=== PATIENT | female | born 1995 | race Caucasian/White ===

== ENCOUNTER 2017-01-13 20:34 | Emergency (ER) | payer MEDICAID ==
[~2017-01-13] VITALS: Ht 160 cm; Wt 70.8 kg
[~2017-01-13 20:34] MED LIST: AMOXICOT500 M1 PO; BACTRIM DS 8001 TA1 PO; BACTRIM DS 8001 TAB PO; CIPRO 500MG TA500 MG PO; EX-LAX25 MG PO; FLAGYL 500MG.500 MG PO; HYDROCODONE-APA1 TA1 PO; KEFLEX 500MG.500 MG PO; KEPPRA 500 MG500 MG PO; KEPPRA500 MG PO; MACROBID100 M3 PO; MOTRIN600 MG PO; NAPROSYN500 M1 PO; NOMEDS XX; NORCO 325 MG-51 TAB PO; ONDANSETRON4 M1 PO; PHENERGAN 25MG.25 M1 PO; PREDNISONE 20MG20 MG PO; PREDNISONE20 MG PO; PRENATAL PLUS1 TA1 PO; PYRIDIUM100 M2 PO; REGLAN10 M1 PO; SEPTRA DS 800 M1 TAB PO; TESSALON PERLE100 MG PO; TYLENOL W/CODEI1 TA2 PO; VIBRAMYCIN HYC100 MG PO; ZOFRAN ODT4 MG PO
[2017-01-13] MEDS ORDERED: KEPPRA1000 MG PO (20:48)
--- NOTE | 2017-01-13 20:59 | Urgent Treatment Center Report ---
History of Present Issue Date/Time Seen by Provider 01/13/172058 Visit Reason Pt arrived:Walked Presenting Problem:PT STATES RASH TO ARMS, LEGS AND NECK THAT BEGAN TWO HOURS AGO Location if Accident: Onset of symptoms date/time:01/13/17/ or onset unknown for:MEDICAL HX UNKNOWN Have you (or family members/close friends) recently traveled outside the [place]? N If Yes, where/when: Have you had exposure to infectious disease within the past month? TB? Other? Specify: Patient states that she noticed a rash on her upper arms about 2 hours ago state that she noticed the one on her right elbow was the most swollen, states that she also noticed that she had a couple of spots on her back too States that areas itch and looks like something may have bitten her ALLERGIES Coded Allergies: ORANGE (FOOD) (ORANGES) (THROAT SWELLING 07/11/16) Penicillins (01/13/17) Home Medications Reported Medications Levetiracetam (Keppra) 1,000 MG PO DAILY History Medical History General CAD? No Angina: No CT: No Hypertension? No Hyperlipidemia? No CHF? No DVT? No PE? No COPD? No Asthma? No Anemia? No GERD? No Gastric ulcers? No GI Bleed? No Hernia? No Thyroid Problems? No Hypothyroidism? No CVA? No Seizures? Yes Diabetes? No Renal Insuffiency? No UTI? No Stones? No BPH? No GB Disease: No Nephritic Syndrome? No Asplenia? No Hepatitis? No Sickle Cell Disease? No Arthritis? No Migraines? No Cataracts? No Glaucoma? No MRSA? No HIV? No TB? No Anxiety? No Depression? No Cancer? No More? 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 No: respiratory distress. 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 No Results/Orders Current Medication Orders Sig/Spenser Start time Last Medication Dose Route Stop Time Status Admin Diphenhydramine HCl 50 MG ONCE ONE 01/13 2115 DC 01/13 IM 01/13 Famotidine 20 MG ONCE ONE 01/13 2115 DC 01/13 PO 01/13 Loratadine 10 MG ONCE ONE 01/13 2115 DC 01/13 PO 01/13 Methylprednisolone 125 MG ONCE ONE 01/13 2115 DC 01/13 Sodium Succinate IM 01/13 Methylprednisolone 0 .STK-MED ONE 01/14 2108 DC Sodium Succinate .ROUTE Diphenhydramine HCl 0 .STK-MED ONE 01/13 2107 DC .ROUTE Famotidine 0 .STK-MED ONE 01/13 2107 DC .ROUTE Loratadine 0 .STK-MED ONE 01/13 2107 DC PO Progress [facility] Progress Notes Date 01/13/17 Time 2142 Comment After medication patient rash much improved no longer red, and continuing to improve. Some areas rash now gone Departure Departure Time of Disposition 2143 Disposition DC Home or Self Care(routine) Clinical Impression Primary Impression: Allergic reaction, urticaria Condition STABLE Referrals NO REFERRAL (Family) Patient Instructions DI for General Allergic Reactions, DI for Hives, Urticaria (Alternative Therapy) Additional Instructions Over the counter Benadryl to help with itching Follow up with family doctor Return if needed Take medication as prescribed Watch for rash to improve or worsen and if you began to have any trouble breathing or worsening of rash go straight to the ER Discharge Counseling Counseled pt/family regarding diagnosis, medications/RX, home care, follow up needs Prescriptions Current Visit Scripts Methylprednisolone (Medrol Dose Merritt) 4 MG PO UD #1 MERRITT TAKE DIRECTED ON PACKAGING at 2148
--- NOTE | 2017-01-13 20:59 | Urgent Treatment Center Report ---
History of Present Issue Date/Time Seen by Provider 01/13/172058 Visit Reason Pt arrived:Walked Presenting Problem:PT STATES RASH TO ARMS, LEGS AND NECK THAT BEGAN TWO HOURS AGO Location if Accident: Onset of symptoms date/time:01/13/17/ or onset unknown for:MEDICAL HX UNKNOWN Have you (or family members/close friends) recently traveled outside the [place]? N If Yes, where/when: Have you had exposure to infectious disease within the past month? TB? Other? Specify: Patient states that she noticed a rash on her upper arms about 2 hours ago state that she noticed the one on her right elbow was the most swollen, states that she also noticed that she had a couple of spots on her back too States that areas itch and looks like something may have bitten her ALLERGIES Coded Allergies: ORANGE (FOOD) (ORANGES) (THROAT SWELLING 07/11/16) Penicillins (01/13/17) Home Medications Reported Medications Levetiracetam (Keppra) 1,000 MG PO DAILY History Medical History General CAD? No Angina: No GA: No Hypertension? No Hyperlipidemia? No CHF? No DVT? No PE? No COPD? No Asthma? No Anemia? No GERD? No Gastric ulcers? No GI Bleed? No Hernia? No Thyroid Problems? No Hypothyroidism? No CVA? No Seizures? Yes Diabetes? No Renal Insuffiency? No UTI? No Stones? No BPH? No GB Disease: No Nephritic Syndrome? No Asplenia? No Hepatitis? No Sickle Cell Disease? No Arthritis? No Migraines? No Cataracts? No Glaucoma? No MRSA? No HIV? No TB? No Anxiety? No Depression? No Cancer? No More? 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 No: respiratory distress. 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 No Results/Orders Current Medication Orders Sig/Spenser Start time Last Medication Dose Route Stop Time Status Admin Diphenhydramine HCl 50 MG ONCE ONE 01/13 2115 DC 01/13 IM 01/13 Famotidine 20 MG ONCE ONE 01/13 2115 DC 01/13 PO 01/13 Loratadine 10 MG ONCE ONE 01/13 2115 DC 01/13 PO 01/13 Methylprednisolone 125 MG ONCE ONE 01/13 2115 DC 01/13 Sodium Succinate IM 01/13 Methylprednisolone 0 .STK-MED ONE 01/14 2108 DC Sodium Succinate .ROUTE Diphenhydramine HCl 0 .STK-MED ONE 01/13 2107 DC .ROUTE Famotidine 0 .STK-MED ONE 01/13 2107 DC .ROUTE Loratadine 0 .STK-MED ONE 01/13 2107 DC PO Progress [facility] Progress Notes Date 01/13/17 Time 2142 Comment After medication patient rash much improved no longer red, and continuing to improve. Some areas rash now gone Departure Departure Time of Disposition 2143 Disposition DC Home or Self Care(routine) Clinical Impression Primary Impression: Allergic reaction, urticaria Condition STABLE Referrals NO REFERRAL (Family) Patient Instructions DI for General Allergic Reactions, DI for Hives, Urticaria (Alternative Therapy) Additional Instructions Over the counter Benadryl to help with itching Follow up with family doctor Return if needed Take medication as prescribed Watch for rash to improve or worsen and if you began to have any trouble breathing or worsening of rash go straight to the ER Discharge Counseling Counseled pt/family regarding diagnosis, medications/RX, home care, follow up needs Prescriptions Current Visit Scripts Methylprednisolone (Medrol Dose Merritt) 4 MG PO UD #1 MERRITT TAKE DIRECTED ON PACKAGING at 2148
--- OUTSIDE RECORDS SUMMARY | 2017-01-13 21:45 | External Medical Summary Rpt ---
Author Author , MARLON Castellanos MARLON Address Unknown Phone [email or web address] Care Team Providers Care Oncology Technician Name Role Phone PETE LIMON Unavailable Unavailable [facility] Unavailable Unavailable [facility]ATOR[facility], [facility] Unavailable Unavailable [facility]ATORIES, [facility] MCKINNEY, MCKINNEY Unavailable Unavailable [facility] Unavailable Unavailable SERVICE, [facility] Unavailable Unavailable SERVICE, [facility] ASTORGA CAR, ASTORGA Unavailable Unavailable CAR [facility], Unavailable Unavailable [facility] CHIPPS SONJA & Unavailable Unavailable DUBILIER, CHIPPS SONJA & DUBILIER HERNANDEZ OLIVIA, HERNANDEZ Unavailable Unavailable OLIVIA [facility], Unavailable Unavailable [facility] Unavailable [facility]available [facility] RA AMANDA, Unavailable Unavailable RA AMANDA RA, SUSHANT, Unavailable Unavailable RA, SUSHANT TOSHA II THO, TOSHA II Unavailable Unavailable THO MARISA PARESH, MARISA Unavailable Unavailable PARESH [facility] Unavailable [facility] ROXANNA KIRKPATRICK, Unavailable Unavailable ROXANNA KIRKPATRICK [facility], Unavailable Unavailable [facility] Unavailable Unavailable [facility], [facility], JOSE LUIS Unavailable Unavailable MAICOL ZE PENA Unavailable Unavailable DONALDO [facility] Unavailable Unavailable HOSPITA, [facility] NATASHA LARSEN MD, Unavailable Unavailable CHAVA VACA MD Unavailable Unavailable MARQUIS [facility] Unavailable Unavailable INC, [facility] Unavailable Unavailable HOSPITAL P, [facility], Unavailable Unavailable [facility] ARNOLD AMANDA, ARNOLD AMANDA Unavailable Unavailable AMOL III TARIQ, Unavailable Unavailable AMOL III TARIQ [facility] Un[facility], [facility] Unavailable Unavailable [facility], [facility] JR DWI, DANISH Unavailable Unavailable JR DWI [facility] Unavailable Unavailable COGOVT, LIGIA FAYETTE [facility] COGOVT LONG, LONG Unavailable Unavailable NIRMALA LEONARD, Unavailable Unavailable NIRMALA LEONARD, Unavailable Unavailable KIERRA LOZADA GRE, Unavailable Unavailable KIERRA GRE [facility] Unavailable Unavailable AMBULANCE, [facility] Unavailable Unavailable ASS[facility]AT, [facility] Unavailable Unavailable MEDICAL, [facility] MERHAR, MERHAR Unavailable Unavailable MUHA, MUHA Unavailable Unavailable MUHA, MUHA Unavailable Unavailable [facility] Unavailable Unavailable [facility], [facility] O[facility]RI DI, O'ADRI Unavailable Unavailable DI [facility], OVERALL Unavailable Unavailable PH[facility], Unavailable [facility]available [facility], [facility] PORNOY JORGE, PORNOY Unavailable Unavailable JORGE RENUSCH GOLDIE, RENUSCH Unavailable Unavailable GOLDIE ASHLI GRICEL, Unavailable Unavailable ASHLI GARZA JOSE, KAYLA JOSE Unavailable Unavailable SCALF CHUY, SCALF CHUY Unavailable Unavailable SCIFRES, KEARA M, Unavailable Unavailable SCIFRES, KEARA M MATTHEWS NICOLE, MATTHEWS Unavailable Unavailable [facility] LYNN SHE, Unavailable Unavailable LYNN SHE [facility] Unavailable Unavailable MEDIC, [facility] Unavailable Unavailable EMERGENCY, [facility] Unavailable Unavailable HOSPITALS, [facility], Unavailable Unavailable [facility], [place] Unavailable Unavailable [place] [facility], [place] [facility] Unavailable Unavailable Purpose Continuity of Care Document - 05-05-2008 through 2016 Problems Code Diagnosis DOS Provider Status G441 VASCULAR 11-25-2016 MUHA HEADACHE NOT ELSEWHERE CLASSIFIED 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 PERIPHERAL N EMERGENCY VERTIGO PHYS UNSPECIFIED EAR J322 CHRONIC 07-21-2016 [facility] ETHMOIDAL N EMERGENCY SINUSITIS PHYS R0789 OTHER CHEST 07-21-2016 [facility] PHYS R42 DIZZINESS 07-21-2016 [place] [facility] G[facility]AT Q69678 ALLERGY TO 07-21-2016 [facility] OTHER FOODS [facility] Z9851 TUBAL 07-21-2016 [facility] C86426 UNSPECIFIED 07-11-2016 [facility] CYST LEFT INC SIDE R1031 RIGHT LOWER 07-11-2016 [facility] [facility] R1032 LEFT LOWER 07-11-2016 [facility] PAIN INC R110 NAUSEA 07-11-2016 [facility] INC R1110 VOMITING 07-11-2016 [facility] R0602 SHORTNESS 12-29-2015 [facility] [place] [facility] R0781 PLEURODYNIA 12-29-2015 [facility] N [facility]ERGENCY PHYS R091 PLEURISY 12-29-2015 [facility] N EMERGENCY PHYS A15156 PERSONAL 12-01-2015 [facility] HISTORY OF [facility] NICOTINE INC DEPENDENCE N3091 CYSTITIS 11-10-2015 [facility] UNSPECIFIED N EMERGENCY WITH PHYS HEMATURIA N3289 OTHER 11-10-2015 [facility] [place] SPECIFIED RADIOLOGY DISORDERS OF BLADDER R1084 GENERALIZED 11-10-2015 [facility] ABDOMINAL N EMERGENCY PAIN PHYS N390 URINARY 11-06-2015 [facility] TRACT [facility], INFECTION [facility] SITE NOT SPECIFIED E860 DEHYDRATION 10-10-2015 [facility] R55 SYNCOPE AND 10-10-2015 [facility] Z392 ENCOUNTER 07-02-2015 [facility] FOR ROUTINE REFERNCE LABORATORIE FOLLOW-UP S Z9889 OTHER 07-02-2015 [facility] SPECIFIED REFERNCE POSTPROCEDU LABORATORIE [facility] STATES S O80 ENCOUNTER 05-10-2015 [facility] FOR ANESTH OF FULL-TERM MERNA HERNANDEZ UNCOMPLICAT ED DELIVERY Z0189 ENCOUNTER 05-10-2015 [facility] OTHER SONJA & SPECIFIED DUBILIER SPECIAL EXAMINATION S Z302 ENCOUNTER 05-10-2015 [facility] FOR ANESTH OF STERILIZATI THE BLUE ON Z370 SINGLE LIVE 05-10-2015 COMMUNITY ANESTH OF MERNA BLUE Z3A37 37 WEEKS 05-10-2015 COMMUNITY GESTATION ANESTH OF OF THE DAVID B373 CANDIDIASIS 05-07-2015 NATASHA Alexandra OF VULVA CHAVA RESENDEZ AND VAGINA Z3483 ENC 05-07-2015 NATASHA Alexandra SUPERVISION CHAVA RESENDEZ OT NORMAL 3 TRIMESTER O471 FALSE LABOR 05-01-2015 NATASHA Alexandra AT/AFTER CHAVA RESENDEZ 37 COMPLETED WEEKS GEST O6003 05-01-2015 [facility]OR [facility] WITHOUT INC DELIVERY THIRD TRIMESTER Z3A36 36 WEEKS 05-01-2015 [facility] GESTATION [facility] OF INC U49321 OTHER SPEC 04-29-2015 [facility] COND 2ND TRIMESTER U01099 OTHER SPEC 04-28-2015 [facility] RELATED INC COND 3RD TRIMESTER Z331 04-28-2015 [facility] INCIDENTAL SERVICE O4703 FALSE LABOR 04-26-2015 [facility] BEFORE 37 MEM HOS[facility] CMPLETE INC WEEKS GEST 3RD TRI Z3A35 35 WEEKS 04-26-2015 [facility] GESTATION [facility] OF INC Z36 ENCOUNTER 04-24-2015 [facility] FOR [facility] INC SCREENING OF MOTHER Z3A34 34 WEEKS 04-17-2015 [facility] GESTATION [facility] OF INC [id number] DECREASED 04-14-2015 [facility] THIRD TRIMESTER NA/UNS O0973 SUP HIGH 04-12-2015 NATASHA Alexandra RISK PREG CHAVA RESENDEZ D/T SOCIAL PROBLEMS THIRD TRI G40A09 ABSENCE 04-11-2015 [facility] NOT INTRACTABLE W/O SE O2693 04-11-2015 [facility] [place] [facility] PSC UNS 3RD TRIMESTER Z3493 ENC 04-09-2015 NATASHA Alexandra SUPERVISION CHAVA RESENDEZ NORMAL UNS 3 TRIMESTER O79780 OTH GEN 04-03-2015 [facility] EPILEPSY [facility] NOT INC INTRACTABLE W/O STATUS EPI O6002 04-03-2015 NATASHA Alexandra LABOR CAHVA RESENDEZ WITHOUT DELIVERY SECOND TRIMESTER Z3A32 32 WEEKS 04-03-2015 [facility] GESTATION [facility] OF INC Z3A31 31 WEEKS 03-29-2015 [facility] OF INC Z3A29 29 WEEKS 03-13-2015 [facility]ATION [facility] OF INC B379 CANDIDIASIS 03-12-2015 [facility] O2393 UNS 03-12-2015 [place] [facility] GENIT[facility] SERV RY TRACT [facility]ATION INF PREG THIRD TRIMESTER O9989 OTH DZ & 03-12-2015 [place] [facility] COND COMP SERV PREG [facility] PUERPERI[facility] R109 UNSPECIFIED 03-12-2015 [place] [facility] ABDOMINAL SERV PAIN [facility] B3749 OTHER 03-11-2015 [facility] CANDIDIASIS K5900 CONSTIPATIO 03-11-2015 [facility] UNSPECIFIED M549 DORSALGIA 03-11-2015 [facility] UNSPECIFIED AMBULANCE SERVICE N1330 UNSPECIFIED 03-11-2015 [facility] HYDRONEPHRO [facility] SIS T95696 03-11-2015 [facility] RENAL [facility] DISEASE UNS TRIMESTER O2690 03-11-2015 [facility] CONDITIONS SERVICE UNS UNS TRIMESTER [id number] MATERNAL 03-11-2015 [facility] [place] [facility] PRESENTATIO N NA/UNS [id number] L & D COMP 03-11-2015 [place] [facility] CORD AROUND SERV NECK W/O FOUNDATION COMPRS NA/UNS Z02521 OTH 03-11-2015 [facility] INF & PARASIT DZ COMP PREG 3RD TRI O623 PRECIPITATE 03-08-2015 NATASHA Alexandra LABOR CHAVA RESENDEZ Z3492 ENC 03-08-2015 [place] [facility] NORMAL [facility] UNS 2 TRIMESTER O331 MAT CARE 03-03-2015 [facility] FAYETTBrenda DISPROPORTI URBAN ON D/T GEN COGOVT CONTRACTED PELV Z3A28 28 WEEKS 03-03-2015 [facility] V221 SUPERVISION 02-27-2015 NATASHA Alexandra OF OTHER CHAVA RESENDEZ NORMAL 39130 THREATENED 02-19-2015 [facility] GROUP ANTEPARTUM 69693 OT CURRENT 02-18-2015 [facility]ICK CONDS [facility] CLASSIFIABL INC E ELSW ANTPRTM V771 SCREENING 02-16-2015 [facility] FOR [facility] DIABETES INC MELLITUS 88402 ASTHMA, 02-03-2015 [facility] UNSPECIFIED [facility] , INC UNSPECIFIED STATUS V222 02-03-2015 [facility] STATE, [facility] INCIDENTAL INC 16540 UNSPECIFIED 01-30-2015 NATASHA Alexandra VAGINITIS CHAVA RESENDEZ AND VULVOVAGINI TIS 62523 HEMORRHAGE 01-30-2015 NATASHA Alexandra FROM CHAVA RESENDEZ PLACENTA PREVIA ANTEPARTUM 47815 OTHER 01-23-2015 [facility] THREATENED [facility] LABOR, INC ANTEPARTUM 83315 ERLY ONSET 01-23-2015 JUAN DIEGO DELIV DELIV AMBULANCE W/WO SERVICE MENTION ANTPRTM COND 00391 ABDOMINAL 01-23-2015 [facility] OTHER AMBULANCE SPECIFIED SERVICE SITE 26343 OTHER 01-15-2015 [facility] SPECIFED [facility] COMPLICATIO INC N ANTEPARTUM V2889 OTHER 12-19-2014 [facility] SPECIFIED [facility] INC SCREENING 3670 HYPERMETROP 12-18-2014 [place] [address] UNSPEC COMP 12-04-2014 [facility] UNSPEC SERVICE EPISODE CARE 37512 ABDOMINAL 12-04-2014 [facility] PAIN, [facility] UNSPECIFIED INC SITE 7840 HEADACHE 11-15-2014 [facility] 53015 CHEST PAIN 11-15-2014 [facility] UNSPECIFIED PHYSICIANS, [facility] 92651 PAP SMER 10-24-2014 NATASHA Alexandra CERV CHAVA RESENDEZ W/ATYPICAL SQUAMOUS CELLS UNDET 6259 UNSPEC 10-07-2014 [facility] SYMPTOM [facility]Y ASSOC PHYS W/FEMALE GENITAL ORGANS 6268 OTH D/O 09-28-2014 NATASHA Alexandra MENSTRUATIO CHAVA RESENDEZ N&OTH ABN BLEED FE GNT TRACT 74599 THREATENED 09-28-2014 NATASHA Alexandra CHAVA MD ANTEPARTUM V7231 ROUTINE 09-28-2014 NATASHA Alexandra GYNECOLOGIC CHAVA RESENDEZ AL EXAMINATION 5990 URINARY 09-17-2014 [facility] TRACT [facility] INFECTION INC SITE NOT SPECIFIED 4619 ACUTE 08-24-2014 [facility] SINUSITIS, [facility] UNSPECIFIED INC 5589 OTH&UNSPEC 08-18-2014 RYAN NONINFECTIO [facility] ITIS&COLITI S 7873 FLATULENCE 08-18-2014 [place] [facility] PAIN 55266 ABDOMINAL 08-18-2014 [place] PA[facility], LEFT MEDICAL UPPER IMAGING ASS QU[facility]ANT V692 PROBLEMS 08-02-2014 [facility] RELATED TO [facility] HIGH-RISK INC SEXUAL BEHAVIOR 9165 HIP THIGH 06-26-2014 [facility] LEG&ANK [facility] INSECT BITE [facility] P NONVENOMOUS INF V1582 PERS HX 06-26-2014 [facility] TOBACCO USE [facility] 82326 ABDOMINAL 03-09-2014 [facility] PAIN RIGHT REGIONAL UPPER MEDIC QUADRANT 85766 UNSPECIFIED 12-13-2013 [facility] VIRAL REGIONAL INFECTION EMERGENCY IN CCE & UNS SITE 81865 FEVER 12-13-2013 [facility] UNSPECIFIED REGIONAL EMERGENCY 7862 COUGH 08-07-2013 [facility] 4660 ACUTE 09-25-2008 [facility] BRONCHITIS [facility] INC 490 BRONCHITIS 09-25-2008 [facility] EMERGENCY SPECIFIED SERVICES ACUTE OR ASSOCIATES CHRONIC 90143 SHORTNESS 09-25-2008 [facility] 02789 UNSPECIFIED 09-05-2008 [facility] CONSTIPATIO SERVICES N ASSOCIATES 3671 MYOPIA 05-05-2008 [facility] M25.531 PAIN IN RIGHT WRIST Medications Na ND Rx Da Fi Fi Am Da Di Ph RX Ph St me C No te ll ll ou ys ag ar # ys at rm s nt no ma ic us Or Da si cy ia de te s n re d LE 16 07 08 60 30 00 TO Ac VE 71 -1 -0 .0 00 TA ti TI 40 2- 4- 00 07 L ve RA 35 20 20 61 CA CE 70 17 17 94 RE TA 1 56 M PH 1, AR 00 MA 0 CY MG #2 TA BL ET LE 16 05 06 60 30 00 TO Ac VE 71 -2 -1 .0 00 TA ti TI 40 4- 6- 00 07 L ve RA 35 20 20 61 CA CE 70 17 17 94 RE TA 1 56 M PH 1, AR 00 MA 0 CY MG #2 TA BL ET LE 16 03 03 60 30 00 TO Ac VE 71 -0 -3 .0 00 TA ti TI 40 9- 1- 00 07 L ve RA 35 20 20 61 CA CE 70 17 17 94 RE TA 1 56 M PH 1, AR 00 MA 0 CY MG #2 TA BL ET FO 00 03 03 60 30 00 TO Ac LI 60 -0 -3 .0 00 TA ti C 33 9- 1- 00 07 L ve AC 16 20 20 61 CA ID 23 17 17 94 RE 1 2 55 PH MG AR MA TA CY BL ET #2 LE 16 02 03 60 30 00 TO Ac VE 71 -2 -1 .0 00 TA ti TI 40 0- 7- 00 07 L ve RA 35 20 20 61 CA CE 50 17 17 51 RE TA 1 52 M PH 50 AR 0 MA MG CY TA #2 BL ET ME 65 02 03 21 7 00 TO Ac CL 16 -2 -1 .0 00 TA ti IZ 20 1- 7- 00 07 L ve IN 44 20 20 61 CA E 21 17 17 51 RE 25 1 97 PH MG AR MA TA CY BL ET #2 ON 57 02 03 10 4 00 WA Ac DA 23 -1 -1 .0 00 L- ti NS 70 0- 0- 00 07 MA ve ET 07 20 20 47 RT RO 71 17 17 00 N 0 96 PH OD AR T MA 4 CY MG #5 TA 91 BL ET NA 65 02 03 14 7 00 WA Ac MD 16 -1 -1 .0 00 L- ti OX 20 0- 0- 00 07 MA ve EN 19 20 20 47 RT 01 17 17 00 50 1 97 PH 0 AR MG MA CY TA BL #5 ET 91 DO 53 04 05 00 14 7 EA 12 MA Ac XY 48 -2 -[address] 50 RT ti CY 90 7- 7- 00 SI 74 IN ve CL 11 20 20 DE J IN 90 09 09 E 5 PH MA HY AR NG CL MA AN AT CY E MD 10 OF 0 CY PS MG NT C HI CA AN P A Results Labs Lab Lab Date Result Refere Interp Status Commen Order Detail nces retati t Range on CBC WITH AUTO DIFF REFLEX (03-09-2014 03:55) Neutrop 60.0 % 43.1-74 complet hils 014 .8 ed (%) 03:55 (Auto) Lymphoc 32.0 % 17.6-40 complet ytes 014 .8 ed (%) 03:55 (Auto) Monocyt 3.1 % 4.4-11. complet es (%) 014 0 ed (Auto) 03:55 Eosinop 2.9 % 0.0-5.8 complet hils 014 ed (%) 03:55 (Auto) Basophi 03-09- 0.4 % 0-1.6 complet ls (%) 014 ed (Auto) 03:55 Neutrop 03-09- 4.3 X 1.8-7.0 complet hils # 014 10 3 ed (Auto) 03:55 Lymphoc 03-09-2 2.3 X 1.0-3.3 complet ytes # 014 10 3 ed (Auto) 03:55 Monocyt 03-09-2 0.2 X 0.3-0.9 complet es # 014 10 3 ed (Auto) 03:55 Eosinop 03-09-2 0.2 X 0.0-0.5 complet hils # 014 10 3 ed (Auto) 03:55 Basophi 03-09-2 0.0 X 0.0-0.2 complet ls # 014 10 3 ed (Auto) 03:55 Comment: If a manual differential is indicated, submit order within Comment: 48 hours" Hematoc 38.4 % 37.0-47 complet rit 014 .0 ed 03:55 Mean 6.9 fL 6.0-10. complet Platele 014 0 ed t 03:55 Volume White 7.1 X 4.8-10. complet Blood 014 10 3 8 ed Count 03:55 Red 4.47 X 4.20-5. complet Blood 014 10 6 40 ed Count 03:55 Hemoglo 12.7 12.0-16 complet bin 014 g/dL .0 ed 03:55 Mean 85.9 fL 81-99 complet Corpusc 014 ed ular 03:55 Volume Mean 28.3 pg 27-31 complet Corpusc 014 ed ular 03:55 Hemoglo bin Mean 32.9 32-36 complet Corpusc 014 g/dL ed ular 03:55 Hemoglo bin Concent Red 13.7 % 11.5-14 complet Cell 014 .5 ed Distrib 03:55 ution Width Platele 292 x10 130-400 complet t Count 014 3 ed 03:55 UPT (03-09-2014 03:50) UPT NEGATIV NEGATIV complet 014 E E ed 03:50 URINE MICROSCOPIC (03-09-2014 03:50) Urine CLOUDY complet Appeara 014 ed nce 03:50 BLOOD, NEGATIV NEGATIV complet URINE 014 E E ed 03:50 Urine 5.5 4.5-8.0 complet pH 014 ed 03:50 Urine 1.022 1.003-1 complet Specifi 014 .035 ed c 03:50 [place] Urine NEGATIV NEGATIV complet Protein 014 E mg/dL E ed 03:50 Urine NEGATIV NEGATIV complet Glucose 014 E mg/dL E ed (UA) 03:50 Urine NEGATIV NEGATIV complet Ketones 014 E mg/dL E ed 03:50 NITRATE POSITIV NEGATIV complet ,URINE 014 E E ed 03:50 Urine NEGATIV NEGATIV complet Bilirub 014 E E ed in 03:50 Comment: THE COLOR OF THE URINE CAN CAUSE A POSITIVE BILIRUBIN. UROBILI 0.2 0.0-1.0 complet NOGEN,U 014 E.H./dL ed RINE 03:50 LEUKOCY TRACE NEGATIV complet TE 014 E ed ESTERAS 03:50 E ,URINE URINE MICROSCOPIC (03-09-2014 03:50) SOURCE, CLEAN complet URINE 014 CATCH ed 03:50 Urine YELLOW complet Color 014 ed 03:50 BLOOD CULTURE (12-13-2013 08:10) Comment: Source Name: BLOOD\\E\\.br\\E\\ BLOOD NO complet CULTURE 014 GROWTH ed 08:10 AFTER 5 DAYS BLOOD CULTURE (12-13-2013 08:05) Comment: Source Name: BLOOD\\E\\.br\\E\\ BLOOD NO complet CULTURE 014 GROWTH ed 08:05 AFTER 5 DAYS CBC WITH AUTO DIFF REFLEX (12-13-2013 07:30) Eosinop -15-2 0.6 % 0.0-5.8 Normal complet hils 014 ed (%) 07:30 (Auto) Basophi 07-15-2 0.2 % 0-1.6 Normal complet ls (%) 014 ed (Auto) 07:30 Neutrop -15-2 4.5 X 1.8-7.0 Normal complet hils # 014 10 3 ed (Auto) 07:30 Lymphoc -15-2 0.5 X 1.0-3.3 Below complet ytes # 014 10 3 low ed (Auto) 07:30 normal Monocyt 07-15-2 0.3 X 0.3-0.9 Normal complet es # 014 10 3 ed (Auto) 07:30 Eosinop 07-15-2 0.0 X 0.0-0.5 Normal complet hils # 014 10 3 ed (Auto) 07:30 Basophi 07-15-2 0.0 X 0.0-0.2 Normal complet ls # 014 10 3 ed (Auto) 07:30 Comment: If a manual differential is indicated, submit order within Comment: 48 hours" White 07-15-2 5.4 X 4.8-10. Normal complet Blood 014 10 3 8 ed Count 07:30 Red 07-15-2 4.47 X 4.20-5. Normal complet Blood 014 10 6 40 ed Count 07:30 Hemoglo 15-2 13.0 12.0-16 Normal complet bin 014 g/dL .0 ed 07:30 Hematoc 15-2 37.6 % 37.0-47 Normal complet rit 014 .0 ed 07:30 Mean 15-2 84.2 fL 81-99 Normal complet Corpusc 014 ed ular 07:30 Volume Mean 12-13-2 29.0 pg 27-31 Normal complet Corpusc 014 ed ular 07:30 Hemoglo bin Mean 15-2 34.5 32-36 Normal complet Corpusc 014 g/dL ed ular 07:30 Hemoglo bin Concent Red 15-2 13.1 % 11.5-14 Normal complet Cell 014 .5 ed Distrib 07:30 ution Width Platele 12-13-2 195 x10 130-400 Normal complet t Count 014 3 ed 07:30 Mean 12-13-2 7.1 fL 6.0-10. Normal complet Platele 014 0 ed t 07:30 Volume Neutrop 12-13-2 82.0 % 43.1-74 Above complet hils 014 .8 high ed (%) 07:30 normal (Auto) Lymphoc 15-2 9.9 % 17.6-40 Below complet ytes 014 .8 low ed (%) 07:30 normal (Auto) Monocyt -15-2 5.9 % 4.4-11. Normal complet es (%) 014 0 ed (Auto) 07:30 Procedures Procedure DOS Code Location Performer Comment [facility] [address] [facility] 7 XM&EVAL COMPRE NEW PT 1/> VST COLLECTIO 38711 [facility] N VENOUS 7 [facility] BLOOD E E VENIPUNCT [facility] URE BLOOD 00090 [facility] COUNT 7 [facility]ALTH[facility] COMPLETE E E AUTOMATED HOSPITALS [facility] COMPREHEN 20030 [facility] SIVE 7 [facility]ALTHCAR [facility]ALTH[facility] METABOLIC E E PANEL [facility]OS[facility] COMPREHEN 00982 [facility] SIVE [address] [place] [address] PANEL THER [address]8839 [facility] PROPH/DX [address] [place] [address] NJX IV HOSPITAL HOSPITAL PUSH SINGLE/1S T SBST/DRUG URNLS DIP [address] STICK/TAB HOSPITAL HOSPITAL LET REAGENT AUTO MICROSCOP Y THERAPEUT 30266 [facility] IC [address] [place] [address] INJECTION [facility] IV PUSH EACH NEW DRUG GONADOTRO 13947 [facility] PIN [address] [place] [address] CHORIONIC [facility] QUALITATI VE INJECTION J2405 [address] ONDANSETR [facility] ON HCL PER 1 MG ECG 53808 [facility] ROUTINE [address] [place] [address] ECG [facility] W/LEAST 12 LDS TRCG ONLY W/O I&[place] [address] [facility] HEAD/BRAI [address] [place] [address] N W/O [facility] CONTRAST MATERIAL INJECTION J[address] KETOROLAC [facility] TROMETHAM INE PER 15 MG BLOOD 72946 [facility] COUNT [address] [place] [address] AUTO&AUTO DIFRNTL WBC RADIOLOGI 87386 [place] [facility] C 7 MEDICAL EXAMINATI SERV ON CHEST FOUNDATIO SINGLE N VIEW FRONTAL GROUND A0425 [facility] MILEAGE 7 AMBULANCE AMBULANCE PER SERVICE SERVICE STATUTE MILE AMB A0427 [facility] SERVICE 7 AMBULANCE AMBULANCE ALS SERVICE SERVICE EMERGENCY TRANSPORT LEVEL 1 COL-CHR/M 15680 ROBBINPATY MEAWVIE S NONDRUG 7 W W [facility] [place] MEDICAL MEDICAL QUAL/JAYRO EA SPEC CREATINE 37780 ROBBINPATY MEADOWVIE KINASE 7 W W TOTAL [facility]ICAL MEDICAL COMPREHEN 56555 ROBBINWVIE MEADOWVIE SIVE 7 W W [facility] PANEL MEDICAL MEDICAL BLOOD 93021 [place] MEADOWVIE COUNT 7 W W [facility] AUTO&AUTO MEDICAL MEDICAL DIFRNTL WBC BLOOD 14143 [facility] COUNT 7 [facility] COMPLETE INC INC AUTO&[place] [address] [place] [facility] & 7 MEDICAL PELVIS IMAGING W/[place] [address] [facility] ABDOMEN & 7 [facility] PELVIS INC INC W/CONTRAS T MATERIAL COMPREHEN 81106 [facility] SIVE 7 [facility] METABOLIC INC INC PANEL URINE 38035 [facility] [place] 7 [facility] TEST INC [place] [address] [facility] LIPASE 7 [facility] INC INC URNLS DIP 61567 [facility] 7 [facility] STICK/TAB INC INC LET REAGENT AUTO MICROSCOP Y RADIOLOGI 40807 [facility] [place] ASTORGA C EXAM 6 RADIOLOGY CAR CHEST 2 VIEWS FRONTAL&[place] [address] [facility] [place] SCALF CHUY HEAD/BRAI 6 RADIOLOGY N W/O CONTRAST MATERIAL BLOOD 27086 [facility] COUNT 6 [facility] COMPLETE INC INC AUTO&AUTO DIFRNTL WBC INJECTION J2405 [facility] 6 [facility] ONDANSETR INC INC ON HCL PER [address] [place] [address] [facility] [place] HEAD/BRAI 6 [facility] N W/O INC INC CONTRAST MATERIAL THERAPEUT 01141 [facility] IC 6 [facility] INJECTION INC [place] [address] [facility] INFUSION 6 [facility] THERAPY/P INC INC ROPHYLAXI S /DX 1ST TO 1 HR GONADOTRO 98990 [facility] PIN 6 [facility] CHORIONIC INC INC QUALITATI VE COMPREHEN 78049 [facility] SIVE 6 [facility] [place] [address] [facility] [place] AMOL ABDOMEN & 6 RADIOLOGY III TARIQ PELVIS W/CONTRAS T MATERIAL SUSCEPTIB 18994 [facility] LTY STDY 6 [facility] ANTIMICRB INC INC IAL MICRO/AGA R DILUTJ CULTURE 91376 [facility] [place] BACTERIAL 6 [facility] INC INC QUANTTATI VE COLONY COUNT URINE CULTURE 78881 [facility] BCT 6 [facility]PR[facility] INC INC PTV ID ISOLATE EA URINE URINE 55713 [facility] TEST INC INC VISUAL COLOR CMPRSN METHS URNLS DIP 40429 [facility] STICK/TAB INC INC LET REAGENT AUTO MICROSCOP Y URNLS DIP 12431 [facility] 6 N N STICK/TAB COMMUNTIY COMMUNTIY LET HOSPITA [place] [address] [facility] INFUSION 6 N N HYDRATION COMMUNTIY COMMUNTIY INITIAL HOSPITA HOSPITA 31 MIN-1 HOUR URINE 32967 [facility] 6 N N TEST COMMUNTIY COMMUNTIY VISUAL HOSPITA HOSPITA COLOR CMPRSN METHS COMPREHEN 12947 [facility] SIVE 6 N N METABOLIC COMMUNTIY COMMUNTIY PANEL HOSPITA HOSPITA BLOOD 27649 [facility] COUNT 6 N N COMPLETE COMMUNTIY COMMUNTIY AUTO&AUTO HOSPITA HOSPITA DIFRNTL WBC COLLECTIO 12808 [facility] N VENOUS 6 N N BLOOD COMMUNTIY COMMUNTIY VENIPUNCT HOSPITA HOSPITA URE ECG 40512 [facility] ROUTINE 6 N N ECG COMMUNTIY COMMUNTIY W/LEAST HOSPITA HOSPITA 12 LDS TRCG ONLY W/O I&R CYTP C/V 08931 BIO BIO AUTO THIN 6 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 URNLS DIP 12985 [facility] STICK/TAB INC INC LET REAGENT AUTO MICROSCOP Y GLUC BLD 73071 [facility] GLUC MNTR 5 [facility] DEV INC [place] [address] [facility] D[facility] INFUSION 5 [facility] THERAPY/P INC INC ROPHYLAXI S /DX 1ST TO 1 HR BASIC 43308 [facility] METABOLIC 5 [facility] PANEL INC INC CALCIUM TOTAL 55625 [facility] NONSTRESS 5 [facility] TEST INC INC BLOOD 18779 [facility] COUNT 5 [facility] COMPLETE INC INC AUTO&AUTO DIFRNTL WBC THERAPEUT 04054 [facility] IC 5 [facility] PROPHYLAC INC INC TIC/DX INJECTION SUBQ/IM 57725 [facility] NONSTRESS 5 [facility] TEST INC INC EVAL C/V 07405 [facility] AMNIOTIC 5 [facility] FLUID INC INC PROTEIN QUAL EA SPECIMEN PARTICLE 58593 [facility] AGGLUTINA 5 [facility] TION INC INC SCREEN EACH ANTIBODY CUL 32724 NATASHA LARSEN PRSMPTV 5 [facility]AVA CHO PTHGNC ORGANISM SCRN W/COLONY ESTIMJ 61875 [facility] NONSTRESS 5 [facility] TEST INC INC EVAL C/V 90954 [facility] AMNIOTIC 5 [facility] FLUID INC INC PROTEIN QUAL EA SPECIMEN URNLS DIP 48707 [facility] 5 [facility] STICK/TAB INC INC LET REAGENT AUTO MICROSCOP Y FTL 26235 [facility] D[facility] FIBRONECT 5 [facility] IN INC INC CERVICOVA G SECRETION S SEMI-JAYRO 40660 [facility] BIOPHYSIC 5 [facility] AL INC INC PROFILE [place] [address] [facility] UTERUS INC INC LIMITED 1/> FETUSES 07168 [facility] D[facility] NONSTRESS 5 [facility] TEST INC INC DOPPLER 49921 [facility] VELOCIMET 5 [facility] RY INC INC [facility] 49999 NATASHA LARSEN DISCHARGE 5 [facility] RESENDEZ [facility] DAY MANAGEMEN T 30 MIN/< OBSERVATI 45158 NATASHA LARSEN ON CARE 5 [facility] RESENDEZ [facility] DISCHARGE MANAGEMEN T SBSQ 15886 NATASHA LARSEN OBSERVATI 5 [facility] RESENDEZ [place] ON CARE/DAY 15 MINUTES SBSQ 17540 [facility] RESENDEZ [place] CARE/DAY 15 MINUTES INITIAL 06495 [facility] RESENDEZ [place] CARE/DAY 50 MINUTES INITIAL 09278 NATASHA LARSEN OBSERVATI 5 [facility] RESENDEZ [place] ON CARE/DAY 30 MINUTES FTL 55367 [facility] FIBRONECT 5 [facility] IN INC INC CERVICOVA G SECRETION S SEMI-JAYRO URNLS DIP 90387 [facility] 5 [facility] STICK/TAB INC INC LET REAGENT AUTO MICROSCOP Y 03946 [facility] D[facility] NONSTRESS 5 [facility] TEST INC INC 33876 [facility] D[facility] NONSTRESS 5 [facility] TEST INC INC INITIAL 97663 [facility] 5 MEDICAL DI CARE/DAY SERV 30 FOUNDATIO MINUTES N HOSPITAL 47148 NATASHA LARSEN DISCHARGE 5 [facility]AVA RESENDEZ [place] DAY MANAGEMEN T 30 MIN/< SBSQ 33269 [facility] RESENDEZ [place] CARE/DAY 15 MINUTES ECG 29524 [facility] JR ROUTINE 5 [facility] W/LEAST P 12 LDS I&R ONLY INITIAL 50311 [facility] 5 [facility] RESENDEZ [place] CARE/DAY 50 MINUTES URNLS DIP 46207 [facility] 5 [facility] STICK/TAB HOSP HOSP LET RGNT AUTO W/O MICROSCOP Y 96359 [facility] D[facility] NONSTRESS 5 [facility] TEST INC INC FTL 43807 [facility] FIBRONECT 5 [facility] IN INC INC CERVICOVA G SECRETION S SEMI-JAYRO URNLS DIP 88264 [facility] 5 [facility] STICK/TAB INC INC LET REAGENT AUTO MICROSCOP Y EVAL C/V 47256 [facility] AMNIOTIC 5 [facility] FLUID INC INC PROTEIN QUAL EA SPECIMEN BLOOD 64369 [facility] COUNT 5 [facility] COMPLETE INC INC AUTO&AUTO DIFRNTL WBC GLUCOSE 09521 [facility] POST 5 [facility] GLUCOSE INC INC DOSE COLLECTIO 44433 [facility] D[facility] N VENOUS 5 [facility] BLOOD INC INC VENIPUNCT URE EVAL C/V 78906 [facility] AMNIOTIC 5 [facility] FLUID INC INC PROTEIN QUAL EA SPECIMEN 20669 [facility] NONSTRESS 5 [facility] TEST INC INC URNLS DIP 27926 [facility] 5 [facility] STICK/TAB INC INC LET REAGENT AUTO MICROSCOP Y FTL 38397 [facility] FIBRONECT 5 [facility] IN INC INC CERVICOVA G SECRETION S SEMI-JAYRO PRESSURIZ 72499 [facility] ED/NONPRE 5 [facility] SSURIZED INC INC INHALATIO N TREATMENT US PREG 54756 NATASHA LARSEN UTERUS 5 [facility] CHO AFTER 1ST TRIMEST GESTATION SMR PRIM 92970 NATASHA LARSEN SRC WET 5 [facility] CHO MOUNT NFCT AGT EVAL C/V 40746 [facility] AMNIOTIC 5 [facility] FLUID INC INC PROTEIN QUAL EA SPECIMEN URNLS DIP 72974 [facility] 5 [facility] STICK/TAB INC INC LET REAGENT AUTO MICROSCOP Y FTL 23400 [facility] FIBRONECT 5 [facility] IN INC INC CERVICOVA G SECRETION S SEMI-JAYRO 11354 [facility] D[facility] NONSTRESS 5 [facility] TEST INC INC THERAPEUT 82247 [facility] IC 5 [facility] PROPHYLAC INC INC TIC/DX INJECTION SUBQ/IM AMB A0427 [facility] SERVICE 5 AMBULANCE AMBULANCE ALS SERVICE SERVICE EMERGENCY TRANSPORT LEVEL 1 GROUND A0425 [facility] MILEAGE 5 AMBULANCE AMBULANCE PER SERVICE SERVICE STATUTE MILE 82224 [facility] NONSTRESS 5 [facility] TEST INC INC URNLS DIP 02171 [facility] 5 [facility] STICK/TAB INC INC LET REAGENT AUTO MICROSCOP Y 18229 NATASHA LARSEN NONSTRESS 5 [facility]AVA RESENDEZ [facility] TEST 87693 [facility] DAVID NONSTRESS 5 PHYSICIAN OLIVIA TEST S GROUP ALPHA-FET 48784 [facility] OPROTEIN 5 [facility] [place] [address] [facility] D[facility] ESTRIOL 5 [facility] INC INC GONADOTRO 55523 [facility] D[facility] PIN 5 [facility] CHORIONIC INC INC QUANTITAT KARIS COLLECTIO 97880 [facility] D[facility] N VENOUS 5 [facility] BLOOD INC INC VENIPUNCT URE OPHTH 06239 [facility] 5 GRE GRE XM&EVAL COMPRE NEW PT 1/> VST DETERMINA 48918 [facility] TION 5 GRE GRE REFRACTIV E STATE GONADOTRO 29887 [facility] PIN 5 [facility] CHORIONIC INC INC QUANTITAT KARIS BLOOD 70536 [facility] COUNT 5 [facility] COMPLETE INC INC AUTO&AUTO DIFRNTL WBC URNLS DIP 55450 [facility] 5 [facility] STICK/TAB INC [place] [address] [facility] INFUSION 5 [facility] THERAPY/P INC INC ROPHYLAXI S /DX 1ST TO 1 HR [facility]OUND [facility]0425 [facility] [place] [address] [facility] AMYLASE 5 [facility] INC INC COMPREHEN 89216 [facility] SIVE 5 [facility] [place] [address] [facility] INFUSION 5 [facility] THERAPY INC INC PROPHYLAX IS/DX EA HOUR AMB A0427 [facility] SERVICE 5 AMBULANCE AMBULANCE ALS SERVICE SERVICE EMERGENCY TRANSPORT LEVEL 1 [place] [address] [facility] LIPASE 5 [facility] INC INC CULTURE 28790 [facility] BACTERIAL 5 [facility] INC INC QUANTTATI VE COLONY COUNT URINE US PREG 26257 NATASHA Alexandra HARPEL UTERUS 5 [facility]AVA CHO AFTER 1[place] [address] NATASHA MCCORMACKL 5 CHAVA CHO UTERUS 14 WK TRANSABDL GESTAT COLPOSCOP 91562 NATASHA MCCORMACKL Y CERVIX 5 [facility] CHO BX CERVIX & [place] PREG 23984 NATASHA Alexandra HARPEL UTERUS 5 [facility] CHO REAL TIME W/IMAGE DCMTN TRANSVAG GROUND A0425 [facility] MILEAGE 5 [facility] PER STATUTE AMBULANCE AMBULANCE MILE AMB A0427 [facility] SERVICE 5 [facility] ALS EMERGENCY AMBULANCE AMBULANCE TRANSPORT LEVEL 1 US PREG 79148 NATASHA DAYPEL UTERUS 5 [facility] REAL TIME W/IMAGE DCMTN TRANSVAG IAADIADOO 50361 NATASHA DAYPEL 5 [facility] CHO TRICHOMON VAGINALIS IADNA 06051 NATASHA LARSEN HERPES 5 [facility] CHO SIMPLX VIRUS DIRECT PROBE TQ CULTURE 03999 NATASHA LARSEN CHLAMYDIA 5 [facility] CHO ANY SOURCE HANDLG&/O 99987 NATASHA MCCORMAKCL R CONVEY 5 [facility] CHO OF SPEC FOR TR OFFICE TO LAB URINLS 12020 NATASHA LARSEN DIP 5 [facility] CHO STICK/TAB LET REAGNT NON-AUTO MICRSCPY URINE 70052 NATASHA LARSEN 5 [facility]AVA RESENDEZ [place] TEST VISUAL COLOR CMPRSN METHS IADNA 42584 NATASHA ALRSEN NEISSERIA 5 [facility]AVA CHO GONORRHOE AE DIRECT PROBE TQ BLOOD 29382 [facility] COUNT 5 [facility] COMPLETE INC INC AUTO&AUTO DIFRNTL WBC URINE 91574 [facility] 5 [facility] TEST INC INC VISUAL COLOR CMPRSN METHS BLOOD 97140 [facility] TYPING 5 [facility] SEROLOGIC INC INC RH (D) CULTURE 95612 [facility] BACTERIAL 5 [facility] INC INC QUANTTATI VE COLONY COUNT URINE URNLS DIP 11770 [facility] 5 [facility] STICK/TAB INC INC LET REAGENT AUTO MICROSCOP Y GONADOTRO 34107 [facility] PIN 5 [facility] CHORIONIC INC INC QUANTITAT KARIS US PREG 12239 [facility] UTERUS 5 MEDICAL AMANDA REAL TIME IMAGING W/IMAGE ASS DCMTN TRANSVAG COLLECTIO 86388 [facility] N VENOUS 5 [facility] BLOOD INC INC VENIPUNCT URE GONADOTRO 00151 [facility] D[facility] PIN 5 [facility] CHORIONIC INC INC QUANTITAT KARIS CULTURE 27975 [facility] BACTERIAL 5 [facility] INC INC QUANTTATI VE COLONY COUNT URINE URINE 14310 [facility] 5 [facility] TEST INC INC VISUAL COLOR CMPRSN METHS OBSTETRIC 16627 [facility] PANEL 5 [facility] INC INC URNLS DIP 29218 [facility] 5 [facility] STICK/TAB INC INC LET REAGENT AUTO MICROSCOP Y IAADI 90378 [facility] INFLUENZA 5 [facility] B VIRUS INC INC IAADI 18497 [facility] D[facility] INFFLUENZ 5 [facility] A A VIRUS INC INC THERAPEUT 00065 [facility] D[facility] IC 5 [facility] INJECTION [place] [address] [facility] INFUSION 5 [facility] THERAPY/P INC INC ROPHYLAXI S /DX 1ST TO 1 HR URNLS DIP 90503 [facility] 5 [facility] STICK/TAB INC INC LET REAGENT AUTO MICROSCOP Y INJECTION J2405 [facility] 5 [facility] ONDANSETR INC INC ON HCL PER 1 [place] [address] [facility] D[facility] AMYLASE 5 [facility] INC INC COMPREHEN 54231 [facility] SIVE 5 [facility] METABOLIC INC INC PANEL URINE 35351 [facility] 5 [facility] TEST INC INC [place] [address] [facility] LIPASE 5 [facility] INC INC BLOOD 25181 [facility] COUNT 5 [facility] COMPLETE INC INC AUTO&AUTO DIFRNTL WBC LOCM Q9967 [facility] [phone] 5 [facility] MG/ML INC [place] [address] [facility] ABDOMEN & 5 [facility] PELVIS INC INC W/CONTRAS T MATERIAL IADNA 10485 [facility] CHLAMYDIA 5 [facility] INC INC TRACHOMAT IS AMPLIFIED PROBE TQ IADNA 14166 [facility] NEISSERIA 5 [facility] INC INC GONORRHOE AE AMPLIFIED PROBE TQ URINE 68460 [facility] OLIVIA TEST S GROUP VISUAL COLOR CMPRSN METHS URINE 28518 [facility] 5 [facility] TEST INC INC VISUAL COLOR CMPRSN METHS URINE [address] J[facility] 4 [facility] TEST MEDIC MEDIC VISUAL COLOR CMPRSN METHS COMPREHEN [address] [facility] SIVE 4 [facility] [place] [address] [facility] LIPASE 4 [facility] MEDIC URNLS DIP [address] JIM 4 [facility] STICK/TAB MEDIC MEDIC LET REAGENT AUTO MICROSCOP Y THERAPEUT [address] JIM IC 4 [facility] PROPHYLAC MEDIC MEDIC TIC/DX INJECTION SUBQ/IM BLOOD [address] [facility] COUNT 4 [facility] COMPLETE MEDIC MEDIC AUTO&AUTO DIFRNTL WBC COLLECTIO [address] JIM N VENOUS 4 [facility] BLOOD MEDIC MEDIC VENIPUNCT URE RADEX [address] [facility] ABDOMEN 1 4 [facility] MEDIC MEDIC ANTEROPOS TERIOR VIEW INJECTION J0500 [facility] JIM 4 [facility] DICYCLOMI MEDIC MEDIC NE HCL UP TO [address] JIM MARISA ROUTINE 4 [facility] W/LEAST 12 LDS I&R ONLY COLLECTIO [address] JIM N VENOUS 4 [facility] BLOOD MEDIC MEDIC VENIPUNCT URE CULTURE [address] JIM BACTERIAL 4 [facility] BLOOD MEDIC MEDIC AEROBIC W/ID ISOLATES PROTHROMB [address] [facility]IM IN TIME 4 [facility] MEDIC MEDIC ECG [address] JIM ROUTINE 4 [facility] ECG MEDIC MEDIC W/LEAST 12 LDS TRCG ONLY W/O I&R RADIOLOGI [address] JIM C EXAM 4 [facility] CHEST 2 MEDIC MEDIC VIEWS FRONTAL&L ATERAL INJECTION J2405 [facility] JIM 4 [facility] ONDANSETR MEDIC MEDIC ON HCL PER [address] B[address] JIM COUNT 4 [facility] COMPLETE MEDIC MEDIC AUTO&[place] [address] JIM INFUSION 4 [facility] HYDRATION MEDIC MEDIC EACH ADDITIONA L HOUR URNLS DIP [address] JIM 4 [facility] STICK/TAB MEDIC MEDIC LET REAGENT AUTO MICROSCOP Y THER [address] JIM PROPH/DX 4 [facility]AL [facility]AL NJX IV MEDIC MEDIC PUSH SINGLE/1S T SBST/DRUG COMPREHEN [address] JIM SIVE 4 [facility] METABOLIC MEDIC MEDIC PANEL URINE [address] JIM 4 [facility] TEST MEDIC MEDIC VISUAL COLOR CMPRSN METHS COMPREHEN 52138 JOSE GARCIA SIVE 4 [facility] PANEL CREATINE 85517 JOSE GARCIA KINASE MB 4 CO [place] [facility] [place] [address] JOSE GARCIA MAGNESIUM 4 CO [facility] CREATINE 64254 JOSE GARCIA KINASE 4 CO [facility] BLOOD 10805 JOSE GARCIA COUNT 4 CO [facility] AUTO&AUTO DIFRNTL WBC GONADOTRO 03316 JOSE GARCIA PIN 4 CO [facility] [place] [place] [address] JOSE GARCIA TROPONIN 4 CO [facility] KARIS RADIOLOGI 14479 JOSE GARCIA C EXAM [address] VIEWS FRONTAL&L ATERAL ECG 55606 JOSE GARCIA ROUTINE 4 [facility] W/LEAST 12 LDS TRCG ONLY W/O I&R RADIOLOGI 59704 [facility] C EXAM 9 [facility] CHEST 2 INC INC VIEWS FRONTAL&L ATERAL ECG 19855 [facility] ROUTINE 9 [facility] ECG INC INC W/LEAST 12 LDS TRCG ONLY W/O I&[place] [address] [facility] TROPONIN 9 [facility] QUANTITAT INC INC KARIS BLOOD 61825 [facility] COUNT 9 [facility] COMPLETE INC INC AUTO&AUTO DIFRNTL WBC CREATINE 03556 [facility] KINASE 9 [facility] TOTAL INC INC URNLS DIP 36690 [facility] 9 [facility] STICK/TAB INC INC LET REAGENT AUTO MICROSCOP Y CREATINE 48325 [facility] KINASE MB 9 [facility] FRACTION INC INC ONLY COMPREHEN 21539 [facility] D[facility] SIVE 9 [facility] METABOLIC INC INC PANEL URINE 84762 [facility] 9 [facility] TEST INC INC VISUAL COLOR CMPRSN METHS URINE 02533 [facility] 9 [facility] TEST INC INC VISUAL COLOR CMPRSN METHS COMPREHEN 54884 [facility] SIVE 9 [facility] METABOLIC INC INC PANEL URNLS DIP 82097 [facility] 9 [facility] STICK/TAB INC INC LET REAGENT AUTO MICROSCOP Y BLOOD 89165 [facility] COUNT 9 [facility] COMPLETE INC INC AUTO&[place] [address] [facility] ABDOMEN 9 [facility] W/[place] [address] [facility] INFUSION 9 [facility] THERAPY/P INC INC ROPHYLAXI S /DX 1ST TO [address] PELVIS 49773 [facility] W/O 9 [facility] CONTRAST INC INC MATERIAL 3D 63926 ELZA KNAPP, RENDERING 9 MEDICAL SUSHANT IMAGING W/INTERP& ASSOCIATE POSTPROC S DIFF WORK STATION FITTING 62074 HERIBERTO LIANA, SPECTACLE 8 VISION KEARA M S XCPT APHAKIA MONOFOCAL OPHTH 62620 HERIBERTO GAINES, MEDICAL 8 VISION KEARA M XM&EVAL COMPRE NEW PT 1/> VST FRAMES V2020 HERIBERTO GAINES, PURCHASES 8 VISION KEARA M 1 VISN V2103 HERIBERTO LIANA, PLANO 8 VISION KEARA M TO+/-4.00 D SPHER 0.12-2.00 D CYL EA Encounters Encounter Start End Date Code Location Performer Type Date OFFICE 30927 [facility] LONG OUTPATIEN 7 7 NURSE T VISIT PRACTITIO 15 NER GR MINUTES OFFICE 98820 OUTPATIEN 7 7 [facility] T VISIT 5 E MINUTES [facility] - 7 7 [facility] OUTPATIEN E T HOSPITALS OFFICE 66608 [facility] 7 7 NURSE ION PRACTITIO NEW/ESTAB NER GR PATIENT 60 MIN [facility] - 7 7 [facility] OUTPATIEN E T HOSPITALS OFFICE 09714 [facility] 7 7 [facility] T VISIT 5 E MINUTES HOSPITALS EMERGENCY 18412 [facility] 7 7 [facility] T VISIT HIGH/URGE NT SEVERITY EMERGENCY 01730 [facility] DEPT 7 7 [place] VISIT EMERGENCY HIGH PHYS SEVERITY& THREAT [facility] JOSE - 7 7 [facility] T [facility]ERGENCY 49719 [facility] T VISIT MEDICAL HIGH/URGE NT SEVERITY [facility] - 7 7 [facility] - 7 7 [facility] OUTPATIEN INC T EMERGENCY 66588 [facility]IS[facility] LOW/MODER SEVERITY EMERGENCY 51064 [facility] 6 [facility] THO VISIT EMERGENCY HIGH PHYS SEVERITY& THREAT FUNJ EMERGENCY 52361 [facility] DEPT 6 6 [place] NICOLE VISIT EMERGENCY HIGH PHYS SEVERITY& THREAT FUNJ EMERGENCY 64775 [facility] AMAYA 6 6 [facility]IC[facility] T VIS[facility] HIGH/URGE NT SEVERITY EMERGENCY 90656 [facility] DEPT 6 6 [facility] VISIT INC HIGH SEVERITY& THREAT FUN [facility] - 6 6 [facility] OUTPATIEN INC T EMERGENCY 38412 [facility] JOSE DEPT 6 6 [place] VISIT EMERGENCY HIGH PHYS SEVERITY& THREAT FUNJ EMERGENCY 34310 [facility] 6 6 [facility] DEPARTMEN INC T VISIT LOW/MODER SEVERITY EMERGENCY 77955 CHEIKH FRAGOSO 6 6 PHYSICIAN GOLDIE [facility] T VISIT HIGH/URGE NT SEVERITY HOSPITAL [facility] - 6 6 [facility] OUTPATIEN INC T EMERGENCY 80241 [facility] 6 6 N DEPARTMEN COMMUNTIY T VISIT [facility] HIGH/URGE NT [facility] - 6 6 N OUTPATIEN COMMUNTIY T [facility] - 5 5 [facility] OUTPATIEN [facility] - 5 5 [facility] 5 5 [facility] - 5 5 [facility] OUTPATIEN [facility] T OFFICE 52179 NATASHA LARSEN OUTPATIEN 5 5 [facility] T VISIT 15 MINUTES [facility] - 5 5 [facility]PATIEN [facility] - 5 5 [facility] OUTPATIEN [facility] T OFFICE 46608 [place] [facility] 5 5 [facility]IN[facility] MINUTES [facility] OFFICE 39189 NATASHA LARSEN OUTPATIEN 5 5 [facility] T VISIT 15 MINUTES HOSPITAL [facility] - 5 5 [facility] INPATIENT INC OFFICE 21106 NATASHA LARSEN OUTPATIEN 5 5 [facility] T VISIT 15 MINUTES [facility]OSPITAL [facility] - 5 5 [facility] OUTPATIEN [facility] T OFFICE 35008 NATASHA LARSEN OUTPATIEN 5 5 [facility] T VISIT 15 MINUTES [facility] RAFAT [facility] 5 5 [facility] - 5 5 [facility] RAFAT - 5 5 [facility]IENT [facility] H[facility] CENTRAL - 5 5 [facility] T OFFICE 82621 NATASHA [facility]ARS[facility] OUTPATIEN 5 5 [place] [facility] T VISIT 15 MINUTES [facility]OSP[facility] - 5 5 [facility]EN [facility] T [facility] RAFAT [facility] 5 5 [facility]EN [facility] T [facility] RAFAT [facility] 5 5 [facility]EN [facility] RAFAT - 5 5 [facility]PATIEN [facility] T OFFICE 94351 NATASHA [facility]ARSEN OUTPATIEN 5 5 [place] [facility] T VISIT 15 MINUTES HOSP[facility] RAFAT [facility] 5 5 [facility] - 5 5 [facility] RAFAT [facility] 5 5 [facility] T OFFICE 22032 [facility] OUTPATIEN 5 5 PHYSICIAN OLIVIA T VISIT S GROUP 15 MINUTES OFFICE 20844 ANTASHA LARSEN OUTPATIEN 5 5 [place] [facility] T VISIT 15 MINUTES HOSP[facility] RAFAT - 5 5 [facility]EN [facility] RAF[facility] 5 5 [facility]PATIEN [facility] T EMERGENCY 73548 [facility] 5 5 [facility] T VISIT HIGH/URGE NT SEVERITY OFFICE 76315 NATASHA LARSEN OUTPATIEN 5 5 [facility] T VISIT 15 MINUTES OFFICE 41391 NATASHA LARSEN OUTPATIEN 5 5 [facility] T VISIT 15 MINUTES EMERGENCY 25124 [facility] Gaytan DEPT 5 5 PHYSICIAN VISIT S, PLL[facility] HIGH SEVERITY& THREAT FUNCJ OFFICE 72664 NATASHA LARSEN OUTPATIEN 5 5 [place] T VISIT 15 MINUTES OFFICE 50066 NATASHA LARSEN OUTPATIEN 5 5 [place] [facility] T VISIT 15 MINUTES EMERGENCY 98991 [facility] 5 5 [facility] EMERGENCY T VISIT PHYS HIGH/URGE NT SEVERITY OFFICE 88831 NATASHA LARSEN OUTPATIEN 5 5 [place] [facility] T VISIT 15 MINUTES INITIAL 43547 NATASHA LARSEN PREVENTIV 5 5 [place] [facility] E MEDICINE NEW PT AGE [id number] EMERGENCY 69364 [facility] AMAYA 5 5 [facility] T VISIT P MODERATE SEVERITY HOSPITAL RAFAT - 5 5 [facility]IEN INC T EMERGENCY 54410 [facility] MODER[facility] SEVERITY [facility] RAFAT - 5 5 [facility] OUTPATIEN INC T HOSPITAL RAFAT [facility] 5 5 [facility] OUTPATIEN INC T EMERGENCY 82011 [facility] 5 5 [facility]IS[facility] LOW/MODER SEVERITY EMERGENCY 91433 [facility] 5 5 [facility] T VISIT P MODERATE SEVERITY HOSPITAL RAFAT - 5 5 [facility] OUTPATIEN INC T EMERGENCY 97640 [facility] 5 [facility] HIGH/URGE NT SEVERITY [facility] RAFAT [facility] 5 5 [facility] OUTPATIEN INC T OFFICE 95767 [facility] OUTPATIEN 5 5 PHYSICIAN OLIVIA T NEW 43 S GROUP MINUTES EMERGENCY 22151 [facility] AMAYA 5 5 [facility] T VISIT P LIMITED/M INOR PROB EMERGENCY 77301 [facility] 5 [facility] VISIT [facility]OW[facility]MODER SEVERITY [facility] RAFAT - 5 5 [facility]PATIEN [facility] T [facility] MEDIC T EMERGENCY [id number] JIM OVERALL 4 4 [facility] [place], [facility] T VISIT EMERGENCY HIGH/URGE NT SEVERITY EMERGENCY [address] ST JIM 4 4 [facility] MEDIC T VISIT MODERATE SEVERITY [facility] ST JIM - 4 4 [facility] [address] JIM 4 4 [facility] MEDIC T VISIT HIGH/URGE NT SEVERITY EMERGENCY 98826 [facility] DEPT 4 4 REGIONAL VISIT HIGH EMERGENCY SEVERITY& [facility] ALVA - 4 4 [facility] T EMERGENCY [address] [facility] T VISIT HIGH/URGE NT SEVERITY EMERGENCY 41495 [facility]URGE NT SEVERITY [facility]OSP[facility] RAFAT - 9 9 [facility] T EMERGENCY 33050 KIERRA LEONARD DEPT 9 9 EMERGENCY NIRMALA Capone VISIT SERVICES HIGH SEVERITY& ASSOCIATE THREAT S [facility] RAFAT [facility] 9 9 [facility] OUTPATIEN INC T EMERGENCY 45240 RAFAT 9 9 [facility] DEPARTMEN INC T VISIT HIGH/URGE NT SEVERITY EMERGENCY 45069 KIERRA KIRKPATRICK DEPT 9 9 EMERGENCY ROXANNA Blanchard VISIT SERVICES HIGH SEVERITY& ASSOCIATE THREAT S [facility]
--- OUTSIDE RECORDS SUMMARY | 2017-01-13 21:45 | External Medical Summary Rpt ---
Author Author , MARLON Castellanos MARLON Address Unknown Phone [email or web address] Providers Care National Sales Name Role Phone PETE LIMON Unavailable Unavailable [facility] Unavailable Unavailable [facility]ORATOR[facility], [facility] Unavailable Unavailable LAB[facility]ATORIES, [facility] MCKINNEY, MCKINNEY Unavailable Unavailable [facility] Unavailable Unavailable SERVICE, [facility] Unavailable Unavailable SERVICE, [facility] ASTORGA CAR, ASTORGA Unavailable Unavailable CAR [facility], Unavailable Unavailable [facility] CHIPPS SONJA & Unavailable Unavailable DUBILIER, [facility] SONJA [facility] DUBILIER HERNANDEZ OLIVIA, HERNANDEZ Unavailable Unavailable OLIVIA [facility], Unavailable Unavailable [facility] Unavailable Unavailable THE [facility], [facility] RA AMANDA, Unavailable Unavailable RA AMANAD RA, SUSHANT, Unavailable Unavailable RA, SUSHANT TOSHA II THO, TOSHA II Unavailable Unavailable THO MARISA PARESH, MARISA Unavailable Unavailable PARESH [facility] Un[facility] ROXANNA KIRKPATRICK, Unavailable Unavailable ROXANNA KIRKPATRICK [facility], Unavailable Unavailable [facility] Unavailable Unavailable [facility], [facility], JOSE LUIS Unavailable Unavailable MAICOL ZE PENA Unavailable Unavailable [facility] Unavailable Unavailable HOSPITA, [facility] NATASHA LARSEN MD, Unavailable Unavailable CHAVA VACA MD Unavailable Unavailable [facility] Unavailable Unavailable INC, [facility] Unavailable Unavailable HOSPITAL P, [facility] P [facility], Unavailable Unavailable [facility] ARNOLD AMANDA, ARNOLD AMANDA Unavailable Unavailable AMOL III TARIQ, Unavailable Unavailable [facility] III TARIQ [facility] Unavailable Unavailable [facility], [facility] Un[facility] Un[facility], [facility] Unavailable Unavailable [facility], [facility] JR DWI, DANISH Unavailable Unavailable JR DWI [facility] Unavailable Unavailable COGOVT, LIGIA FAYETTE [facility] COG[facility]T LONG, LONG Unavailable Unavailable NIRMALA LEONARD, Unavailable Unavailable NIRMALA LEONARD, Unavailable Unavailable KIERRA LOZADA GRE, Unavailable Unavailable KIERRA GRE [facility] Unavailable Unavailable AMBULANCE, [facility] Unavailable Unavailable ASSOCIAT, [facility] Unavailable Unavailable MEDICAL, [facility]ICAL MERHAR, MERHAR Unavailable Unavailable MUHA, MUHA Unavailable Unavailable MUHA, MUHA Unavailable Unavailable [facility] Unavailable Unavailable [facility], [facility] O'ADRI DI, O'ADRI Unavailable [...] Unavailable Unavailable EMERGENCY, [facility] Unavailable Unavailable HOSPITALS, [facility], Unavailable Unavailable [facility], LEGGETT Unavailable Unavailable LEGGETT SHA, LEGGETT SHA Unavailable Unavailable Purpose Continuity of Care Document - 05-05-2008 through 2016 Problems Code Diagnosis DOS Provider Status G441 VASCULAR 11-25-2016 MUHA HEADACHE NOT ELSEWHERE CLASSIFIED 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 [facility] SYNDROME OF BILATERAL LACRIMAL GLANDS H1045 OTHER 11-25-2016 MUHA CHRONIC ALLERGIC CONJUNCTIVI TIS H5213 MYOPIA 11-25-2016 MUHA BILATERAL R51 HEADACHE 10-23-2016 [facility] R569 UNSPECIFIED 10-23-2016 [facility]IONS HOSPITALS H88840 EPILEPSY 07-21-2016 [facility] W/O HOSPITAL STATUS EPILEPTICUS N55331 OTHER 07-21-2016 [facility] PERIPHERAL N EMERGENCY VERTIGO PHYS UNSPECIFIED EAR J322 CHRONIC 07-21-2016 [facility] ETHMOIDAL N EMERGENCY SINUSITIS PHYS R0789 OTHER CHEST 07-21-2016 [facility] PHYS R42 DIZZINESS 07-21-2016 [place] [facility] GIDDINESS ASSOCIAT O32557 ALLERGY TO 07-21-2016 [place] OTHER FOODS [facility] Z9851 TUBAL 07-21-2016 [facility] K32900 UNSPECIFIED 07-11-2016 [facility] CYST LEFT INC SIDE R1031 RIGHT LOWER 07-11-2016 [place] [facility] R1032 LEFT LOWER 07-11-2016 [facility] PAIN INC R110 NAUSEA 07-11-2016 [facility] INC R1110 VOMITING 07-11-2016 [facility] UNSPECIFIED MEDICAL IMAGING ASS R0602 SHORTNESS 12-29-2015 [facility] [place] [facility] R0781 PLEURODYNIA 12-29-2015 [facility] N EMERGENCY PHYS R091 PLEURISY 12-29-2015 [facility] N EMERGENCY PHYS I54439 PERSONAL 12-01-2015 [facility] HISTORY OF MEM HOS[facility] NICOTINE INC DEPENDENCE N3091 CYSTITIS 11-10-2015 [facility] UNSPECIFIED N EMERGENCY WITH PHYS HEMATURIA N3289 OTHER 11-10-2015 [facility] [place] SPECIFIED RADIOLOGY DISORDERS OF BLADDER R1084 GENERALIZED 11-10-2015 [facility] ABDOMINAL N EMERGENCY PAIN PHYS N390 URINARY 11-06-2015 [facility] TRACT [facility]YSIC[facility], INFECTION [facility] SITE NOT SPECIFIED E860 DEHYDRATION 10-10-2015 [facility] R55 SYNCOPE AND 10-10-2015 [facility] Z392 ENCOUNTER 07-02-2015 [facility] FOR ROUTINE REFERNCE LABORATORIE FOLLOW-UP S Z9889 OTHER 07-02-2015 [facility] SPECIFIED REFERNCE POSTPROCEDU LABORATORIE [facility] STATES S O80 ENCOUNTER 05-10-2015 [facility] FOR [...] 05-01-2015 [facility] OF INC T95896 OTHER SPEC 04-29-2015 [facility] COND 2ND TRIMESTER M24886 OTHER SPEC 04-28-2015 [facility] RELATED INC COND 3RD TRIMESTER Z331 04-28-2015 [facility] AMBULANCE INCIDENTAL SERVICE O4703 FALSE LABOR 04-26-2015 [facility] BEFORE 37 MEM HOSP CMPLETE INC WEEKS GEST 3RD TRI Z3A35 35 WEEKS 04-26-2015 [facility] OF INC Z36 ENCOUNTER 04-24-2015 [facility] FOR [facility] INC SCREENING OF MOTHER Z3A34 34 WEEKS 04-17-2015 [facility] OF INC Q456104 DECREASED 04-14-2015 [facility] THIRD TRIMESTER NA/UNS O0973 SUP HIGH 04-12-2015 NATASHA Alexandra RISK PREG [facility] RESENDEZ D/T SOCIAL PROBLEMS THIRD TRI G40A09 ABSENCE 04-11-2015 [facility] NOT INTRACTABLE W/O SE O2693 04-11-2015 [facility]ATED [facility] PSC UNS 3RD TRIMESTER Z3493 ENC 04-09-2015 NATASHA Alexandra SUPERVISION [facility] RESENDEZ NORMAL UNS 3 TRIMESTER O17650 OTH GEN 04-03-2015 [facility] EPILEPSY [facility] NOT INC INTRACTABLE W/O STATUS EPI O6002 04-03-2015 NATASHA Alexandra LABOR CHAVA RESENDEZ WITHOUT DELIVERY SECOND TRIMESTER Z3A32 32 [...] ABDOMINAL SERV PAIN FOUNDATION B3749 OTHER 03-11-2015 [facility] K5900 CONSTIPATIO 03-11-2015 [facility] UNSPECIFIED M549 DORSALGIA 03-11-2015 JU[facility]IE[facility] UNSPECIFIED AMBULANCE SERVICE N1330 UNSPECIFIED 03-11-2015 [facility] HYDRONEPHRO [facility] SIS Z98287 03-11-2015 [place] [facility] RENAL [facility]OUND[facility] DISEASE UNS TRIMESTER O2690 03-11-2015 [facility] CONDITIONS SERVICE UNS UNS TRIMESTER [id number] MATERNAL 03-11-2015 [facility] [place] [facility] PRESENTATIO N NA/UNS [id number] L & D COMP 03-11-2015 [place] [facility] AROUND SERV NECK W/O FOUNDATION COMPRS NA/UNS W70470 OTH 03-11-2015 [facility] INF & PARASIT DZ COMP PREG 3RD TRI O623 PRECIPITATE 03-08-2015 NATASHA Alexandra LABOR CHAVA RESENDEZ Z3492 ENC 03-08-2015 [place] [facility]ICAL NORMAL IMAGING ASS UNS 2 TRIMESTER O331 MAT CARE 03-03-2015 LIGIA FAYETTBrenda DISPROPORTI URBAN ON D/T GEN COGOVT CONTRACTED PELV Z3A28 28 WEEKS 03-03-2015 [facility] V221 SUPERVISION 02-27-2015 NATASHA Alexandra OF OTHER CHAVA RESENDEZ NORMAL 06790 THREATENED 02-19-2015 [facility] ANTEPARTUM 07544 OT CURRENT 02-18-2015 [facility]RICK CONDS [facility] CLASSIFIABL INC E ELSW ANTPRTM V771 SCREENING 02-16-2015 [facility] FOR [facility] DIABETES INC MELLITUS 93282 ASTHMA, 02-03-2015 [facility] UNSPECIFIED [facility] , INC UNSPECIFIED STATUS V222 02-03-2015 [facility] STATE, [facility] INCIDENTAL INC 25724 UNSPECIFIED 01-30-2015 NATASHA Alexandra VAGINITIS CHAVA RESENDEZ AND VULVOVAGINI TIS 59789 HEMORRHAGE 01-30-2015 NATASHA Alexandra FROM CHAVA RESENDEZ PLACENTA PREVIA ANTEPARTUM 29856 OTHER 01-23-2015 [facility] THREATENED [facility] LABOR, INC ANTEPARTUM 05217 ERLY ONSET 01-23-2015 [facility]IE[facility] DELIV DELIV AMBULANCE W/WO SERVICE MENTION ANTPRTM COND 45306 ABDOMINAL 01-23-2015 [facility] OTHER AMBULANCE SPECIFIED SERVICE SITE 43753 OTHER 01-15-2015 [facility] SPECIFED [facility] COMPLICATIO INC N ANTEPARTUM V2889 OTHER 12-19-2014 [facility] SPECIFIED [facility] INC SCREENING 3670 HYPERMETROP 12-18-2014 [place] [address] UNSPEC COMP 12-04-2014 [facility] UNSPEC SERVICE EPISODE CARE 40750 ABDOMINAL 12-04-2014 [facility] PAIN, [facility] UNSPECIFIED INC SITE 7840 HEADACHE 11-15-2014 [facility] 80658 CHEST PAIN 11-15-2014 [facility] UNSPECIFIED PHYSICIANS, [facility] 20615 PAP SMER 10-24-2014 NATASHA Alexandra CERV CHAVA RESENDEZ W/ATYPICAL SQUAMOUS CELLS UNDET 6259 UNSPEC 10-07-2014 [facility] SYMPTOM N EMERGENCY ASSOC PHYS W/FEMALE GENITAL ORGANS 6268 OTH D/O 09-28-2014 NATASHA Alexandra MENSTRUATIO CHAVA RESENDEZ N&OTH ABN BLEED FE GNT TRACT 91777 THREATENED 09-28-2014 NATASHA Alexandra CHAVA MD ANTEPARTUM V7231 ROUTINE 09-28-2014 NATASHA Alexandra GYNECOLOGIC [facility] RESENDEZ AL EXAMINATION 5990 URINARY 09-17-2014 [facility] TRACT [facility] INFECTION INC SITE NOT SPECIFIED 4619 ACUTE 08-24-2014 [facility] SINUSITIS, MEM HOS[facility] UNSPECIFIED INC 5589 OTH&UNSPEC 08-18-2014 [place] NONINFECTIO [facility] P GASTROENTER ITIS&COLITI S 7873 FLATULENCE 08-18-2014 [place] ERUCTATION MEDICAL AND GAS IMAGING ASS PAIN 54410 ABDOMINAL 08-18-2014 [place] PAIN, LEFT MEDICAL UPPER IMAGING ASS QUADRANT V692 PROBLEMS 08-02-2014 [facility] RELATED TO MEM HOSP HIGH-RISK INC SEXUAL BEHAVIOR 9165 HIP THIGH 06-26-2014 [facility] LEG&ANK [facility] INSECT BITE [facility] P NONVENOMOUS INF V1582 PERS HX 06-26-2014 [facility] TOBACCO USE [facility] P [facility] 40746 ABDOMINAL 03-09-2014 [facility] PA[facility] RIGHT REGIONAL UPPER MEDIC QUADRANT 89876 UNSPECIFIED 12-13-2013 [facility] VIRAL REGIONAL INFECTION EMERGENCY IN CCE & UNS SITE 87480 FEVER 12-13-2013 [facility] UNSPECIFIED REGIONAL EMERGENCY 7862 COUGH 08-07-2013 [facility] 4660 ACUTE 09-25-2008 [facility] BRONCHITIS [facility] INC 490 BRONCHITIS 09-25-2008 [facility] SPECIFIED SERVICES ACUTE OR ASSOCIATES CHRONIC 46807 SHORTNESS 09-25-2008 [place] OF BREATH EMERGENCY SERVICES ASSOCIATES 92015 UNSPECIFIED 09-05-2008 [place] CONSTIPATIO SERVICES N ASSOCIATES 3671 MYOPIA [...] 02 03 14 7 00 [place] Ac IN 16 -1 -1 .0 00 L- ti [...] complet Specifi 014 .035 ed c 03:50 [place] Urine NEGATIV NEGATIV complet Protein 014 E [...] Procedures Procedure DOS Code Location Performer Comment [facility] 65290 [facility] 7 XM&EVAL COMPRE NEW PT 1/> VST COLLECTIO 34268 [facility] N VENOUS 7 [facility]ALTH[facility] BLOOD E E VENIPUNCT [facility] URE BLOOD 34809 [facility] COUNT 7 [facility]ALTHCAR HEALTHCAR COMPLETE E E AUTOMATED HOSPITALS [facility] COMPREHEN 49255 [facility] SIVE 7 [facility]ALTHCAR HEALTHCAR METABOLIC E E PANEL HOSPITALS [facility] COMPREHEN 62442 [facility] SIVE [address] [place] [address] PANEL THER 16855 [facility] PROPH/DX [address] [place] [address] NJX IV HOSPITAL HOSPITAL PUSH SINGLE/1S T SBST/DRUG URNLS DIP [address] STICK/TAB HOSPITAL HOSPITAL LET REAGENT AUTO MICROSCOP Y THERAPEUT 28314 [facility] IC [address] [place] [address] INJECTION [facility] IV PUSH EACH NEW DRUG GONADOTRO 87884 [facility] PIN [address] [place] [address] CHORIONIC [facility] QUALITATI VE INJECTION J2405 [address] ONDANSETR [facility] ON HCL PER 1 MG ECG 85897 [facility] ROUTINE [address] [place] [address] ECG [facility] W/LEAST 12 LDS TRCG ONLY W/O I&[place] [address] [facility] HEAD/BRAI [address] [place] [address] N W/O [facility] HOSPITAL CONTRAST MATERIAL INJECTION J18[address] KETOROLAC [facility] TROMETHAM INE PER 15 MG BLOOD 89060 [facility] COUNT [address] [place] [address] AUTO&AUTO DIFRNTL [facility] RADIOLOGI 73004 [place] MERHAR C 7 MEDICAL EXAMINATI SERV ON CHEST FOUNDATIO SINGLE N VIEW FRONTAL GROUND A0425 [facility] MILEAGE 7 AMBULANCE AMBULANCE PER SERVICE SERVICE STATUTE MILE AMB A0427 [facility] SERVICE 7 AMBULANCE AMBULANCE ALS SERVICE SERVICE EMERGENCY TRANSPORT LEVEL 1 COL-CHR/M 27961 ROBBINPAT[facility] MEAWVIE S NONDRUG 7 W W [facility] MEDICAL MEDICAL QUAL/JAYRO EA SPEC CREATINE 30723 ROBBINPATY MEADOWVIE KINASE 7 W W [facility] MEDICAL MEDICAL COMPREHEN 93635 ROBBINWVIE MEADOWVIE SIVE 7 W W METABOLIC [facility] PANEL MEDICAL MEDICAL BLOOD 79363 [place] MEADOWVIE COUNT 7 W W [facility] AUTO&AUTO MEDICAL MEDICAL DIFRNTL WBC BLOOD 52504 [facility] COUNT 7 MEM HOSP MEM HOSP COMPLETE INC INC AUTO&[place] [address] [place] [facility]EN & 7 MEDICAL PELVIS IMAGING W/[place] [address] [facility] ABDOMEN & 7 MEM HOSP MEM HOSP PELVIS INC INC W/CONTRAS T MATERIAL COMPREHEN 66815 [facility] SIVE 7 [facility]OS[facility] METABOLIC INC INC PANEL URINE 60133 [facility] 7 [facility] TEST INC INC [place] [address] [facility] LIPASE 7 [facility] INC INC URNLS DIP 46339 [facility] 7 [facility] STICK/TAB INC INC LET REAGENT AUTO MICROSCOP Y RADIOLOGI 48495 [facility] [place] ASTORGA C EXAM 6 RADIOLOGY CAR CHEST 2 VIEWS FRONTAL&[place] [address] [facility] [place] SCALF CHUY HEAD/BRAI 6 RADIOLOGY N W/O CONTRAST MATERIAL BLOOD 54264 [facility] COUNT 6 [facility] COMPLETE INC INC AUTO&AUTO DIFRNTL WBC INJECTION J2405 [facility] 6 [facility] HOSP ONDANSETR INC INC ON HCL [address] [place] [address] [facility] HEAD/BRAI 6 [facility] N W/O INC INC CONTRAST MATERIAL THERAPEUT 22557 [facility] IC 6 [facility] INJECTION [place] [address] [facility] INFUSION 6 [facility] HOSP THERAPY/P INC INC ROPHYLAXI S /DX 1ST TO 1 HR GONADOTRO 76494 [facility] PIN 6 [facility] HOSP CHORIONIC INC INC QUALITATI VE COMPREHEN 77160 [facility] D[facility] SIVE 6 [facility] [address] [facility] [place] AMOL ABDOMEN & 6 RADIOLOGY III TARIQ PELVIS W/CONTRAS T MATERIAL SUSCEPTIB 57072 [facility] LTY STDY 6 [facility] ANTIMICRB INC INC IAL MICRO/AGA R DILUTJ CULTURE 46628 [facility] BACTERIAL 6 [facility] INC INC QUANTTATI VE COLONY COUNT URINE CULTURE 99270 [facility] BCT 6 [facility] HOS[facility] ISOL&PRSM INC INC PTV ID ISOLATE EA URINE URINE 15199 [facility] 6 [facility]OS[facility] TEST INC INC VISUAL COLOR CMPRSN METHS URNLS DIP 25340 [facility] 6 [facility] MEM HOSP STICK/TAB INC INC LET REAGENT AUTO MICROSCOP Y URNLS DIP 90032 [facility] 6 N N STICK/TAB COMMUNTIY COMMUNTIY LET HOSPITA [place] [address] [facility] INFUSION 6 N N HYDRATION COMMUNTIY COMMUNTIY INITIAL HOSPITA HOSPITA 31 MIN-1 HOUR URINE 05737 [facility] 6 N N TEST COMMUNTIY COMMUNTIY VISUAL HOSPITA HOSPITA COLOR CMPRSN METHS COMPREHEN 97872 [facility] SIVE 6 N N METABOLIC COMMUNTIY COMMUNTIY PANEL HOSPITA HOSPITA BLOOD 55108 [facility] COUNT 6 N N COMPLETE COMMUNTIY COMMUNTIY AUTO&AUTO HOSPITA HOSPITA DIFRNTL WBC COLLECTIO 88188 [facility] N VENOUS 6 N N BLOOD COMMUNTIY COMMUNTIY VENIPUNCT HOSPITA HOSPITA URE ECG 47011 [facility] ROUTINE 6 N N ECG COMMUNTIY COMMUNTIY W/LEAST HOSPITA HOSPITA 12 LDS TRCG ONLY W/O I&R CYTP C/V 58907 BIO BIO AUTO THIN 6 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 IES IES MNL RESCR PHYS ANES IPER 80806 [facility] LWR ABD 5 ANESTH SHE W/LAPS OF THE TUBAL BLUE LIGATION/ TRANSECT SMR PRIM 13794 NATASHA LARSEN SRC WET 5 CHAVA RESENDEZ [facility] AGT SMR PRIM 35156 NATASHA LARSEN SRC WET 5 CHAVA RESENDEZ [facility] AGT 88555 [facility] NONSTRESS 5 MEM HOS[facility] MEM HOS[facility] TEST INC INC 16051 [facility] C[facility]UENT[facility] GANSTER NONSTRESS 5 [facility] CTR URNLS DIP 52570 [facility] 5 [facility] MEM HOSP STICK/TAB INC INC LET REAGENT AUTO MICROSCOP Y GLUC BLD 75631 [facility] GLUC MNTR 5 MEM HOS[facility] MEM HOS[facility] DEV [place] [address] [facility] D[facility] INFUSION 5 MEM H[facility] MEM [facility]OS[facility] THERAPY/P INC INC ROPHYLAXI S /DX 1ST TO 1 HR BASIC 34287 [facility] METABOLIC 5 MEM H[facility] MEM HOSP PANEL INC INC CALCIUM TOTAL 91745 [facility] NONSTRESS 5 MEM HOS[facility] MEM HOS[facility] TEST INC INC BLOOD 45681 [facility] COUNT 5 MEM HOS[facility] MEM HOSP COMPLETE INC INC AUTO&AUTO DIFRNTL WBC THERAPEUT 06809 [facility] IC 5 [facility] H[facility] MEM HOSP PROPHYLAC INC INC TIC/DX INJECTION SUBQ/IM 12809 [facility] NONSTRESS 5 MEM HOS[facility] MEM [facility]OS[facility] TEST INC INC EVAL C/V 71902 [facility] AMNIOTIC 5 MEM HOS[facility] MEM HOS[facility] FLUID INC INC PROTEIN QUAL EA SPECIMEN PARTICLE 66645 [facility] AGGLUTINA 5 MEM H[facility] MEM [facility]OS[facility] TION INC INC SCREEN EACH ANTIBODY CUL 61029 NATASHA LARSEN PRSMPTV 5 CHAVA CHO PTHGNC ORGANISM SCRN W/COLONY ESTIMJ 80037 [facility] NONSTRESS 5 MEM HOSP MEM HOS[facility] TEST INC INC EVAL C/V 98816 [facility] AMNIOTIC 5 MEM HOS[facility] MEM HOSP FLUID INC INC PROTEIN QUAL EA SPECIMEN URNLS DIP 97594 [facility] 5 [facility] MEM HOSP STICK/TAB INC INC LET REAGENT AUTO MICROSCOP Y FTL 21130 [facility] D[facility] FIBRONECT 5 MEM HOS[facility]OS[facility] IN INC INC CERVICOVA G SECRETION S SEMI-JAYRO 12404 [facility] BIOPHYSIC 5 [facility]OS[facility] AL INC INC PROFILE [place] [address] [facility] 5 [facility]OS[facility] UTERUS INC INC LIMITED 1/> FETUSES 41422 [facility] D[facility] NONSTRESS 5 MEM H[facility]OS[facility] TEST INC INC DOPPLER 60357 [facility] VELOCIMET 5 MEM HOS[facility] RY INC INC [facility] 57365 NATASHA LARSEN DISCHARGE 5 [facility] RESENDEZ [place] DAY MANAGEMEN T 30 MIN/< OBSERVATI 64257 NATASHA LARSEN ON CARE 5 [facility] RESENDE[facility] [place] DISCHARGE MANAGEMEN T SBSQ 32747 NATASHA LARSEN OBSERVATI 5 [facility] RESENDE[facility] [place] ON CARE/DAY 15 MINUTES SBSQ 96370 [facility] 5 CHAVA RESENDEZ [place] CARE/DAY 15 MINUTES INITIAL 46581 [facility] 5 CHAVA RESENDEZ [place] CARE/DAY 50 MINUTES INITIAL 64862 NATASHA LARSEN OBSERVATI 5 [facility]AVA RESENDEZ [place] ON CARE/DAY 30 MINUTES FTL 46839 [facility] FIBRONECT 5 MEM H[facility]OS[facility] IN INC INC CERVICOVA G SECRETION S SEMI-JAYRO URNLS DIP 64198 [facility] 5 [facility] MEM HOSP STICK/TAB INC INC LET REAGENT AUTO MICROSCOP Y 47035 [facility] NONSTRESS 5 [facility] H[facility] MEM [facility]OS[facility] TEST INC INC 35346 [facility] D[facility] NONSTRESS 5 [facility] H[facility]OS[facility] TEST INC INC INITIAL 01200 [facility] 5 MEDICAL DI CARE/DAY SERV 30 FOUNDATIO MINUTES N HOSPITAL 48831 NATASHA LARSEN DISCHARGE 5 [facility]AVA RESENDEZ [place] DAY MANAGEMEN T 30 MIN/< SBSQ 65244 [facility] 5 CHAVA RESENDEZ [place] CARE/DAY 15 MINUTES ECG 33736 [facility] PENG JR ROUTINE 5 [facility] W/LEAST P 12 LDS I&R ONLY INITIAL 61269 [facility] 5 [place] RESENDEZ [place] CARE/DAY 50 MINUTES URNLS DIP 09504 [facility] 5 ANGLICAN ANGLICAN STICK/TAB HOSP HOSP LET RGNT AUTO W/O MICROSCOP Y 89471 [facility] NONSTRESS 5 [facility] TEST INC INC FTL 92569 [facility] FIBRONECT 5 [facility] IN INC INC CERVICOVA G SECRETION S SEMI-JAYRO URNLS DIP 56992 [facility] 5 [facility] STICK/TAB INC INC LET REAGENT AUTO MICROSCOP Y EVAL C/V 50038 [facility] AMNIOTIC 5 [facility] FLUID INC INC PROTEIN QUAL EA SPECIMEN BLOOD 18567 [facility] COUNT 5 [facility] COMPLETE INC INC AUTO&AUTO DIFRNTL WBC GLUCOSE 51647 [facility] POST 5 [facility] GLUCOSE INC INC DOSE COLLECTIO 59159 [facility] N VENOUS 5 [facility] BLOOD INC INC VENIPUNCT URE EVAL C/V 29991 [facility] AMNIOTIC 5 [facility] FLUID INC INC PROTEIN QUAL EA SPECIMEN 42244 [facility] NONSTRESS 5 [facility] TEST INC INC URNLS DIP 25645 [facility] 5 [facility] STICK/TAB INC INC LET REAGENT AUTO MICROSCOP Y FTL 05419 [facility] FIBRONECT 5 [facility] IN INC INC CERVICOVA G SECRETION S SEMI-JAYRO PRESSURIZ 23619 [facility] ED/NONPRE 5 [facility] SSURIZED INC INC INHALATIO N TREATMENT US PREG 27135 NATASHA LARSEN UTERUS 5 [facility] CHO AFTER 1ST TRIMEST GESTATION SMR PRIM 17148 NATASHA LARSEN SRC WET 5 [facility] CHO MOUNT NFCT AGT EVAL C/V 71476 [facility] AMNIOTIC 5 [facility] FLUID INC INC PROTEIN QUAL EA SPECIMEN URNLS DIP 04043 [facility] 5 [facility] STICK/TAB INC INC LET REAGENT AUTO MICROSCOP Y FTL 80067 [facility] FIBRONECT 5 [facility] IN INC INC CERVICOVA G SECRETION S SEMI-JAYRO 94594 [facility] D[facility] NONSTRESS 5 [facility] TEST INC INC THERAPEUT 58113 [facility] IC 5 [facility] PROPHYLAC INC INC TIC/DX INJECTION SUBQ/IM AMB A0427 [facility] SERVICE 5 AMBULANCE AMBULANCE ALS SERVICE SERVICE EMERGENCY TRANSPORT LEVEL [address] [facility] MILEAGE 5 AMBULANCE AMBULANCE PER SERVICE SERVICE STATUTE MILE 92266 [facility] NONSTRESS 5 [facility] TEST INC INC URNLS DIP 76232 [facility] 5 [facility] STICK/TAB INC INC LET REAGENT AUTO MICROSCOP Y 02793 NATASHA LARSEN NONSTRESS 5 [place] RESENDEZ [facility] TEST 60813 [facility] DAVID NONSTRESS 5 PHYSICIAN OLIVIA TEST S GROUP ALPHA-FET 86702 [facility] OPROTEIN 5 [facility] [place] [address] [facility] ESTRIOL 5 [facility] INC INC GONADOTRO 86642 [facility] PIN 5 [facility] CHORIONIC INC INC QUANTITAT KARIS COLLECTIO 10798 [facility] N VENOUS 5 [facility] BLOOD INC INC VENIPUNCT URE OPHTH 26323 [facility] 5 GRE GRE XM&EVAL COMPRE NEW PT 1/> VST DETERMINA 396[address] [facility] 5 GRE GRE REFRACTIV E STATE GONADOTRO 93659 [facility] PIN 5 [facility] CHORIONIC INC INC QUANTITAT KARIS BLOOD 80863 [facility] COUNT 5 [facility] COMPLETE INC INC AUTO&AUTO DIFRNTL WBC URNLS DIP 43794 [facility] 5 [facility] STICK/TAB INC [place] [address] [facility] INFUSION 5 [facility] THERAPY/P INC INC ROPHYLAXI S /DX 1ST TO 1 HR [facility]0425 [facility] [place] [address] [facility] AMYLASE 5 [facility] INC INC COMPREHEN 25686 [facility] D[facility] SIVE 5 [facility] [place] [address] [facility] INFUSION 5 [facility] THERAPY INC INC PROPHYLAX IS/DX EA HOUR AMB A0427 [facility] SERVICE 5 AMBULANCE AMBULANCE ALS SERVICE SERVICE EMERGENCY TRANSPORT LEVEL 1 [place] [address] [facility] LIPASE 5 [facility] INC INC CULTURE 13837 [facility] BACTERIAL 5 [facility] INC INC QUANTTATI VE COLONY COUNT URINE US PREG 39039 NATASHA Alexandra HARPEL UTERUS 5 [facility] AFTER 1[place] [address] NATASHA MCCORMACKL 5 [facility] CHO UTERUS 14 WK TRANSABDL GESTAT COLPOSCOP 95288 NATASHA MCCORMACKL Y CERVIX 5 [facility] CHO BX CERVIX & ENDOCRV [place]RETAGE [place] PREG 64513 NATASHA Alexandra HARPEL UTERUS 5 [facility] REAL TIME W/IMAGE DCMTN TRANSVAG GROUND A0425 [facility] 5 [facility] PER STATUTE AMBULANCE AMBULANCE MILE AMB A0427 [facility] SERVICE 5 [facility] ALS EMERGENCY AMBULANCE AMBULANCE TRANSPORT LEVEL 1 US PREG 14645 NATASHA DAYPEL UTERUS 5 [facility] REAL TIME W/IMAGE DCMTN TRANSVAG IAADIADOO 21261 NATASHA DAYPEL 5 [facility] TRICHOMON VAGINALIS IADNA 87972 NATASHA LARSEN HERPES 5 [facility] SIMPLX VIRUS DIRECT PROBE TQ CULTURE 04936 NATASHA LARSEN CHLAMYDIA 5 [facility] ANY SOURCE HANDLG&/O 31019 NATASHA MCCORMACKL R CONVEY 5 [facility] OF SPEC FOR TR OFFICE TO LAB URINLS 86696 NATASHA LARSEN DIP 5 [facility] STICK/TAB LET REAGNT NON-AUTO MICRSCPY URINE 44646 NATASHA LARSEN 5 [facility]AVA RESENDEZ MARQUIS TEST VISUAL COLOR CMPRSN METHS IADNA 64001 NATASHA LARSEN NEISSERIA 5 [facility] CHO GONORRHOE AE DIRECT PROBE TQ BLOOD 37329 [facility] COUNT 5 [facility] COMPLETE INC INC AUTO&AUTO DIFRNTL WBC URINE 92043 [facility] 5 [facility] TEST INC INC VISUAL COLOR CMPRSN METHS BLOOD 81102 [facility] TYPING 5 [facility] SEROLOGIC INC INC RH (D) CULTURE 86582 [facility] BACTERIAL 5 [facility] INC INC QUANTTATI VE COLONY COUNT URINE URNLS DIP 19475 [facility] 5 [facility] STICK/TAB INC INC LET REAGENT AUTO MICROSCOP Y GONADOTRO 23507 [facility] D[facility] PIN 5 [facility] CHORIONIC INC [place] PREG 51481 [facility] UTERUS 5 MEDICAL AMANDA REAL TIME IMAGING W/IMAGE ASS DCMTN TRANSVAG COLLECTIO 99919 [facility] N VENOUS 5 [facility] BLOOD INC INC VENIPUNCT URE GONADOTRO 83019 [facility] D[facility] PIN 5 [facility] CHORIONIC INC INC QUANTITAT KARIS CULTURE 31781 [facility] D[facility] BACTERIAL 5 [facility] INC INC QUANTTATI VE COLONY COUNT URINE URINE 47641 [facility] 5 [facility] TEST INC INC VISUAL COLOR CMPRSN METHS OBSTETRIC 81490 [facility] PANEL 5 [facility] INC INC URNLS DIP 65165 [facility] 5 [facility] STICK/TAB INC INC LET REAGENT AUTO MICROSCOP Y IAADI 77638 [facility] D[facility] INFLUENZA 5 [facility] B VIRUS INC INC IAADI 36253 [facility] D[facility] INFFLUENZ 5 [facility] A A VIRUS INC INC THERAPEUT 46146 [facility] D[facility] IC 5 [facility] INJECTION [place] [address] [facility] INFUSION 5 [facility] THERAPY/P INC INC ROPHYLAXI S /DX 1ST TO 1 HR URNLS DIP 07594 [facility] 5 [facility] STICK/TAB INC INC LET REAGENT AUTO MICROSCOP Y INJECTION J2405 [facility] D[facility] 5 [facility] ONDANSETR INC INC ON HCL PER 1 [place] [address] [facility] D[facility] AMYLASE 5 [facility] INC INC COMPREHEN 74424 [facility] D[facility] SIVE 5 [facility] METABOLIC INC INC PANEL URINE 31916 [facility] 5 [facility] TEST INC [place] [address] [facility] LIPASE 5 [facility] INC INC BLOOD 93257 [facility] COUNT 5 [facility] COMPLETE INC INC AUTO&AUTO DIFRNTL WBC LOCM Q9967 [facility] [phone] 5 [facility] MG/ML INC [place] [address] [facility] ABDOMEN & 5 [facility] PELVIS INC INC W/CONTRAS T MATERIAL IADNA 09113 [facility] CHLAMYDIA 5 [facility] INC INC TRACHOMAT IS AMPLIFIED PROBE TQ IADNA 59797 [facility] NEISSERIA 5 [facility] INC INC GONORRHOE AE AMPLIFIED PROBE TQ URINE 93372 [facility] 5 PHYSICIAN OLIVIA TEST S GROUP VISUAL COLOR CMPRSN METHS URINE 58228 [facility] 5 [facility] TEST INC INC VISUAL COLOR CMPRSN METHS URINE [address] [facility] 4 [facility]IONAL REGIONAL TEST MEDIC MEDIC VISUAL COLOR CMPRSN METHS COMPREHEN [address] [facility] SIVE 4 [facility] [place] [address] [facility] LIPASE 4 [facility] MEDIC MEDIC URNLS DIP [address] JIM 4 [facility]AL [facility]AL STICK/TAB MEDIC MEDIC LET REAGENT AUTO MICROSCOP Y THERAPEUT [address] JIM IC 4 REGIONAL REGIONAL PROPHYLAC MEDIC MEDIC TIC/DX INJECTION SUBQ/IM BLOOD [address] [facility] COUNT 4 [facility]AL [facility] COMPLETE MEDIC MEDIC AUTO&AUTO DIFRNTL WBC COLLECTIO [address] JIM N VENOUS 4 REG[facility]AL [facility]AL BLOOD MEDIC MEDIC VENIPUNCT URE RADEX [address] [facility] ABDOMEN 1 4 [facility] MEDIC MEDIC ANTEROPOS TERIOR VIEW INJECTION J0500 [facility] JIM 4 REGIONAL REGIONAL DICYCLOMI MEDIC MEDIC NE HCL UP TO [address] JIM MARISA ROUTINE 4 MEDICAL [facility] W/LEAST 12 LDS I&R ONLY COLLECTIO [address] JIM N VENOUS 4 REG[facility]AL REGIONAL BLOOD MEDIC MEDIC VENIPUNCT URE CULTURE [address] [facility] BACTERIAL 4 REGIONAL REGIONAL BLOOD MEDIC MEDIC AEROBIC W/ID ISOLATES PROTHROMB [address] JIM IN TIME 4 [facility] MEDIC MEDIC ECG [address] JIM ROUTINE 4 REGIONAL REGIONAL ECG MEDIC MEDIC W/LEAST 12 LDS TRCG ONLY W/O I&R RADIOLOGI [address] JIM C EXAM 4 REGIONAL REGIONAL CHEST 2 MEDIC MEDIC VIEWS FRONTAL&L ATERAL INJECTION J2405 [facility] JIM 4 REGIONAL REGIONAL ONDANSETR MEDIC MEDIC ON HCL PER [address] B[address] JIM COUNT 4 [facility]AL REG[facility]AL COMPLETE MEDIC MEDIC AUTO&[place] [address] [facility] INFUSION 4 REGIONAL REGIONAL HYDRATION MEDIC MEDIC EACH ADDITIONA L HOUR URNLS DIP [address] JIM 4 REGIONAL REGIONAL STICK/TAB MEDIC MEDIC LET REAGENT AUTO MICROSCOP Y THER [address] JIM PROPH/DX 4 REGIONAL REGIONAL NJX IV MEDIC MEDIC PUSH SINGLE/1S T SBST/DRUG COMPREHEN [address] JIM SIVE 4 REGIONAL REGIONAL METABOLIC MEDIC MEDIC PANEL URINE [address] JIM 4 REGIONAL REGIONAL TEST MEDIC MEDIC VISUAL COLOR CMPRSN METHS COMPREHEN 96898 JOSE GARCIA SIVE 4 CO [facility] PANEL CREATINE 25461 JOSE GARCIA KINASE MB 4 CO [facility] [place] [address] JOSE GARCIA MAGNESIUM 4 CO [facility] CREATINE 68818 JOSE GARCIA KINASE 4 CO [facility] BLOOD 35260 JOSE GARCIA COUNT 4 CO [facility] AUTO&AUTO DIFRNTL WBC GONADOTRO 10920 JOSE GARCIA PIN 4 CO [facility] [place] [place] [address] JOSE GARCIA TROPONIN 4 CO [facility] KARIS RADIOLOGI 96533 JOSE GARCIA C EXAM [address] VIEWS FRONTAL&L ATERAL ECG 19893 JOSE GARCIA ROUTINE 4 CO [facility] W/LEAST 12 LDS TRCG ONLY W/O I&R RADIOLOGI 37415 [facility] C EXAM 9 [facility] CHEST 2 INC INC VIEWS FRONTAL&L ATERAL ECG 26589 [facility] ROUTINE 9 [facility] ECG INC INC W/LEAST 12 LDS TRCG ONLY W/O I&[place] [address] [facility] TROPONIN 9 [facility] QUANTITAT INC INC KARIS BLOOD 23767 [facility] COUNT 9 [facility] COMPLETE INC INC AUTO&AUTO DIFRNTL WBC CREATINE 06459 [facility] KINASE 9 [facility] TOTAL INC INC URNLS DIP 65697 [facility] 9 [facility] STICK/TAB INC INC LET REAGENT AUTO MICROSCOP Y CREATINE 02450 [facility] D[facility] KINASE MB 9 [facility] FRACTION INC INC ONLY COMPREHEN 61024 [facility] D[facility] SIVE 9 [facility] METABOLIC INC INC PANEL URINE 76245 [facility] D[facility] 9 [facility] TEST INC INC VISUAL COLOR CMPRSN METHS URINE 32061 [facility] 9 [facility] TEST INC INC VISUAL COLOR CMPRSN METHS COMPREHEN 79620 [facility] SIVE 9 [facility] METABOLIC INC INC PANEL URNLS DIP 61275 [facility] 9 [facility] STICK/TAB INC INC LET REAGENT AUTO MICROSCOP Y BLOOD 22288 [facility] COUNT 9 [facility] COMPLETE INC INC AUTO&[place] [address] [facility] D[facility] ABDOMEN 9 [facility] W/[place] [address] [facility] INFUSION 9 [facility] THERAPY/P INC INC ROPHYLAXI S /DX 1ST TO [address] PELVIS 74431 [facility] D[facility] W/O 9 [facility] CONTRAST INC INC MATERIAL 3D 92314 ELZA KNAPP, RENDERING 9 MEDICAL [facility] IMAGING W/INTERP& ASSOCIATE POSTPROC S DIFF WORK STATION FITTING 86217 HERIBERTO LIANA, SPECTACLE 8 VISION KEARA M S XCPT APHAKIA MONOFOCAL OPHTH 88310 HERIBERTO GAINES, MEDICAL 8 VISION KEARA M XM&EVAL COMPRE NEW PT 1/> VST FRAMES V2020 HERIBERTO GAINES, PURCHASES 8 VISION KEARA M 1 VISN V2103 HERIBERTO LIANA, PLANO 8 VISION KEARA M TO+/-4.00 D SPHER 0.12-2.00 D CYL EA Encounters Encounter Start End Date Code Location Performer Type Date OFFICE 12071 [facility] 7 7 NURSE T VISIT PRACTITIO 15 NER GR MINUTES OFFICE 08642 OUTPATIEN 7 7 [facility] T VISIT 5 E MINUTES [facility] - 7 7 [facility] OUTPATIEN E T HOSPITALS OFFICE 52070 [facility] 7 7 NURSE ION PRACTITIO NEW/ESTAB NER GR PATIENT 60 MIN [facility] - 7 7 [facility] OUTPATI[facility] E T HOSPITALS OFFICE 84396 [facility] 7 7 [facility] T VISIT 5 E MINUTES HOSPITALS EMERGENCY 31011 [place] 7 7 [facility] T VISIT HIGH/URGE NT SEVERITY EMERGENCY 74793 [facility] DEPT 7 7 [facility]DR[facility] VISIT EMERGENCY HIGH PHYS SEVERITY& THREAT [facility] JOSE - 7 7 [facility] T EMERGENCY 92631 [facility] T VISIT MEDICAL HIGH/URGE NT [facility]VERITY [facility] - 7 7 [facility] - 7 7 [facility] INC T EMERGENCY 73992 [facility] 7 [facility] LOW/MODER SEVERITY EMERGENCY 08221 [facility] DE[facility] 6 6 [facility]DR[facility] THO VISIT EMERGENCY HIGH PHYS SEVERITY& THREAT FUNJ EMERGENCY 96747 [facility] DEPT 6 6 SANDRA NICOLE VISIT EMERGENCY HIGH PHYS SEVERITY& THREAT FUNJ EMERGENCY 09253 [facility] AMAYA 6 6 [facility] T VISIT HIGH/URGE NT SEVERITY EMERGENCY 00307 [facility] DEPT 6 6 MEM HOS[facility] VISIT INC HIGH SEVERITY& THREAT [facility] - 6 6 [facility] OUTPATIEN INC T EMERGENCY 75529 [facility] JOSE DEPT 6 6 [place]DR[facility] VISIT EMERGENCY HIGH PHYS SEVERITY& THREAT FUNJ EMERGENCY 84866 [facility] 6 6 [facility] DEPARTMEN INC T VISIT LOW/MODER SEVERITY EMERGENCY 59831 CHEIKH FRAGOSO [address] [facility] S, [facility] T VISIT HIGH/URGE NT SEVERITY HOSPITAL [facility] - 6 6 [facility] OUTPATIEN INC T EMERGENCY 32509 [facility] 6 6 N DEPARTMEN COMMUNTIY T VISIT [facility] HIGH/URGE NT [facility] - 6 6 N OUTPATIEN COMMUNTIY T [facility] - 5 5 [facility] OUTPATIEN [facility] - 5 5 [facility] - 5 5 [facility]PATIEN [facility] RAFAT - 5 5 [facility] OUTPATIEN [facility] T OFFICE 45990 NATASHA [facility]ARSEN OUTPATIEN 5 5 [facility] T VISIT 15 MINUTES [facility] RAFAT - 5 5 [facility] OUTPATIEN [facility] RAFAT [facility] 5 5 [facility] OUTPATIEN [facility] T OFFICE 12124 [place] OUTPATIEN 5 5 [facility] 30 CLINIC MINUTES [facility] OFFICE 93095 NATASHA LARSEN OUTPATIEN 5 5 [facility] T VISIT 15 MINUTES HOSPITAL [facility] - 5 5 [facility] INPATIENT INC OFFICE 25217 NATASHA LARSEN OUTPATIEN 5 5 [facility] T VISIT 15 MINUTES HOSPITAL [facility] - 5 5 [facility] OUTPATIEN [facility] T OFFICE 26368 NATASHA LARSEN OUTPATIEN 5 5 [facility] T VISIT 15 MINUTES HOSPITAL [facility] - 5 5 [facility] OUTPATIEN [facility] UNIVERSIT - 5 5 [facility] RAFAT [facility] 5 5 [facility] INPATIENT [facility] HOSPITAL CENTRAL - 5 5 [place] T OFFICE 08589 NATASHA LARSEN OUTPATIEN 5 5 [facility] T VISIT 15 MINUTES HOSPITAL [facility] - 5 5 [facility] OUTPATIEN [facility] T [facility] - 5 5 [facility] T [facility] - 5 5 [facility] RAFAT - 5 5 [facility] OUTPATIEN [facility] T OFFICE 94205 NATASHA LARSEN OUTPATIEN 5 5 [facility] T VISIT 15 MINUTES HOSPITAL [facility] - 5 5 [facility] OUTPATIEN [facility] - 5 5 [facility] - 5 5 [facility] OUTPATIEN [facility] T OFFICE 24730 [facility] OUTPATIEN 5 5 PHYSICIAN OLIVIA T VISIT S GROUP 15 MINUTES OFFICE 63596 NATASHA LARSEN OUTPATIEN 5 5 [facility] T VISIT 15 MINUTES HOSPITAL [facility] - 5 5 [facility] OUTPATIEN [facility] - 5 5 [facility]PATI[facility] T EMERGENCY 38535 [facility] 5 5 [facility] T VISIT HIGH/URGE NT SEVERITY OFFICE 23872 NATASHA LARSEN OUTPATIEN 5 5 [facility] T VISIT 15 MINUTES OFFICE 10165 NATASHA LARSEN OUTPATIEN 5 5 [facility] T VISIT 15 MINUTES EMERGENCY 56276 CHEIKH Gaytan DEPT 5 5 PHYSICIAN VISIT S, PLLC HIGH SEVERITY& THREAT FUNCJ OFFICE 35642 NATASHA LARSEN OUTPATIEN 5 5 [facility] T VISIT 15 MINUTES OFFICE 21521 NATASHA LARSEN OUTPATIEN 5 5 [facility] T VISIT 15 MINUTES EMERGENCY 67106 [facility] 5 5 [facility] EMERGENCY T VISIT PHYS HIGH/URGE NT SEVERITY OFFICE 53900 NATASHA LARSEN OUTPATIEN 5 5 [facility] T VISIT 15 MINUTES INITIAL 81835 NATASHA LARSEN PREVENTIV 5 5 [facility] E MEDICINE NEW PT AGE 18-39YRS EMERGENCY 95004 [facility] AMAYA 5 5 [facility] T VISIT P MODERATE SEVERITY HOSPITAL [facility] - 5 5 [facility] OUTPATIEN INC T EMERGENCY 16814 [facility] 5 [facility] MODERATE SEVERITY [facility]OSP[facility] - 5 5 [facility] OUTPATIEN INC T HOSPITAL [facility] - 5 5 [facility] OUTPATIEN INC T EMERGENCY 65722 [facility] 5 [facility] T VISIT LOW/MODER SEVERITY EMERGENCY 68471 [facility] PATEL 5 5 [facility] T VISIT P MODERATE SEVERITY HOSPITAL [facility] - 5 5 [facility] OUTPATIEN INC T EMERGENCY 67319 [facility] 5 [facility]IS[facility] HIGH/URGE NT SEVERITY [facility]OSPITAL [facility] - 5 5 [facility] OUTPATIEN INC T OFFICE 32798 [facility] OUTPATIEN 5 5 PHYSICIAN OLIVIA T NEW 43 S GROUP MINUTES EMERGENCY 27314 [facility] AMAYA 5 5 [facility] T VISIT P LIMITED/M INOR PROB EMERGENCY 90735 [facility] 5 [facility] T VISIT LOW/MODER SEVERITY [facility]OSPITAL [facility] - 5 5 [facility] OUTPATIEN [facility] T [facility] 4 4 [facility] T EMERG[facility] [address] [facility] 4 4 [facility] T VISIT EMERGENCY HIGH/URGE NT SEVERITY EMERGENCY 37959 [facility] 4 4 [facility] MEDIC T VISIT MODERATE SEVERITY [facility] - 4 4 [facility] T EMERGENCY [address] [facility] 4 4 [facility] MEDIC T VISIT HIGH/URGE NT SEVERITY EMERGENCY 95887 [facility] DEPT 4 4 REGIONAL VISIT HIGH EMERGENCY SEVERITY& THREAT [facility] [place] - 4 4 [facility] T EMERGENCY 54934 [place] 4 4 [facility] T VISIT HIGH/URGE NT SEVERITY EMERGENCY 07405 [facility] 9 9 [facility] HIGH/URGE NT SEVERITY [facility]OSPITAL [facility] - 9 9 [facility] OUTPATIEN [facility] T EMERGENCY 70184 KIERRA LEONARD DEPT 9 9 EMERGENCY NIRMALA Capone VISIT SERVICES HIGH SEVERITY& ASSOCIATE THREAT S [facility] RAFAT - 9 9 [facility] OUTPATIEN INC T EMERGENCY 01016 [facility] 9 9 [facility] DEPARTMEN INC T VISIT HIGH/URGE NT SEVERITY EMERGENCY 97377 KIERRA KIRKPATRICK DEPT 9 9 EMERGENCY ROXANNA Blanchard VISIT SERVICES HIGH SEVERITY& ASSOCIATE THREAT S [facility]
[2017-01-13] MEDS ORDERED: MEDROL 4MG. DOSE4 MG PO (21:46)
[2017-01-13 21:47] VITALS: BP 114/66
--- OUTSIDE RECORDS SUMMARY | 2017-01-13 21:50 | External Medical Summary Rpt ---
Author Author , MARLON Organization MARLON Address Unknown Phone [email or web address] Care Team Providers Care Lead Etl Developer Name Role Phone PETE LIMON Unavailable Unavailable [facility] Unavailable Unavailable [facility], [facility] Unavailable Unavailable [facility]IES, [facility] MCKINNEY, MCKINNEY Unavailable Unavailable MCKINNEY ALL, MCKINNEY ALL Unavailable Unavailable [facility] Unavailable Unavailable SERVICE, [facility] Unavailable Unavailable [facility]ICE, [facility] ASTORGA CAR, ASTORGA Unavailable Unavailable CAR [facility], Unavailable Unavailable [facility] CHIPPS SONJA & Unavailable Unavailable DUBILIER, CHIPPS SONJA & DUBILIER HERNANDEZ OLIVIA, HERNANDEZ Unavailable Unavailable OLIVIA [facility], Unavailable Unavailable [facility] Unavailable Unavailable [facility], [facility] SUSHANT KNAPP, Unavailable Unavailable SUSHANT KNAPP TOSHA II THO, TOSHA II Unavailable Unavailable THO MARISA PARESH, MARISA Unavailable Unavailable PARESH [facility] Un[facility] ROXANNA KIRKPATRICK, Unavailable Unavailable ROXANNA KIRKPATRICK [facility], Unavailable Unavailable [facility] Unavailable Unavailable [facility], [facility], [facility] Unavailable Unavailable MAICOL ZE PENA Unavailable Unavailable DONALDO [facility] Unavailable Unavailable HOSPITA, [facility] NATASHA LARSEN MD, Unavailable Unavailable CHAVA VACA MD Unavailable Unavailable [facility] Un[facility], [facility] Unavailable Unavailable HOSPITAL P, [facility], [facility]available Unavailable [facility] CLAYTON AMANDA, CLAYTON AMANDA Unavailable Unavailable AMOL III TARIQ, Unavailable Unavailable AMOL III TARIQ [facility], [facility] DANISH MARILY, DANISH MARILY Unavailable Unavailable [facility] DANISH JR DWI, DANISH Unavailable Unavailable JR DWI LIGIA FAYETTE URBAN Unavailable Unavailable COGOVT, LIGIA FAYETTE [facility] LONG, LONG Unavailable Unavailable NIRMALA LEONARD, Unavailable Unavailable NIRMALA LEONARD GRE, Unavailable Unavailable KIERRA LOZADA GRE, Unavailable Unavailable KIERRA [facility] Unavailable Unavailable [facility], [facility] Unavailable Unavailable [facility]AT, [facility] Unavailable Unavailable MEDICAL, [facility] MEDICAL MERHAR, MERHAR Unavailable Unavailable [facility] DEUTSCH, Unavailable Unavailable [facility] P MUHA, MUHA Unavailable Unavailable MUHA, MUHA Unavailable Unavailable [facility] Unavailable Unavailable [facility], [facility] O'ADRI DI, O'ADRI Unavailable Unavailable DI [facility], OVERALL Unavailable Unavailable [facility], Un[facility]available [facility], [facility] PORNOY JORGE, PORNOY Unavailable Unavailable JORGE RENUSCH GOLDIE, RENUSCH Unavailable Unavailable GOLDIEJasmyn CORNELIUS GRICEL, Unavailable Unavailable ASHLI GARZA JOSE, KAYLA [...] Unavailable Unavailable EMERGENCY, [facility] GALVAN, GALVAN Unavailable Unavailable [facility] Unavailable Unavailable HOSPITALS, [facility], Unavailable Unavailable [facility] ARELI, ARELI Unavailable Unavailable ARELI SHA, ARELI SHA Unavailable Unavailable Purpose Continuity of Care Document - 05-05-2008 through 2016 Problems Code Diagnosis DOS Provider Status G441 VASCULAR 11-25-2016 MUHA HEADACHE NOT ELSEWHERE CLASSIFIED 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 H1045 OTHER 11-25-2016 MUHA CHRONIC ALLERGIC CONJUNCTIVI TIS H5213 MYOPIA 11-25-2016 MUHA BILATERAL R51 HEADACHE 10-23-2016 [facility]OSPITALS R569 UNSPECIFIED 10-23-2016 [facility] CONVULSIONS [facility] N46133 EPILEPSY 07-21-2016 [facility] STATUS EPILEPTICUS O44771 OTHER 07-21-2016 [facility] PERIPHERAL N EMERGENCY VERTIGO PHYS UNSPECIFIED EAR J322 CHRONIC 07-21-2016 [facility] ETHMOIDAL N EMERGENCY SINUSITIS PHYS R0789 OTHER CHEST 07-21-2016 [facility] PAIN N EMERGENCY PHYS R42 DIZZINESS 07-21-2016 [place] [facility] GIDDINESS ASSOCIAT D87177 ALLERGY TO 07-21-2016 [place] OTHER FOODS [facility] Z9851 TUBAL 07-21-2016 [facility] G42317 UNSPECIFIED 07-11-2016 [facility] CYST LEFT INC SIDE R1031 RIGHT LOWER 07-11-2016 [facility] [facility] R1032 LEFT LOWER 07-11-2016 [facility] PAIN INC R110 NAUSEA 07-11-2016 [facility] R1110 VOMITING 07-11-2016 [facility] R0602 SHORTNESS 12-29-2015 [facility] [place] [facility] R0781 PLEURODYNIA 12-29-2015 [facility] N EMERGENCY PHYS R091 PLEURISY 12-29-2015 [facility] N EMERGENCY PHYS Z59665 PERSONAL 12-01-2015 [facility] HISTORY OF [facility] NICOTINE INC DEPENDENCE N3091 CYSTITIS 11-10-2015 [facility] UNSPECIFIED N EMERGENCY WITH PHYS HEMATURIA N3289 OTHER 11-10-2015 [facility] [place] SPECIFIED [facility]Y DISORDERS OF BLADDER R1084 GENERALIZED 11-10-2015 [facility] ABDOMINAL N EMERGENCY PAIN PHYS N390 URINARY 11-06-2015 [facility], INFECTION [facility] SITE NOT SPECIFIED E860 DEHYDRATION 10-10-2015 [place] [facility] R55 SYNCOPE AND 10-10-2015 [place] [facility] Z392 ENCOUNTER 07-02-2015 [facility] FOR ROUTINE REFERNCE LABORATORIE FOLLOW-UP S Z9889 OTHER 07-02-2015 BIO SPECIFIED REFERNCE POSTPROCEDU LABORATORIE [facility] STATES S O80 ENCOUNTER 05-10-2015 [facility] FOR ANESTH OF FULL-TERM MERNA BLUE UNCOMPLICAT ED DELIVERY Z0189 ENCOUNTER 05-10-2015 [facility] OTHER SONJA & SPECIFIED DUBILIER SPECIAL EXAMINATION S Z302 ENCOUNTER 05-10-2015 [facility] FOR ANESTH OF STERILIZATI MERNA BLUE ON Z370 SINGLE LIVE 05-10-2015 [facility] ANESTH OF THE BLUE Z3A37 37 WEEKS 05-10-2015 [facility] GESTATION ANESTH OF OF THE BLUE B373 CANDIDIASIS 05-07-2015 NATASHA Alexandra OF VULVA CHAVA RESENDEZ AND VAGINA Z3483 ENC 05-07-2015 NATASHA Alexandra SUPERVISION CHAVA RESENDEZ OTH NORMAL 3 TRIMESTER O471 FALSE LABOR 05-01-2015 NATASHA Alexandra AT/AFTER CHAVA RESENDEZ 37 COMPLETED WEEKS GEST O6003 05-01-2015 [facility] WITHOUT INC DELIVERY THIRD TRIMESTER Z3A36 36 WEEKS 05-01-2015 [facility] GESTATION [facility] OF INC A58914 OTHER SPEC 04-29-2015 [facility] COND 2ND TRIMESTER S95946 OTHER SPEC 04-28-2015 [facility] RELATED INC COND 3RD TRIMESTER Z331 04-28-2015 [facility] AMBULANCE INCIDENTAL SERVICE O4703 FALSE LABOR 04-26-2015 [facility] BEFORE 37 MEM HOSP CMPLETE INC WEEKS GEST 3RD TRI Z3A35 35 WEEKS 04-26-2015 [facility] GESTATION [facility] OF INC Z36 ENCOUNTER 04-24-2015 [facility] FOR [facility] INC SCREENING OF MOTHER Z3A34 34 WEEKS 04-17-2015 [facility] GESTATION [facility] OF INC L430297 DECREASED 04-14-2015 [facility] THIRD TRIMESTER NA/UNS O0973 SUP HIGH 04-12-2015 NATASHA Alexandra RISK PREG CHAVA RESENDEZ D/T SOCIAL PROBLEMS THIRD TRI G40A09 ABSENCE 04-11-2015 [facility] NOT INTRACTABLE W/O SE O2693 04-11-2015 [facility] [place] [facility] PSC UNS 3RD TRIMESTER Z3493 ENC 04-09-2015 NATASHA Alexandra SUPERVISION CHAVA RESENDEZ NORMAL UNS 3 TRIMESTER P49963 OTH GEN 04-03-2015 [facility] EPILEPSY [facility] NOT INC INTRACTABLE W/O STATUS EPI O6002 04-03-2015 NATASHA LARSEN MD WITHOUT DELIVERY SECOND TRIMESTER Z3A32 32 WEEKS [...] ABDOMINAL SERV PAIN FOUNDATION B3749 OTHER 03-11-2015 [facility] CANDIDIASIS K5900 CONSTIPATIO 03-11-2015 [facility] UNSPECIFIED M549 DORSALGIA 03-11-2015 [facility] UNSPECIFIED AMBULANCE SERVICE N1330 UNSPECIFIED 03-11-2015 [facility] HYDRONEPHRO [facility] SIS E86442 03-11-2015 [place] [facility] RENAL [facility]OUND[facility] DISEASE UNS TRIMESTER O2690 03-11-2015 [facility] CONDITIONS SERVICE UNS UNS TRIMESTER V938LV8 MATERNAL 03-11-2015 [facility] [place] FOUNDATION PRESENTATIO N NA/UNS Z9384X8 L & D COMP 03-11-2015 [place] [facility] AROUND SERV NECK W/O FOUNDATION COMPRS NA/UNS H92626 OTH 03-11-2015 [facility] INF & PARASIT DZ COMP PREG 3RD TRI O623 PRECIPITATE 03-08-2015 NATASHA Alexandra LABOR CHAVA RESENDEZ Z3492 ENC 03-08-2015 [facility] NORMAL IMAG[facility] ASS UNS 2 TRIMESTER O331 MAT CARE 03-03-2015 LIGIA FAYETTE DISPROPORTI URBAN ON D/T GEN COGOVT CONTRACTED PELV Z3A28 28 WEEKS 03-03-2015 [facility] V221 SUPERVISION 02-27-2015 NATASHA Alexandra OF VICTOR HUGO LARSEN MD NORMAL 59940 THREATENED 02-19-2015 [facility] ANTEPARTUM 09258 OT CURRENT 02-18-2015 [facility] MAT CONDS [facility] CLASSIFIABL INC E ELSW ANTPRTM V771 SCREENING 02-16-2015 [facility] FOR [facility] DIABETES INC MELLITUS 67058 ASTHMA, 02-03-2015 [facility] UNSPECIFIED [facility] , INC UNSPECIFIED STATUS V222 02-03-2015 [facility] INCIDENTAL INC 60620 UNSPECIFIED 01-30-2015 NATASHA Alexandra VAGINITIS CHAVA RESENDEZ AND VULVOVAGINI TIS 02924 HEMORRHAGE 01-30-2015 NATASHA LARSEN MD PLACENTA PREVIA ANTEPARTUM 88240 OTHER 01-23-2015 [facility] THREATENED [facility] LABOR, INC ANTEPARTUM 63487 ERLY ONSET 01-23-2015 [facility] DELIV DELIV AMBULANCE W/WO SERVICE MENTION ANTPRTM COND 42141 ABDOMINAL 01-23-2015 [facility] PA[facility] OTHER AMBULANCE SPECIFIED SERVICE SITE 52723 OTHER 01-15-2015 [facility] SPECIFED [facility] COMPLICATIO INC N ANTEPARTUM V2889 OTHER 12-19-2014 [facility] SPECIFIED [facility] INC SCREENING 3670 HYPERMETROP 12-18-2014 [place] [address] UNSPEC COMP 12-04-2014 [facility] UNSPEC SERVICE EPISODE CARE 00208 ABDOMINAL 12-04-2014 [facility] PAIN, MEM HOS[facility] UNSPECIFIED INC SITE 7840 HEADACHE 11-15-2014 [facility], [facility] 17730 CHEST PAIN 11-15-2014 [facility] UNSPECIFIED PHYSICIANS, [facility] 86905 PAP SMER 10-24-2014 NATASHA Alexandra CERV CHAVA RESENDEZ W/ATYPICAL SQUAMOUS CELLS UNDET 6259 UNSPEC 10-07-2014 [facility] SYMPTOM N EMERGENCY ASSOC PHYS W/FEMALE GENITAL ORGANS 6268 OTH D/O 09-28-2014 NATASHA Alexandra MENSTRUATIO CHAVA RESENDEZ N&OTH ABN BLEED FE GNT TRACT 92244 THREATENED 09-28-2014 NATASHA Alexandra CHAVA MD ANTEPARTUM V7231 ROUTINE 09-28-2014 NATASHA Alexandra GYNECOLOGIC CHAVA RESENDEZ AL EXAMINATION 5990 URINARY 09-17-2014 [facility] TRACT [facility] INFECTION INC SITE NOT SPECIFIED 4619 ACUTE 08-24-2014 [facility] SINUSITIS, MEM HOSP UNSPECIFIED INC 5589 OTH&UNSPEC 08-18-2014 [place] NONINFECTIO [facility] P GASTROENTER ITIS&COLITI S 7873 FLATULENCE 08-18-2014 [facility] [facility] PAIN 90404 ABDOMINAL 08-18-2014 [place] PAIN, LEFT MEDICAL UPPER IMAGING ASS QUADRANT V692 PROBLEMS 08-02-2014 [facility] RELATED TO MEM HOSP HIGH-RISK INC SEXUAL BEHAVIOR 9165 HIP THIGH 06-26-2014 [place] LEG&ANK [facility] INSECT BITE [facility] P NONVENOMOUS INF V1582 PERS HX 06-26-2014 [place] TOBACCO USE [facility] P [facility] 93994 ABDOMINAL 03-09-2014 [facility] PAIN RIGHT REGIONAL UPPER MEDIC QUADRANT 75527 UNSPECIFIED 12-13-2013 [facility] VIRAL REGIONAL INFECTION EMERGENCY IN CCE & UNS SITE 44407 FEVER 12-13-2013 [facility] UNSPECIFIED REGIONAL EMERGENCY 7862 COUGH 08-07-2013 [facility] 4660 ACUTE 09-25-2008 [facility] BRONCHITIS [facility]OSP INC 490 BRONCHITIS 09-25-2008 [facility] DOUGLAS EMERGENCY SPECIFIED SERVICES ACUTE OR ASSOCIATES CHRONIC 67311 SHORTNESS 09-25-2008 [facility] EMERGENCY SERVICES ASSOCIATES 88037 UNSPECIFIED 09-05-2008 [facility] CONSTIP[facility]IO SERVICES N ASSOCIATES 3671 MYOPIA 05-05-2008 [facility] VISION Medications Na ND Rx Da Fi Fi [...] TA CY BL ET #2 LE 16 03 03 60 30 00 TO Ac VE 71 -0 -3 .0 00 TA ti TI 40 9- 1- 00 07 L ve RA 35 20 20 61 CA CE 70 17 17 94 RE TA 1 56 M PH 1, AR 00 MA 0 CY MG #2 TA BL ET LE 16 02 03 60 30 00 [...] 02 03 14 7 00 WA Ac MI 16 -1 -1 .0 00 L- ti [...] NT C HI CA AN P A Procedures Procedure DOS Code Location Performer Comment OPHTH 29946 MUHA MUHA MEDICAL 7 XM&EVAL COMPRE NEW PT 1/> VST BLOOD 40687 [facility] COUNT 7 [facility] COMPLETE E E [facility] COMPREHEN 98447 [facility] SIVE 7 [facility]ALTHCAR HEALTH[facility] METABOLIC E E PANEL [facility] COLLECTIO 55655 [facility] N VENOUS 7 HEALTHCAR HEALTHCAR BLOOD E E VENIPUNCT [facility] URE URNLS DIP [address] STICK/TAB HOSPITAL [facility] [place] [address] [facility] HEAD/BRAI 7 N W/O RADIOLOGY RADIOLOGY CONTRAST ASSOCIAT ASSOCIAT MATERIAL INJECTION J18[address] KETOROLAC [facility] TROMETHAM INE PER 15 MG THER 85044 [facility] PROPH/DX [address] [place] [address] NJX [facility] HOSPITAL PUSH SINGLE/1S T SBST/DRUG THERAPEUT 66605 [facility] IC [address] [place] [address] IV PUSH EACH NEW DRUG COMPREHEN 86303 [facility] SIVE [address] [place] [address] PANEL ECG 93038 [facility] ROUTINE [address] [place] [address] ECG [facility] W/LEAST 12 LDS TRCG ONLY W/O I&R BLOOD 06835 [facility] COUNT [address] [place] [address] AUTO&AUTO DIFRNTL WBC INJECTION J[address] [facility] PER 1 MG GONADOTRO 95446 [facility] PIN 7 [facility] QUALITATI VE AMB A0427 [facility] SERVICE 7 AMBULANCE AMBULANCE ALS SERVICE SERVICE EMERGENCY TRANSPORT LEVEL 1 RADIOLOGI 72956 [place] CINTH[facility] C 7 MEDICAL EXAMINATI SERV ON CHEST FOUNDATIO SINGLE N VIEW FRONTAL GROUND A0425 [facility] MILEAGE 7 AMBULANCE AMBULANCE PER SERVICE SERVICE STATUTE MILE COMPREHEN 74460 [facility] SIVE 7 W W METABOLIC [facility]AL [facility] PANEL MEDICAL MEDICAL BLOOD 60529 [facility] COUNT 7 W W COMPLETE [facility] AUTO&AUTO MEDICAL MEDICAL DIFRNTL WBC COL-CHR/M 31065 [facility] NONDRUG 7 W W [facility] MEDICAL MEDICAL QUAL/JAYRO EA SPEC CREATINE 04276 [facility] KINASE 7 W W [facility] [place] [address] [facility] LIPASE 7 MEM HOSP MEM HOSP INC INC BLOOD 38994 [facility] COUNT 7 MEM HOSP MEM HOSP COMPLETE INC INC AUTO&AUTO DIFRNTL WBC COMPREHEN 22631 [facility] SIVE 7 MEM HOSP MEM HOSP METABOLIC INC INC PANEL URINE 08512 [facility] 7 MEM HOSP MEM HOSP TEST INC [place] [address] [facility] ABDOMEN & 7 MEM HOSP MEM HOSP PELVIS INC INC W/CONTRAS T MATERIAL URNLS DIP 85938 [facility] 7 MEM HOSP [facility] STICK/TAB INC [place] [address] [place] [facility] ABDOMEN & 7 MEDICAL PELVIS IMAGING W/O ASS CONTRAST MATERIAL RADIOLOGI 88532 [facility] [place] ASTORGA C EXAM 6 RADIOLOGY CAR CHEST 2 VIEWS FRONTAL&[place] [address] [facility] [place] SCALF CHUY HEAD/BRAI 6 RADIOLOGY N W/[place] [address] [place] M[facility] ALL HEAD/BRAI 6 MEDICAL [place] [address] [facility] INFUSION 6 MEM HOSP MEM HOS[facility] THERAPY/P INC INC ROPHYLAXI S /DX 1ST TO 1 HR THERAPEUT 86901 [facility] IC 6 MEM HOSP MEM HOSP INJECTION INC INC IV PUSH EACH NEW DRUG COMPREHEN 73437 [facility] SIVE 6 MEM HOSP MEM HOSP METABOLIC INC INC PANEL INJECTION J2405 [facility] 6 MEM HOSP [facility] ONDANSETR INC INC ON HCL PER 1 MG GONADOTRO 84994 [facility] PIN 6 MEM HOSP MEM HOSP CHORIONIC INC INC QUALITATI VE BLOOD 75961 [facility] COUNT 6 MEM HOSP MEM HOSP COMPLETE INC INC AUTO&[place] [address] [facility] [place] AMOL ABDOMEN & 6 RADIOLOGY III TARIQ PELVIS W/CONTRAS T MATERIAL URINE 09414 [facility] FERRERAON 6 MEM HOSP [facility] TEST INC INC VISUAL COLOR CMPRSN METHS URNLS DIP 83961 [facility] 6 MEM HOSP [facility] STICK/TAB INC INC LET REAGENT AUTO MICROSCOP Y CULTURE 67973 [facility] BACTERIAL 6 MEM HOSP MEM HOSP INC INC QUANTTATI VE COLONY COUNT URINE CULTURE 96480 [facility] BCT 6 [facility] HOSP [facility] ISOL&PRSM INC INC PTV ID ISOLATE EA URINE SUSCEPTIB 07975 [facility] LTY STDY 6 [facility] ANTIMICRB INC INC IAL MICRO/AGA R DILUTJ BLOOD 81103 [facility] COUNT 6 N N COMPLETE COMMUNTIY COMMUNTIY AUTO&AUTO HOSPITA HOSPITA DIFRNTL WBC ECG 51445 [facility] ROUTINE 6 N N ECG COMMUNTIY COMMUNTIY W/LEAST HOSPITA HOSPITA 12 LDS TRCG ONLY W/O I&R URNLS DIP 56988 [facility] 6 N N STICK/TAB COMMUNTIY COMMUNTIY LET HOSPITA HOSPITA REAGENT AUTO MICROSCOP Y COLLECTIO 07016 [facility] N VENOUS 6 N N BLOOD COMMUNTIY COMMUNTIY VENIPUNCT HOSPITA HOSPITA URE URINE 54380 [facility] 6 N N TEST COMMUNTIY COMMUNTIY VISUAL HOSPITA HOSPITA COLOR CMPRSN METHS COMPREHEN 40762 [facility] SIVE 6 N N METABOLIC COMMUNTIY [place] [address] [facility] INFUSION 6 N N HYDRATION COMMUNTIY COMMUNTIY INITIAL HOSPITA HOSPITA 31 MIN-1 HOUR CYTP C/V 43739 BIO BIO AUTO THIN 6 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 IES IES MNL RESCR PHYS ANES IPER 38983 [facility] LWR ABD 5 ANESTH SHE W/LAPS OF THE TUBAL BLUE LIGATION/ TRANSECT SMR PRIM 31051 NATASHA LARSEN SRC WET 5 CHAVA RESENDEZ CHRISTIANACARECT AGT SMR PRIM 10469 NATASHA LARSEN SRC WET 5 [facility]AVA RESENDEZ [facility] AGT 08597 [facility] NONSTRESS 5 MEM HOSP MEM HOSP TEST INC INC 79150 [facility] NONSTRESS 5 [facility] 85551 [facility] NONSTRESS 5 MEM HOSP MEM HOSP TEST INC INC BLOOD 58072 [facility] COUNT 5 MEM HOSP MEM HOSP COMPLETE INC INC AUTO&AUTO DIFRNTL WBC GLUC BLD 87830 [facility] GLUC MNTR 5 MEM HOS[facility] MEM [facility]OS[facility] DEV INC INC CLEARED FDA SPEC HOME USE URNLS DIP 78203 [facility] 5 [facility] H[facility] MEM [facility]OS[facility] STICK/TAB INC [place] [address] [facility] INFUSION 5 MEM HOSP [facility]OS[facility] THERAPY/P INC INC ROPHYLAXI S /DX 1ST TO 1 HR BASIC 82372 [facility] METABOLIC 5 [facility]OS[facility] PANEL INC INC CALCIUM TOTAL THERAPEUT 57920 [facility] IC 5 [facility] PROPHYLAC INC INC TIC/DX INJECTION SUBQ/IM 58632 [facility] NONSTRESS 5 [facility] H[facility] TEST INC INC EVAL C/V 38265 [facility] AMNIOTIC 5 [facility] FLUID INC INC PROTEIN QUAL EA SPECIMEN PARTICLE 77485 [facility] AGGLUTINA 5 [facility] H[facility] TION INC INC SCREEN EACH ANTIBODY CUL 37845 NATASHA LARSEN PRSMPTV 5 CHAVA CHO PTHGNC ORGANISM SCRN W/COLONY ESTIMJ FTL 93456 [facility] FIBRONECT 5 MEM [facility]OS[facility] IN INC INC CERVICOVA G SECRETION S SEMI-JAYRO URNLS DIP 08304 [facility] 5 MEM HOS[facility] MEM HOSP STICK/TAB INC INC LET REAGENT AUTO MICROSCOP Y EVAL C/V 82795 [facility] AMNIOTIC 5 [facility] H[facility]OS[facility] FLUID INC INC PROTEIN QUAL EA SPECIMEN 51496 [facility] NONSTRESS 5 [facility] HOS[facility] TEST INC INC 73735 [facility] D[facility] NONSTRESS 5 [facility] H[facility] TEST INC INC DOPPLER 24715 [facility] VELOCIMET 5 [facility] [place] [address] [facility] 5 [facility] UTERUS INC INC LIMITED 1/> FETUSES 70779 [facility] BIOPHYSIC 5 [facility] AL INC INC PROFILE W/O NON-STRES S TESTING OBSERVATI 92737 NATASHA LARSEN ON CARE 5 [facility] RES[facility]Z [facility] 58874 NATASHA LARSEN DISCHARGE 5 [facility] RESENDE[facility] [place] DAY MANAGEMEN T 30 MIN/< SBSQ 88003 [facility] 5 [facility] RESENDEZ [place] CARE/DAY 15 MINUTES SBSQ 14283 NATASHA LARSEN OBSERVATI 5 [facility] RESENDE[facility] [place] ON CARE/DAY 15 MINUTES INITIAL 42206 [facility] 5 [facility] RESENDEZ [place] CARE/DAY 50 MINUTES INITIAL 58229 NATASHA LARSEN OBSERVATI 5 [facility] RESENDEZ [place] ON CARE/DAY 30 MINUTES FTL 12833 [facility] FIBRONECT 5 [facility] IN INC INC CERVICOVA G SECRETION S SEMI-JAYRO URNLS DIP 29532 [facility] 5 [facility] H[facility]OS[facility] STICK/TAB INC INC LET REAGENT AUTO MICROSCOP Y 13210 [facility] NONSTRESS 5 [facility] TEST INC INC 15991 [facility] NONSTRESS 5 [facility] TEST INC INC INITIAL 72528 [facility] 5 MEDICAL DI CARE/DAY SERV 30 FOUNDATIO MINUTES [facility] 95785 [facility] DISCHARGE 5 [place] RESENDEZ [place] DAY MANAGEMEN T 30 MIN/< ECG 04479 [facility] PENG JR ROUTINE 5 [facility] W/LEAST P 12 LDS I&R ONLY SBSQ 91891 [facility] [place] RESENDEZ [place] CARE/DAY 15 MINUTES INITIAL 31221 [facility] [place] RESENDEZ [place] CARE/DAY 50 MINUTES URNLS DIP 76077 [facility] 5 [facility] ST[facility] HOSP HOSP LET RGNT AUTO W/O MICROSCOP Y FTL 72903 [facility] FIBRONECT 5 [facility] IN INC INC CERVICOVA G SECRETION S SEMI-JAYRO URNLS DIP 55233 [facility] 5 [facility] STICK/TAB INC INC LET REAGENT AUTO MICROSCOP Y EVAL C/V 30608 [facility] AMNIOTIC 5 [facility] FLUID INC INC PROTEIN QUAL EA SPECIMEN 94850 [facility] NONSTRESS 5 [facility] TEST INC INC BLOOD 39911 [facility] COUNT 5 [facility] COMPLETE INC INC AUTO&AUTO DIFRNTL WBC COLLECTIO 71694 [facility] D[facility] N VENOUS 5 [facility] BLOOD INC INC VENIPUNCT URE GLUCOSE 85011 [facility] POST 5 [facility] GLUCOSE INC INC DOSE URNLS DIP 68543 [facility] 5 [facility] STICK/TAB INC INC LET REAGENT AUTO MICROSCOP Y FTL 75448 [facility] FIBRONECT 5 [facility] IN INC INC CERVICOVA G SECRETION S SEMI-JAYRO EVAL C/V 69567 [facility] AMNIOTIC 5 [facility] FLUID INC INC PROTEIN QUAL EA SPECIMEN 92555 [facility] NONSTRESS 5 [facility] TEST INC INC PRESSURIZ 44911 [facility] ED/NONPRE 5 [facility] SSURIZED INC INC INHALATIO N TREATMENT US PREG 46662 NATASHA LARSEN UTERUS 5 [facility] CHO AFTER 1ST TRIMEST GESTATION SMR PRIM 10912 NATASHA LARSEN SRC WET 5 [facility] CHO MOUNT NFCT AGT URNLS DIP 14492 [facility] 5 [facility] STICK/TAB INC INC LET REAGENT AUTO MICROSCOP Y FTL 18711 [facility] FIBRONECT 5 [facility] IN INC INC CERVICOVA G SECRETION S SEMI-JAYRO EVAL C/V 21706 [facility] AMNIOTIC 5 [facility] FLUID INC INC PROTEIN QUAL EA SPECIMEN 10674 [facility] NONSTRESS 5 [facility] TEST INC INC 50657 [facility] D[place] NONSTRESS 5 [facility] TEST INC INC THERAPEUT 30509 [facility] IC 5 [facility] PROPHYLAC INC INC TIC/DX INJECTION SUBQ/IM GROUND A0425 [facility] PER SERVICE SERVICE STATUTE MILE AMB [id number] [facility] SERVICE 5 [facility]ANCE AMBULANCE ALS SERVICE SERVICE EMERGENCY TRANSPORT LEVEL 1 URNLS DIP 95461 [facility] FERR[facility]AON 5 [facility] STICK/TAB INC INC LET REAGENT AUTO MICROSCOP Y 81281 NATASHA LARSEN NONSTRESS 5 [facility] RESENDEZ MARQUIS TEST 87311 MILA HERNANDEZ NONSTRESS 5 PHYSICIAN OLIVIA TEST S GROUP GONADOTRO 03517 [facility] PIN 5 [facility] CHORION[place] [address] [facility] D[facility] ESTRIOL 5 [facility] INC INC COLLECTIO 32518 [facility] N VENOUS 5 [facility] BLOOD INC INC VENIPUNCT URE ALPHA-FET 51225 [facility] OPROTEIN 5 [facility] SERUM INC INC OPHTH 03561 KIERRA LOZADA [facility] 5 GRE GRE XM&EVAL COMPRE NEW PT 1/> VST DETERMINA 39110 KIERRA LOZADA TION 5 GRE GRE REFRACTIV E STATE BLOOD 41869 [facility] COUNT 5 [facility] COMPLETE INC INC AUTO&[place] [address] [facility] LIPASE 5 [facility] INC INC GONADOTRO 05192 [facility] D[facility] PIN 5 [facility] CHORIONIC [place] [address] [facility] D[facility] AMYLASE 5 [facility] INC INC AMB A0427 [facility] SERVICE 5 AMBULANCE AMBULANCE ALS SERVICE SERVICE EMERGENCY TRANSPORT LEVEL 1 COMPREHEN 90029 [facility] SIVE 5 [facility] [place] [address] [facility] D[facility] INFUSION 5 [facility] THERAPY/P INC INC ROPHYLAXI S /DX 1ST TO 1 [place] [address] [facility] INFUSION 5 [facility] THERAPY INC INC PROPHYLAX IS/DX EA HOUR GROUND A0425 [facility] MILEAGE 5 AMBULANCE AMBULANCE PER SERVICE SERVICE STATUTE MILE URNLS DIP 55626 [facility] 5 [facility] STICK/TAB INC INC LET REAGENT AUTO MICROSCOP Y CULTURE 37612 [facility] BACTERIAL 5 [facility] INC INC QUANTTATI VE COLONY [place] URINE US PREG 23872 NATASHA LARSEN UTERUS 5 CHAVA RESENDEZ MARQUIS AFTER 1[place] [address] NATASHA LARSEN 5 [facility] CHO UTERUS 14 WK TRANSABDL GESTAT COLPOSCOP 61175 NATASHA LARSEN Y CERVIX 5 [facility]AVA RESENDEZ MARQUIS BX CERVIX & [place]OCRV [place] PREG 57421 NATASHA DAYPEL UTERUS 5 CHAVA HCO REAL TIME W/IMAGE DCMTN TRANSVAG GROUND A0425 [facility] MILEAGE 5 SUKHWINDER CO SUKHWINDER CO PER STATUTE AMBULANCE AMBULANCE MILE AMB A0427 [facility] SERVICE 5 SUKHWINDER CO SUKHWINDER CO ALS EMERGENCY AMBULANCE AMBULANCE TRANSPORT LEVEL 1 US PREG 02981 NATASHA R HARPEL UTERUS 5 [facility]AVA CHO REAL TIME W/IMAGE DCMTN TRANSVAG HANDLG&/O 97695 NATASHA DAYPEL R CONVEY 5 [facility]AVA CHO OF SPEC FOR TR OFFICE TO LAB URINLS 59439 NATASHA DAYPEL DIP 5 [facility] CHO STICK/TAB LET REAGNT NON-AUTO MICRSCPY URINE 22786 NATASHA LARSEN 5 [facility] CHO TEST VISUAL COLOR CMPRSN METHS IADNA 15662 NATASHA LARSEN NEISSERIA 5 [facility]AVA CHO GONORRHOE AE DIRECT PROBE TQ IADNA 17276 NATASHA LARSEN HERPES 5 [facility] CHO SIMPLX VIRUS DIRECT PROBE TQ CULTURE 28548 NATASHA LARSEN CHLAMYDIA 5 [facility] CHO ANY SOURCE IAADIADOO 98615 NATASHA LARSEN 5 [facility]AVA CHO TRICHOMON VAGINALIS GONADOTRO 24247 [facility] PIN 5 [facility] CHORIONIC INC INC QUANTITAT KARIS BLOOD 42450 [facility] FERRERAON COUNT 5 [facility] COMPLETE INC INC AUTO&AUTO DIFRNTL WBC URINE 06138 [facility] 5 [facility] TEST INC INC VISUAL COLOR CMPRSN METHS US PREG 62720 [facility] UTERUS 5 [facility] REAL TIME INC INC W/IMAGE DCMTN TRANSVAG CULTURE 61462 [facility] BACTERIAL 5 [facility] INC INC QUANTTATI VE COLONY COUNT URINE BLOOD 04832 [facility] TYPING 5 [facility] SEROLOGIC INC INC RH (D) URNLS DIP 91884 [facility] 5 [facility] STICK/TAB INC INC LET REAGENT AUTO MICROSCOP Y URNLS DIP 84857 [facility] 5 [facility] STICK/TAB INC INC LET REAGENT AUTO MICROSCOP Y COLLECTIO 23974 [facility] N VENOUS 5 [facility] BLOOD INC INC VENIPUNCT URE CULTURE 96282 [facility] D[facility] BACTERIAL 5 [facility] INC INC QUANTTATI VE COLONY COUNT URINE OBSTETRIC 25366 [facility] D[facility] PANEL 5 [facility] INC INC URINE 30244 [facility] D[facility] 5 [facility] TEST INC INC VISUAL COLOR CMPRSN METHS GONADOTRO 64603 [facility] D[facility] PIN 5 [facility] CHORIONIC INC INC QUANTITAT KARIS IAADI 09503 [facility] D[facility] INFLUENZA 5 [facility] B VIRUS INC INC IAADI 20667 [facility] D[facility] INFFLUENZ 5 [facility] [place] [address] [facility] D[facility] INFUSION 5 [facility] THERAPY/P INC INC ROPHYLAXI S /DX 1ST TO 1 HR THERAPEUT 74001 [facility] D[facility] IC 5 [facility] INJECTION [place] [address] [facility] ABDOMEN & 5 [facility] PELVIS INC INC W/CONTRAS T MATERIAL URINE 69193 [facility] 5 [facility] TEST INC INC VISUAL COLOR CMPRSN METHS COMPREHEN 33174 [facility] SIVE 5 [facility] [address] [facility] D[facility] AMYLASE 5 [facility] INC INC LOCM Q9967 [facility] 300-399 5 [facility] MG/ML INC INC IODINE CONCENTRA TION PER ML URNLS DIP 96891 [facility] 5 [facility] STICK/TAB INC INC [place] [address] [facility] LIPASE 5 [facility] INC INC INJECTION J2405 [facility] D[facility] 5 [facility] ONDANSETR INC INC ON HCL PER 1 MG BLOOD 57814 [facility] COUNT 5 [facility] COMPLETE INC INC AUTO&AUTO DIFRNTL WBC IADNA 41234 [facility] D[facility] NEISSERIA 5 [facility] INC INC GONORRHOE AE AMPLIFIED PROBE TQ IADNA 96316 [facility] CHLAMYDIA 5 [facility] INC INC TRACHOMAT IS AMPLIFIED PROBE TQ URINE 08704 [facility] HERNANDEZ 5 PHYSICIAN OLIVIA TEST S GROUP VISUAL COLOR CMPRSN METHS URINE 12786 [facility] 5 [facility] TEST INC INC VISUAL COLOR CMPRSN METHS URINE [address] JIM 4 REGIONAL REGIONAL TEST MEDIC MEDIC VISUAL COLOR CMPRSN METHS COMPREHEN [address] [facility] SIVE 4 REGIONAL REGIONAL METABOLIC MEDIC MEDIC PANEL URNLS DIP [address] JIM 4 REGIONAL REGIONAL STICK/TAB MEDIC MEDIC LET REAGENT AUTO MICROSCOP Y COLLECTIO [address] JIM N VENOUS 4 REGIONAL REGIONAL BLOOD MEDIC MEDIC VENIPUNCT URE RADEX [address] JIM DANISH MARILY ABDOMEN 1 4 REGIONAL RADIOLOG ANTEROPOS TERIOR VIEW THERAPEUT [address] [facility]IM IC 4 REGIONAL REGIONAL PROPHYLAC MEDIC MEDIC TIC/DX INJECTION SUBQ/[place] [address] [facility] LIPASE 4 REGIONAL REGIONAL MEDIC MEDIC INJECTION J[address] [facility]IM 4 REGIONAL REGIONAL DICYCLOMI MEDIC MEDIC NE HCL UP TO [address] JIM COUNT 4 REGIONAL REGIONAL COMPLETE MEDIC MEDIC AUTO&AUTO DIFRNTL WBC BLOOD [address] [facility]IM COUNT 4 REGIONAL REGIONAL COMPLETE MEDIC MEDIC AUTO&AUTO DIFRNTL WBC ECG [address]4732 [facility] MARISA ROUTINE 4 MEDICAL [facility] ECG CENTER W/LEAST 12 LDS I&R ONLY RADIOLOGI 90658 [facility] JIM DANISH MARILY C EXAM 4 REGIONAL CHEST 2 RADIOLOG VIEWS FRONTAL&L ATERAL ECG [address] JIM ROUTINE 4 REGIONAL REGIONAL ECG MEDIC MEDIC W/LEAST 12 LDS TRCG ONLY W/O I&R PROTHROMB [address] [facility] [address] JIM IN TIME 4 REGIONAL REGIONAL MEDIC MEDIC CULTURE [address] [facility] BACTERIAL 4 REGIONAL REGIONAL BLOOD MEDIC MEDIC AEROBIC W/ID ISOLATES THER [address] [facility]IM PROPH/DX 4 REGIONAL REGIONAL NJX IV MEDIC MEDIC PUSH SINGLE/1S T SBST/DRUG INJECTION J2405 [facility] JIM 4 REGIONAL REGIONAL ONDANSETR MEDIC MEDIC ON HCL PER [address] D[address] JIM 4 REGIONAL REGIONAL STICK/TAB MEDIC MEDIC [place] [address] [facility] [address] [facility] INFUSION 4 REGIONAL REGIONAL HYDRATION MEDIC MEDIC EACH ADDITIONA L HOUR COMPREHEN [address] [facility]IM SIVE 4 REGIONAL REGIONAL METABOLIC MEDIC MEDIC PANEL URINE [address] JIM 4 REGIONAL REGIONAL TEST MEDIC MEDIC VISUAL COLOR CMPRSN METHS COLLECTIO [address] JIM N VENOUS 4 REGIONAL REGIONAL BLOOD MEDIC MEDIC VENIPUNCT URE CREATINE 01692 [facility] KINASE MB 4 CO CO FRACTION [facility] ONLY COMPREHEN 74083 [place] SIVE 4 CO CO [facility] 13987 [facility] ROUTINE 4 CO CO ECG [facility] W/LEAST 12 LDS TRCG ONLY W/O I&[place] [address] [facility] MAGNESIUM 4 CO CO [facility] CREATINE 69547 [place] KINASE 4 [facility] RADIOLOGI 57900 [facility] EX[facility] CO CHEST 2 [facility] VIEWS FRONTAL&[place] [address] [facility] TROPONIN 4 CO CO [facility] GONADOTRO 07512 [facility] PIN 4 CO CO [facility]OSP[facility] QUALITATI VE BLOOD 39948 [facility] GARCIA COUNT 4 CO [facility] AUTO&AUTO DIFRNTL WBC BLOOD 83855 [facility] COUNT 9 [facility] COMPLETE INC INC AUTO&[place] [address] [facility] D[facility] TROPONIN 9 [facility] QUANTITAT INC INC KARIS CREATINE 44387 [facility] D[facility] KINASE 9 [facility] TOTAL INC INC ECG 36986 [facility] ROUTINE 9 [facility] ECG INC INC W/LEAST 12 LDS TRCG ONLY W/O I&R COMPREHEN 42828 [facility] SIVE 9 [facility] METABOLIC INC INC PANEL CREATINE 63698 [facility] D[facility] KINASE MB 9 [facility] FRACTION INC INC ONLY URINE 14038 [facility] 9 [facility] TEST INC INC VISUAL COLOR CMPRSN METHS URNLS DIP 51672 [facility] 9 [facility] STICK/TAB INC INC LET REAGENT AUTO MICROSCOP Y RADIOLOGI 03821 [place] NE[place], C EXAM 9 MEDICAL [place] P CHEST 2 IMAGING VIEWS ASSOCIATE FRONTAL&L S ATERAL URNLS DIP 03713 [facility] 9 [facility] STICK/TAB INC INC LET REAGENT AUTO MICROSCOP Y CT PELVIS 76616 [place] RA, W/O 9 MEDICAL SUSHANT CONTRAST IMAGING MATERIAL ASSOCIATE S URINE 08151 [facility] 9 [facility] TEST INC INC VISUAL COLOR CMPRSN METHS COMPREHEN 54654 [facility] SIVE 9 [facility] [place] [address] [place] RA, ABDOMEN 9 MEDICAL SUSHANT W/[place] [address] [facility] INFUSION 9 [facility] THERAPY/P INC INC ROPHYLAXI S /DX 1ST TO 1 HR 3D 48385 [facility] RENDERING 9 [facility] INC INC W/INTERP& POSTPROC DIFF WORK STATION BLOOD 13919 [facility] COUNT 9 [facility] COMPLETE INC INC AUTO&AUTO DIFRNTL WBC OPHTH 32271 HERIBERTO GAINES, MEDICAL 8 VISION KEARA Ackerman XM&EVAL COMPRE NEW PT 1/> VST FRAMES V2020 HERIBERTO GAINES, PURCHASES 8 VISION KEARA Ackerman 1 VISN V2103 HERIBERTO GAINES, PLANO 8 VISION KEARA Ackerman TO+/-4.00 D SPHER 0.12-2.00 D CYL EA FITTING 87919 HERIBERTO GAINES, SPECTACLE 8 VISION KEARA Ackerman S XCPT APHAKIA MONOFOCAL Encounters Encounter Start End Date Code Location Performer Type Date OFFICE 34701 [facility] 7 7 [facility] T VISIT [facility] E [facility] 850[address] [facility] 7 7 NURSE T VISIT PRACTITIO 15 NER GR MINUTES [facility] - 7 7 [facility] OUTPATI E T [facility] 7 7 [facility] OUTPATI E [facility]PITALS OFFICE 36201 [facility] 7 7 NURSE ION PRACTITIO NEW/ESTAB NER GR PATIENT 60 MIN OFFICE 92629 [facility] 7 7 [facility] T VISIT 5 E MINUTES [facility]OSPITALS EMERGENCY 22264 [facility] 7 7 SANDRA VISIT EMERGENCY HIGH PHYS SEVERITY& THREAT [facility] GARCIA - 7 7 [facility] T EMERGENCY 92725 [place] 7 7 [facility] T VISIT HIGH/URGE NT SEVERITY [facility] - 7 7 [facility] T MEDICAL EMERGENCY 91464 [facility] [address] [facility] EMERGENCY T VISIT PHYS HIGH/URGE NT SEVERITY EMERGENCY 17756 [facility] 7 7 [facility] T VISIT LOW/MODER SEVERITY HOSPITAL [facility] - 7 7 [facility] 33763 [facility] TOSHA II DEPT 6 6 SANDRA THO VISIT EMERGENCY HIGH PHYS SEVERITY& THREAT [facility] 19910 [facility] DEPT 6 6 SANDRA NICOLE VISIT EMERGENCY HIGH PHYS SEVERITY& THREAT FUN EMERGENCY 83372 CHEIKH AMAYA 6 6 PHYSICIAN MAICOL [facility] T VISIT HIGH/URGE NT SEVERITY HOSPITAL [facility] - 6 6 MEM [facility] OUTPATIEN [facility] EMERGENCY 42695 [facility] DEPT 6 6 MEM H[facility]P VISIT INC HIGH SEVERITY& THREAT [facility] 20996 [facility] 6 6 SANDRA VISIT EMERGENCY HIGH PHYS SEVERITY& THREAT [facility] EMERGENC[facility] 70441 [facility] 6 6 [facility] VISIT LOW/MODER SEVERITY EMERGENCY 72842 CHEIKH FRAGOSO 6 6 [facility]YSIC[facility] T VISIT HIGH/URGE NT SEVERITY HOSPITAL [facility] - 6 6 MEM [facility] OUTPATIEN [facility] EMERGENCY 01458 [facility] 6 6 N [facility] HIGH/URGE NT SEVERITY [facility] RUBIW - 6 6 N [facility] RAF[facility] - 5 5 MEM [facility] OUTPATIEN [facility] RAFAT [facility] 5 5 MEM [facility] OUTPATIEN [facility] RAFAT - 5 5 MEM [facility] OUTPATIEN [facility] OFFICE 00252 NATASHA LARSEN [facility] 5 5 CHAVA CHO VISIT 15 MINUTES HOSPITAL [facility] - 5 5 MEM [facility] OUTPATIEN [facility] RAFAT - 5 5 MEM [facility] OUTPATIEN [facility] RAFAT - 5 5 MEM [facility] OUTPATIEN INC T OFFICE 28284 [facility] OUTPATI[facility] 5 5 TARI [facility] 30 CLINIC MINUTES [facility] OFFICE 00114 NATASHA LARSEN OUTPATIEN 5 5 CHAVA CHO T VISIT 15 MINUTES HOSPITAL RAF[facility] - 5 5 MEM [facility] INPATIENT [facility] OFFICE 90324 NATASHA LARSEN OUTPATIEN 5 5 [facility]AVA CHO T VISIT 15 MINUTES HOSPITAL [facility] - 5 5 MEM [facility] OUTPATIEN INC T OFFICE 50925 NATASHA LARSEN OUTPATIEN 5 5 CHAVA COH T VISIT 15 MINUTES HOSPITAL [facility] - 5 5 [facility] OUTPATIEN INC [facility] UNIV[facility] - 5 5 Y [facility] RAFAT [facility] 5 5 MEM [facility] INPATIENT [facility] H[facility] - 5 5 [facility]P T OFFICE 45886 NATASHA LARSEN OUTPATIEN 5 5 CHAVA CHO T VISIT 15 MINUTES HOSPITAL [facility] - 5 5 MEM [facility] OUTPATIEN INC [facility] RAF[facility] - 5 5 [facility] OUTPATIEN INC [facility]OSPITAL [facility] - 5 5 [facility] OUTPATIEN INC [facility] RAF[facility] - 5 5 MEM [facility] OUTPATIEN INC T OFFICE 66840 NATASHA LARSEN OUTPATIEN 5 5 [facility]AVA CHO T VISIT 15 MINUTES HOSPITAL [facility] - 5 5 [facility]PAT[facility]EN INC [facility] RAF[facility] - 5 5 [facility] OUTPATIEN INC [facility]OSPITAL [facility] - 5 5 [facility] OUTPATIEN INC T OFFICE 09801 [facility] HERNANDEZ OUTPATIEN 5 5 PHYSICIAN OLIVIA T VISIT S GROUP 15 MINUTES OFFICE 84333 NATASHA MCCORMACKL OUTPATIEN 5 5 [facility] CHO T VISIT 15 MINUTES HOSPITAL [facility] - 5 5 MEM [facility] OUTPATIEN INC T EMERGENCY 04184 [facility] 5 5 [facility] DEPARTMEN INC T VISIT HIGH/URGE NT SEVERITY HOSPITAL RAF[facility] - 5 5 [facility] OUTPATIEN INC T OFFICE 02976 NATASHA LARSEN OUTPATIEN 5 5 [facility] CHO T VISIT 15 MINUTES OFFICE 78750 NATASHA LARSEN OUTPATIEN 5 5 [facility] CHO T VISIT 15 MINUTES EMERGENCY 42751 CHEIKH Gaytan DEPT 5 5 PHYSICIAN VISIT S, PLLC HIGH SEVERITY& THREAT FUNCJ OFFICE 31255 NATASHA MCCORMACKL OUTPATIEN 5 5 CHAVA CHO T VISIT 15 MINUTES OFFICE 82322 NATASHA LARSEN OUTPATIEN 5 5 CHAVA CHO T VISIT 15 MINUTES EMERGENCY 58020 [facility] 5 5 [facility] DEPARTMEN EMERGENCY T VISIT PHYS HIGH/URGE NT SEVERITY OFFICE 39227 NATASHA LARSEN OUTPATIEN 5 5 [place]AVA CHO T VISIT 15 MINUTES INITIAL 24764 NATASHA LARSEN PREVENTIV 5 5 [place]AVA CHO E MEDICINE NEW PT AGE 18-39YRS EMERGENCY 91711 [facility] 5 5 [facility] DEPARTMEN INC T VISIT MODERATE SEVERITY HOSPITAL RAF[facility] - 5 5 MEM HOS[facility] OUTPATIEN INC T EMERGENCY 74806 [facility] 5 5 [facility] DEPARTMEN INC T VISIT MODERATE SEVERITY HOSPITAL RAF[facility] - 5 5 [facility] OUTPATIEN [facility] T EMERGENCY 59547 [facility] 5 5 [facility] T VISIT LOW/MODER SEVERITY HOSPITAL [facility] - 5 5 [facility] OUTPATIEN [facility] T EMERGENCY 63504 [facility] 5 5 [facility] T VISIT HIGH/URGE NT SEVERITY EMERGENCY 80890 [facility] ARNOLD DOU 5 5 [facility] ER T VISIT P MODERATE [facility]VERITY HOSPITAL [facility] - 5 5 [facility] OUTPATIEN [facility] T HOSPITAL RAFAT [facility] 5 5 [facility] OFF[facility] 80466 [facility] 5 5 PHYSICIAN OLIVIA T NEW 43 S GROUP MINUTES EMERGENCY 38278 [facility] 5 5 [facility] T VISIT LOW/MODER SEVERITY EMERGENCY 86130 [facility] CANADAEY 5 5 [facility] T VISIT P LIMITED/M [facility] HOSPITAL RAF[facility] - 5 5 [facility] T EMERGENCY [address] [facility] JIM 4 4 [facility] [place] T VISIT MODERATE SEVERITY HOSPITAL [facility] JIM - 4 4 [facility] T EMERGENCY [address] [facility] J[facility] OVERALL 4 4 REGIONAL [facility] T VISIT EMERGENCY HIGH/URGE NT SEVERITY HOSPITAL ST JIM - 4 4 REGIONAL OUTPATI MEDIC T EMERGENCY 39[address] [facility] 4 4 REGIONAL VISIT HIGH EMERGENCY SEVERITY& THREAT FUNCJ EMERGENCY 11229 ST JIM 4 4 [facility] [place] T VISIT HIGH/URGE NT SEVERITY HOSPITAL GARCIA - 4 4 [facility] T EMERGENCY 38858 JOSE 4 4 [facility] T VISIT HIGH/URGE NT SEVERITY EMERGENCY 90081 KIERRA LEONARD, DEPT 9 9 EMERGENCY NIRMALA Capone VISIT SERVICES HIGH SEVERITY& ASSOCIATE THREAT S [facility] EMERGENCY 32552 [facility] 9 9 [facility] T VISIT HIGH/URGE NT SEVERITY HOSPITAL RAF[facility] - 9 9 [facility] OUTPATIEN [facility] T EMERGENCY 24759 KIERRA KIRKPATRICK, DEPT 9 9 EMERGENCY ROXANNA Blanchard VISIT SERVICES HIGH SEVERITY& ASSOCIATE THREAT S [facility] RAFAT - 9 9 [facility] OUTPATIEN [facility] T EMERGENCY 72189 [facility] 9 9 [facility] T VISIT HIGH/URGE NT SEVERITY
--- OUTSIDE RECORDS SUMMARY | 2017-01-13 21:50 | External Medical Summary Rpt ---
Author Author , MARLON Organization MARLON Address Unknown Phone [email or web address] Team Providers Care Note Specialist Name Role Phone PETE LIMON Unavailable Unavailable [facility] Unavailable Unavailable [facility]ATOR[facility], [facility] Unavailable Unavailable [facility]ATORIES, [facility] MCKINNEY, MCKINNEY Unavailable Unavailable MCKINNEY ALL, MCKINNEY ALL Unavailable Unavailable [facility] Unavailable Unavailable SERVICE, [facility] Unavailable Unavailable SERVICE, [facility] ASTORGA CAR, ASTORGA Unavailable Unavailable CAR [facility], Unavailable Unavailable [facility] CHIPPS SONJA & Unavailable Unavailable DUBILIER, CHIPPS SONJA & DUBILIER HERNANDEZ OLIVIA, HERNANDEZ Unavailable Unavailable OLIVIA [facility], Unavailable Unavailable [facility] [place] [facility] Unavailable Unavailable [facility], [facility] SUSHANT KNAPP, Unavailable Unavailable SUSHANT KNAPP TOSHA II THO, TOSHA II Unavailable Unavailable THO MARISA PARESH, MARISA Unavailable Unavailable PARESH [facility] Un[facility] ROXANNA KIRKPATRICK, Unavailable Unavailable ROXANNA KIRKPATRICK [facility], Unavailable Unavailable [facility] Unavailable Unavailable [facility], [facility] Unavailable Unavailable MAICOL ZE PENA Unavailable Unavailable DONALDO [facility] Unavailable Unavailable HOSPITA, [facility] NATASHA LARSEN MD, Unavailable Unavailable CHAVA VACA MD Unavailable Unavailable [facility] Un[facility] Un[facility] INC, [facility] Unavailable Unavailable HOSPITAL P, [facility], Unavailable Unavailable [facility] CLAYTON AMANDA, CLAYTON AMANDA Unavailable Unavailable AMOL III TARIQ, Unavailable Unavailable AMOL III TARIQ [facility], [facility], [facility] DANISH MARILY, DANISH MARILY Unavailable Unavailable [facility], [facility] DANISH JR DWI, DANISH Unavailable Unavailable JR DWI LIGIA FAYETTE URBAN Unavailable Unavailable COGOVT, LIGIA FAYETTE [facility] LONG, LONG Unavailable Unavailable NIRMALA LEONARD, Unavailable Unavailable NIRMALA LEONARD GRE, Unavailable Unavailable KIERRA LOZADA GRE, Unavailable Unavailable KIERRA [facility] Unavailable Unavailable AMB[facility], [facility] Unavailable Unavailable ASSOCIAT, [facility] Unavailable Unavailable MEDICAL, [facility] MEDICAL MERHAR, MERHAR Unavailable Unavailable AUSTIN DEUTSCH, Unavailable Unavailable [facility] DEUTSCH P MUHA, MUHA Unavailable Unavailable MUHA, MUHA Unavailable Unavailable [facility] Unavailable Unavailable [facility], [facility] O'ADRI DI, O'ADRI Unavailable Unavailable [...] [facility] GALVAN, GALVAN Unavailable Unavailable [facility] Unavailable Unavailable HOSPITALS, [facility], Unavailable Unavailable [facility], ARELI Unavailable Unavailable ARE[facility] SHA, ARELI SHA Unavailable Unavailable Purpose Continuity of Care Document - 05-05-2008 through 2016 Problems Code Diagnosis DOS Provider Status G441 VASCULAR 11-25-2016 MUHA HEADACHE NOT ELSEWHERE CLASSIFIED 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 [place]CR[place] GLANDS H1045 OTHER 11-25-2016 MUHA CHRONIC ALLERGIC CONJUNCTIVI TIS H5213 MYOPIA 11-25-2016 MUHA BILATERAL R51 HEADACHE 10-23-2016 HOSPITALS R569 UNSPECIFIED 10-23-2016 [facility] R22721 EPILEPSY 07-21-2016 [facility] STAT[facility] EPILEPTICUS A31671 OTHER 07-21-2016 [facility] PERIPHERAL N EMERGENCY VERTIGO PHYS UNSPECIFIED EAR J322 CHRONIC 07-21-2016 [facility] ETHMOIDAL N EMERGENCY SINUSITIS PHYS R0789 OTHER CHEST 07-21-2016 [facility] PAIN N EMERGENCY PHYS R42 DIZZINESS 07-21-2016 [place] [facility] GIDDINESS ASSOC[facility]AT W28569 ALLERGY TO 07-21-2016 [facility] OTHER FOODS [facility] Z9851 TUBAL 07-21-2016 [facility] K19071 UNSPECIFIED 07-11-2016 [facility] CYST LEFT INC SIDE R1031 RIGHT LOWER 07-11-2016 [facility] R1032 LEFT LOWER 07-11-2016 [facility] PAIN INC R110 NAUSEA 07-11-2016 [facility] INC R1110 VOMITING 07-11-2016 [facility] UNSPECIF[facility] MEDICAL IMAGING ASS R0602 SHORTNESS 12-29-2015 [facility] [place] [facility] R0781 PLEURODYNIA 12-29-2015 [facility] N EMERGENCY PHYS R091 PLEURISY 12-29-2015 [facility] N EMERGENCY PHYS X69543 PERSONAL 12-01-2015 [facility] HISTORY OF [facility] NICOTINE INC DEPENDENCE N3091 CYSTITIS 11-10-2015 [facility] UNSPECIFIED N EMERGENCY WITH PHYS HEMATURIA N3289 OTHER 11-10-2015 [facility] [place] SPECIFIED [facility] DISORDERS OF BLADDER R1084 GENERALIZED 11-10-2015 [facility] ABDOMINAL N EMERGENCY PAIN PHYS N390 URINARY 11-06-2015 [facility]CT [facility], INFECTION [facility] SITE NOT SPECIFIED E860 DEHYDRATION 10-10-2015 [facility] R55 SYNCOPE AND 10-10-2015 [facility] Z392 ENCOUNTER 07-02-2015 [facility] FOR ROUTINE REFERNCE LABORATORIE FOLLOW-UP S Z9889 OTHER 07-02-2015 BIO SPECIFIED REFERNCE POSTPROCEDU LABORATORIE [facility] STATES S O80 ENCOUNTER 05-10-2015 COMMUNITY [...] 05-01-2015 [facility] OF INC I96439 OTHER SPEC 04-29-2015 [facility] COND 2ND TRIMESTER G73005 OTHER SPEC 04-28-2015 [facility] RELATED INC COND 3RD TRIMESTER Z331 04-28-2015 [facility] AMBULANCE INCIDENTAL SERVICE O4703 FALSE LABOR 04-26-2015 [facility] BEFORE 37 MEM HOSP CMPLETE INC WEEKS GEST 3RD TRI Z3A35 35 WEEKS 04-26-2015 [facility] OF INC Z36 ENCOUNTER 04-24-2015 [facility] FOR [facility] INC SCREENING OF MOTHER Z3A34 34 WEEKS 04-17-2015 [facility] OF INC [id number] DECREASED 04-14-2015 [facility] THIRD TRIMESTER NA/UNS O0973 SUP HIGH 04-12-2015 NATASHA Alexandra RISK PREG CHAVA RESENDEZ D/T SOCIAL PROBLEMS THIRD TRI G40A09 ABSENCE 04-11-2015 [facility] NOT INTRACTABLE W/O SE O2693 04-11-2015 [facility] [place] [facility]IN[facility] PSC UNS 3RD TRIMESTER Z3493 ENC 04-09-2015 NATASHA Alexandra SUPERVISION CHAVA RESENDEZ NORMAL UNS 3 TRIMESTER L33781 OTH GEN 04-03-2015 [facility] EPILEPSY [facility] [...] ABDOMINAL SERV PAIN FOUNDATION B3749 OTHER 03-11-2015 [facility] CANDIDIASIS K5900 CONSTIPATIO 03-11-2015 [facility] UNSPECIFIED M549 DORSALGIA 03-11-2015 [facility] UNSPECIFIED AMBULANCE SERVICE N1330 UNSPECIFIED 03-11-2015 [facility] HYDRONEPHRO [facility] SIS E80223 03-11-2015 [place] [facility] RENAL [facility] DISEASE UNS TRIMESTER O2690 03-11-2015 [facility] CONDITIONS SERVICE UNS UNS TRIMESTER [id number] MATERNAL 03-11-2015 [facility] [facility] PRESENTATIO N NA/UNS Q1251E2 L & D COMP 03-11-2015 [place] [facility] AROUND SERV NECK W/O FOUNDATION COMPRS NA/UNS O58144 OTH 03-11-2015 [facility] INF & PARASIT DZ COMP PREG 3RD TRI O623 PRECIPITATE 03-08-2015 NATASHA Alexandra LABOR CHAVA RESENDEZ Z3492 ENC 03-08-2015 [facility] NORMAL [facility] UNS 2 TRIMESTER O331 MAT CARE 03-03-2015 LIGIA FAYETTE DISPROPORTI URBAN ON D/T GEN COGOVT CONTRACTED PELV Z3A28 28 WEEKS 03-03-2015 [facility] V221 SUPERVISION 02-27-2015 NATASHA Alexandra OF VICTOR HUGO LARSEN MD NORMAL 27296 THREATENED 02-19-2015 [facility] ANTEPARTUM 87878 OT CURRENT 02-18-2015 [facility] MAT CONDS [facility] CLASSIFIABL INC E ELSW ANTPRTM V771 SCREENING 02-16-2015 [facility] FOR [facility] DIABETES INC MELLITUS 42811 ASTHMA, 02-03-2015 [facility] UNSPECIFIED [facility] , INC UNSPECIFIED STATUS V222 02-03-2015 [facility] INCIDENTAL INC 26670 UNSPECIFIED 01-30-2015 NATASHA Alexandra VAGINITIS CHAVA RESENDEZ AND VULVOVAGINI TIS 13335 HEMORRHAGE 01-30-2015 NATASHA LARSEN MD PLACENTA PREVIA ANTEPARTUM 50825 OTHER 01-23-2015 [facility] THREATENED [facility] LABOR, INC ANTEPARTUM 12196 ERLY ONSET 01-23-2015 [facility] DEL[facility] DELIV AMBULANCE W/WO SERVICE MENTION ANTPRTM COND 05502 ABDOMINAL 01-23-2015 [facility] PAIN OTHER AMBULANCE SPECIFIED SERVICE SITE 56094 OTHER 01-15-2015 [facility] SPECIFED [facility] COMPLICATIO INC N ANTEPARTUM V2889 OTHER 12-19-2014 [facility] SPECIFIED [facility] INC SCREENING 3670 HYPERMETROP 12-18-2014 [place] [address] UNSPEC COMP 12-04-2014 [facility] UNSPEC SERVICE EPISODE CARE 08604 ABDOMINAL 12-04-2014 [facility] PAIN, MEM HOSP UNSPECIFIED INC SITE 7840 HEADACHE 11-15-2014 [facility], [facility] 73935 CHEST PAIN 11-15-2014 [facility] UNSPECIFIED PHYSICIANS, [facility] 61975 PAP SMER 10-24-2014 NATASHA Alexandra CERV CHAVA RESENDEZ W/ATYPICAL SQUAMOUS CELLS UNDET 6259 UNSPEC 10-07-2014 [facility] SYMPTOM N EMERGENCY ASSOC PHYS W/FEMALE GENITAL ORGANS 6268 OTH D/O 09-28-2014 NATASHA Alexandra MENSTRUATIO CHAVA RESENDEZ N&OTH ABN BLEED FE GNT TRACT 78268 THREATENED 09-28-2014 NATASHA Alexandra CHAVA MD ANTEPARTUM V7231 ROUTINE 09-28-2014 NATASHA Alexandra GYNECOLOGIC CHAVA RESENDEZ AL EXAMINATION 5990 URINARY 09-17-2014 [facility] TRACT [facility] INFECTION INC SITE NOT SPECIFIED 4619 ACUTE 08-24-2014 [facility] SINUSITIS, MEM HOS[facility] UNSPECIFIED INC 5589 OTH&UNSPEC 08-18-2014 [facility] P GASTROENTER ITIS&COLITI S 7873 FLATULENCE 08-18-2014 [facility] PAIN 31073 ABDOMINAL 08-18-2014 [place] PAIN, LEFT MEDICAL UPPER IMAGING ASS QUADRANT V692 PROBLEMS 08-02-2014 [facility] RELATED TO MEM [facility]OS[facility] HIGH-RISK INC SEXUAL BEHAVIOR 9165 HIP THIGH 06-26-2014 [facility] INSECT B[facility] [place] [facility] P NONVENOMOUS INF V1582 PERS HX 06-26-2014 [facility] TOBACCO USE [facility] 41125 ABDOMINAL 03-09-2014 [facility] PAIN RIGHT REGIONAL UPPER MEDIC QUADRANT 47736 UNSPECIFIED 12-13-2013 [facility] VIRAL REGIONAL INFECTION EMERGENCY IN CCE & UNS SITE 55243 FEVER 12-13-2013 [facility] UNSPECIFIED REGIONAL EMERGENCY 7862 COUGH 08-07-2013 [facility] 4660 ACUTE 09-25-2008 [facility] BRONCHITIS [facility] INC 490 BRONCHITIS 09-25-2008 K[facility] DOUGLAS EMERGENCY SPECIFIED SERVICES ACUTE OR ASSOCIATES CHRONIC 41741 SHORTNESS 09-25-2008 [facility] 33737 UNSPECIFIED 09-05-2008 [facility] N ASSOCIATES 3671 MYOPIA [...] 02 03 14 7 00 WA Ac MA 16 -1 -1 .0 00 L- ti [...] Procedure DOS Code Location Performer Comment OPHTH 49793 MUHA MUHA MEDICAL 7 XM&EVAL COMPRE NEW PT 1/> VST BLOOD 76069 [facility] COUNT 7 [facility]ALTH[facility] COMPLETE E E AUTOMATED HOSPITALS HOSPITALS COMPREHEN 40642 [facility] SIVE 7 [facility]ALTH[facility] METABOLIC E E PANEL [facility] COLLECTIO 33618 [facility] N VENOUS 7 [facility]ALTHCAR HEALTHCAR BLOOD E E VENIPUNCT [facility] URE URNLS DIP [address] STICK/TAB HOSPITAL [facility] [place] [address] [facility] HEAD/BRAI 7 N W/O RADIOLOGY RADIOLOGY CONTRAST ASSOCIAT ASSOCIAT MATERIAL INJECTION J1885 [address] KETOROLAC [facility] TROMETHAM INE PER 15 MG THER 67097 [facility] PROPH/DX [address] [place] [address] [facility] PUSH SINGLE/1S T SBST/DRUG THERAPEUT 58914 [facility] IC [address] [place] [address] IV PUSH EACH NEW DRUG COMPREHEN 42815 [facility] SIVE [address] [place] [address] PANEL ECG 69602 [facility] ROUTINE [address] [place] [address] ECG [facility] W/LEAST 12 LDS TRCG ONLY W/O I&R BLOOD 67116 [facility] COUNT [address] [place] [address] AUTO&AUTO DIFRNTL WBC INJECTION J2405 [address] [facility] PER 1 MG GONADOTRO 21666 [facility] PIN 7 [facility] QUALITATI VE AMB A0427 [facility] SERVICE 7 AMBULANCE AMBULANCE ALS SERVICE SERVICE EMERGENCY TRANSPORT LEVEL 1 RADIOLOGI 23565 [place] [facility] 7 MEDICAL EXAMINATI SERV ON CHEST FOUNDATIO SINGLE N VIEW FRONTAL GROUND A0425 [facility] MILEAGE 7 AMBULANCE AMBULANCE PER SERVICE SERVICE STATUTE MILE COMPREHEN 64842 [facility] SIVE 7 W W [facility] PANEL MEDICAL MEDICAL BLOOD 99251 [facility] ME[facility] COUNT 7 W W COMPLETE [facility] AUTO&AUTO MEDICAL MEDICAL DIFRNTL WBC COL-CHR/M 55247 [facility] NONDRUG 7 W W [facility] MEDICAL MEDICAL QUAL/JAYRO EA SPEC CREATINE 90971 [facility] KINASE 7 W W [facility] [place] [address] [facility] LIPASE 7 MEM HOSP MEM HOSP INC INC BLOOD 43382 [facility] COUNT 7 MEM HOS[facility] MEM HOSP COMPLETE INC INC AUTO&AUTO DIFRNTL WBC COMPREHEN 06491 [facility] D[facility] SIVE 7 MEM HOSP MEM HOSP METABOLIC INC INC PANEL URINE 78591 [facility] 7 MEM HOS[facility] MEM HOSP TEST INC [place] [address] [facility] ABDOMEN & 7 MEM HOSP MEM HOSP PELVIS INC INC W/CONTRAS T MATERIAL URNLS DIP 65483 [facility] 7 MEM [facility]P [facility] STICK/TAB INC [place] [address] [place] [facility] ABDOMEN & 7 MEDICAL PELVIS IMAGING W/O ASS CONTRAST MATERIAL RADIOLOGI 68969 [facility] [place] ASTORGA C EXAM 6 RADIOLOGY CAR CHEST 2 VIEWS FRONTAL&[place] [address] [facility] [place] SCALF CHU[facility] HEAD/BRAI 6 RADIOLOGY N W/[place] [address] [place] [facility] ALL HEAD/BRAI 6 MEDICAL N W/[place] [address] [facility] INFUSION 6 MEM HOSP MEM HOS[facility] THERAPY/P INC INC ROPHYLAXI S /DX 1ST TO 1 HR THERAPEUT 55921 [facility] IC 6 MEM HOSP MEM HOSP INJECTION INC INC IV PUSH EACH NEW DRUG COMPREHEN 96385 [facility] SIVE 6 MEM HOSP MEM HOSP METABOLIC INC INC PANEL INJECTION J2405 [facility] 6 [facility] ONDANSETR INC INC ON HCL PER 1 MG GONADOTRO 26955 [facility] PIN 6 MEM HOSP MEM HOSP CHORIONIC INC INC QUALITATI VE BLOOD 00036 [facility] COUNT 6 MEM HOS[facility] MEM HOSP COMPLETE INC INC AUTO&[place] [address] [facility] [place] AMOL ABDOMEN & 6 RADIOLOGY III [facility] PELVIS W/CONTRAS T MATERIAL URINE 44045 [facility] FERRERAON 6 MEM [facility]OSP [facility] TEST INC INC VISUAL COLOR CMPRSN METHS URNLS DIP 82050 [facility] 6 [facility] STICK/TAB INC INC LET REAGENT AUTO MICROSCOP Y CULTURE 97095 [facility] BACTERIAL 6 MEM HOSP [facility] HOS[facility] INC INC QUANTTATI VE COLONY COUNT URINE CULTURE 27969 [facility] BCT 6 [facility] ISOL&PRSM INC INC PTV ID ISOLATE EA URINE SUSCEPTIB 23120 [facility] LTY STDY 6 [facility] ANTIMICRB INC INC IAL MICRO/AGA R DILUTJ BLOOD 77897 [facility] COUNT 6 N N COMPLETE COMMUNTIY COMMUNTIY AUTO&AUTO HOSPITA HOSPITA DIFRNTL WBC ECG 87310 [facility] ROUTINE 6 N N ECG COMMUNTIY COMMUNTIY W/LEAST HOSPITA HOSPITA 12 LDS TRCG ONLY W/O I&R URNLS DIP 43348 [facility] 6 N N STICK/TAB COMMUNTIY COMMUNTIY LET HOSPITA HOSPITA REAGENT AUTO MICROSCOP Y COLLECTIO 84854 [facility] N VENOUS 6 N N BLOOD COMMUNTIY COMMUNTIY VENIPUNCT HOSPITA HOSPITA URE URINE 10392 [facility] 6 N N TEST COMMUNTIY COMMUNTIY VISUAL HOSPITA HOSPITA COLOR CMPRSN METHS COMPREHEN 99846 [facility] SIVE 6 N N METABOLIC COMMUNTIY [place] [address] [facility] INFUSION 6 N N HYDRATION COMMUNTIY COMMUNTIY INITIAL HOSPITA HOSPITA 31 MIN-1 HOUR CYTP C/V 86476 BIO BIO AUTO THIN 6 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 IES IES MNL RESCR PHYS ANES IPER 84555 [facility] LWR ABD 5 ANESTH SHE W/LAPS OF THE TUBAL BLUE LIGATION/ TRANSECT SMR PRIM 62282 NATASHA LARSEN SRC WET 5 [facility] AGT SMR PRIM 34512 NATASHA LARSEN SRC WET 5 CHAVA RESENDEZ [facility] AGT 00447 [facility] NONSTRESS 5 MEM H[facility] MEM [facility]OS[facility] TEST INC INC 87166 [facility] CIFUENT[facility] GANSTER NONSTRESS 5 [facility] 01674 [facility] NONSTRESS 5 [facility] MEM [facility] TEST INC INC BLOOD 29441 [facility] COUNT 5 [facility]OS[facility] COMPLETE INC INC AUTO&AUTO DIFRNTL WBC GLUC BLD 16893 [facility] GLUC MNTR 5 [facility] DEV INC INC CLEARED FDA SPEC HOME USE URNLS DIP 72231 [facility] 5 [facility] STICK/TAB INC [place] [address] [facility] D[facility] INFUSION 5 [facility] THERAPY/P INC INC ROPHYLAXI S /DX 1ST TO 1 HR BASIC 56505 [facility] METABOLIC 5 [facility] PANEL INC INC CALCIUM TOTAL THERAPEUT 02595 [facility] IC 5 [facility] PROPHYLAC INC INC TIC/DX INJECTION SUBQ/IM 66239 [facility] NONSTRESS 5 [facility] TEST INC INC EVAL C/V 44265 [facility] AMNIOTIC 5 [facility] FLUID INC INC PROTEIN QUAL EA SPECIMEN PARTICLE 75595 [facility] AGGLUTINA 5 [facility] TION INC INC SCREEN EACH ANTIBODY CUL 29252 NATASHA LARSEN PRSMPTV 5 CHAVA CHO PTHGNC ORGANISM SCRN W/COLONY ESTIMJ FTL 76474 [facility] FIBRONECT 5 [facility]OS[facility] IN INC INC CERVICOVA G SECRETION S SEMI-JAYRO URNLS DIP 18427 [facility] 5 [facility]OS[facility] STICK/TAB INC INC LET REAGENT AUTO MICROSCOP Y EVAL C/V 80676 [facility] AMNIOTIC 5 [facility] FLUID INC INC PROTEIN QUAL EA SPECIMEN 91815 [facility] NONSTRESS 5 [facility] TEST INC INC 85808 [facility] NONSTRESS 5 [facility] TEST INC INC DOPPLER 19755 [facility] D[facility] VELOCIMET 5 [facility] [place] [address] [facility] D[facility] 5 [facility] UTERUS INC INC LIMITED 1/> FETUSES 25490 [facility] BIOPHYSIC 5 [facility] AL INC INC PROFILE W/O NON-STRES S TESTING OBSERVATI 48535 NATASHA LASREN ON CARE 5 [facility] RESENDEZ [facility] 61321 NATASHA LARSEN DISCHARGE 5 [facility] RESENDEZ [facility] DAY MANAGEMEN T 30 MIN/< SBSQ 79667 [facility] 5 [facility] RESENDEZ [place] CARE/DAY 15 MINUTES SBSQ 70260 NATASHA LARSEN OBSERVATI 5 CAHVA RESENDEZ [place] ON CARE/DAY 15 MINUTES INITIAL 47949 [facility] 5 [facility] RESENDEZ [place] CARE/DAY 50 MINUTES INITIAL 07354 NATASHA LARSEN OBSERVATI 5 [facility] RESENDEZ [place] [facility] CARE/DAY 30 MINUTES FTL 35492 [facility] FIBRONECT 5 [facility] IN INC INC CERVICOVA G SECRETION S SEMI-JAYRO URNLS DIP 77007 [facility] 5 [facility] STICK/TAB INC INC LET [place]AGENT [place] Y 38574 [facility] D[facility] NONSTRESS 5 [facility] TEST INC INC 31575 [facility] NONSTRESS 5 [facility] TEST INC INC INITIAL 94524 [facility] 5 MEDICAL DI CARE/DAY SERV 30 FOUNDATIO MINUTES [facility] 49470 [facility] DISCHARGE 5 CHAVA RESENDEZ [place] DAY MANAGEMEN T 30 MIN/< ECG 23832 [facility] PENG JR ROUTINE 5 [facility] W/LEAST P 12 LDS I&R ONLY SBSQ 94850 [facility] 5 [facility] RESENDEZ [facility] CARE/DAY 15 MINUTES INITIAL 01258 [facility] 5 [facility] RESENDEZ [facility] CARE/DAY 50 MINUTES URNLS DIP 52381 [facility] SCIENTOLOGY SCIENTOLOGY STICK/TAB HOSP HOSP LET RGNT AUTO W/O MICROSCOP Y FTL 08603 [facility] FIBRONECT 5 [facility] IN INC INC CERVICOVA G SECRETION S SEMI-JAYRO URNLS DIP 71359 [facility] 5 [facility] STICK/TAB INC INC LET REAGENT AUTO MICROSCOP Y EVAL C/V 66250 [facility] AMNIOTIC 5 [facility] FLUID INC INC PROTEIN QUAL EA SPECIMEN 29658 [facility] D[facility] NONSTRESS 5 [facility]OS[facility] TEST INC INC BLOOD 24978 [facility] COUNT 5 [facility] COMPLETE INC INC AUTO&AUTO DIFRNTL WBC COLLECTIO 18350 [facility] N VENOUS 5 [facility] BLOOD INC INC VENIPUNCT URE GLUCOSE 92509 [facility] POST 5 [facility] GLUCOSE INC INC DOSE URNLS DIP 55306 [facility] STICK/TAB INC INC LET REAGENT AUTO MICROSCOP Y FTL 80834 [facility] FIBRONECT 5 [facility] IN INC INC CERVICOVA G SECRETION S SEMI-JAYRO EVAL C/V 16498 [facility] AMNIOTIC 5 [facility] FLUID INC INC PROTEIN QUAL EA SPECIMEN 31187 [facility] NONSTRESS 5 [facility] TEST INC INC PRESSURIZ 42166 [facility] ED/NONPRE 5 [facility] SSURIZED INC INC INHALATIO N TREATMENT US PREG 26206 NATAS[facility] LARSEN UTERUS 5 [facility] CHO AFTER 1ST TRIMEST GESTATION SMR PRIM 21513 NATASHA LARSEN SRC WET 5 [facility] CHO MOUNT NFCT AGT URNLS DIP 76822 [facility] STICK/TAB INC INC LET REAGENT AUTO MICROSCOP Y FTL 21909 [facility] FIBRONECT 5 [facility] IN INC INC CERVICOVA G SECRETION S SEMI-JAYRO EVAL C/V 18187 [facility] AMNIOTIC 5 [facility] FLUID INC INC PROTEIN QUAL EA SPECIMEN 74007 [facility] NONSTRESS 5 [facility] TEST INC INC 20641 [facility] D[facility] NONSTRESS 5 [facility] TEST INC INC THERAPEUT 28919 [facility] IC 5 [facility] PROPHYLAC INC INC TIC/DX INJECTION SUBQ/IM GROUND A0425 [facility] PER SERVICE SERVICE STATUTE MILE AMB [id number] [facility] SERVICE 5 AMBULANCE AMBULANCE ALS SERVICE SERVICE EMERGENCY TRANSPORT LEVEL 1 URNLS DIP 97183 [facility] 5 [facility] STICK/TAB INC INC LET REAGENT AUTO MICROSCOP Y 72275 NATASHA LARSEN NONSTRESS 5 [facility] RESENDEZ MARQUIS TEST 62004 MILA HERNANDEZ NONSTRESS 5 PHYSICIAN OLIVIA TEST S GROUP GONADOTRO 97489 [facility] PIN 5 [facility] CHORIONIC [place] [address] [facility] ESTRIOL 5 [facility] INC INC COLLECTIO 69218 [facility] N VENOUS 5 [facility] BLOOD INC INC VENIPUNCT URE ALPHA-FET 43942 [facility] OPROTEIN 5 [facility] SERUM INC INC OPHTH 87858 KIERRA LOZADA [facility] 5 GRE GRE XM&EVAL COMPRE NEW PT 1/> VST DETERMINA 01570 KIERRA LOZADA TION 5 GRE GRE REFRACTIV E STATE BLOOD 89924 [facility] COUNT 5 [facility] COMPLETE INC INC AUTO&[place] [address] [facility] LIPASE 5 [facility] INC INC GONADOTRO 90214 [facility] D[facility] PIN 5 [facility]ION[facility] [place] [address] [facility] D[facility] AMYLASE 5 [facility] INC INC AMB A0427 [facility] SERVICE 5 AMBULANCE AMBULANCE ALS SERVICE SERVICE EMERGENCY TRANSPORT LEVEL 1 COMPREHEN 50473 [facility] SIVE 5 [facility] MEM [place] [address] [facility] INFUSION 5 [facility] THERAPY/P INC INC ROPHYLAXI S /DX 1ST TO 1 [place] [address] [facility] INFUSION 5 [facility] THERAPY INC INC PROPHYLAX IS/DX EA HOUR GROUND A0425 [facility] MILEAGE 5 AMBULANCE AMBULANCE PER SERVICE SERVICE STATUTE MILE URNLS DIP 27903 [facility] 5 [facility] STICK/TAB INC INC LET REAGENT AUTO MICROSCOP Y CULTURE 23529 [facility] BACTERIAL 5 [facility] INC INC QUANTTATI VE COLONY COUNT URINE US PREG 55673 NATASHA LARSEN UTERUS 5 CHAVA RESENDEZ MARQUIS AFTER 1[place] [address] NATASHA LARSEN 5 [facility] CHO UTERUS 14 WK TRANSABDL GESTAT COLPOSCOP 32921 NATASHA LARSEN Y CERVIX 5 CHAVA RESENDEZ MARQUIS BX CERVIX & [place]CRV [place] PREG 88489 NATASHA DAYPEL UTERUS 5 [facility]AVA CHO REAL TIME W/IMAGE DCMTN TRANSVAG GROUND A0425 [facility] MILEAGE 5 SUKHWINDER CO SUKHWINDER CO PER STATUTE AMBULANCE AMBULANCE MILE AMB A0427 [facility] SERVICE 5 SUKHWINDER CO SUKHWINDER CO ALS EMERGENCY AMBULANCE AMBULANCE TRANSPORT LEVEL 1 US PREG 57409 NATASHA R HARPEL UTERUS 5 [facility] CHO REAL TIME W/IMAGE DCMTN TRANSVAG HANDLG&/O 45245 NATASHA DAYPEL R CONVEY 5 CHAVA CHO OF SPEC FOR TR OFFICE TO LAB URINLS 24797 NATASHA DAYPEL DIP 5 [facility] CHO STICK/TAB LET REAGNT NON-AUTO MICRSCPY URINE 36832 NATASHA LARSEN 5 [facility]AVA CHO TEST VISUAL COLOR CMPRSN METHS IADNA 40874 NATASHA LARSEN NEISSERIA 5 [facility]AVA CHO GONORRHOE AE DIRECT PROBE TQ IADNA 66064 NATASHA LARSEN HERPES 5 [facility] CHO SIMPLX VIRUS DIRECT PROBE TQ CULTURE 17809 NATASHA LARSEN CHLAMYDIA 5 [facility] CHO ANY SOURCE IAADIADOO 38008 NATASHA LARSEN 5 [facility] CHO TRICHOMON VAGINALIS GONADOTRO 61178 [facility] PIN 5 [facility] CHORIONIC INC INC QUANTITAT KARIS BLOOD 91793 [facility] COUNT 5 [facility] COMPLETE INC INC AUTO&AUTO DIFRNTL WBC URINE 43036 [facility] 5 [facility] TEST INC INC VISUAL COLOR CMPRSN METHS US PREG 74569 [facility] UTERUS 5 [facility] REAL TIME INC INC W/IMAGE DCMTN TRANSVAG CULTURE 49851 [facility] BACTERIAL 5 [facility] INC INC QUANTTATI VE COLONY COUNT URINE BLOOD 04934 [facility] TYPING 5 [facility] SEROLOGIC INC INC RH (D) URNLS DIP 47386 [facility] 5 [facility] STICK/TAB INC INC LET REAGENT AUTO MICROSCOP Y URNLS DIP 63310 [facility] 5 [facility] STICK/TAB INC INC LET REAGENT AUTO MICROSCOP Y COLLECTIO 76472 [facility] N VENOUS 5 [facility] BLOOD INC INC VENIPUNCT URE CULTURE 15927 [facility] BACTERIAL 5 [facility] INC INC QUANTTATI VE COLONY COUNT URINE OBSTETRIC 20510 [facility] PANEL 5 [facility] INC INC URINE 76890 [facility] D[facility] 5 [facility] TEST INC INC VISUAL COLOR CMPRSN METHS GONADOTRO 88631 [facility] PIN 5 [facility] CHORIONIC INC INC QUANTITAT KARIS IAADI 62077 [facility] D[facility] INFLUENZA 5 [facility] B VIRUS INC INC IAADI 85768 [facility] D[facility] INFFLUENZ 5 [facility] [place] [address] [facility] INFUSION 5 [facility] THERAPY/P INC INC ROPHYLAXI S /DX 1ST TO 1 HR THERAPEUT 62291 [facility] D[facility] IC 5 [facility] INJECTION [place] [address] [facility] ABDOMEN & 5 [facility] PELVIS INC INC W/CONTRAS T MATERIAL URINE 50662 [facility] TEST INC INC VISUAL COLOR CMPRSN METHS COMPREHEN 42249 [facility] SIVE 5 [facility] [address] [facility] AMYLASE 5 [facility] INC INC LOCM Q9967 [facility] 300-399 5 [facility] MG/ML INC INC IODINE CONCENTRA TION PER ML URNLS DIP 80744 [facility] 5 [facility] STICK/TAB INC INC [place] [address] [facility] LIPASE 5 [facility] INC INC INJECTION J2405 [facility] 5 [facility] ONDANSETR INC INC ON HCL PER 1 MG BLOOD 15340 [facility] COUNT 5 [facility] COMPLETE INC INC AUTO&AUTO DIFRNTL WBC IADNA 71245 [facility] NEISSERIA 5 [facility] INC INC GONORRHOE AE AMPLIFIED PROBE TQ IADNA 01477 [facility] CHLAMYDIA 5 [facility] INC INC TRACHOMAT IS AMPLIFIED PROBE TQ URINE 75422 [facility] HERNANDEZ 5 PHYSICIAN OLIVIA TEST S GROUP VISUAL COLOR CMPRSN METHS URINE 61356 [facility] 5 [facility] TEST INC INC VISUAL COLOR CMPRSN METHS URINE [address] JIM 4 REGIONAL REGIONAL TEST MEDIC MEDIC VISUAL COLOR CMPRSN METHS COMPREHEN [address] JIM SIVE 4 REGIONAL REGIONAL METABOLIC MEDIC MEDIC PANEL URNLS DIP [address] JIM 4 REGIONAL REGIONAL STICK/TAB MEDIC MEDIC LET REAGENT AUTO MICROSCOP Y COLLECTIO [address] JIM N VENOUS 4 REGIONAL REGIONAL BLOOD MEDIC MEDIC VENIPUNCT URE RADEX [address] [facility]IM DANISH MARILY ABDOMEN 1 4 REGIONAL RADIOLOG ANTEROPOS TERIOR VIEW THERAPEUT [address] [facility]IM IC 4 REGIONAL REGIONAL PROPHYLAC MEDIC MEDIC TIC/DX INJECTION SUBQ/[place] [address] [facility] LIPASE 4 REGIONAL REGIONAL MEDIC MEDIC INJECTION J05[address] [facility] JIM 4 REGIONAL REGIONAL DICYCLOMI MEDIC MEDIC NE HCL UP TO [address] JIM COUNT 4 REGIONAL REGIONAL COMPLETE MEDIC MEDIC AUTO&AUTO DIFRNTL WBC BLOOD [address] JIM COUNT 4 REGIONAL REGIONAL COMPLETE MEDIC MEDIC AUTO&AUTO DIFRNTL WBC ECG [address]6464 [facility] J[facility] MARISA ROUTINE 4 [facility]ICAL [facility] W/LEAST 12 LDS I&R ONLY RADIOLOGI 51850 [facility] J[facility] DANISH MARILY C EXAM 4 REGIONAL CHEST 2 RADIOLOG VIEWS FRONTAL&L ATERAL ECG [address] JIM ROUTINE 4 REGIONAL REGIONAL ECG MEDIC MEDIC W/LEAST 12 LDS TRCG ONLY W/O I&R PROTHROMB 09732 [facility] IN TIME 4 REGIONAL REGIONAL MEDIC MEDIC CULTURE [address] JIM BACTERIAL 4 REGIONAL REGIONAL BLOOD MEDIC MEDIC AEROBIC W/ID ISOLATES THER [address] JIM PROPH/DX 4 REGIONAL REGIONAL NJX IV MEDIC MEDIC PUSH SINGLE/1S T SBST/DRUG INJECTION J2405 [facility] JIM 4 REGIONAL REGIONAL ONDANSETR MEDIC MEDIC ON HCL PER [address] D[address] JIM 4 REGIONAL REGIONAL STICK/TAB MEDIC MED[place] [address] [facility] INFUSION 4 REGIONAL REGIONAL HYDRATION MEDIC MEDIC EACH ADDITIONA L HOUR COMPREHEN [address] JIM SIVE 4 REGIONAL REGIONAL METABOLIC MEDIC MEDIC PANEL URINE [address] JIM 4 REGIONAL REGIONAL TEST MEDIC MEDIC VISUAL COLOR CMPRSN METHS COLLECTIO [address] JIM N VENOUS 4 REGIONAL REGIONAL BLOOD MEDIC MEDIC VENIPUNCT URE CREATINE 32906 [facility] KINASE MB 4 CO CO FRACTION [facility] ONLY COMPREHEN 50667 PON[facility] GARCIA SIVE 4 CO CO [facility] PANEL ECG 95582 [facility] ROUTINE 4 CO CO ECG [facility] W/LEAST 12 LDS TRCG ONLY W/O I&[place] [address] [facility] MAGNESIUM 4 CO CO [facility] CREATINE 92343 PONEM[facility] GARCIA KINASE 4 CO [facility] RADIOLOGI 38731 [facility] C EXAM 4 CO CO CHEST 2 [facility] VIEWS FRONTAL&[place] [address] [facility] TROPONIN 4 CO CO [facility] KARIS GONADOTRO 55701 [facility] PIN 4 CO CO [facility] QUALITATI VE BLOOD 15478 GARCIA GARCIA COUNT 4 CO [facility] AUTO&AUTO DIFRNTL WBC BLOOD 43672 [facility] COUNT 9 [facility] COMPLETE INC INC AUTO&[place] [address] [facility] D[facility] TROPONIN 9 [facility] QUANTITAT INC INC KARIS CREATINE 84772 [facility] D[facility] KINASE 9 [facility] TOTAL INC INC ECG 58828 [facility] ROUTINE 9 [facility] ECG INC INC W/LEAST 12 LDS TRCG ONLY W/O I&R COMPREHEN 14764 [facility] SIVE 9 [facility] METABOLIC INC INC PANEL CREATINE 85986 [facility] D[facility] KINASE MB 9 [facility] FRACTION INC INC ONLY URINE 12099 [facility] 9 [facility] TEST INC INC VISUAL COLOR CMPRSN METHS URNLS DIP 43820 [facility] 9 [facility] STICK/TAB INC INC LET REAGENT AUTO MICROSCOP Y RADIOLOGI 89048 [place] NE[place], C EXAM 9 MEDICAL [place] P CHEST 2 IMAGING VIEWS ASSOCIATE FRONTAL&L S ATERAL URNLS DIP 21088 [facility] 9 [facility] STICK/TAB INC INC LET REAGENT AUTO MICROSCOP Y CT PELVIS 47157 [place] RA, W/O 9 MEDICAL SUSHANT CONTRAST IMAGING MATERIAL ASSOCIATE S URINE 44094 [facility] 9 [facility] TEST INC INC VISUAL COLOR CMPRSN METHS COMPREHEN 81814 [facility] SIVE 9 [facility] [place] [address] [place] RA, ABDOMEN 9 MEDICAL SUSHANT W/[place] [address] [facility] INFUSION 9 [facility] THERAPY/P INC INC ROPHYLAXI S /DX 1ST TO 1 HR 3D 38139 [facility] RENDERING 9 [facility] INC INC W/INTERP& POSTPROC DIFF WORK STATION BLOOD 26145 [facility] COUNT 9 [facility] COMPLETE INC INC AUTO&AUTO DIFRNTL WBC OPHTH 49462 HERIBERTO GAINES, MEDICAL 8 VISION KEARA Ackerman XM&EVAL COMPRE NEW PT 1/> VST FRAMES V2020 HERIBERTO GAINES, PURCHASES 8 VISION KEARA Ackerman 1 VISN V2103 HERIBERTO GAINES, PLANO 8 VISION KEARA Ackerman TO+/-4.00 D SPHER 0.12-2.00 D CYL EA FITTING 59664 HERIBERTO GAINES, SPECTACLE 8 VISION KEARA Ackerman S XCPT APHAKIA MONOFOCAL Encounters Encounter Start End Date Code Location Performer Type Date OFFICE 84903 [facility] 7 7 [facility] T VISIT 5 E MINUTES HOSPITALS OFFICE 56787 [facility] 7 7 NURSE T VISIT PRACTITIO 15 NER GR MINUTES HOSPITAL - 7 7 [facility] OUTPATI E T [facility] 7 7 [facility] OUTPATI E HOSPITALS OFFICE 34660 [facility] 7 7 NURSE ION PRACTITIO NEW/ESTAB NER GR PATIENT 60 MIN OFFICE 52221 [facility] 7 7 HEALTHCAR T VISIT 5 E MINUTES HOSPITALS EMERGENCY 64974 [facility] 7 7 SANDRA VISIT EMERGENCY HIGH PHYS SEVERITY& THREAT [facility] GARCIA - 7 7 [facility] T EMERGENCY 87670 [place] 7 7 [facility] T VISIT HIGH/URGE NT SEVERITY [facility] - 7 7 [facility] T MEDICAL EMERGENCY 72628 [facility] 7 7 [facility] EMERGENCY T VISIT PHYS HIGH/URGE NT SEVERITY EMERGENCY 17515 [facility] 7 7 [facility] T VISIT LOW/MODER SEVERITY [facility]OSPITAL [facility] - 7 7 [facility] 75456 [facility] TOSHA II DEPT 6 6 SANDR[facility] THO VISIT EMERGENCY HIGH PHYS SEVERITY& THREAT [facility] 46270 [facility] DE[facility] 6 6 SANDRA NICOLE VISIT EMERGENCY HIGH PHYS SEVERITY& THREAT FUN EMERGENCY 38062 CHEIKH AMAYA 6 6 PHYSICIAN MAICOL [facility] T VISIT HIGH/URGE NT SEVERITY HOSPITAL [facility] - 6 6 [facility] EMERGENCY 76166 [facility] DEPT 6 6 [facility] VISIT INC HIGH SEVERITY& THREAT [facility] 26574 [facility] DEPT 6 6 [facility] VISIT EMERGENCY HIGH PHYS SEVERITY& THREAT [facility] EMERG[facility] 60130 [facility] 6 6 MEM [facility] VISIT LOW/MODER SEVERITY EMERGENCY 44000 CHEIKH FRAGOSO 6 6 [facility]YSICIAN [facility] T VISIT HIGH/URGE NT SEVERITY HOSPITAL [facility] - 6 6 [facility] EMERGENCY 61835 [facility] 6 6 N [facility] VISIT [facility] HIGH/URGE NT [facility]VERITY [facility] - 6 6 N [facility] 5 5 [facility] - 5 5 [facility] 5 5 [facility]EN [facility] OFFICE 02736 NATASHA LARSEN [facility] 5 5 CHAVA CHO VISIT 15 MINUTES HOSPITAL [facility] - 5 5 [facility] - 5 5 [facility] - 5 5 [facility] OUTPATIEN INC T OFFICE 29979 [facility] OUTPATIEN 5 5 [facility] 30 CLINIC MINUTES [facility] OFFICE 46727 NATASHA LARSEN OUTPATIEN 5 5 CHAVA CHO T VISIT 15 MINUTES HOSPITAL [facility] - 5 5 [facility] INPATIENT [facility] OFFICE 27364 NATASHA LARSEN OUTPATIEN 5 5 [facility]AVA CHO T VISIT 15 MINUTES HOSPITAL [facility] - 5 5 [facility] OUTPATIEN INC T OFFICE 26951 NATASHA LARSEN OUTPATIEN 5 5 [facility] CHO T VISIT 15 MINUTES HOSPITAL [facility] - 5 5 [facility] OUTPATIEN INC [facility] UNIVERSIT - 5 5 Y [facility] RAFAT - 5 5 MEM [facility] INPATIENT [facility] HOSPITAL CENTRAL - 5 5 [facility] OUTPATIEN HOSP T OFFICE 40817 NATSAHA LARSEN OUTPATIEN 5 5 [facility]AVA CHO T VISIT 15 MINUTES HOSPITAL [facility] - 5 5 [facility] OUTPATIEN INC [facility] RAFAT - 5 5 [facility] OUTPATIEN INC HOSPITAL [facility] - 5 5 [facility] OUTPATIEN INC [facility] RAFAT - 5 5 [facility] OUTPATIEN INC T OFFICE 53043 NATASHA LARSEN OUTPATIEN 5 5 [facility] CHO T VISIT 15 MINUTES HOSPITAL [facility] - 5 5 [facility] OUTPATIEN INC [facility] RAFAT - 5 5 [facility] OUTPATIEN INC HOSPITAL [facility] - 5 5 [facility] OUTPATIEN INC T OFFICE 28372 [facility] HERNANDEZ OUTPATIEN 5 5 PHYSICIAN OLIVIA T VISIT S GROUP 15 MINUTES OFFICE 56040 NATASHA MCCORMACKL OUTPATIEN 5 5 [facility] CHO T VISIT 15 MINUTES HOSPITAL [facility] - 5 5 [facility] OUTPATIEN INC T EMERGENCY 01780 [facility] 5 5 [facility] DEPARTMEN INC T VISIT HIGH/URGE NT SEVERITY HOSPITAL [facility] - 5 5 [facility] OUTPATIEN INC T OFFICE 65445 NATASHA LARSEN OUTPATIEN 5 5 [facility] CHO T VISIT 15 MINUTES OFFICE 80365 NATASHA LARSNE OUTPATIEN 5 5 [facility] CHO T VISIT 15 MINUTES EMERGENCY 59857 CHEIKH Gaytan DEPT 5 5 PHYSICIAN VISIT S, PLLC HIGH SEVERITY& THREAT FUNCJ OFFICE 15492 NATASHA MCCORMACKL OUTPATIEN 5 5 [facility] CHO T VISIT 15 MINUTES OFFICE 51597 NATASHA LARSEN OUTPATIEN 5 5 [facility] CHO T VISIT 15 MINUTES EMERGENCY 60103 [facility] 5 5 [facility] DEPARTMEN EMERGENCY T VISIT PHYS HIGH/URGE NT SEVERITY OFFICE 94290 NATASHA LARSEN OUTPATIEN 5 5 [facility] CHO T VISIT 15 MINUTES INITIAL 08890 NATASHA LARSEN PREVENTIV 5 5 [place] CHO E MEDICINE NEW PT AGE 18-39YRS EMERGENCY 03056 [facility] 5 5 [facility] DEPARTMEN INC T VISIT MODERATE SEVERITY HOSPITAL [facility] - 5 5 [facility] OUTPATIEN INC T EMERGENCY 36873 [facility] 5 5 [facility] DEPARTMEN INC T VISIT MODERATE SEVERITY HOSPITAL [facility] - 5 5 [facility] OUTPATIEN [facility] T EMERGENCY 56580 [facility] 5 5 [facility] T VISIT LOW/MODER SEVERITY HOSPITAL [facility] - 5 5 [facility] OUTPATIEN [facility] T EMERGENCY 78374 [facility] 5 5 [facility] T VISIT HIGH/URGE NT SEVERITY EMERGENCY 14477 [facility] DOU 5 5 [facility] T VISIT P MODERATE SEVERITY HOSPITAL [facility] - 5 5 [facility] OUTPATIEN [facility] T HOSPITAL [facility] - 5 5 [facility] T OFF[facility] 31842 [facility] 5 5 PHYSICIAN OLIVIA T NEW 43 S GROUP MINUTES EMERGENCY 47704 [facility] 5 5 [facility] T VISIT LOW/MODER SEVERITY EMERGENCY 90398 [facility] CANADAEY 5 5 [facility] T VISIT P LIMITED/M [facility] 5 5 [facility] T EMERGENCY [address] JIM 4 4 [facility] MEDIC T VISIT MODERATE SEVERITY HOSPITAL ST [facility] - 4 4 [facility] T EMERGENC[facility] [address] [facility] 4 4 [facility] T VISIT EMERGENCY HIGH/URGE NT SEVERITY HOSPITAL ST JIM - 4 4 REGIONAL OUTPATI MEDIC T EMERGENCY 75313 [facility] DEPT 4 4 REGIONAL VISIT HIGH EMERGENCY SEVERITY& THREAT FUNCJ EMERGENCY 15935 ST JIM 4 4 [facility] MEDIC T VISIT HIGH/URGE NT SEVERITY HOSPITAL GARCIA - 4 4 [facility] T EMERGENCY 74044 JOSE 4 4 [facility] T VISIT HIGH/URGE NT SEVERITY EMERGENCY 31008 KIERRA LEONARD, DEPT 9 9 EMERGENCY NIRMALA Capone VISIT SERVICES HIGH SEVERITY& ASSOCIATE THREAT S [facility] EM[facility] 22506 [facility] 9 9 [facility] T VISIT HIGH/URGE NT SEVERITY HOSPITAL RAF[facility] - 9 9 [facility] OUTPATIEN [facility] T EMERGENCY 32649 KIERRA KIRKPATRICK, DEPT 9 9 EMERGENCY ROXANNA Blanchard VISIT SERVICES HIGH SEVERITY& ASSOCIATE THREAT S [facility] RAFAT - 9 9 [facility] OUTPATIEN [facility] T EMERGENCY 35232 [facility] 9 9 [facility] T VISIT HIGH/URGE NT SEVERITY
--- OUTSIDE RECORDS SUMMARY | 2017-01-13 21:51 | External Medical Summary Rpt ---
Author Author , MARLON MASON Address Unknown Phone [email or web address] Immunization Name Date Rout CVX Reac Dose Comm Prov Is Faci e tion ent ider Refu lity Give sed n Tdap 10-1 115 0.5 Hist [facility] , 2-20 mL oric 1 1 Adso 15 al rbed Info rmat ion - Sour ce Unsp ecif ied Infl 10-1 150 0.5 Hist [facility] No [facility] uenz 2-20 mL oric 1 1 a 15 al Quad Info Inj rmat ion - Sour ce Unsp ecif ied MMR 01-1 3 999 Hist H149 No H149 0-19 oric 96 al Info rmat ion - Sour ce Unsp ecif ied DTP- 01-1 22 999 Hist H149 No H149 Hib 0-19 oric 96 al Info rmat ion - Sour ce Unsp ecif ied
--- OUTSIDE RECORDS SUMMARY | 2017-01-13 21:51 | External Medical Summary Rpt ---
Author Author , MARLON MASON Address Unknown Phone [email or web address] Immunization Name Date Rout CVX Reac Dose [...]
== END 2017-01-13 21:50 | disposition home or self-care (01) ==
LOC: UTC 20:34
DX: L50.0 Allergic urticaria (principal); Z79.899 Other long term (current) drug therapy; R56.9 Unspecified convulsions

== ENCOUNTER 2017-03-18 11:18 | Emergency (ER) | payer MEDICAID ==
[~2017-03-18] VITALS: Ht 160 cm; Wt 72.6 kg
[~2017-03-18 11:18] MED LIST changes: +KEPPRA1000 MG PO; +MEDROL 4MG. DOSE4 MG PO
--- OUTSIDE RECORDS SUMMARY | 2017-03-18 11:40 | External Medical Summary Rpt | CCD ---
Author Author , MARLON Organization MARLON Address Unknown Phone Care Team Providers Care Practicing Urologist Name Role Phone PETE LIMON Unavailable Unavailable [facility] Unavailable [facility]available [facility], [facility] Unavailable Unavailable [facility], [facility] MCKINNEY, MCKINNEY Unavailable Unavailable MCKINNEY ALL, MCKINNEY ALL Unavailable Unavailable [facility] Unavailable Unavailable [facility], [facility] Unavailable Unavailable [facility], [facility] ASTORGA CAR, ASTORGA Unavailable Unavailable CAR [facility], Unavailable Unavailable [facility] CHIPPS SONJA & Unavailable Unavailable DUBILIER, CHIPPS SONJA & DUBILIER HERNANDEZ OLIVIA, HERNANDEZ Unavailable Unavailable OLIVIA [facility], Unavailable [facility]available [facility] Un[facility] RA AMANDA, Unavailable Unavailable RA AMANDA RA, SUSHANT, Unavailable Unavailable RA, SUSHANT TOSHA II THO, TOSHA II Unavailable Unavailable THO MARISA PARESH, MARISA Unavailable Unavailable [facility] Un[facility] [place] [place] [place] ROXANNA KRIKPATRICK, Unavailable Unavailable ROXANNA KIRKPATRICK [facility], Unavailable Unavailable [facility] Unavailable Unavailable HOSPITAL, [facility], JOSE LUIS Unavailable Unavailable MAICOL ZE PENA Unavailable Unavailable DONALDO [facility] Unavailable Unavailable HOSPITA, [facility] NATASHA LARSEN MD, Unavailable Unavailable NELLY ANDINO MD Unavailable Unavailable HARPEL [facility]QU[facility]BAR[facility] Unavailable Unavailable MARQUIS [facility] Unavailable Unavailable INC, [facility] Unavailable Unavailable HOSPITAL P, [facility] P [facility], Unavailable Unavailable [facility] ARNOLD AMANDA, CLAYTON AMANDA Unavailable Unavailable AMOL III TARIQ, Unavailable Unavailable AMOL III TARIQ [facility], [facility] Un[facility], [facility] DANISH MARILY, DANISH MARILY Unavailable Unavailable [facility] JR DWI, DANISH Unavailable Unavailable JR DWI [facility] Unavailable Unavailable COGOVT, LIGIA FAYETTE [facility] COG[facility]T LONG, LONG Unavailable Unavailable NIRMALA LEONARD, Unavailable Unavailable NIRMALA LEONARD GRE, Unavailable Unavailable KIERRA GRE KIERRA GRE, Unavailable Unavailable KIERRA GRE [facility] Unavailable Unavailable [facility], [facility] Unavailable Unavailable AMBULANCE, [facility] Unavailable Unavailable [facility]AT, [facility] Unavailable Unavailable MEDICAL, [facility] MEDICAL MERHAR, MERHAR Unavailable Unavailable MUHA, MUHA Unavailable Unavailable MUHA, MUHA Unavailable Unavailable [facility] Unavailable Unavailable [facility], [facility] O'ADRI DI, O'ADRI Unavailable Unavailable DI OVERALL PHI, OVERALL Unavailable Unavailable PHI [facility], Unavailable [facility]available [facility], [facility] PORNOY JORGE, PORNOY Unavailable Unavailable JORGE RENUSCH GOLDIE, RENUSCH Unavailable Unavailable GOLDIE CORNELIUS GRICEL, Unavailable Unavailable CORNELIUS GRICEL KAYLA JOSE, KAYLA JOSE Unavailable Unavailable SCALF CHUY, SCALF CHUY Unavailable Unavailable SCIES KEARA M, Unavailable Unavailable SCIFRES, KEARA M MATTHEWS NICOLE, MATTHEWS Unavailable Unavailable [facility], [facility] LYNN SHE, Unavailable Unavailable LYNN SHE [facility] Unavailable Unavailable [facility], [facility] Unavailable Unavailable EMERGENCY, [facility] GALVAN, GALVAN Unavailable Unavailable [facility] Unavailable Unavailable [facility], [facility], Unavailable Unavailable [facility], [facility] Unavailable Unavailable [facility], [facility] Unavailable Unavailable Purpose Continuity of Care Document - 05-05-2008 through 2016 Problems Code Diagnosis DOS Provider Status L500 ALLERGIC 01-13-2017 [facility] R569 UNSPECIFIED 01-13-2017 [facility] CONVULSIONS INC R22020 OTHER LONG 01-13-2017 [facility] TERM [facility] CURRENT INC DRUG THERAPY G441 VASCULAR 11-25-2016 MUHA HEADACHE NOT ELSEWHERE CLASSIFIED 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 H1045 OTHER 11-25-2016 [facility] CHRONIC ALLERGIC CONJUNCTIVI TIS H5213 MYOPIA 11-25-2016 [facility] BILATERAL M5031 OTH CERV 11-12-2016 [place] [facility] HIGH [facility]IR[facility] CERVICAL REGION K07625 OTHER 11-12-2016 [place] CERVICAL [facility] DISC CHIROPRACTI DEGENERATIO N AT C6-C7 LEVEL M5134 OTH 11-12-2016 [place] INTERVERTE[facility] FAMILY RAL DISC CHIROPRACTI DEGEN THORACIC REGION M5136 OTH 11-12-2016 [place] [facility]ILY RAL DISC CHIROPRACTI DEGEN LUMBAR REGION M9901 SEGMENTAL & 11-12-2016 [place] SOMATIC [facility]ILY DYSFUNCTION CHIROPRACTI CERVICAL REGION M9902 SEGMENTAL & 11-12-2016 [place] S[facility]AT[facility] FAM[facility] DYSFUNCTION CHIROPRACTI THORACIC REGION M9903 SEGMENTAL & 11-12-2016 [place] S[facility]ILY DYSFUNCTION CHIROPRACTI OF LUMBAR REGION M9905 SEGMENTAL & 11-12-2016 [place] [facility] DYSFUNCTION CHIROPRACTI OF PELVIC REGION R51 HEADACHE 10-23-2016 [facility] W05628 EPILEPSY 07-21-2016 [facility] STATUS EPILEPTICUS B23079 OTHER 07-21-2016 [facility] PERIPHERAL N EMERGENCY VERTIGO PHYS UNSPECIFIED EAR J322 CHRONIC 07-21-2016 [facility] ETHMOIDAL N EMERGENCY SINUSITIS PHYS R0789 OTHER CHEST 07-21-2016 [facility] PAIN N EMERGENCY PHYS R42 DIZZINESS 07-21-2016 [place] [facility] GIDDINESS ASSOCIAT J28260 ALLERGY TO 07-21-2016 [facility] OTHER FOODS [facility] Z9851 TUBAL 07-21-2016 [facility] Z30191 UNSPECIFIED 07-11-2016 [facility]IAN [facility] CYST LEFT INC SIDE R1031 RIGHT LOWER 07-11-2016 [facility] [facility] R1032 LEFT LOWER 07-11-2016 [facility] PAIN INC R110 NAUSEA 07-11-2016 [facility] R1110 VOMITING 07-11-2016 [facility] ASS R0602 SHORTNESS 12-29-2015 [facility] [place] [facility] R0781 PLEURODYNIA 12-29-2015 [facility] R091 PLEURISY 12-29-2015 [facility] P97665 PERSONAL 12-01-2015 [facility] HISTORY OF [facility] NICOTINE INC DEPENDENCE N3091 CYSTITIS 11-10-2015 [facility] UNSPECIFIED N EMERGENCY WITH PHYS HEMATURIA N3289 OTHER 11-10-2015 [facility] [place] SPECIFIED [facility]Y DISORDERS OF BLADDER R1084 GENERALIZED 11-10-2015 [facility] ABDOMINAL N EMERGENCY PAIN PHYS N390 URINARY 11-06-2015 [facility], INFECTION [facility] SITE NOT SPECIFIED E860 DEHYDRATION 10-10-2015 [facility] R55 SYNCOPE AND 10-10-2015 [facility] Z392 ENCOUNTER 07-02-2015 [facility] FOR ROUTINE RE[facility] LABORATORIE FOLLOW-UP S Z9889 OTHER 07-02-2015 [facility] SPECIFIED RE[facility]CE POSTPROCEDU LABORATORIE [facility] STATES S O80 ENCOUNTER 05-10-2015 [facility] FOR ANESTH OF FULL-TERM MERNA HERNANDEZ UNCOMPLICAT ED DELIVERY Z0189 ENCOUNTER 05-10-2015 [facility] OTHER SONJA & SPECIFIED DUBILIER SPECIAL EXAMINATION S Z302 ENCOUNTER 05-10-2015 [facility] FOR ANEST[facility] OF STERILIZATI MERNA HERNANDEZ ON Z370 SINGLE LIVE 05-10-2015 [facility] ANESTH OF MERNA HERNANDEZ Z3A37 37 WEEKS 05-10-2015 [facility] GESTATION ANESTH OF OF MERNA HERNANDEZ B373 CANDIDIASIS 05-07-2015 NATASHA Alexandra OF VULVA [facility] RESENDEZ AND VAGINA Z3483 ENC 05-07-2015 NATASHA Alexandra SUPERVISION [facility] RESENDEZ OT NORMAL 3 TRIMESTER O471 FALSE LABOR 05-01-2015 NATASHA Alexandra AT/AFTER CHAVA RESENDEZ 37 COMPLETED WEEKS GEST O6003 05-01-2015 [facility] LABOR [facility] WITHOUT INC DELIVERY THIRD TRIMESTER Z3A36 36 WEEKS 05-01-2015 [facility] GESTATION [facility] OF INC E55373 OTHER SPEC 04-29-2015 [facility] COND 2ND TRIMESTER R13428 OTHER SPEC 04-28-2015 [facility] RELATED INC COND 3RD TRIMESTER Z331 04-28-2015 [facility] AMBULANCE INCIDENTAL SERVICE O4703 FALSE LABOR 04-26-2015 [facility] BEFORE 37 MEM HOS[facility] CMPLETE INC WEEKS GEST 3RD TRI Z3A35 35 WEEKS 04-26-2015 [facility] GESTATION [facility] OF INC Z36 ENCOUNTER 04-24-2015 [facility] FOR [facility] INC SCREENING OF MOTHER Z3A34 34 WEEKS 04-17-2015 [facility] GESTATION [facility] OF INC U349530 DECREASED 04-14-2015 [facility] THIRD TRIMESTER NA/UNS O0973 SUP HIGH 04-12-2015 NATASHA Alexandra RISK PREG CHAVA RESENDEZ D/T SOCIAL PROBLEMS THIRD TRI G40A09 ABSENCE 04-11-2015 [facility] NOT INTRACTABLE W/O SE O2693 04-11-2015 [facility] [place] PSC UNS 3RD TRIMESTER Z3493 ENC 04-09-2015 NATASHA Alexandra SUPERVISION [facility]AVA RESENDEZ NORMAL UNS 3 TRIMESTER M12397 OTH GEN 04-03-2015 [facility] EPILEPSY [facility] [...] PREG [facility] PUER[facility] R109 UNSPECIFIED 03-12-2015 [place] [facility] PAIN [facility] B3749 OTHER 03-11-2015 [facility] CANDIDIASIS K5900 CONSTIPATIO 03-11-2015 [facility] UNSPECIFIED M549 DORSALGIA 03-11-2015 [facility] UNSPECIFIED AMBULANCE SERVICE N1330 UNSPECIFIED 03-11-2015 [facility] HYDRONEPHRO [facility] SIS R94037 03-11-2015 [facility] RENAL [facility] DISEASE UNS TRIMESTER O2690 03-11-2015 [facility] CONDITIONS SERVICE UNS UNS TRIMESTER [id number] MATERNAL 03-11-2015 [facility] [place] [facility] PRESENTATIO N NA/UNS [id number] L & D COMP 03-11-2015 [place] [facility]OUND SERV NECK W/O FOUNDATION COMPRS NA/UNS C15553 OTH 03-11-2015 [facility] INF & PARASIT DZ COMP PREG 3RD TRI O623 PRECIPITATE 03-08-2015 NATASHA LARSEN MD Z3492 ENC 03-08-2015 [facility] NORMAL [facility] ASS UNS 2 TRIMESTER O331 MAT CARE 03-03-2015 LIGIA FAYETTE DISPROPORTI URBAN ON D/T GEN COGOVT CONTRACTED PELV Z3A28 28 WEEKS 03-03-2015 [facility] V221 SUPERVISION 02-27-2015 NATASHA Alexandra OF VI[facility] HUGO LARSEN MD NORMAL 17026 THREATENED 02-19-2015 [facility] ANTEPARTUM 94523 OT CURRENT 02-18-2015 [facility] MAT CONDS [facility] CLASSIFIABL INC E ELSW ANTPRTM V771 SCREENING 02-16-2015 [facility] FOR [facility] DIABETES INC MELLITUS 76400 ASTHMA, 02-03-2015 [facility] UNSPECIFIED [facility] , INC UNSPECIFIED STATUS V222 02-03-2015 [facility] STATE, [facility] INCIDENTAL INC 73721 UNSPECIFIED 01-30-2015 NATASHA Alexandra VAGINITIS CHAVA RESENDEZ AND VULVOVAGINI TIS 68480 HEMORRHAGE 01-30-2015 NATASHA Alexandra FROM CHAVA RESENDEZ PLACENTA PREVIA ANTEPARTUM 18119 OTHER 01-23-2015 [facility] THREATENED [facility] LABOR, INC ANTEPARTUM 09592 ERLY ONSET 01-23-2015 [facility] DELIV DELIV AMBULANCE W/WO SERVICE MENTION ANTPRTM COND 43399 ABDOMINAL 01-23-2015 [facility] PAIN OTHER AMBULANCE SPECIFIED SERVICE SITE 27627 OTHER 01-15-2015 [facility] SPECIFED [facility] COMPLICATIO INC N ANTEPARTUM V2889 OTHER 12-19-2014 [facility] SPECIFIED [facility] INC SCREENING 3670 HYPERMETROP 12-18-[address] [place] [address] UNSPEC COMP 12-04-2014 [facility] UNSPEC SERVICE EPISODE CARE 58601 ABDOMINAL 12-04-2014 [facility] PAIN, [facility] UNSPECIFIED INC SITE 7840 HEADACHE 11-15-2014 [facility] 31389 CHEST PAIN 11-15-2014 [facility] UNSPECIFIED [facility]IANS[facility] PLL[facility] 52075 PAP SMER 10-24-2014 NATASHA Alexandra CERV CHAVA RESENDEZ W/ATYPICAL SQUAMOUS CELLS UNDET 6259 UNSPEC 10-07-2014 [facility] SYMPTOM N EMERGENCY ASSOC PHYS W/FEMALE GENITAL ORGANS 6268 OTH D/O 09-28-2014 NATASHA Alexandra MENSTRUATIO CHAVA RESENDEZ N&OTH ABN BLEED FE GNT TRACT 96149 THREATENED 09-28-2014 NATASHA Alexandra CHAVA MD ANTEPARTUM V7231 ROUTINE 09-28-2014 NATASHA Alexandra GYNECOLOGIC CHAVA RESEDNEZ AL EXAMINATION 5990 URINARY 09-17-2014 [facility] TRACT [facility] INFECTION INC SITE NOT SPECIFIED 4619 ACUTE 08-24-2014 [facility] SINUSITIS, [facility] UNSPECIFIED INC 5589 OTH&UNSPEC 08-18-2014 [facility] NONINFECTIO [facility] P GASTROENTER ITIS&COLITI S 7873 FLATULENCE 08-18-2014 [place]ATION [facility] PAIN 18624 ABDOMINAL 08-18-2014 [place] PAIN, LEFT MEDICAL UPPER IMAGING ASS QUADRANT V692 PROBLEMS 08-02-2014 [facility] RELATED TO MEM [facility]OS[facility] HIGH-RISK INC SEXUAL BEHAVIOR 9165 HIP THIGH 06-26-2014 [facility] LEG&ANK [facility] INSECT BITE [facility] P NONVENOMOUS INF V1582 PERS HX 06-26-2014 [facility] TOBACCO USE [facility] 79185 ABDOMINAL 03-09-2014 [facility] PAIN RIGHT REGIONAL UPPER MEDIC QUADRANT 44656 UNSPECIFIED 12-13-2013 [facility] VIRAL REGIONAL INFECTION EMERGENCY IN CCE & UNS SITE 01184 FEVER 12-13-2013 [facility] UNSPECIFIED REGIONAL EMERGENCY 7862 COUGH 08-07-2013 [facility] 4660 ACUTE 09-25-2008 [facility] BRONCHITIS [facility] INC 490 BRONCHITIS 09-25-2008 [facility] EMERGENCY SPECIFIED SERVICES ACUTE OR ASSOCIATES CHRONIC 21466 SHORTNESS 09-25-2008 [facility] [place]GENC[facility] SERVICES ASSOCIATES 03136 UNSPECIFIED 09-05-2008 [facility] CONSTIPATIO SERVICES N ASSOCIATES 3671 MYOPIA 05-05-2008 [facility] V[facility] F32.9 MAJOR DEPRESSIVE DISORDER, SINGLE EPISODE, UNSPECIFIED J01.90 ACUTE SINUSITIS, UNSPECIFIED J45.909 UNSPECIFIED ASTHMA, UNCOMPLICAT ED K52.9 NONINFECTIV E GASTROENTER ITIS AND COLITIS, UNSPECIFIED M25.531 PAIN IN RIGHT WRIST N39.0 URINARY TRACT INFECTION, SITE NOT SPECIFIED N83.209 UNSPECIFIED OVARIAN CYST, UNSPECIFIED SIDE N93.9 ABNORMAL UTERINE AND VAGINAL BLEEDING, UNSPECIFIED O20.0 THREATENED R10.9 UNSPECIFIED ABDOMINAL PAIN R11.10 VOMITING, UNSPECIFIED R42 DIZZINESS AND GIDDINESS R51 HEADACHE R56.9 UNSPECIFIED CONVULSIONS W57.XXXA BIT/STUNG BY NONVENOM INSECT \\T\\ OTH NONVENOM ARTHROPODS, INIT Z34.90 ENCNTR FOR SUPRVSN OF NORMAL , UNSP, UNSP TRIMESTER Medications Na ND Rx Da Fi Fi Am Da Di Ph RX Ph St me C No te ll ll ou ys ag ar # ys at rm s nt no ma ic us Or Da si cy ia de te s n re d LE 16 09 09 60 30 00 TO Ac VE 71 -0 -2 .0 00 TA ti TI 40 6- 9- 00 07 L ve RA 35 20 20 61 CA CE 70 17 17 94 RE TA 1 56 M PH 1, AR 00 MA 0 CY MG #2 TA BL ET LE 16 07 08 60 30 00 [...] AR MA TA CY BL ET #2 ME 65 02 03 21 7 00 [...] MA MG CY TA #2 BL ET ON 57 02 03 10 4 00 WA Ac DA 23 -1 -1 .0 00 L- ti NS 70 0- 0- 00 07 MA ve ET 07 20 20 47 RT RO 71 17 17 00 N 0 96 PH OD AR T MA 4 CY MG #5 TA 91 BL ET NA 65 02 03 14 7 00 WA Ac KS 16 -1 -1 .0 00 L- ti [...] CBC WITH AUTO DIFF REFLEX (03-09-2014 03:55) Platele 292 x10 130-400 complet t Count 014 3 ed 03:55 Red 03-09-2 13.7 % 11.5-14 complet Cell 014 .5 ed Distrib 03:55 ution Width Mean 03-09- 32.9 32-36 complet Corpusc 014 g/dL ed ular 03:55 Hemoglo bin Concent Mean 28.3 pg 27-31 complet Corpusc 014 ed ular 03:55 Hemoglo bin Mean 03-09-2 85.9 fL 81-99 complet Corpusc 014 ed ular 03:55 Volume Hemoglo 03-09-2 12.7 12.0-16 complet bin 014 g/dL .0 ed 03:55 Red 03-09-2 4.47 X 4.20-5. complet Blood 014 10 6 40 ed Count 03:55 White 09-2 7.1 X 4.8-10. complet Blood 014 10 3 8 ed Count 03:55 Mean 09-2 6.9 fL 6.0-10. complet Platele 014 0 ed t 03:55 Volume Hematoc 03-09-2 38.4 % 37.0-47 complet rit 014 .0 ed 03:55 Basophi 03-09-2 0.0 X 0.0-0.2 complet ls # 014 10 3 ed (Auto) 03:55 Comment: If a manual differential is indicated, submit order within Comment: 48 hours" Eosinop 03-09-2 0.2 X 0.0-0.5 complet hils # 014 10 3 ed (Auto) 03:55 Monocyt 03-09-2 0.2 X 0.3-0.9 complet es # 014 10 3 ed (Auto) 03:55 Lymphoc 03-09-2 2.3 X 1.0-3.3 complet ytes # 014 10 3 ed (Auto) 03:55 Neutrop 03-09-2 4.3 X 1.8-7.0 complet hils # 014 10 3 ed (Auto) 03:55 Basophi 0.4 % 0-1.6 complet ls (%) 014 ed (Auto) 03:55 Eosinop 03-09- 2.9 % 0.0-5.8 complet hils 014 ed (%) 03:55 (Auto) Monocyt 3.1 % 4.4-11. complet es (%) 014 0 ed (Auto) 03:55 Lymphoc 32.0 % 17.6-40 complet ytes 014 .8 ed (%) 03:55 (Auto) Neutrop 60.0 % 43.1-74 complet hils 014 .8 ed (%) 03:55 (Auto) URINE MICROSCOPIC (03-09-2014 03:50) Urine YELLOW complet Color 014 ed 03:50 SOURCE, CLEAN complet URINE 014 CATCH ed 03:50 URINE MICROSCOPIC (03-09-2014 03:50) LEUKOCY TRACE NEGATIV complet TE 014 E ed ESTERAS 03:50 E ,URINE UROBILI 0.2 0.0-1.0 complet NOGEN,U 014 E.H./dL ed RINE 03:50 Urine NEGATIV NEGATIV complet Bilirub 014 E E ed in 03:50 Comment: THE COLOR OF THE URINE CAN CAUSE A POSITIVE BILIRUBIN. NITRATE POSITIV NEGATIV complet ,URINE 014 E E ed 03:50 Urine NEGATIV NEGATIV complet Ketones 014 E mg/dL E ed 03:50 Urine NEGATIV NEGATIV complet Glucose 014 E mg/dL E ed (UA) 03:50 Urine NEGATIV NEGATIV complet Protein 014 E mg/dL E ed 03:50 Urine 1.022 1.003-1 complet Specifi 014 .035 ed c 03:50 [place] Urine 5.5 4.5-8.0 complet pH 014 ed 03:50 BLOOD, NEGATIV NEGATIV complet URINE 014 E E ed 03:50 Urine CLOUDY complet Appeara 014 ed nce 03:50 UPT (03-09-2014 03:50) UPT NEGATIV NEGATIV complet 014 E E ed 03:50 BLOOD CULTURE (12-13-2013 08:10) Comment: Source Name: BLOOD\\E\\.br\\E\\ BLOOD NO complet CULTURE 014 GROWTH ed 08:10 AFTER 5 DAYS BLOOD CULTURE (12-13-2013 08:05) Comment: Source Name: BLOOD\\E\\.br\\E\\ BLOOD NO complet CULTURE 014 GROWTH ed 08:05 AFTER 5 DAYS CBC WITH AUTO DIFF REFLEX (12-13-2013 07:30) Monocyt 5.9 % 4.4-11. Normal complet es (%) 014 0 ed (Auto) 07:30 Lymphoc 9.9 % 17.6-40 Below complet ytes 014 .8 low ed (%) 07:30 normal (Auto) Neutrop 82.0 % 43.1-74 Above complet hils 014 .8 high ed (%) 07:30 normal (Auto) Mean 7.1 fL 6.0-10. Normal complet Platele 014 0 ed t 07:30 Volume Platele 195 x10 130-400 Normal complet t Count 014 3 ed 07:30 Red 13.1 % 11.5-14 Normal complet Cell 014 .5 ed Distrib 07:30 ution Width Mean 34.5 32-36 Normal complet Corpusc 014 g/dL ed ular 07:30 Hemoglo bin Concent Mean 29.0 pg 27-31 Normal complet Corpusc 014 ed ular 07:30 Hemoglo bin Mean 84.2 fL 81-99 Normal complet Corpusc 014 ed ular 07:30 Volume Hematoc 07-15-2 37.6 % 37.0-47 Normal complet rit 014 .0 ed 07:30 Hemoglo 07-15-2 13.0 12.0-16 Normal complet bin 014 g/dL .0 ed 07:30 Red 07-15-2 4.47 X 4.20-5. Normal complet Blood 014 10 6 40 ed Count 07:30 White 07-15-2 5.4 X 4.8-10. Normal complet Blood 014 10 3 8 ed Count 07:30 Basophi 07-15-2 0.0 X 0.0-0.2 Normal complet ls # 014 10 3 ed (Auto) 07:30 Comment: If a manual differential is indicated, submit order within Comment: 48 hours" Eosinop 07-15-2 0.0 X 0.0-0.5 Normal complet hils # 014 10 3 ed (Auto) 07:30 Monocyt 07-15-2 0.3 X 0.3-0.9 Normal complet es # 014 10 3 ed (Auto) 07:30 Lymphoc 07-15-2 0.5 X 1.0-3.3 Below complet ytes # 014 10 3 low ed (Auto) 07:30 normal Neutrop 07-15-2 4.5 X 1.8-7.0 Normal complet hils # 014 10 3 ed (Auto) 07:30 Basophi 07-15-2 0.2 % 0-1.6 Normal complet ls (%) 014 ed (Auto) 07:30 Eosinop 07-15-2 0.6 % 0.0-5.8 Normal complet hils 014 ed (%) 07:30 (Auto) Procedures Procedure DOS Code Location Performer Comment THERAPEUT 09554 [facility] IC 7 [facility] PROPHYLAC INC INC TIC/DX INJECTION SUBQ/IM OPHTH 57139 [facility] 7 XM&EVAL COMPRE NEW PT 1/> VST THERAPEUT 28106 [place] IC PX 1/> 7 FAMILY AREAS CHIROPRAC EACH 15 TI MIN EXERCISES APPL 05693 [facility]E [facility] MODALITY 7 FAMILY 1/> AREAS CHIROPRAC TRACTION TI MECHANICA L APPL 23639 SOMERSRA VILLEGAS MODALITY 7 FAMILY 1/> AREAS CHIROPRAC ELEC TI STIMJ UNATTENDE D CHIROPRAC 79439 SOMERSRA NELLY TIC 7 FAMILY MANIPLTV CHIROPRAC TX TI EXTRASPIN AL 1/> REGION MANUAL 12413 [place] [facility] THERAPY 7 FAMILY TQS 1/> CHIROPRAC REGIONS TI EACH 15 MINUTES CHIROPRAC 85581 SOMERSRA NELLY TIC 7 FAMILY MANIPULAT CHIROPRAC KARIS TX TI SPINAL 3-4 REGIONS CHIROPRAC 51234 EAGLEIDALIA VILLEGAS TIC 7 FAMILY MANIPULAT CHIROPRAC KARIS TX TI SPINAL 3-4 REGIONS MANUAL 68808 [place] [facility] THERAPY 7 FAMILY TQS 1/> CHIROPRAC REGIONS TI EACH 15 MINUTES CHIROPRAC 20441 SOMERSRA NELLY TIC 7 FAMILY MANIPLTV CHIROPRAC TX TI EXTRASPIN AL 1/> REGION APPL 87107 SOMERSRA VILLEGAS MODALITY 7 FAMILY 1/> AREAS CHIROPRAC ELEC TI STIMJ UNATTENDE D APPL 79553 SOMERSRA VILLEGAS MODALITY 7 FAMILY 1/> AREAS CHIROPRAC TRACTION TI MECHANICA L THERAPEUT 85680 RACHELJasmynIDALIA NELLY IC PX 1/> 7 FAMILY AREAS CHIROPRAC EACH 15 TI MIN EXERCISES THERAPEUT 48738 SOMERSRA NELLY IC PX 1/> 7 FAMILY AREAS CHIROPRAC EACH 15 TI MIN EXERCISES APPL 52111 SOMERSRA VILLEGAS MODALITY 7 FAMILY 1/> AREAS CHIROPRAC TRACTION TI MECHANICA L APPL 42568 [place] [facility] MODALITY 7 FAMILY 1/> AREAS CHIROPRAC ELEC TI STIMJ UNATTENDE D CHIROPRAC 33729 SOMERSRA NELLY TIC 7 FAMILY MANIPLTV CHIROPRAC TX TI EXTRASPIN AL 1/> REGION MANUAL 63752 [place] V[facility] THERAPY 7 FAMILY TQS 1/> CHIROPRAC REGIONS TI EACH 15 MINUTES CHIROPRAC 05037 SOMERSJasmynIDALIA NELLY TIC 7 FAMILY MANIPULAT CHIROPRAC KARIS TX TI SPINAL 3-4 REGIONS CHIROPRAC 66539 [place] NELLY TIC 7 FAMILY MANIPULAT CHIROPRAC KARIS TX TI SPINAL 3-4 REGIONS MANUAL 22300 [place] NELLY THERAPY 7 FAMILY TQS 1/> CHIROPRAC REGIONS TI EACH 15 MINUTES CHIROPRAC 30326 [place] NELLY TIC 7 FAMILY MANIPLTV CHIROPRAC TX TI EXTRASPIN AL 1/> REGION APPL 76066 [place] NELLY MODALITY 7 FAMILY 1/> AREAS CHIROPRAC ELEC TI STIMJ UNATTENDE D APPL 19192 [place] NELLY MODALITY 7 FAMILY 1/> AREAS CHIROPRAC TRACTION TI MECHANICA L THERAPEUT 34793 [place] NELLY IC PX 1/> 7 FAMILY AREAS CHIROPRAC EACH 15 TI MIN EXERCISES BLOOD 61152 [place] COUNT 7 [facility] COMPLETE E E AUTOMATED [facility]OSPITALS [facility] COMPREHEN 55710 [facility] SIVE 7 HEALTHCAR HEALTHCAR METABOLIC E E PANEL [facility] COLLECTIO 61038 [facility] N VENOUS 7 HEALTHCAR HEALTHCAR BLOOD E E VENIPUNCT [facility] COMPREHEN 87203 [facility] SIVE [address] [place] [address] PANEL INJECTION [id number] [address] [facility] ON H[place] [address] [place] [address] [facility] HEAD/BRAI [address] [place] [address] N W/O [facility] CONTRAST MATERIAL URNLS DIP [address] STICK/TAB [facility] LET REAGENT AUTO MICROSCOP Y GONADOTRO 81788 [facility] PIN [address] [place] [address] CHORIONIC [facility] QUALITATI VE BLOOD 13516 [facility] COUNT [address] [place] [address] AUTO&AUTO DIFRNTL WBC INJECTION [id number] KETOROLAC [facility] [place] INE PER 15 MG THERAPEUT 29516 [facility] IC [address] [place] [address] IV PUSH EACH NEW DRUG ECG 51513 [facility] ROUTINE [address] [place] [address] W/LEAST 12 LDS TRCG ONLY W/O I&R THER 87040 JOSE GARCIA PROPH/DX 7 [facility] PUSH SINGLE/1S T SBST/DRUG RADIOLOGI 54166 [place] CINTHYA Weber 7 MEDICAL EXAMINATI SERV ON CHEST FOUNDATIO SINGLE N VIEW FRONTAL AMB A0427 JUAN DIEGO [facility] SERVICE 7 AMBULANCE AMBULANCE ALS SERVICE SERVICE EMERGENCY TRANSPORT LEVEL 1 GROUND A0425 [facility] MI[facility] 7 AMBULANCE AMBULANCE PER SERVICE SERVICE STATUTE MILE COMPREHEN 84942 MEADOWVIE MEADOWVIE SIVE 7 W W METABOLIC [facility] PANEL MEDICAL MEDICAL COL-CHR/M 20126 MEADOWVIE MEADOWVIE S NONDRUG 7 W W ANALYTE [facility] MEDICAL MEDICAL QUAL/JAYRO EA SPEC CREATINE 26180 MEADOW[facility]IE MEADOWVIE KINASE 7 W W TOTAL [facility] MEDICAL MEDICAL BLOOD 56766 MEADOWVIE MEADOWVIE COUNT 7 W W COMPLETE [facility] AUTO&AUTO MEDICAL MEDICAL DIFRNTL WBC BLOOD 82778 [facility] COMPLETE INC INC AUTO&AUTO DIFRNTL WBC URINE 72550 [facility] TEST INC INC [place] [address] [facility] D[facility] LIPASE 7 [place] [address] [place] ABDOMEN & 7 MEDICAL PELVIS IMAGING W/O ASS CONTRAST MATERIAL COMPREHEN 67944 [facility] SIVE 7 [facility] [place] [address] [facility] ABDOMEN & 7 [facility] PELVIS INC INC W/CONTRAS T MATERIAL URNLS DIP 68703 [facility] STICK/TAB INC INC LET REAGENT AUTO MICROSCOP Y RADIOLOGI 43161 [facility] [place] AST[place]GA C EXAM 6 RADIOLOGY CAR CHEST 2 VIEWS FRONTAL&[place] [address] [facility] [place] SCALF CHUY HEAD/BRAI 6 RADIOLOGY N W/[place] [address] [place] ALL HEAD/BRAI 6 MEDICAL N W/O IMAGING CONTRAST ASS MATERIAL GONADOTRO 63553 [facility] PIN 6 [facility] CHORIONIC INC INC QUALITATI VE INJECTION J2405 [facility] ONDANSETR INC INC ON HCL PER 1 MG COMPREHEN 54021 [facility] SIVE 6 [facility] METABOLIC INC INC PANEL BLOOD 03171 [facility] COUNT 6 [facility] COMPLETE INC INC AUTO&[place] [address] [facility] INFUSION 6 [facility] THERAPY/P INC INC ROPHYLAXI S /DX 1ST TO 1 HR THERAPEUT 48890 [facility] IC 6 [facility] INJECTION INC [place] [address] [facility] ABDOMEN & 6 RADIOLOGY III TARIQ PELVIS W/CONTRAS T MATERIAL URNLS DIP 52775 [facility] 6 [facility] STICK/TAB INC INC LET REAGENT AUTO MICROSCOP Y CULTURE 24161 [facility] BACTERIAL 6 [facility] INC INC QUANTTATI VE COLONY COUNT URINE CULTURE 47878 [facility] BCT 6 [facility] ISOL&PRSM INC INC PTV ID ISOLATE EA URINE SUSCEPTIB 46017 [facility] LTY STDY 6 [facility] ANTIMICRB INC INC IAL MICRO/AGA R DILUTJ URINE 16136 [facility] 6 [facility] TEST INC INC VISUAL COLOR CMPRSN METHS URINE 03231 [facility] 6 N N TEST COMMUNTIY COMMUNTIY VISUAL HOSPITA HOSPITA COLOR CMPRSN METHS BLOOD 80595 [facility] COUNT 6 N N COMPLETE COMMUNTIY COMMUNTIY AUTO&AUTO HOSPITA HOSPITA DIFRNTL WBC ECG 62626 [facility] ROUTINE 6 N N ECG COMMUNTIY COMMUNTIY W/LEAST HOSPITA HOSPITA 12 LDS TRCG ONLY W/O I&R COLLECTIO 11874 [facility] N VENOUS 6 N N BLOOD COMMUNTIY COMMUNTIY [place] [address] [facility] INFUSION 6 N N HYDRATION COMMUNTIY COMMUNTIY INITIAL HOSPITA HOSPITA 31 MIN-1 HOUR COMPREHEN 16499 [facility] SIVE 6 N N METABOLIC COMMUNTIY COMMUNTIY PANEL HOSPITA HOSPITA URNLS DIP 01557 [facility] 6 N N STICK/TAB COMMUNTIY COMMUNTIY LET HOSPITA HOSPITA REAGENT AUTO MICROSCOP Y CYTP C/V 56379 BIO BIO AUTO THIN 6 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 IES IES MNL RESCR PHYS ANES IPER 94640 [facility] LWR ABD 5 ANESTH SHE W/LAPS OF THE TUBAL BLUE LIGATION/ TRANSECT SMR PRIM 86362 NATASHA LARSEN SRC WET 5 [facility] RESENDEZ [facility] AGT SMR PRIM 75858 NATASHA LARSEN SRC WET 5 CHAVA RESENDEZ [facility] AGT 71756 [facility] NONSTRESS 5 [facility] TEST INC INC 04285 [facility] NONSTRESS 5 [facility] 55527 [facility] D[facility] NONSTRESS 5 [place] [address] [facility] INFUSION 5 [facility] THERAPY/P INC INC ROPHYLAXI S /DX 1ST TO 1 HR BLOOD 03326 [facility] COUNT 5 [facility] COMPLETE INC INC AUTO&AUTO DIFRNTL WBC URNLS DIP 31022 [facility] STICK/TAB INC INC LET REAGENT AUTO MICROSCOP Y BASIC 79603 [facility] METABOLIC 5 [facility] PANEL INC INC CALCIUM TOTAL GLUC BLD 33540 [facility] GLUC MNTR 5 [facility] DEV INC INC CLEARED FDA SPEC HOME USE 95075 [facility] D[facility] NONSTRESS 5 [facility] TEST INC INC THERAPEUT 62648 [facility] IC 5 [facility] PROPHYLAC INC INC TIC/DX INJECTION SUBQ/IM EVAL C/V 10175 [facility] AMNIOTIC 5 [facility] FLUID INC INC PROTEIN QUAL EA SPECIMEN PARTICLE 28609 [facility] AGGLUTINA 5 [facility] TION INC INC SCREEN EACH ANTIBODY CUL 98335 NATASHA LARSEN PRSMPTV 5 CHAVA CHO PTHGNC ORGANISM SCRN W/COLONY ESTIMJ FTL 86173 [facility] FIBRONECT 5 [facility] IN INC INC CERVICOVA G SECRETION S SEMI-JAYRO URNLS DIP 27142 [facility] STICK/TAB INC INC LET REAGENT AUTO MICROSCOP Y EVAL C/V 40990 [facility] AMNIOTIC 5 [facility] FLUID INC INC PROTEIN QUAL EA SPECIMEN 04351 [facility] NONSTRESS 5 [facility] TEST INC INC DOPPLER 68366 [facility] VELOCIMET 5 [facility] RY INC INC UMBILICAL ARTERY 10542 [facility] D[facility] NONSTRESS 5 [facility] TEST INC INC 77361 [facility] BIOPHYSIC 5 [facility] AL INC INC PROFILE [place] [address] [facility] UTERUS INC INC LIMITED 1/> FETUSES OBSERVATI 25019 NATASHA LARSEN ON CARE 5 [facility] 92875 NATASHA LARSEN DISCHARGE 5 [facility] RESENDEZ MARQU[place] DAY MANAGEMEN T 30 MIN/< SBSQ 49497 NATASHA LARSEN OBSERVATI 5 CHAVA CHO ON CARE/DAY 15 MINUTES SBSQ 01143 [facility] 5 CHAVA CHO CARE/DAY 15 MINUTES INITIAL 39224 NATASHA LARSEN OBSERVATI 5 [facility]AVA CHO ON CARE/DAY 30 MINUTES INITIAL 82130 [facility] 5 CHAVA CHO CARE/DAY 50 MINUTES FTL 87033 [facility] FIBRONECT 5 [facility] IN INC INC CERVICOVA G SECRETION S SEMI-JAYRO URNLS DIP 86444 [facility] STICK/TAB INC INC [place]AG[place] Y 99950 [facility] NONSTRESS 5 [facility] TEST INC INC 91724 [facility] D[facility] NONSTRESS 5 [facility] TEST INC INC INITIAL 68370 [facility] 5 MEDICAL DI CARE/DAY SERV 30 [facility]OSP[facility] 36420 [facility] DISCHARGE 5 CHAVA RESENDEZ MARQUIS DAY MANAGEMEN T 30 MIN/< SBSQ 30009 [facility] 5 CHAVA RESENDEZ MARQUSI CARE/DAY 15 MINUTES ECG 05419 [facility] P[facility] JR ROUTINE 5 [facility] W/LEAST P 12 LDS I&R ONLY INITIAL 30146 [facility] 5 CHAVA RESENDEZ MARQUIS CARE/DAY 50 MINUTES URNLS DIP 69509 [facility] 5 MOSQUE MOSQUE STICK/TAB HOSP HOSP LET RGNT AUTO W/O MICROSCOP Y EVAL C/V 94965 [facility] AMNIOTIC 5 [facility] FLUID INC INC PROTEIN QUAL EA SPECIMEN URNLS DIP 38692 [facility] 5 [facility] STICK/TAB INC INC LET REAGENT AUTO MICROSCOP Y FTL 41463 [facility] FIBRONECT 5 [facility] IN INC INC CERVICOVA G SECRETION S SEMI-JAYRO 79451 [facility] D[facility] NONSTRESS 5 [facility] TEST INC INC BLOOD 49289 [facility] COUNT 5 [facility] COMPLETE INC INC AUTO&AUTO DIFRNTL WBC GLUCOSE 91068 [facility] POST 5 [facility] GLUCOSE INC INC DOSE COLLECTIO 92462 [facility] N VENOUS 5 [facility] BLOOD INC INC VENIPUNCT URE EVAL C/V 38828 [facility] AMNIOTIC 5 [facility] FLUID INC INC PROTEIN QUAL EA SPECIMEN FTL 79715 [facility] FIBRONECT 5 [facility] IN INC INC CERVICOVA G SECRETION S SEMI-JAYRO URNLS DIP 98977 [facility] 5 [facility] STICK/TAB INC INC LET REAGENT AUTO MICROSCOP Y 60789 [facility] NONSTRESS 5 [facility] TEST INC INC PRESSURIZ 48544 [facility] ED/NONPRE 5 [facility] SSURIZED INC INC INHALATIO N TREATMENT SMR PRIM 74325 NATASHA LARSEN SRC WET 5 CHAVA CHO MOUNT NFCT AGT US PREG 24944 NATASHA LARSEN UTERUS 5 [facility] CHO AFTER 1ST TRIMEST GESTATION EVAL C/V 64655 [facility] AMNIOTIC 5 [facility] FLUID INC INC PROTEIN QUAL EA SPECIMEN URNLS DIP 40206 [facility]AT 5 [facility] STICK/TAB INC INC LET REAGENT AUTO MICROSCOP Y FTL 68577 [facility] FIBRONECT 5 [facility] IN INC INC CERVICOVA G SECRETION S SEMI-JAYRO 80689 [facility] NONSTRESS 5 [facility] TEST INC INC 58909 [facility] D[facility] NONSTRESS 5 [facility] TEST INC INC THERAPEUT 03008 [facility] IC 5 [facility] PROPHYLAC INC INC TIC/DX INJECTION SUBQ/IM [facility]OUND [facility]25 [facility] PER SERVICE SERVICE STATUTE MILE AMB A0427 [facility] SERV[facility] 5 AMBULANCE AMBULANCE ALS SERVICE SERVICE EMERGENCY TRANSPORT LEVEL 1 URNLS DIP 78752 [facility] STICK/TAB INC INC LET REAGENT [place]CROS[place] Y 27409 NATASHA LARSEN NONSTRESS 5 CHAVA CHO TEST 38430 [facility] NONSTRESS 5 PHYSICIAN OLIVIA TEST S GROUP GONADOTRO 89422 [facility] D[facility] PIN 5 [facility] CHORIONIC [place] [address] [facility] D[facility] ESTRIOL 5 [facility] INC INC ALPHA-FET 74277 [facility] OPROTEIN 5 [facility] SERUM INC INC COLLECTIO 59640 [facility] [place] N VENOUS 5 [facility] BLOOD INC INC VENIPUNCT URE OPHTH 71780 [facility] 5 GRE GRE XM&EVAL COMPRE NEW PT 1/> VST DETERMINA 59455 [facility] TION 5 [place] [address] [facility] INFUSION 5 [facility] THERAPY/P INC INC ROPHYLAXI S /DX 1ST TO 1 HR BLOOD 25643 [facility] COUNT 5 [facility] COMPLETE INC INC AUTO&[place] [address] [facility] INFUSION 5 [facility] THERAPY INC INC PROPHYLAX IS/DX EA HOUR GONADOTRO 79453 [facility] PIN 5 [facility] CHORIONIC [place] [address] [facility] LIPASE 5 [facility] INC INC COMPREHEN 72237 [facility] D[facility] SIVE 5 [facility] [address] [facility] AMYLASE 5 [facility] INC INC GROUND A0425 [facility]ULANCE AMBULANCE PER SERVICE SERVICE STATUTE MILE URNLS DIP 45728 [facility] 5 [facility] STICK/TAB INC INC LET REAGENT AUTO MICROSCOP Y AMB A0427 [facility] SERVICE 5 AMBULANCE AMBULANCE ALS SERVICE SERVICE EMERGENCY TRANSPORT LEVEL 1 CULTURE 52534 [facility] BACTERIAL 5 [facility] INC INC QUANTTATI VE COLONY COUNT URINE US PREG 12347 NATASHA LARSEN UTERUS 5 CHAVA RESENDEZ MARQUIS AFTER 1[place] [address] NATASHA LARSEN 5 [facility]AVA CHO UTERUS 14 WK TRANSABDL GESTAT COLPOSCOP 20800 NATASHA LARSEN Y CERVIX 5 CHAVA CHO BX CERVIX & [place] 01379 NATASHA DAYPEL UTERUS 5 CHAVA CHO REAL TIME W/IMAGE DCMTN TRANSVAG GROUND A0425 [facility] MILEAGE 5 [facility] [employer] PER STATUTE AMBULANCE AMBULANCE MILE AMB A0427 [facility] SERVICE 5 [employer] [employer] CO ALS EMERGENCY AMBULANCE AMBULANCE TRANSPORT LEVEL 1 US PREG 27596 NATASHA MCCORMACKL UTERUS 5 [facility]AVA CHO REAL TIME W/IMAGE DCMTN TRANSVAG CULTURE 38839 NATASHA LARSEN CHLAMYDIA 5 CHAVA CHO ANY SOURCE IADNA 28608 NATASHA LARSEN HERPES 5 CHAVA CHO SIMPLX VIRUS DIRECT PROBE TQ URINLS 18867 NATASHA DAYPEL DIP 5 CHAVA RESENEDZ MARQUIS STICK/TAB LET REAGNT NON-AUTO MICRSCPY URINE 69743 NAT[facility] LARSEN 5 CHAVA CHO TEST VISUAL COLOR CMPRSN METHS HANDLG&/O 34349 NATASHA LARSEN R CONVEY 5 CHAVA CHO OF SPEC FOR TR OFFICE TO LAB IAADIADOO 25552 NATASHA LARSEN 5 [facility]AVA CHO TRICHOMON VAGINALIS IADNA 89062 NATASHA LARSEN NEISSERIA 5 [facility]AVA CHO GONORRHOE AE DIRECT PROBE TQ CULTURE 72303 [facility] BACTERIAL 5 [facility] INC INC QUANTTATI VE COLONY COUNT URINE URINE 63167 [facility] 5 [facility] TEST INC INC VISUAL COLOR CMPRSN METHS URNLS DIP 52930 [facility] 5 [facility] STICK/TAB INC INC LET REAGENT AUTO MICROSCOP Y BLOOD 47530 [facility] TYPING 5 [facility] SEROLOGIC INC INC RH (D) [place] PREG 83707 [place] UTERUS 5 MEDICAL AMANDA REAL TIME IMAGING W/IMAGE ASS DCMTN TRANSVAG BLOOD 21678 [facility] COUNT 5 [facility] COMPLETE INC INC AUTO&AUTO DIFRNTL WBC GONADOTRO 49465 [facility] PIN 5 [facility] CHORIONIC INC INC QUANTITAT KARIS GONADOTRO 53539 [facility] D[facility] PIN 5 [facility] CHORIONIC INC INC QUANTITAT KARIS URINE 43009 [facility] 5 [facility] TEST INC INC VISUAL COLOR CMPRSN METHS URNLS DIP 63457 [facility] 5 [facility] STICK/TAB INC INC LET REAGENT AUTO MICROSCOP Y CULTURE 22241 [facility] BACTERIAL 5 [facility] INC INC QUANTTATI VE COLONY COUNT URINE OBSTETRIC 64549 [facility] PANEL 5 [facility] INC INC COLLECTIO 98981 [facility] D[facility] N VENOUS 5 [facility] BLOOD INC INC VENIPUNCT URE IAADI 81146 [facility] D[facility] INFLUENZA 5 [facility] B VIRUS INC INC IAADI 89267 [facility] D[facility] INFFLUENZ 5 [facility] A A VIRUS INC INC THERAPEUT 14814 [facility] IC 5 [facility] INJECTION [place] [address] [facility] D[facility] INFUSION 5 [facility] THERAPY/P INC INC ROPHYLAXI S /DX 1ST TO 1 HR BLOOD 57208 [facility] COUNT 5 [facility] COMPLETE INC INC AUTO&[place] [address] [facility] LIPASE 5 [facility] INC INC COMPREHEN 52809 [facility] D[facility] SIVE 5 [facility] [place] [address] [place] [facility] ABDOMEN & 5 MEDICAL AMANDA PELVIS IMAGING W/CONTRAS ASS T MATERIAL INJECTION J2405 [facility] 5 [facility] ONDANSETR INC INC ON HCL PER 1 [place] [address] [facility] D[facility] AMYLASE 5 [facility] INC INC LOCM Q9967 [facility] D[facility] [phone] 5 [facility] MG/ML INC INC IODINE CONCENTRA TION PER ML URINE 86632 [facility] 5 [facility] TEST INC INC VISUAL COLOR CMPRSN METHS URNLS DIP 89879 [facility] 5 [facility] STICK/TAB INC INC LET REAGENT AUTO MICROSCOP Y IADNA 50843 [facility] CHLAMYDIA 5 [facility] INC INC TRACHOMAT IS AMPLIFIED PROBE TQ IADNA 73233 [facility] NEISSERIA 5 [facility] INC INC GONORRHOE AE AMPLIFIED PROBE TQ URINE 01606 [facility] HERNANDEZ 5 PHYSICIAN OLIVIA TEST S GROUP VISUAL COLOR CMPRSN METHS URINE 03447 [facility] 5 [facility] TEST INC INC VISUAL COLOR CMPRSN METHS BLOOD [address] [facility] [address] [facility] COUNT 4 [facility] COMPLETE MEDIC MEDIC AUTO&[place] [address] [facility] LIPASE 4 [facility] MEDIC RADEX [address] [address] [facility] ABDOMEN 1 4 [facility] MEDIC MEDIC ANTEROPOS TERIOR VIEW THERAPEUT [address] [facility] [address] JIM IC 4 REG[facility] PROPHYLAC MEDIC MEDIC TIC/DX INJECTION SUBQ/IM INJECTION J[address] [facility] [address] JIM 4 REGIONAL REGIONAL DICYCLOMI MEDIC MEDIC NE HCL UP TO [address] [facility] [address] JIM SIVE 4 REGIONAL REGIONAL METABOLIC MEDIC MEDIC PANEL COLLECTIO [address] [facility] [address] JIM N VENOUS 4 REGIONAL REGIONAL BLOOD MEDIC MEDIC VENIPUNCT URE URINE [address] [facility] [address] JIM 4 REGIONAL REGIONAL TEST MEDIC MEDIC VISUAL COLOR CMPRSN METHS URNLS DIP [address] [address] JIM 4 REGIONAL REGIONAL STICK/TAB MEDIC MEDIC LET REAGENT AUTO MICROSCOP Y URNLS DIP [address] JIM 4 REGIONAL REGIONAL STICK/TAB MEDIC MEDIC LET REAGENT AUTO MICROSCOP Y BLOOD [address] [facility] JIM COUNT 4 REGIONAL REGIONAL COMPLETE MEDIC MEDIC AUTO&AUTO DIFRNTL WBC URINE [address] JIM 4 REGIONAL REGIONAL TEST MEDIC MEDIC VISUAL COLOR CMPRSN METHS COLLECTIO [address] JIM N VENOUS 4 REG[facility]AL REG[facility]AL BLOOD MEDIC MEDIC VENIPUNCT URE COMPREHEN [address] [facility] SIVE 4 [facility] [address] [facility] INFUSION 4 REG[facility]AL REGIONAL HYDRATION MEDIC MEDIC EACH ADDITIONA L HOUR INJECTION J2405 [facility] 4 REGIONAL REGIONAL ONDANSETR MEDIC MEDIC ON HCL PER [address] [facility] BACTERIAL 4 REGIONAL REGIONAL BLOOD MEDIC MEDIC AEROBIC W/ID ISOLATES RADIOLOGI 30[address] [facility] DANISH MARILY C EXAM 4 REGIONAL CHEST 2 RADIOLOG VIEWS FRONTAL&L ATERAL THER [address] [facility] PROPH/DX 4 REGIONAL REGIONAL NJX IV MEDIC MEDIC PUSH SINGLE/1S T SBST/DRUG ECG [address] [facility] ROUTINE 4 REGIONAL REGIONAL ECG MEDIC MEDIC W/LEAST 12 LDS TRCG ONLY W/O I&R ECG 77415 ST [facility] MARISA ROUTINE 4 MEDICAL [facility] ECG CENTER W/LEAST 12 LDS I&R ONLY PROTHROMB [address] [facility] IN TIME 4 REGIONAL REGIONAL MEDIC MEDIC BLOOD 58285 GARCIA GARCIA COUNT 4 CO [facility]TE [facility]PITAL HOSPITAL AUTO&AUTO DIFRNTL WBC ECG 86571 GARCIA GARCIA ROUTINE 4 CO CO ECG HOSPITAL HOSPITAL W/LEAST 12 LDS TRCG ONLY W/O I&R CREATINE 63718 GARCIA GARCIA KINASE 4 [facility] [place] [address] GARCIA GARCIA MAGNESIUM 4 CO CO HOSPITAL HOSPITAL RADIOLOGI 48597 GARCIA GARCIA C EXAM 4 CO CO CHEST 2 HOSPITAL HOSPITAL VIEWS FRONTAL&L ATERAL CREATINE 95921 GARCIA GARCIA KINASE MB 4 CO CO [facility] HOSPITAL ONLY COMPREHEN 52044 GARCIA GARCIA SIVE 4 [facility] PANEL GONADOTRO 09577 GARCIA GARCIA PIN 4 [facility] [place] [address] GARCIA GARCIA TROPONIN 4 CO CO [facility] [place] [address] [facility] TROPONIN 9 [facility] QUANTITAT INC INC KARIS URNLS DIP 70912 [facility] RAFAT 9 [facility] STICK/TAB INC INC LET REAGENT AUTO MICROSCOP Y URINE 75810 [facility] 9 [facility] TEST INC INC VISUAL COLOR CMPRSN METHS COMPREHEN 49552 [facility] D[facility] SIVE 9 [facility] METABOLIC INC INC PANEL CREATINE 03775 [facility] KINASE MB 9 [facility] FRACTION INC INC ONLY RADIOLOGI 13573 [facility] C EXAM 9 [facility] CHEST 2 INC INC VIEWS FRONTAL&L ATERAL CREATINE 49548 [facility] KINASE 9 [facility] TOTAL INC INC ECG 96678 [facility] ROUTINE 9 [facility] ECG INC INC W/LEAST 12 LDS TRCG ONLY W/O I&R BLOOD 80697 [facility] COUNT 9 [facility] COMPLETE INC INC AUTO&AUTO DIFRNTL WBC URINE 28810 [facility] 9 [facility] TEST INC INC VISUAL COLOR CMPRSN METHS BLOOD 80570 [facility] COUNT 9 [facility] COMPLETE INC INC AUTO&[place] [address] [facility] INFUSION 9 [facility] THERAPY/P INC INC ROPHYLAXI S /DX [address] [place] [address] [facility] ABDOMEN 9 [facility] W/O INC INC CONTRAST MATERIAL COMPREHEN 47281 [facility] SIVE 9 [facility] METABOLIC INC INC PANEL CT PELVIS 21859 [facility] W/O 9 [facility] CONTRAST INC INC MATERIAL URNLS DIP 32303 [facility] 9 [facility] STICK/TAB INC INC LET REAGENT AUTO MICROSCOP Y 3D 74354 [place] RA, RENDERING 9 MEDICAL SUSHANT IMAGING W/INTERP& ASSOCIATE POSTPROC S DIFF WORK STATION FITTING 39279 HERIBERTO GAINES, SPECTACLE 8 VISION KEARA Ackerman S XCPT APHAKIA MONOFOCAL FRAMES V2020 HERIBERTO GAINES, PURCHASES 8 VISION KEARA Ackerman 1 VISN V2103 HERIBERTO GAINES, PLANO 8 VISION KEARA M TO+/-4.00 D SPHER 0.12-2.00 D CYL EA OPHTH 88217 HERIBERTO GAINES, MEDICAL 8 VISION KEARA M XM&EVAL COMPRE NEW PT 1/> VST Encounters Encounter Start End Date Code Location Performer Type Date [facility] - 7 7 [facility] T OFFICE 46109 [facility] 7 7 [facility] T [facility] 10 INC MINUTES OFFICE 31182 [facility] T VISIT 5 E MINUTES [facility] - 7 7 [facility] OUTPATIEN E T HOSPITALS OFFICE 46213 [facility] OUTPATIEN 7 7 NURSE T VISIT PRACTITIO 15 NER GR MINUTES OFFICE 02583 [facility] 7 7 NURSE ION PRACTITGIUSEPPE NEW/ESTAB NER GR PATIENT 60 MIN OFFICE 00131 OUTPATIEN 7 7 [facility]ALTHCAR T VISIT 5 E MINUTES [facility] - 7 7 [facility] OUTPATIEN E T HOSPITALS EMERGENCY 69386 [facility] 7 7 [facility] T VISIT HIGH/URGE NT SEVERITY EMERGENCY [address] [facility] 7 7 [place] VISIT EMERGENCY HIGH PHYS SEVERITY& THREAT [facility] GARCIA - 7 7 [facility] 13063 [facility] 7 7 [facility] EMERGENCY T VISIT PHYS HIGH/URGE NT SEVERITY EMERGENCY [id number] [facility] 7 7 [facility] T VISIT LOW/MODER SEVERITY [facility]OSP[facility] - 7 7 [facility]EN [facility] EMERGENC[facility] 79727 [facility] DEPT 6 6 [place] THO VISIT EMERGENCY HIGH PHYS SEVERITY& THREAT FUN EMERGENCY 03709 [facility] DEPT 6 6 [place] NICOLE VISIT EMERGENCY HIGH PHYS SEVERITY& THREAT FUN EMERGENCY 83688 CHEIKH AMAYA 6 6 [facility] T VISIT HIGH/URGE NT SEVERITY EMERGENCY 30944 [facility] DEPT 6 6 MEM [facility] VISIT INC HIGH SEVERITY& THREAT [facility] RAFAT [facility] 6 6 [facility] OUTPATIEN [facility] EMERGENC[facility] 84612 [facility] DEPT 6 6 [place] VISIT EMERGENCY HIGH PHYS SEVERITY& THREAT FUN EMERGENCY 57934 CHEIKH FRAGOSO 6 6 PHYSICIAN GOLDIE Vines [facility] T VISIT HIGH/URGE NT SEVERITY [facility]OSP[facility] - 6 6 [facility] EMERGENC[facility] 62310 [facility] 6 6 [facility] T VISIT LOW/MODER SEVERITY HOSPITAL MAGO - 6 6 N OUTPATIEN COMM[facility]TIY T HOSPITA EMERGENCY 23919 [facility] 6 6 N [facility] T VISIT HOSPITA HIGH/URGE NT SEVERITY [facility]OSP[facility] 5 5 [facility] OUTPATIEN [facility] RAFAT - 5 5 [facility] - 5 5 [facility] RAFAT - 5 5 [facility] OUTPATIEN INC T OFFICE 90983 NATASHA LARSEN OUTPATIEN 5 5 [facility] T VISIT 15 MINUTES [facility]OSP[facility] - 5 5 [facility] OUTPATIEN [facility] RAFAT - 5 5 [facility] OUTPATIEN INC T OFFICE 50041 [place] 5 5 [place] [facility] NEW 30 CLINIC MINUTES [facility] OFFICE 43330 NATASHA LARSEN OUTPATIEN 5 5 [place] [facility] T VISIT 15 MINUTES [facility]OSPITAL RAFAT [facility] 5 5 [facility] INPATIENT [facility] OFFICE 95676 NATASHA LARSEN OUTPATIEN 5 5 [place] [facility] T VISIT 15 MINUTES [facility] - 5 5 [facility] T OFFICE 64471 NATASHA LARSEN OUTPATIEN 5 5 [place] [facility] T VISIT 15 MINUTES [facility] - 5 5 [facility] OUTPATIEN [facility]ERS[facility] - [address] [facility] 5 5 [facility] INPATIENT [facility] - 5 5 [place] OUT[facility]IEN [facility] T OFFICE [id number] NATASHA LARSEN OUTPATIEN 5 5 [facility] T VISIT 15 MINUTES [facility] - 5 5 [facility] RAF[facility] 5 5 [facility] RAFAT - 5 5 [facility] T OFFICE [id number] NATASHA LARSEN OUTPATIEN 5 5 [facility] T VISIT 15 MINUTES [facility]OSP[facility] 5 5 [facility] RAFAT - 5 5 [facility] OUTPATIEN INC T HOSPITAL RAFAT [facility] 5 5 [facility] OUTPATIEN INC T OFFICE 72517 [facility] OUTPATIEN 5 5 PHYSICIAN OLIVIA T VISIT S GROUP 15 MINUTES OFFICE 95495 NATASHA LARSEN OUTPATIEN 5 5 [facility] T VISIT 15 MINUTES HOSPITAL RAFAT - 5 5 [facility] OUTPATIEN INC T EMERGENCY [id number] RAFAT 5 5 [facility] DEPARTMEN INC T VISIT HIGH/URGE NT SEVERITY HOSPITAL RAFAT - 5 5 [facility]EN [facility] T OFFICE 21344 NATASHA LARSEN OUTPATIEN 5 5 [facility] T VISIT 15 MINUTES OFFICE [id number] NATASHA LARSEN OUTPATIEN 5 5 [facility] T VISIT 15 MINUTES EMERGENCY 99922 [facility] Gaytan DEPT 5 5 PHYSICIAN VISIT S, PLL[facility] HIGH SEVERITY& THREAT FUNCJ OFFICE 75680 NATASHA LARSEN OUTPATIEN 5 5 [facility] T VISIT 15 MINUTES OFFICE 92766 NATASHA LARSEN OUTPATIEN 5 5 [facility] T VISIT 15 MINUTES EMERGENCY 93684 [facility] 5 5 [facility] DEPARTMEN EMERGENCY T VISIT PHYS HIGH/URGE NT SEVERITY OFFICE 53911 NATASHA LARSEN OUTPATIEN 5 5 [facility] T VISIT 15 MINUTES INITIAL 50474 NATASHA LARSEN PREVENTIV 5 5 [facility] E MEDICINE NEW PT AGE [id number] [facility] RAFAT - 5 5 [facility] INC T EMERGENCY 14111 RAFAT AMAYA 5 5 [facility] T VISIT P MODERATE SEVERITY EMERGENCY 57193 RAFAT 5 5 [facility] INC T VISIT MODERATE [facility]VERITY HOSPITAL RAFAT - 5 5 [facility] OUTPATIEN INC T EMERGENCY 88092 RAFAT 5 5 [facility] LOW/MODER SEVERITY [facility]OSP[facility] RAFAT [facility] 5 5 [facility] OUTPATIEN INC T EMERGENCY 73008 RAFAT 5 5 [facility] INC T VISIT HIGH/URGE NT SEVERITY EMERGENCY 14763 RAFAT PATEL 5 5 [facility] T VISIT P MODERATE SEVERITY HOSPITAL RAFAT - 5 5 [facility] OUTPATIEN INC T HOSPITAL RAFAT [facility] 5 5 [facility] OUTPATIEN INC T OFFICE 63557 [facility] 5 5 PHYSICIAN OLIVIA T NEW 43 S GROUP MINUTES EMERGENCY 86283 RAFAT AMAYA 5 5 [facility] T VISIT P LIMITED/M INOR PROB EMERGENCY 60921 RAFAT 5 5 [facility] INC T VISIT LOW/MODER SEVERITY HOSPITAL RAFAT - 5 5 [facility] OUTPATIEN INC T EMERGENCY [address] [facility] 4 4 [facility] T VISIT EMERGENCY HIGH/URGE NT SEVERITY EMERGENCY 99635 [facility] JIM 4 4 [facility] T VISIT MODERATE SEVERITY [facility] ST JIM - 4 4 [facility] MEDIC T EMERGENCY [address] [facility] DEPT 4 4 REGIONAL VISIT HIGH EMERGENCY SEVERITY& THREAT [facility] ST JIM - 4 4 [facility] T EMERGENCY [address] [facility] JIM 4 4 [facility] T VISIT HIGH/URGE NT SEVERITY EMERGENCY 68589 [facility] 4 4 [facility] T VISIT HIGH/URGE NT SEVERITY HOSPITAL DUNBAR - 4 4 [facility] T EMERGENCY 55949 RAFAT 9 9 [facility] DEPARTMEN INC T VISIT HIGH/URGE NT SEVERITY EMERGENCY 79350 KIERRA LEONARD, DEPT 9 9 EMERGENCY NIRMALA Capone VISIT SERVICES HIGH SEVERITY& ASSOCIATE THREAT S [facility] RAFAT - 9 9 [facility] OUTPATIEN [facility] T EMERGENCY 67185 KIERRA KIRKPATRICK DEPT 9 9 EMERGENCY ROXANNA Blanchard VISIT SERVICES HIGH SEVERITY& ASSOCIATE THREAT S [facility] EMERGENCY 62902 RAFAT 9 9 [facility] DEPARTMEN INC T VISIT HIGH/URGE NT SEVERITY HOSPITAL RAFAT - 9 9 [facility] OUTPATIEN INC T
--- OUTSIDE RECORDS SUMMARY | 2017-03-18 11:40 | External Medical Summary Rpt | CCD ---
Author Author , MARLON Organization MARLON Address Unknown Phone Care Team Providers Care Mash Filter Cloth Changer Name Role Phone PETE LIMON Unavailable Unavailable [facility] Unavailable Unavailable [facility]ATOR[facility], [facility] Unavailable Unavailable [facility], [facility] MCKINNEY, MCKINNEY Unavailable Unavailable MCKINNEY ALL, MCKINNEY ALL Unavailable [facility]available [facility] Unavailable Unavailable SERVICE, [facility] Unavailable Unavailable SERVICE, [facility] ASTORGA CAR, ASTORGA Unavailable Unavailable CAR [facility], Unavailable Unavailable [facility] CHIPPS SONJA & Unavailable Unavailable DUBILIER, CHIPPS SONJA & DUBILIER HERNANDEZ OLIVIA, HERNANDEZ Unavailable Unavailable OLIVIA [facility], [facility] Unavailable Unavailable [facility], [facility] RA AMANDA, Unavailable Unavailable RA AMANDA RA, SUSHANT, Unavailable Unavailable RA, SUSHANT TOSHA II THO, TOSHA II Unavailable Unavailable THO MARISA PARESH, MARISA Unavailable Unavailable PARESH [facility] [place] [place] [facility] [place] ROXANNA KIRKPATRICK, Unavailable Unavailable ROXANNA KIRKPATRICK [facility], Unavailable Unavailable [facility] Unavailable Unavailable HOSPITAL, [facility], JOSE LUIS Unavailable Unavailable MAICOL ZE PENA Unavailable Unavailable [facility] Unavailable Unavailable HOSPITA, [facility] NATASHA LARSEN MD, Unavailable Unavailable NELLY ANDINO MD Unavailable Unavailable HARPEL [facility] Unavailable Unavailable MARQUIS [facility] Unavailable Unavailable INC, [facility] Unavailable Unavailable HOSPITAL P, [facility], Unavailable Unavailable [facility] ARNOLD AMANDA, CLAYTON AMANDA Unavailable Unavailable AMOL III TARIQ, Unavailable Unavailable AMOL III TARIQ [facility] Un[facility], [facility] Unavailable [...] GRE KIERRA GRE, Unavailable Unavailable KIERRA GRE [facility] Unavailable Unavailable CHIROPRACTI, [facility] Unavailable Unavailable AMBULANCE, [facility] Unavailable Unavailable ASSOCIAT, [facility] Unavailable Unavailable MEDICAL, [facility] MEDICAL MERHAR, MERHAR Unavailable Unavailable MUHA, MUHA Unavailable Unavailable MUHA, MUHA Unavailable Unavailable [facility] Unavailable Unavailable [facility], [facility] O'ADRI DI, O'ADRI Unavailable Unavailable DI [...] Unavailable [facility] Un[facility], [facility] LYNN SHE, Unavailable Unavailable LYNN SHE [facility] Unavailable Unavailable MEDIC, [facility] Unavailable Unavailable EMERGENCY, [facility] GALVAN, GALVAN Unavailable Unavailable HEALTHCARE Unavailable Unavailable HOSPITALS, [facility], Unavailable Unavailable [facility], NIANTIC Unavailable Unavailable NIANTIC SHA, NIANTIC SHA Unavailable Unavailable Purpose Continuity of Care Document - 05-05-2008 through 2016 Problems Code Diagnosis DOS Provider Status L500 ALLERGIC 01-13-2017 [facility] R569 UNSPECIFIED 01-13-2017 [facility] CONVULSIONS INC [id number] OTHER LONG 01-13-2017 [facility] TERM [facility] CURRENT INC DRUG THERAPY G441 VASCULAR 11-25-2016 MUHA HEADACHE NOT ELSEWHERE CLASSIFIED 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 H1045 OTHER 11-25-2016 [facility]HA CHRONIC ALLERGIC CONJUNCTIVI TIS H5213 MYOPIA 11-25-2016 [facility] BILATERAL M5031 OTH CERV 11-12-2016 [facility] DIS[facility] DEGEN FAMILY HIGH CHIR[facility] CERVICAL REGION A99986 OTHER 11-12-2016 [facility] CERVICAL FAMILY DISC CHIROPRACTI DEGENERATIO N AT C6-C7 LEVEL M5134 OTH 11-12-2016 [facility] INTERVERTEB FAMILY RAL DISC CHIROPRACTI DEGEN THORACIC REGION M5136 OTH 11-12-2016 [facility] INTERVERTEB FAMILY RAL DISC CHIROPRACTI DEGEN LUMBAR REGION M9901 SEGMENTAL & 11-12-2016 [facility] SOMATIC FAMILY DYSFUNCTION CHIROPRACTI CERVICAL REGION M9902 SEGMENTAL & 11-12-2016 [facility] SOMATIC FAMILY DYSFUNCTION CHIROPRACTI THORACIC REGION M9903 SEGMENTAL & 11-12-2016 [facility] SOMATIC FAMILY DYSFUNCTION CHIROPRACTI OF LUMBAR REGION M9905 SEGMENTAL & 11-12-2016 [facility] SOMATIC FAMILY DYSFUNCTION CHIROPRACTI OF PELVIC REGION R51 HEADACHE 10-23-2016 [facility] J25423 EPILEPSY 07-21-2016 [facility] W/O HOSPITAL STATUS EPILEPTICUS D86586 OTHER 07-21-2016 [facility] PERIPHERAL N EMERGENCY VERTIGO PHYS UNSPECIFIED EAR J322 CHRONIC 07-21-2016 [facility] ETHMOIDAL N EMERGENCY SINUSITIS PHYS R0789 OTHER CHEST 07-21-2016 [facility] PAIN N EMERGENCY PHYS R42 DIZZINESS 07-21-2016 [facility] GIDDINESS ASSOCIAT P43746 ALLERGY TO 07-21-2016 [place] OTHER FOODS [facility] Z9851 TUBAL 07-21-2016 [facility] U43627 UNSPECIFIED 07-11-2016 [facility] CYST LEFT INC SIDE R1031 RIGHT LOWER 07-11-2016 [facility] [facility] R1032 LEFT LOWER 07-11-2016 [facility] PAIN INC R110 NAUSEA 07-11-2016 [facility] R1110 VOMITING 07-11-2016 [facility] IMAGING ASS R0602 SHORTNESS 12-29-2015 [facility] [place] OF [facility]ATH [facility] R0781 PLEURODYNIA 12-29-2015 [facility] PHYS R091 PLEURISY 12-29-2015 [facility] N EMERGENCY PHYS B63393 PERSONAL 12-01-2015 [facility] HISTORY OF MEM HOS[facility] NICOTINE INC DEPENDENCE N3091 CYSTITIS 11-10-2015 [facility] UNSPECIFIED N EMERGENCY WITH PHYS HEMATURIA N3289 OTHER 11-10-2015 [facility] [place] SPECIFIED [facility]Y DISORDERS OF BLADDER R1084 GENERALIZED 11-10-2015 [facility] ABDOMINAL N EMERGENCY PAIN PHYS N390 URINARY 11-06-2015 [facility], INFECTION [facility] SITE NOT SPECIFIED E860 DEHYDRATION 10-10-2015 [facility] R55 SYNCOPE AND 10-10-2015 [facility] Z392 ENCOUNTER 07-02-2015 [facility] FOR ROUTINE REFERNCE LABORATORIE FOLLOW-UP S Z9889 OTHER 07-02-2015 [facility] SPECIFIED REFERNCE POSTPROCEDU LABORATORIE [facility] STATES S O80 ENCOUNTER 05-10-2015 COMMUNITY FOR [...] 05-01-2015 [facility] GESTATION [facility] OF INC P07122 OTHER SPEC 04-29-2015 [facility] COND 2ND TRIMESTER I67973 OTHER SPEC 04-28-2015 [facility] RELATED INC COND 3RD TRIMESTER Z331 04-28-2015 [facility] AMBULANCE INCIDENTAL SERVICE O4703 FALSE LABOR 04-26-2015 [facility] BEFORE 37 MEM HOSP CMPLETE INC WEEKS GEST 3RD TRI Z3A35 35 WEEKS 04-26-2015 [facility] OF INC Z36 ENCOUNTER 04-24-2015 [facility] FOR [facility] INC SCREENING OF MOTHER Z3A34 34 WEEKS 04-17-2015 [facility] OF INC U105758 DECREASED 04-14-2015 [facility] THIRD TRIMESTER NA/UNS O0973 SUP HIGH 04-12-2015 NATASHA Alexandra RISK PREG [facility] D/T SOCIAL PROBLEMS THIRD TRI G40A09 ABSENCE 04-11-2015 [facility] NOT INTRACTABLE W/O SE O2693 04-11-2015 [facility] [place] CONDITIONS [facility]IN[facility] PSC UNS 3RD TRIMESTER Z3493 ENC 04-09-2015 NATASHA Alexandra SUPERVISION [facility] NORMAL UNS 3 TRIMESTER L16084 OTH GEN 04-03-2015 [facility] EPILEPSY [facility] [...] PREG [facility] PUERPERIUM R109 UNSPECIFIED 03-12-2015 [place] [facility] ABDOMINAL SERV PAIN FOUNDATION B3749 OTHER 03-11-2015 [facility] CANDIDIASIS K5900 CONSTIPATIO 03-11-2015 [facility] UNSPECIFIED M549 DORSALGIA 03-11-2015 [facility] UNSPECIFIED AMBULANCE SERVICE N1330 UNSPECIFIED 03-11-2015 [place] [facility] HYDRONEPHRO FOUNDATION SIS J79765 03-11-2015 [place] [facility] SERV RENAL FOUNDATION DISEASE UNS TRIMESTER O2690 03-11-2015 [facility] CONDITIONS SERVICE UNS UNS TRIMESTER [id number] MATERNAL 03-11-2015 [facility] [place] F[facility] PRESENTATIO N NA/UNS [id number] L & D COMP 03-11-2015 [place] [facility] CORD AROUND SERV NECK W/O FOUNDATION COMPRS NA/UNS E21876 OTH 03-11-2015 [facility] INF & PARASIT DZ COMP PREG 3RD TRI O623 PRECIPITATE 03-08-2015 NATASHA LARSEN MD Z3492 ENC 03-08-2015 [facility] NORMAL [facility] ASS UNS 2 TRIMESTER O331 MAT CARE 03-03-2015 [facility] FAYETTE DISPROPORTI URBAN ON D/T GEN COGOVT CONTRACTED PELV Z3A28 28 WEEKS 03-03-2015 [facility] V221 SUPERVISION 02-27-2015 NATASHA Alexandra OF [facility] LARSEN MD NORMAL 22358 THREATENED 02-19-2015 [facility] ANTEPARTUM 54779 OT CURRENT 02-18-2015 [facility] MAT CONDS [facility] CLASSIFIABL INC E ELSW ANTPRTM V771 SCREENING 02-16-2015 [facility] FOR [facility] DIABETES INC MELLITUS 07479 ASTHMA, 02-03-2015 [facility] UNSPECIFIED [facility]OS[facility] , INC UNSPECIFIED STATUS V222 02-03-2015 [facility] STATE, [facility]OS[facility] INCIDENTAL INC 87793 UNSPECIFIED 01-30-2015 NATASHA Alexandra VAGINITIS [facility] RESENDEZ AND VULVOVAGINI TIS 14902 HEMORRHAGE 01-30-2015 NATASHA Alexandra FROM [facility] RES[facility] PLACENTA PREVIA ANTEPARTUM 77130 OTHER 01-23-2015 [facility] THREATENED [facility] LABOR, INC ANTEPARTUM 14408 ERLY ONSET 01-23-2015 [facility] DELIV DELIV AMBULANCE W/WO SERVICE MENTION ANTPRTM COND 27175 ABDOMINAL 01-23-2015 [facility] PA[facility] OTHER AMBULANCE SPECIFIED SERVICE SITE 45084 OTHER 01-15-2015 [facility] SPECIFED [facility] COMPLICATIO INC N ANTEPARTUM V2889 OTHER 12-19-2014 [facility] SPECIFIED [facility] INC SCREENING 3670 HYPERMETROP 12-18-2014 [facility] [place] [facility] 67407 UNSPEC COMP 12-04-2014 [facility] UNSPEC SERVICE EPISODE CARE 27150 ABDOMINAL 12-04-2014 [facility] PAIN, [facility] UNSPECIFIED INC SITE 7840 HEADACHE 11-15-2014 [facility] 55152 CHEST PAIN 11-15-2014 [facility]NSPEC[facility]IED [facility] PLL[facility] 72625 PAP SMER 10-24-2014 NATASHA Alexandra CERV [facility] RESEN[facility] W/ATYPICAL SQUAMOUS CELLS UNDET 6259 UNSPEC 10-07-2014 [facility] SYMPTOM N EMERGENCY ASSOC PHYS W/FEMALE GENITAL ORGANS 6268 OTH D/O 09-28-2014 NATASHA Alexandra MENSTRUATIO [facility] N&OTH ABN BLEED FE GNT TRACT 27395 THREATENED 09-28-2014 NATASHA Alexandra CHAVA MD ANTEPARTUM V7231 ROUTINE 09-28-2014 NATASHA Alexandra GYNECOLOGIC [facility] RES[facility] AL EXAMINATION 5990 URINARY 09-17-2014 [facility] TRACT [facility] INFECTION INC SITE NOT SPECIFIED 4619 ACUTE 08-24-2014 [facility] SINUSITIS, MEM [facility] UNSPECIFIED INC 5589 OTH&UNSPEC 08-18-2014 [place] NONINFECTIO [facility] P GASTROENTER ITIS&COLITI S 7873 FLATULENCE 08-18-2014 [facility]ATION [facility]AS [facility]AG[facility] ASS PAIN 33960 ABDOMINAL 08-18-2014 [place] PAIN, LEFT MEDICAL UPPER IMAGING ASS [facility] V692 PROBLEMS 08-02-2014 [facility] RELATED TO MEM [facility] HIGH-RISK INC SEXUAL BEHAVIOR 9165 HIP THIGH 06-26-2014 [place] LEG[facility] INSECT BITE [facility] P NONVENOMOUS INF V1582 PERS HX 06-26-2014 [place] TOBACCO USE [facility] 27426 ABDOMINAL 03-09-2014 [facility] PAIN RIGHT REGIONAL UPPER MEDIC QUADRANT 47992 UNSPECIFIED 12-13-2013 [facility] VIRAL REGIONAL INFECTION EMERGENCY IN CCE & UNS SITE 64553 FEVER 12-13-2013 [facility] UNSPECIFIED REGIONAL EMERGENCY 7862 COUGH 08-07-2013 [facility] 4660 ACUTE 09-25-2008 [facility] BRONCHITIS [facility] INC 490 BRONCHITIS 09-25-2008 [facility] EMERGENCY SPECIFIED SERVICES ACUTE OR ASSOCIATES CHRONIC 34480 SHORTNESS 09-25-2008 [facility] SERVICES [facility]OC[facility] 19415 UNSPECIFIED 09-05-2008 [facility] CONSTIPATIO SERVICES N ASSOCIATES 3671 MYOPIA [...] 02 03 14 7 00 [place] Ac HI 16 -1 -1 .0 00 L- ti [...] complet Specifi 014 .035 ed c 03:50 [place] Urine 5.5 4.5-8.0 complet pH 014 ed [...] Procedure DOS Code Location Performer Comment THERAPEUT 54552 [facility] IC 7 [facility] PROPHYLAC INC INC TIC/DX INJECTION SUBQ/IM OPHTH 82187 [facility] 7 XM&EVAL COMPRE NEW PT 1/> VST THERAPEUT 84310 [place] IC PX 1/> 7 FAMILY AREAS CHIROPRAC EACH 15 TI MIN EXERCISES APPL 16485 [facility] MODALITY 7 FAMILY 1/> AREAS CHIROPRAC TRACTION TI MECHANICA L APPL 77833 [place] MODALITY 7 FAMILY 1/> AREAS CHIROPRAC ELEC TI STIMJ UNATTENDE D CHIROPRAC 65958 [place] NELLY TIC 7 FAMILY MANIPLTV CHIROPRAC TX TI EXTRASPIN AL 1/> REGION MANUAL 47514 [place] [facility] THERAPY 7 FAMILY TQS 1/> CHIROPRAC REGIONS TI EACH 15 MINUTES CHIROPRAC 39849 [place] NELLY TIC 7 FAMILY MANIPULAT CHIROPRAC KARIS TX TI SPINAL 3-4 REGIONS CHIROPRAC 47595 RIDGEIDALIA VILLEGAS TIC 7 FAMILY MANIPULAT CHIROPRAC KARIS TX TI SPINAL 3-4 REGIONS MANUAL 37804 [facility] THERAPY 7 FAMILY TQS 1/> CHIROPRAC REGIONS TI EACH 15 MINUTES CHIROPRAC 44180 [place] NELLY TIC 7 FAMILY MANIPLTV CHIROPRAC TX TI EXTRASPIN AL 1/> REGION APPL 22035 [place] [facility] MODALITY 7 FAMILY 1/> AREAS CHIROPRAC ELEC TI STIMJ UNATTENDE D APPL 27040 [place] MODALITY 7 FAMILY 1/> AREAS CHIROPRAC TRACTION TI MECHANICA L THERAPEUT 21325 RACHELJasmynIDALIA NELLY IC PX 1/> 7 FAMILY AREAS CHIROPRAC EACH 15 TI MIN EXERCISES THERAPEUT 87913 [place] NELLY IC PX 1/> 7 FAMILY AREAS CHIROPRAC EACH 15 TI MIN EXERCISES APPL 65832 [place] [facility] MODALITY 7 FAMILY 1/> AREAS CHIROPRAC TRACTION TI MECHANICA L APPL 31523 [facility] [facility] MODALITY 7 FAMILY 1/> AREAS CHIROPRAC ELEC TI STIMJ UNATTENDE D CHIROPRAC 15728 [place] NELLY TIC 7 FAMILY MANIPLTV CHIROPRAC TX TI EXTRASPIN AL 1/> REGION MANUAL 74593 [facility] THERAPY 7 FAMILY TQS 1/> CHIROPRAC REGIONS TI EACH 15 MINUTES CHIROPRAC 45925 SOUTH BERWICKJasmynIDALIA NELLY TIC 7 FAMILY MANIPULAT CHIROPRAC KARIS TX TI SPINAL 3-4 REGIONS CHIROPRAC 79087 [facility] NELLY TIC 7 FAMILY MANIPULAT CHIROPRAC KARIS TX TI SPINAL 3-4 REGIONS MANUAL 97989 [facility] NELLY THERAPY 7 FAMILY TQS 1/> CHIROPRAC REGIONS TI EACH 15 MINUTES CHIROPRAC 38935 [facility] NELLY TIC 7 FAMILY MANIPLTV CHIROPRAC TX TI EXTRASPIN AL 1/> REGION APPL 48959 [facility] NELLY MODALITY 7 FAMILY 1/> AREAS CHIROPRAC ELEC TI STIMJ UNATTENDE D APPL 04088 [facility] NELLY MODALITY 7 FAMILY 1/> AREAS CHIROPRAC TRACTION TI MECHANICA L THERAPEUT 12100 [facility] NELLY IC PX 1/> 7 FAMILY AREAS CHIROPRAC EACH 15 TI MIN EXERCISES BLOOD 90728 [facility] COUNT 7 [facility]ALTH[facility] COMPLETE E E AUTOMATED [facility]OSP[facility]ALS [facility] COMPREHEN 05725 [facility] SIVE 7 [facility] METABOLIC E E PANEL [facility] COLLECTIO 46952 [facility] N VENOUS 7 [facility]ALTHCAR HEALTHCAR BLOOD E E VENIPUNCT [facility] COMPREHEN 77008 [facility] SIVE [address] [place] [address] PANEL INJECTION J24[address] [facility] [address] [place] [address] [facility] HEAD/BRAI [address] [place] [address] N W/O [facility] CONTRAST MATERIAL URNLS DIP [address] STICK/TAB [facility] LET REAGENT AUTO MICROSCOP Y GONADOTRO 67537 [facility] PIN [address] [place] [address] CHORIONIC [facility] QUALITATI VE BLOOD 41804 [facility] COUNT [address] [place] [address] AUTO&AUTO DIFRNTL WBC INJECTION J[address] KETOROLAC [facility] TROMETHAM INE PER 15 MG THERAPEUT 27851 [facility] IC [address] [place] [address] IV PUSH EACH NEW DRUG ECG 58749 [facility] ROUTINE [address] [place] [address] W/LEAST 12 LDS TRCG ONLY W/O I&R THER 20465 JOSE GARCIA PROPH/DX 7 [facility] PUSH SINGLE/1S T SBST/DRUG RADIOLOGI 55572 [place] CINTHYA Weber 7 MEDICAL EXAMINATI SERV ON CHEST FOUNDATIO SINGLE N VIEW FRONTAL AMB A0427 JUAN DIEGO [facility] SERVICE 7 AMBULANCE AMBULANCE ALS SERVICE SERVICE EMERGENCY TRANSPORT LEVEL 1 GROUND A0425 [facility] MILEAGE 7 AMBULANCE AMBULANCE PER SERVICE SERVICE STATUTE MILE COMPREHEN 59688 [facility] MEAD[facility] SIVE 7 W W METABOLIC [facility] PANEL MEDICAL MEDICAL COL-CHR/M 72558 MEADOW[facility]IE MEADOWVIE S NONDRUG 7 W W ANA[facility]TE [facility] MEDICAL MEDICAL QUAL/JAYRO EA SPEC CREATINE 28157 [facility] MEADOWVIE KINASE 7 W W TOTAL [facility] MEDICAL MEDICAL BLOOD 60465 [facility] MEADOWVIE COUNT 7 W W COMPLETE [facility] AUTO&AUTO MEDICAL MEDICAL DIFRNTL WBC BLOOD 24246 [facility] COUNT 7 MEM HOSP MEM HOSP COMPLETE INC INC AUTO&AUTO DIFRNTL WBC URINE 89357 [facility] 7 MEM HOSP [facility] TEST INC [place] [address] [facility] D[facility] LIPASE 7 [place] [address] [facility] ABDOMEN & 7 MEDICAL PELVIS IMAGING W/O ASS CONTRAST MATERIAL COMPREHEN 66110 [facility] SIVE 7 [facility] [place] [address] [facility] ABDOMEN & 7 MEM HOSP [facility] HOSP PELVIS INC INC W/CONTRAS T MATERIAL URNLS DIP 17525 [facility] 7 MEM HOSP [facility] HOS[facility] STICK/TAB INC INC LET REAGENT AUTO MICROSCOP Y RADIOLOGI 19029 [facility] [place] ASTORGA C EXAM 6 RADIOLOGY CAR CHEST 2 VIEWS FRONTAL&[place] [address] [facility] [place] SCALF CHUY HEAD/BRAI 6 RADIOLOGY N W/[place] [address] [facility] ALL HEAD/BRAI 6 MEDICAL N W/O IMAGING CONTRAST ASS MATERIAL GONADOTRO 13817 [facility] PIN 6 [facility] H[facility] CHORIONIC INC INC QUALITATI VE INJECTION J2405 ARFAT D[facility]ASS 6 MEM HOSP [facility] ONDANSETR INC INC ON HCL PER 1 MG COMPREHEN 40372 [facility] SIVE 6 MEM HOS[facility] METABOLIC INC INC PANEL BLOOD 03570 [facility] COUNT 6 [facility] H[facility] COMPLETE INC INC AUTO&[place] [address] [facility] INFUSION 6 [facility] THERAPY/P INC INC ROPHYLAXI S /DX 1ST TO 1 HR THERAPEUT 71245 [facility] IC 6 [facility] INJECTION INC [place] [address] [facility] ABDOMEN & 6 RADIOLOGY III TARIQ PELVIS W/CONTRAS T MATERIAL URNLS DIP 19986 [facility] 6 [facility] STICK/TAB INC INC LET REAGENT AUTO MICROSCOP Y CULTURE 00328 [facility] BACTERIAL 6 [facility] INC INC QUANTTATI VE COLONY COUNT URINE CULTURE 59801 [facility] BCT 6 [facility] ISOL&PRSM INC INC PTV ID ISOLATE EA URINE SUSCEPTIB 68754 [facility] LTY STDY 6 [facility] ANTIMICRB INC INC IAL MICRO/AGA R DILUTJ URINE 84450 [facility] 6 [facility] TEST INC INC VISUAL COLOR CMPRSN METHS URINE 92419 [facility] 6 N N TEST COMMUNTIY COMMUNTIY VISUAL HOSPITA HOSPITA COLOR CMPRSN METHS BLOOD 12606 [facility] COUNT 6 N N COMPLETE COMMUNTIY COMMUNTIY AUTO&AUTO HOSPITA HOSPITA DIFRNTL WBC ECG 40578 [facility] ROUTINE 6 N N ECG COMMUNTIY COMMUNTIY W/LEAST HOSPITA HOSPITA 12 LDS TRCG ONLY W/O I&R COLLECTIO 90517 [facility] N VENOUS 6 N N BLOOD COMMUNTIY COMMUNTIY [place] [address] [facility] INFUSION 6 N N HYDRATION COMMUNTIY COMMUNTIY INITIAL HOSPITA HOSPITA 31 MIN-1 HOUR COMPREHEN 19914 [facility] SIVE 6 N N METABOLIC COMMUNTIY COMMUNTIY PANEL HOSPITA HOSPITA URNLS DIP 15810 [facility] 6 N N STICK/TAB COMMUNTIY COMMUNTIY LET HOSPITA HOSPITA REAGENT AUTO MICROSCOP Y CYTP C/V 24675 BIO BIO AUTO THIN 6 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 IES IES MNL RESCR PHYS ANES IPER 70553 [facility] LWR ABD 5 ANESTH SHE W/LAPS OF THE TUBAL BLUE LIGATION/ TRANSECT SMR PRIM 42562 NATASHA LARSEN SRC WET 5 [facility] AGT SMR PRIM 46632 NATASHA LARSEN SRC WET 5 [facility] RES[facility]Z [facility] AGT 89777 [facility] NONSTRESS 5 [facility] TEST INC INC 38979 [facility]ENT[facility] GANSTER NONSTRESS 5 [facility] 27658 [facility] D[facility] NONSTRESS 5 [place] [address] [facility] INFUSION 5 [facility] THERAPY/P INC INC ROPHYLAXI S /DX 1ST TO 1 HR BLOOD 16196 [facility] COUNT 5 [facility] COMPLETE INC INC AUTO&AUTO DIFRNTL WBC URNLS DIP 34233 [facility] 5 [facility] STICK/TAB INC INC LET REAGENT AUTO MICROSCOP Y BASIC 28697 [facility] METABOLIC 5 [facility] PANEL INC INC CALCIUM TOTAL GLUC BLD 36344 [facility] GLUC MNTR 5 [facility] DEV INC INC CLEARED FDA SPEC HOME USE 15437 [facility] D[facility] NONSTRESS 5 [facility] TEST INC INC THERAPEUT 02578 [facility] IC 5 [facility] PROPHYLAC INC INC TIC/DX INJECTION SUBQ/IM EVAL C/V 10223 [facility] AMNIOTIC 5 [facility] FLUID INC INC PROTEIN QUAL EA SPECIMEN PARTICLE 35473 [facility] AGGLUTINA 5 [facility] TION INC INC SCREEN EACH ANTIBODY CUL 64836 [facility] LARSEN PRSMPTV 5 [facility] PTHGNC ORGANISM SCRN W/COLONY ESTIMJ FTL 96039 [facility] FIBRONECT 5 [facility] IN INC INC CERVICOVA G SECRETION S SEMI-JAYRO URNLS DIP 43219 [facility] 5 [facility] STICK/TAB INC INC LET REAGENT AUTO MICROSCOP Y EVAL C/V 41926 [facility] AMNIOTIC 5 [facility] FLUID INC INC PROTEIN QUAL EA SPECIMEN 52696 [facility] NONSTRESS 5 [facility] TEST INC INC DOPPLER 73917 [facility] VELOCIMET 5 [facility] RY INC INC UMBILICAL ARTERY 37389 [facility] D[facility] NONSTRESS 5 [facility] TEST [facility] INC 64533 [facility] BIOPHYSIC 5 [facility] AL INC INC PROFILE [place] [address] [facility] UTERUS INC INC LIMITED 1/> FETUSES OBSERVATI 03196 NAT[facility] LARSEN ON CARE 5 [facility] 34613 [facility] LARSEN DISCHARGE 5 [facility] RESENDEZ [place] DAY MANAGEMEN T 30 MIN/< SBSQ 33604 [facility] LARSEN OBSERVATI 5 [facility] ON CARE/DAY 15 MINUTES SBSQ 83748 [facility] 5 [facility] CARE/DAY 15 MINUTES INITIAL 03072 NATASHA LARSEN OBSERVATI 5 [facility] ON CARE/DAY 30 MINUTES INITIAL 82787 [facility] 5 [facility] CHO CARE/DAY 50 MINUTES FTL 00605 [facility] FIBRONECT 5 [facility] IN INC INC CERVICOVA G SECRETION S SEMI-JAYRO URNLS DIP 99633 [facility] 5 [facility] STICK/TAB INC INC LET REAGENT AUTO MICROSCOP Y 01988 [facility] NONSTRESS 5 [facility] TEST INC INC 75511 [facility] D[facility] NONSTRESS 5 [facility] TEST INC INC INITIAL 13861 [facility] 5 MEDICAL DI CARE/DAY SERV 30 [facility] 7[address]95 [facility] DISCHARGE 5 [facility] RESENDEZ [place] DAY MANAGEMEN T 30 MIN/< SBSQ 94564 [facility] 5 [facility] RESENDEZ [place] CARE/DAY 15 MINUTES ECG 83634 [facility] PENG JR ROUTINE 5 [facility] W/LEAST P 12 LDS I&R ONLY INITIAL 89183 [facility] 5 [facility] RESENDEZ [place] CARE/DAY 50 MINUTES URNLS DIP 12495 [facility] 5 DENOMINATIONAL DENOMINATIONAL STICK/TAB HOSP HOSP LET RGNT AUTO W/O MICROSCOP Y EVAL C/V 01495 [facility] AMNIOTIC 5 [facility] FLUID INC INC PROTEIN QUAL EA SPECIMEN URNLS DIP 46316 [facility] STICK/TAB INC INC LET REAGENT AUTO MICROSCOP Y FTL 45667 [facility] FIBRONECT 5 [facility] IN INC INC CERVICOVA G SECRETION S SEMI-JAYRO 35722 [facility] NONSTRESS 5 [facility] TEST INC INC BLOOD 62719 RAAFT D[facility] COUNT 5 [facility] COMPLETE INC INC AUTO&AUTO DIFRNTL WBC GLUCOSE 95905 [facility] POST 5 [facility] GLUCOSE INC INC DOSE COLLECTIO 33852 [facility] D[facility] N VENOUS 5 [facility] BLOOD INC INC VENIPUNCT URE EVAL C/V 74346 [facility] AMNIOTIC 5 [facility] FLUID INC INC PROTEIN QUAL EA SPECIMEN FTL 02193 [facility] FIBRONECT 5 [facility] IN INC INC CERVICOVA G SECRETION S SEMI-JAYRO URNLS DIP 26498 [facility] 5 [facility] STICK/TAB INC INC LET REAGENT AUTO MICROSCOP Y 43170 [facility] D[facility] NONSTRESS 5 [facility] TEST INC INC PRESSURIZ 81651 [facility] ED/NONPRE 5 [facility] SSURIZED INC INC INHALATIO N TREATMENT SMR PRIM 20495 NATASHA LARSEN SRC WET 5 [facility] CHO MOUNT NFCT AGT US PREG 27732 NATASHA LARSEN UTERUS 5 [facility] HCO AFTER 1ST TRIMEST GESTATION EVAL C/V 73075 [facility] AMNIOTIC 5 [facility] FLUID INC INC PROTEIN QUAL EA SPECIMEN URNLS DIP 96594 [facility] RAFAT 5 [facility] STICK/TAB INC INC LET REAGENT AUTO MICROSCOP Y FTL 45904 [facility] FIBRONECT 5 [facility] IN INC INC CERVICOVA G SECRETION S SEMI-JAYRO 31014 [facility] D[facility] NONSTRESS 5 [facility] TEST INC INC 50841 [facility] D[facility] NONSTRESS 5 [facility] TEST INC INC THERAPEUT 99120 [facility] IC 5 [facility] PROPHYLAC INC INC TIC/DX INJECTION SUBQ/IM GROUND A0425 [facility]EAGE 5 AMBULANCE AMBULANCE PER SERVICE SERVICE STATUTE MILE AMB A0427 [facility] SERVICE 5 AMBULANCE AMBULANCE ALS SERVICE SERVICE EMERGENCY TRANSPORT LEVEL 1 URNLS DIP 10903 [facility] 5 [facility] STICK/TAB INC INC LET REAGENT AUTO MICROSCOP Y 41516 NATASHA LARSEN NONSTRESS 5 [facility] CHO TEST 04290 [facility] NONSTRESS 5 PHYSICIAN OLIVIA TEST S GROUP GONADOTRO 28059 [facility] PIN 5 [facility] CHORIONIC [place] [address] [facility] D[facility] ESTRIOL 5 [facility] INC INC ALPHA-FET 09224 [facility] OPROTEIN 5 [facility] SERUM INC INC COLLECTIO 01242 [facility] [place] N VENOUS 5 [facility] BLOOD INC INC VENIPUNCT URE OPHTH 47911 [facility] 5 GRE GRE XM&EVAL COMPRE NEW PT 1/> VST DETERMINA 82538 [facility] TION 5 [place] [address] [facility] INFUSION 5 [facility] THERAPY/P INC INC ROPHYLAXI S /DX 1ST TO 1 HR BLOOD 38834 [facility] COUNT 5 [facility] COMPLETE INC INC AUTO&[place] [address] [facility] INFUSION 5 [facility] THERAPY INC INC PROPHYLAX IS/DX EA HOUR GONADOTRO 46209 [facility] PIN 5 [facility] CHORIONIC [place] [address] [facility] D[facility] LIPASE 5 [facility] INC INC COMPREHEN 25958 [facility] D[facility] SIVE 5 [facility] [address] [facility] D[facility] AMYLASE 5 [facility] INC INC GROUND A0425 [facility] PER SERVICE SERVICE STATUTE MILE URNLS DIP 85868 [facility] 5 [facility] STICK/TAB INC INC LET REAGENT AUTO MICROSCOP Y AMB A0427 [facility] SERVICE 5 AMBULANCE AMBULANCE ALS SERVICE SERVICE EMERGENCY TRANSPORT LEVEL 1 CULTURE 38049 [facility] BACTERIAL 5 [facility] INC INC QUANTTATI VE COLONY COUNT URINE US PREG 37056 NATASHA LARSEN UTERUS 5 [facility] RESENDEZ MARQUIS AFTER 1[place] [address] NATASHA LARSEN 5 [facility] CHO UTERUS 14 WK TRANSABDL GESTAT COLPOSCOP 62152 NATASHA LARSEN Y CERVIX 5 [facility] CHO BX CERVIX & ENDOCRV CURRETAGE US PREG 79531 NATASHA DAYPEL UTERUS 5 [facility] CHO REAL TIME W/IMAGE DCMTN TRANSVAG GROUND A0425 [facility] MILEAGE 5 SUKHWINDER CO SUKHWINDER CO PER STATUTE AMBULANCE AMBULANCE MILE AMB A0427 [facility] SERVICE 5 SUKHWINDER CO SUKHWINDER CO ALS EMERGENCY AMBULANCE AMBULANCE TRANSPORT LEVEL 1 US PREG 36162 NATASHA MCCORMACKL UTERUS 5 [facility] CHO REAL TIME W/IMAGE DCMTN TRANSVAG CULTURE 80900 NATASHA LARSEN CHLAMYDIA 5 [facility] CHO ANY SOURCE IADNA 34199 NATASHA LARSEN HERPES 5 [facility] CHO SIMPLX VIRUS DIRECT PROBE TQ URINLS 65010 NATASHA DAYPEL DIP 5 [facility] RESENDEZ MARQUIS STICK/TAB LET REAGNT NON-AUTO MICRSCPY URINE 73455 NATASHA LARSEN 5 [facility] CHO TEST VISUAL COLOR CMPRSN METHS HANDLG&/O 48304 NATASHA LARSEN R CONVEY 5 [facility] CHO OF SPEC FOR TR OFFICE TO LAB IAADIADOO 12165 NATASHA LARSEN 5 [facility] CHO TRICHOMON VAGINALIS IADNA 77105 ANTASHA LARSEN NEISSERIA 5 [facility] CHO GONORRHOE AE DIRECT PROBE TQ CULTURE 99321 [facility] BACTERIAL 5 [facility] INC INC QUANTTATI VE COLONY COUNT URINE URINE 57293 [facility] 5 [facility] TEST INC INC VISUAL COLOR CMPRSN METHS URNLS DIP 75317 [facility] 5 [facility] STICK/TAB INC INC LET REAGENT AUTO MICROSCOP Y BLOOD 73458 [facility] TYPING 5 [facility] SEROLOGIC INC INC RH (D) US PREG 43940 [place] [facility] UTERUS 5 MEDICAL AMANDA REAL TIME IMAGING W/IMAGE ASS DCMTN TRANSVAG BLOOD 11429 [facility] COUNT 5 [facility] COMPLETE INC INC AUTO&AUTO DIFRNTL WBC GONADOTRO 79600 [facility] PIN 5 [facility] CHORIONIC INC INC QUANTITAT KARIS GONADOTRO 46409 [facility] D[facility] PIN 5 [facility] CHORIONIC INC INC QUANTITAT KARIS URINE 53616 [facility] 5 [facility] TEST INC INC VISUAL COLOR CMPRSN METHS URNLS DIP 55672 [facility] 5 [facility] STICK/TAB INC INC LET REAGENT AUTO MICROSCOP Y CULTURE 79792 [facility] D[facility] BACTERIAL 5 [facility] INC INC QUANTTATI VE COLONY COUNT URINE OBSTETRIC 49806 [facility] PANEL 5 [facility] INC INC COLLECTIO 43627 [facility] D[facility] N VENOUS 5 [facility] BLOOD INC INC VENIPUNCT URE IAADI 63737 [facility] D[facility] INFLUENZA 5 [facility] B VIRUS INC INC IAADI 04680 [facility] D[facility] INFFLUENZ 5 [facility] A A VIRUS INC INC THERAPEUT 21305 [facility] D[facility] IC 5 [facility] INJECTION [place] [address] [facility] D[facility] INFUSION 5 [facility] THERAPY/P INC INC ROPHYLAXI S /DX 1ST TO 1 HR BLOOD 54315 [facility] COUNT 5 [facility] COMPLETE INC INC AUTO&[place] [address] [facility] LIPASE 5 [facility] INC INC COMPREHEN 39610 [facility] D[facility] SIVE 5 [facility] [place] [address] [place] [facility] ABDOMEN & 5 MEDICAL AMANDA PELVIS IMAGING W/CONTRAS ASS T MATERIAL INJECTION J2405 [facility] 5 [facility] ONDANSETR INC INC ON HCL PER 1 [place] [address] [facility] AMYLASE 5 [facility] INC INC LOCM Q9967 [facility] 300-399 5 [facility] MG/ML INC INC IODINE CONCENTRA TION PER ML URINE 43037 [facility] 5 [facility] TEST INC INC VISUAL COLOR CMPRSN METHS URNLS DIP 98199 [facility] 5 [facility] STICK/TAB INC INC LET REAGENT AUTO MICROSCOP Y IADNA 20057 [facility] CHLAMYDIA 5 [facility] INC INC TRACHOMAT IS AMPLIFIED PROBE TQ IADNA 55404 [facility] NEISSERIA 5 [facility] INC INC GONORRHOE AE AMPLIFIED PROBE TQ URINE 20684 [facility] HERNANDEZ 5 PHYSICIAN OLIVIA TEST S GROUP VISUAL COLOR CMPRSN METHS URINE 72756 [facility] 5 [facility] TEST INC INC VISUAL COLOR CMPRSN METHS BLOOD [address] [facility] [address] [facility] COUNT 4 [facility] COMPLETE MEDIC MEDIC AUTO&[place] [address] [address] [facility] LIPASE 4 [facility] MEDIC RADEX [address] [address] [facility] ABDOMEN 1 4 REG[facility] MEDIC MEDIC ANTEROPOS TERIOR VIEW THERAPEUT [address] [facility] ST JIM IC 4 REGIONAL REGIONAL PROPHYLAC MEDIC MEDIC TIC/DX INJECTION SUBQ/IM INJECTION J[address] [facility] JIM 4 REGIONAL REGIONAL DICYCLOMI MEDIC MEDIC NE HCL UP TO [address] [facility] ST JIM SIVE 4 REGIONAL REGIONAL METABOLIC MEDIC MEDIC PANEL COLLECTIO [address] [facility] ST JIM N VENOUS 4 REGIONAL REGIONAL BLOOD MEDIC MEDIC VENIPUNCT URE URINE [address] JIM 4 REGIONAL REGIONAL TEST MEDIC MEDIC VISUAL COLOR CMPRSN METHS URNLS DIP [address] JIM 4 REGIONAL REGIONAL STICK/TAB MEDIC MEDIC LET REAGENT AUTO MICROSCOP Y URNLS DIP [address] JIM 4 REGIONAL REGIONAL STICK/TAB MEDIC MEDIC LET REAGENT AUTO MICROSCOP Y BLOOD [address] [facility] ST JIM COUNT 4 REGIONAL REGIONAL COMPLETE MEDIC MEDIC AUTO&AUTO DIFRNTL WBC URINE [address] JIM 4 REGIONAL REGIONAL TEST MEDIC MEDIC VISUAL COLOR CMPRSN METHS COLLECTIO [address] JIM N VENOUS 4 REGIONAL REGIONAL BLOOD MEDIC MEDIC VENIPUNCT URE COMPREHEN [address] JIM SIVE 4 REG[facility]AL [place] [address] JIM INFUSION 4 REGIONAL REGIONAL HYDRATION MEDIC MEDIC EACH ADDITIONA L HOUR INJECTION J2405 [facility] JIM 4 REGIONAL REGIONAL ONDANSETR MEDIC MEDIC ON HCL PER [address] JIM BACTERIAL 4 REGIONAL REGIONAL BLOOD MEDIC MEDIC AEROBIC W/ID ISOLATES RADIOLOGI [address]2428 ST JIM DANISH MARILY C EXAM 4 REGIONAL CHEST 2 RADIOLOG VIEWS FRONTAL&L ATERAL THER [address] JIM PROPH/DX 4 REGIONAL REGIONAL NJX IV MEDIC MEDIC PUSH SINGLE/1S T SBST/DRUG ECG [address] JIM ROUTINE 4 REGIONAL REGIONAL ECG MEDIC MEDIC W/LEAST 12 LDS TRCG ONLY W/O I&R ECG 92354 ST JIM MARISA ROUTINE 4 MEDICAL [place] ECG CENTER W/LEAST 12 LDS I&R ONLY PROTHROMB [address] JIM IN TIME 4 REGIONAL REGIONAL MEDIC MEDIC BLOOD 23138 GARCIA GARCIA COUNT 4 [facility]ITAL AUTO&AUTO DIFRNTL WBC ECG 27079 GARCIA GARCIA ROUTINE 4 CO CO ECG HOSPITAL HOSPITAL W/LEAST 12 LDS TRCG ONLY W/O I&R CREATINE 41685 GARCIA GARCIA KINASE 4 [facility] [place] [address] G[facility]IA GARCIA MAGNESIUM 4 CO CO [facility] H[facility]PITAL RADIOLOGI 64821 GARCIA GARCIA C EXAM 4 CO CO CHEST 2 HOSPITAL HOSPITAL VIEWS FRONTAL&L ATERAL CREATINE 33016 GARCIA GARCIA KINASE MB 4 CO [facility] HOSPITAL ONLY COMPREHEN 26725 GARCIA GARCIA SIVE 4 CO [facility]PITAL PANEL GONADOTRO 16335 GARCIA GARCIA PIN 4 CO CO [facility] [place] [address] GARCIA GARCIA TROPONIN 4 CO CO [facility] [place] [address] [facility] TROPONIN 9 [facility] QUANTITAT INC INC KARIS URNLS DIP 35784 [facility] RAFAT 9 [facility] STICK/TAB INC INC LET REAGENT AUTO MICROSCOP Y URINE 68550 [facility] 9 [facility] TEST INC INC VISUAL COLOR CMPRSN METHS COMPREHEN 39277 [facility] SIVE 9 [facility] METABOLIC INC INC PANEL CREATINE 39292 [facility] D[facility] KINASE MB 9 [facility] FRACTION INC INC ONLY RADIOLOGI 55372 [facility] D[facility] C EXAM 9 [facility] CHEST 2 INC INC VIEWS FRONTAL&L ATERAL CREATINE 48689 [facility] KINASE 9 [facility] TOTAL INC INC ECG 44710 [facility] ROUTINE 9 [facility] ECG INC INC W/LEAST 12 LDS TRCG ONLY W/O I&R BLOOD 27866 [facility] COUNT 9 [facility] COMPLETE INC INC AUTO&AUTO DIFRNTL WBC URINE 10852 [facility] 9 [facility] TEST INC INC VISUAL COLOR CMPRSN METHS BLOOD 02800 [facility] COUNT 9 [facility] COMPLETE INC INC AUTO&[place] [address] [facility] INFUSION 9 [facility] THERAPY/P INC INC ROPHYLAXI S /DX 1[address] [place] [address] [place] [address] [facility] ABDOMEN 9 [facility] W/O INC INC CONTRAST MATERIAL COMPREHEN 64458 [facility] D[facility] SIVE 9 [facility] METABOLIC INC INC PANEL CT PELVIS 28227 [facility] W/O 9 [facility] CONTRAST INC INC MATERIAL URNLS DIP 96561 [facility] 9 [facility] STICK/TAB INC INC LET REAGENT AUTO MICROSCOP Y 3D 11931 [place] RA, RENDERING 9 MEDICAL SUSHANT IMAGING W/INTERP& ASSOCIATE POSTPROC S DIFF WORK STATION FITTING 25143 HERIBERTO GAINES, SPECTACLE 8 VISION KEARA Ackerman S XCPT APHAKIA MONOFOCAL FRAMES V2020 HERIBERTO GAINES, PURCHASES 8 VISION KEARA Ackerman 1 VISN V2103 HERIBERTO GAINES, PLANO 8 VISION KEARA M TO+/-4.00 D SPHER 0.12-2.00 D CYL EA OPHTH 82821 HERIBERTO GAINES, MEDICAL 8 VISION KEARA M XM&EVAL COMPRE NEW PT 1/> VST Encounters Encounter Start End Date Code Location Performer Type Date [facility] - 7 7 [facility] T OFF[facility] 316[address] [facility] 7 7 [facility] T [facility] 10 INC MINUTES OFFICE 59854 [facility] T VISIT 5 E MINUTES [facility] - 7 7 [facility] OUTPATIEN E T HOSPITALS OFFICE 82227 [facility] OUTPATIEN 7 7 NURSE T VISIT PRACTITIO 15 NER GR MINUTES OFFICE 63753 [facility] 7 7 NURSE ION PRACTITGIUSEPPE NEW/ESTAB NER GR PATIENT 60 MIN OFFICE 54633 OUTPATIEN 7 7 HEALTHCAR T VISIT 5 E MINUTES [facility] - 7 7 [facility] OUTPATIEN E T HOSPITALS EMERGENCY 40296 [place] 7 7 [facility] T VISIT HIGH/URGE NT SEVERITY EMERGENCY [address] [facility] VISIT EMERGENCY HIGH PHYS SEVERITY& THREAT [facility] GARCIA - 7 7 [facility] 9[address] [facility] 7 7 [facility] EMERGENCY T VISIT PHYS HIGH/URGE NT SEVERITY EMERGENCY 71406 [facility] 7 7 [facility] T VISIT LOW/MODER SEVERITY HOSPITAL [facility]AT - 7 7 [facility] OUTPATIEN [facility] T EMERGENCY 29560 [facility] TOSHA II DEPT 6 6 SANDRA THO VISIT EMERGENCY HIGH PHYS SEVERITY& THREAT FUN EMERGENCY 56684 [facility] DEPT 6 6 SANDR[facility] NICOLE VISIT EMERGENCY HIGH PHYS SEVERITY& THREAT FUN EMERGENCY 49812 CHEIKH AMAYA 6 6 [facility]YSICIAN [facility]OL [facility] Jasmyn [facility] T VISIT HIGH/URGE NT SEVERITY EMERGENCY 03496 [facility] DEPT 6 6 [facility] VISIT INC HIGH SEVERITY& THREAT [facility] RAFAT - 6 6 [facility]PATIEN [facility] EMERGENCY 24056 [facility] DEPT 6 6 SANDR[facility] VISIT EMERGENCY HIGH PHYS SEVERITY& THREAT FUN EMERGENCY 33460 CHEIKH FRAGOSO 6 6 PHYSICIAN GOLDIE Vines [facility] T VISIT HIGH/URGE NT SEVERITY HOSPITAL RAFAT - 6 6 [facility] EMERGENCY 86929 [facility] 6 6 [facility] T VISIT LOW/MODER SEVERITY HOSPITAL MAGO - 6 6 N OUTPATIEN COMMUNTIY T HOSPITA EMERGENCY 05559 [facility] 6 6 N [facility] COMM[facility] T VISIT HOSPITA HIGH/URGE NT SEVERITY HOSPITAL RAFAT - 5 5 [facility] OUTPATIEN [facility] RAFAT - 5 5 [facility] OUTPATIEN [facility] RAFAT [facility] 5 5 [facility] OUTPATIEN [facility] RAFAT - 5 5 [facility] OUTPATIEN INC T OFFICE 22257 NATASHA LARSEN OUTPATIEN 5 5 [facility] CHO T VISIT 15 MINUTES HOSPITAL RAF[facility] 5 5 [facility] OUTPATIEN [facility] RAFAT - 5 5 [facility] OUTPATIEN INC T OFFICE 03814 [facility] OUTPATIEN 5 5 [place] GRICEL NEW 30 CLINIC MINUTES [facility] OFFICE 51971 NATASHA LARSEN OUTPATIEN 5 5 [facility] CHO T VISIT 15 MINUTES HOSPITAL RAFAT - 5 5 [facility] INPATIENT [facility] OFFICE 41469 NATASHA LARSEN OUTPATIEN 5 5 [facility] CHO T VISIT 15 MINUTES HOSPITAL [facility] - 5 5 [facility] OUTPATIEN [facility] T OFFICE 38619 NATASHA LARSEN OUTPATIEN 5 5 [facility] CHO T VISIT 15 MINUTES HOSPITAL [facility] - 5 5 [facility]PATIEN [facility] UNIVERSIT - 5 5 [facility] RAFAT [facility] 5 5 [facility] - 5 5 DENOMINATIONAL OUTPATIEN HOSP T OFFICE 04740 NATASHA LARSEN OUTPATIEN 5 5 [facility] CHO T VISIT 15 MINUTES HOSPITAL [facility] - 5 5 [facility]PATIEN [facility] RAF[facility] - 5 5 [facility] RAF[facility] - 5 5 [facility] RAFAT - 5 5 [facility] OUTPATIEN [facility] T OFFICE 09220 NATASHA LARSEN OUTPATIEN 5 5 [facility] CHO T VISIT 15 MINUTES HOSPITAL RAF[facility] - 5 5 [facility] OUTPATIEN INC T HOSPITAL RAFAT - 5 5 [facility] OUTPATIEN INC T HOSPITAL RAFAT - 5 5 [facility] OUTPATIEN INC T OFFICE 96780 [facility] OUTPATIEN 5 5 PHYSICIAN OLIVIA T VISIT S GROUP 15 MINUTES OFFICE 87675 NATASHA LARSEN OUTPATIEN 5 5 [place] T VISIT 15 MINUTES HOSPITAL RAFAT - 5 5 [facility] OUTPATIEN INC T EMERGENCY 13342 RAFAT 5 5 [facility] DEPARTMEN INC T VISIT HIGH/URGE NT SEVERITY HOSPITAL RAFAT - 5 5 [facility] OUTPATIEN [facility] T OFFICE 66511 NATASHA LARSEN OUTPATIEN 5 5 [facility] T VISIT 15 MINUTES OFFICE 66450 NATAS[facility] LARSEN OUTPATIEN 5 5 [facility] T VISIT 15 MINUTES EMERGENCY 04722 CHEIKH Gaytan DEPT 5 5 PHYSICIAN VISIT S, PLLC HIGH SEVERITY& THREAT FUNCJ OFFICE 70525 NATASHA LARSEN OUTPATIEN 5 5 [facility] T VISIT 15 MINUTES OFFICE 02836 NATASHA LARSEN OUTPATIEN 5 5 [place] T VISIT 15 MINUTES EMERGENCY 40938 [facility] PORNOY 5 5 [facility] DEPARTMEN EMERGENCY T VISIT PHYS HIGH/URGE NT SEVERITY OFFICE 00138 NATASHA LARSEN OUTPATIEN 5 5 [place] T VISIT 15 MINUTES INITIAL 41282 NATASHA LARSEN PREVENTIV 5 5 [place] [facility] E MEDICINE NEW PT AGE 18-39YRS [facility] RAFAT - 5 5 [facility] OUTPATIEN INC T EMERGENCY 48709 RAFAT AMAYA 5 5 [facility] T VISIT P MODERATE SEVERITY EMERGENCY 54413 RAFAT 5 5 [facility] INC T VISIT MODERATE SEVERITY HOSPITAL RAFAT - 5 5 [facility] OUTPATIEN INC T EMERGENCY 40197 RAFAT 5 5 [facility] T VISIT LOW/MODER SEVERITY HOSPITAL RAFAT - 5 5 [facility] OUTPATIEN INC T EMERGENCY 01701 RAFAT 5 5 [facility] INC T VISIT HIGH/URGE NT SEVERITY EMERGENCY 90464 RAFAT PATEL 5 5 [facility] T VISIT P MODERATE SEVERITY HOSPITAL RAFAT - 5 5 [facility] OUTPATIEN INC T HOSPITAL RAFAT [facility] 5 5 [facility] OUTPATIEN INC T OFFICE 00876 [facility] 5 5 PHYSICIAN OLIVIA T NEW 43 S GROUP MINUTES EMERGENCY 67028 [facility] AMAYA 5 5 [facility] T VISIT P LIMITED/M INOR PROB EMERGENCY 10227 RAFAT 5 5 [facility] INC T VISIT LOW/MODER SEVERITY HOSPITAL RAFAT - 5 5 [facility] OUTPATIEN INC T EMERGENCY [address] [facility] JIM OVERALL 4 4 [facility] T VISIT EMERGENCY HIGH/URGE NT SEVERITY EMERGENCY 34396 ST JIM 4 4 [facility] MEDIC T VISIT MODERATE SEVERITY HOSPITAL ST JIM - 4 4 REGIONAL OUTPATIEN MEDIC T EMERGENCY [address] [facility] DEPT 4 4 REGIONAL VISIT HIGH EMERGENCY SEVERITY& THREAT [facility] ST JIM - 4 4 [facility] MED[facility] T EMERGENCY [id number] JIM 4 4 [facility] MEDIC T VISIT HIGH/URGE NT SEVERITY EMERGENCY [id number] [place] 4 4 [facility] T VISIT HIGH/URGE NT SEVERITY HOSPITAL [place] - 4 4 [facility] T EMERGENCY [id number] RAFAT 9 9 [facility] T VISIT HIGH/URGE NT SEVERITY EMERGENCY [id number] KIERRA LEONARD, DEPT 9 9 EMERGENCY NIRMALA Capone VISIT SERVICES HIGH SEVERITY& ASSOCIATE THREAT S [facility] RAFAT - 9 9 [facility] OUTPATIEN [facility] T EMERGENCY [id number] KIERRA KIRKPATRICK DEPT 9 9 EMERGENCY ROXANNA Blanchard VISIT SERVICES HIGH SEVERITY& ASSOCIATE THREAT S [facility] EMERGENCY 11825 RAFAT 9 9 [facility] T VISIT HIGH/URGE NT SEVERITY HOSPITAL RAFAT - 9 9 [facility] OUTPATIEN INC T
--- OUTSIDE RECORDS SUMMARY | 2017-03-18 11:46 | External Medical Summary Rpt | CCD ---
Author Author , MARLON Organization MARLON Address Unknown Phone [email or web address] Care Team Providers Care Kindergarten Teacher Name Role Phone PETE LIMON Unavailable Unavailable [facility] Unavailable Unavailable [facility]ATOR[facility], [facility] Unavailable Unavailable [facility]ATORIES, [facility] MCKINNEY, MCKINNEY Unavailable Unavailable MCKINNEY ALL, MCKINNEY ALL Unavailable [facility]available [facility] Unavailable Unavailable SERVICE, [facility] Unavailable Unavailable SERVICE, [facility] ASTORGA CAR, ASTORGA Unavailable Unavailable CAR [facility], Unavailable Unavailable [facility] CHIPPS SONJA & Unavailable Unavailable DUBILIER, [facility] SONJA & DUBILIER HERNANDEZ OLIVIA, HERNANDEZ Unavailable Unavailable OLIVIA [facility], Unavailable Unavailable [facility] Unavailable Unavailable [facility], [facility] SUSHANT KNAPP, Unavailable Unavailable RA, SUSHANT TOSHA II THO, TOSHA II Unavailable Unavailable THO MARISA PARESH, MARISA Unavailable Unavailable PARESH [facility] Unavailable Unavailable [facility] ROXANNA KIRKPATRICK, Unavailable Unavailable ROXANNA KIRKPATRICK [facility], Unavailable Unavailable [facility] Unavailable Unavailable [facility], [facility], [facility] Unavailable Unavailable [facility] ZE PENA Unavailable Unavailable [facility]DO [facility] Unavailable [facility], [facility] NATASHA LARSEN MD, Unavailable Unavailable NELLY ANDINO MD Unavailable Unavailable HARPEL MARQUIS, HARPEL Unavailable Unavailable MARQUIS [facility] Unavailable Unavailable INC, [facility] Unavailable Unavailable HOSPITAL P, [facility] P [facility], Unavailable Unavailable [facility] CLAYTON AMANDA, CLAYTON AMANDA Unavailable Unavailable AMOL III TARIQ, Unavailable Unavailable AMOL III TARIQ [facility] Un[facility], [facility] Unavailable Unavailable [facility], [facility] DANISH CALIXTO, DANISH CALIXTO Unavailable Unavailable [facility], [facility] DANISH JR DWI, DANISH Unavailable Unavailable JR DWI LIGIA FAYETTE URBAN Unavailable Unavailable COGOVT, LIGIA FAYETTE URBAN COGOVT LONG, LONG Unavailable Unavailable NIRMALA LEONARD, Unavailable Unavailable NIRMALA LEONARD, Unavailable Unavailable KIERRA LOZADA GRE, Unavailable Unavailable KIERRA GRE [facility] Unavailable Unavailable [facility], [facility] Unavailable Unavailable AMBULANCE, [facility] Unavailable Unavailable ASSOCIAT, [facility] Unavailable Unavailable MEDICAL, [facility] MERHAR, MERHAR Unavailable Unavailable [facility] DE[facility] P, Unavailable Unavailable [facility] DEUT[facility] P MUHA, MUHA Unavailable Unavailable MUHA, MUHA Unavailable Unavailable [facility] Unavailable Unavailable [facility], [facility] O'ADRI DI, O'ADRI Unavailable Unavailable DI OVERALL PHI, OVERALL Unavailable Unavailable PHI [facility], Unavailable [facility]available [facility], [facility] PORNOY JORGE, PORNOY Unavailable Unavailable JORGE RENUSCH GOLDIE, RENUSCH Unavailable Unavailable GOLDIE ASHLI GRICEL, Unavailable Unavailable CORNELIUS GRICEL KAYLA JOSE, KAYLA JOSE Unavailable Unavailable SCALF CHUY, SCALF CHUY Unavailable Unavailable SCIFRES, KEARA M, Unavailable Unavailable SCIFRES, KEARA M MATTHEWS NICOLE, MATTHEWS Unavailable Unavailable [facility], ON LICENSE OF [facility] LYNN SHE, Unavailable Unavailable LYNN SHE [facility] Unavailable Unavailable MEDIC, [facility] Unavailable Unavailable EMERGENCY, [facility] GALVAN, GALVAN Unavailable Unavailable [facility] Unavailable Unavailable HOSPITALS, [facility], Unavailable Unavailable [facility] [place] Unavailable Unavailable [facility], [facility] Unavailable Unavailable Purpose Continuity of Care Document - 05-05-2008 through 2016 Problems Code Diagnosis DOS Provider Status L500 ALLERGIC 01-13-2017 [facility] R569 UNSPECIFIED 01-13-2017 [facility] CONVULSIONS INC G76291 OTHER LONG 01-13-2017 [facility] TERM [facility] CURRENT INC DRUG THERAPY G441 VASCULAR 11-25-2016 MUHA HEADACHE NOT ELSEWHERE CLASSIFIED 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 H1045 OTHER 11-25-2016 [facility] CHRONIC ALLERGIC CONJUNCTIVI TIS H5213 MYOPIA 11-25-2016 [facility] BILATERAL M5031 OTH CERV 11-12-2016 [place] DISC DEGEN FAMILY HIGH [facility]I CERVICAL REGION O44397 OTHER 11-12-2016 [place] CERVICAL FAMILY DISC CHIR[facility]CT[facility] DEGENERATIO N AT C6-C7 LEVEL M5134 OTH 11-12-2016 [place] INTERVERTEB FAMILY RAL DISC [facility]IR[facility]CTI DEGEN THORACIC REGION M5136 OTH 11-12-2016 [place] INTERVERTEB FAMILY RAL DISC [facility] DEGEN LUMBAR REGION M9901 SEGMENTAL & 11-12-2016 [place] SOMATIC FAMILY DYSFUNCTION CHIROP[facility]CTI CERVICAL REGION M9902 SEGMENTAL & 11-12-2016 [place] SOMATIC FAMILY DYSFUNCTION [facility]IR[facility]CTI THORACIC REGION M9903 SEGMENTAL & 11-12-2016 [place] SOMATIC FAMILY DYSFUNCTION CHIROPRACTI OF LUMBAR REGION M9905 SEGMENTAL & 11-12-2016 [place] SOMATIC FAMILY DYSFUNCTION CHIROPRACTI OF PELVIC REGION R51 HEADACHE 10-23-2016 [facility] B08526 EPILEPSY 07-21-2016 [facility] W/O HOSPITAL STATUS EPILEPTICUS H21642 OTHER 07-21-2016 [facility] PER[facility]HERAL N EMERGENCY VERTIGO PHYS UNSPECIFIED EAR J322 CHRONIC 07-21-2016 [facility] ETHMOIDAL N EMERGENCY SINUSITIS PHYS R0789 OTHER CHEST 07-21-2016 [facility] N [facility]ERG[facility] PHYS R42 DIZZINESS 07-21-2016 [place] AND [facility]IOLOGY GIDDINESS ASSOCIAT X92822 ALLERGY TO 07-21-2016 SHARON OTHER FOODS [facility] Z9851 TUBAL 07-21-2016 [facility] C20929 UNSPECIFIED 07-11-2016 [facility] CYST LEFT INC SIDE R1031 RIGHT LOWER 07-11-2016 [facility] [facility] R1032 LEFT LOWER 07-11-2016 [facility] PAIN INC R110 NAUSEA 07-11-2016 [facility] R1110 VOMITING 07-11-2016 [facility] UNSPECIFIED MEDICAL IMAGING ASS R0602 SHORTNESS 12-29-2015 [facility] [place] [facility] R0781 PLEURODYNIA 12-29-2015 [facility] N EMERGENCY PHYS R091 PLEURISY 12-29-2015 [facility] N EMERGENCY PHYS M99985 PERSONAL 12-01-2015 [facility] HISTORY OF MEM HOSP NICOTINE INC DEPENDENCE N3091 CYSTITIS 11-10-2015 [facility] UNSPECIFIED N EMERGENCY WITH PHYS HEMATURIA N3289 OTHER 11-10-2015 [facility] [place] SPECIFIED RADIOLOGY DISORDERS OF BLADDER R1084 GENERALIZED 11-10-2015 [facility] ABDOMINAL N EMERGENCY PAIN PHYS N390 URINARY 11-06-2015 [facility], INFECTION [facility] SITE NOT SPECIFIED E860 DEHYDRATION 10-10-2015 [facility] R55 SYNCOPE AND 10-10-2015 [facility] Z392 ENCOUNTER 07-02-2015 [facility] FOR ROUTINE REFERNCE LABORATORIE FOLLOW-UP S Z9889 OTHER 07-02-2015 [facility] SPECIFIED REFERNCE POSTPROCEDU LABORATORIE [facility] STATES S O80 ENCOUNTER 05-10-2015 [facility] FOR ANESTH OF FULL-TERM MERNA HERNANDEZ UNCOMPLICAT ED DELIVERY Z0189 ENCOUNTER 05-10-2015 [facility] OTHER SONJA & SPECIFIED DUBILIER SPECIAL EXAMINATION S Z302 ENCOUNTER 05-10-2015 [facility] FOR ANESTH OF STERILIZATI MERNA HERNANDEZ ON Z370 SINGLE LIVE 05-10-2015 [facility] ANESTH OF THE DAVID Z3A37 37 WEEKS 05-10-2015 [facility] GESTATION ANESTH [...] 05-01-2015 [facility] GESTATION [facility] OF INC U40411 OTHER SPEC 04-29-2015 [facility] COND 2ND TRIMESTER U64370 OTHER SPEC 04-28-2015 [facility] RELATED INC COND 3RD TRIMESTER Z331 04-28-2015 [facility] AMBULANCE INCIDENTAL SERVICE O4703 FALSE LABOR 04-26-2015 [facility] BEFORE 37 MEM HOSP CMPLETE INC WEEKS GEST 3RD TRI Z3A35 35 WEEKS 04-26-2015 [facility]ATION [facility] OF INC Z36 ENCOUNTER 04-24-2015 [facility] FOR [facility] INC SCREENING OF MOTHER Z3A34 34 WEEKS 04-17-2015 [facility] GESTATION [facility] OF INC [id number] DECREASED 04-14-2015 [facility] THIRD TRIMESTER NA/UNS O0973 SUP HIGH 04-12-2015 NATASHA Alexandra RISK PREG [facility] RESENDEZ D/T SOCIAL PROBLEMS THIRD TRI G40A09 ABSENCE 04-11-2015 [facility] NOT INTRACTABLE W/O SE O2693 04-11-2015 [facility] [place] CONDITIONS [facility]IN[facility] PSC UNS 3RD TRIMESTER Z3493 ENC 04-09-2015 NATASHA Alexandra SUPERVISION [facility] RESENDEZ NORMAL UNS 3 TRIMESTER A74846 OTH GEN 04-03-2015 [facility] EPILEPSY [facility] [...] PREG [facility] PUERPERI[facility] R109 UNSPECIFIED 03-12-2015 [facility] ABDOMINAL SERV PAIN FOUNDATION B3749 OTHER 03-11-2015 [facility] CANDIDIASIS K5900 CONSTIPATIO 03-11-2015 [facility] UNSPECIFIED M549 DORSALGIA 03-11-2015 [facility] UNSPECIFIED AMBULANCE SERVICE N1330 UNSPECIFIED 03-11-2015 [facility] HYDRONEPHRO [facility]ATION SIS B67592 03-11-2015 [place] [facility] RENAL [facility] DISEASE UNS TRIMESTER O2690 03-11-2015 [facility] CONDITIONS SERVICE UNS UNS TRIMESTER J219FO4 MATERNAL 03-11-2015 [facility] [place] [facility] PRESENTATIO N NA/UNS [id number] L & D COMP 03-11-2015 [place] [facility] AROUND SERV NECK W/O FOUNDATION COMPRS NA/UNS H74926 OTH 03-11-2015 [facility] INF & PARASIT DZ COMP PREG 3RD TRI O623 PRECIPITATE 03-08-2015 NATASHA LARSEN MD Z3492 ENC 03-08-2015 [place] [facility] NORMAL IMAGING ASS UNS 2 TRIMESTER O331 MAT CARE 03-03-2015 LIGIA FAYETTE DISPROPORTI URBAN ON D/T GEN COGOVT CONTRACTED PELV Z3A28 28 WEEKS 03-03-2015 [facility] OF HOSP V221 SUPERVISION 02-27-2015 NATASHA Alexandra OF VI[facility] HUGO LARSEN MD NORMAL 53924 THREATENED 02-19-2015 [facility] ANTEPARTUM 43617 OT CURRENT 02-18-2015 [facility] MAT CONDS [facility]OS[facility] CLASSIFIABL INC E ELSW ANTPRTM V771 SCREENING 02-16-2015 [facility] FOR [facility] DIABETES INC MELLITUS 76641 ASTHMA, 02-03-2015 [facility] UNSPECIFIED [facility]OS[facility] , INC UNSPECIFIED STATUS V222 02-03-2015 [facility] STATE, MEM HOSP INCIDENTAL INC 05849 UNSPECIFIED 01-30-2015 NATASHA Alexandra VAGINITIS CHAVA RESENDEZ AND VULVOVAGINI TIS 35554 HEMORRHAGE 01-30-2015 NATASHA Alexandra FROM [facility] RESENDEZ PLACENTA PREVIA ANTEPARTUM 39385 OTHER 01-23-2015 [facility] THREATENED [facility]OS[facility] LABOR, INC ANTEPARTUM 42508 ERLY ONSET 01-23-2015 [facility] DELIV DELIV AMBULANCE W/WO SERVICE MENTION ANTPRTM COND 17091 ABDOMINAL 01-23-2015 [facility] PAIN OTHER AMBULANCE SPECIFIED SERVICE SITE 60250 OTHER 01-15-2015 [facility] SPECIFED [facility] COMPLICATIO INC N ANTEPARTUM V2889 OTHER 12-19-2014 [facility] SPECIFIED [facility] INC SCREENING 3670 HYPERMETROP 12-18-2014 [place] [address] UNSPEC COMP 12-04-2014 [facility] UNSPEC SERVICE EPISODE CARE 57917 ABDOMINAL 12-04-2014 [facility] PAIN, MEM HOS[facility] UNSPECIFIED INC SITE 7840 HEADACHE 11-15-2014 [facility] 65505 CHEST PAIN 11-15-2014 [facility] 94425 PAP SMER 10-24-2014 NATASHA Alexandra CERV CHAVA RESENDEZ W/ATYPICAL SQUAMOUS CELLS UNDET 6259 UNSPEC 10-07-2014 [facility] SYMPTOM N EMERGENCY ASSOC PHYS W/FEMALE GENITAL ORGANS 6268 OT D/O 09-28-2014 NATASHA Alexandra MENSTRUATIO [facility] RESENDEZ N&OTH ABN BLEED FE GNT TRACT 62872 THREATENED 09-28-2014 NATASHA Alexandra CHAVA MD ANTEPARTUM V7231 ROUTINE 09-28-2014 NATASHA Alexandra GYNECOLOGIC [facility] RESENDEZ AL EXAMINATION 5990 URINARY 09-17-2014 [facility] TRACT [facility] INFECTION INC SITE NOT SPECIFIED 4619 ACUTE 08-24-2014 [facility] SINUSITIS, MEM HOSP UNSPECIFIED INC 5589 OTH&UNSPEC 08-18-2014 [facility] NONINFECTIO [facility] P GASTROENTER ITIS&COLITI S 7873 FLATULENCE 08-18-2014 [place] [facility] ASS PAIN 25712 ABDOMINAL 08-18-2014 [facility] PAIN, LEFT MEDICAL UPPER IMAGING ASS QU[facility]ANT V692 PROBLEMS 08-02-2014 [facility] HIGH-RISK INC SEXUAL BEHAVIOR 9165 HIP THIGH 06-26-2014 [facility] INSECT BITE [facility] P NONVENOMOUS INF V1582 PERS HX 06-26-2014 [facility] TOBACCO USE [facility] P HAZARDS HEALTH 05700 ABDOMINAL 03-09-2014 [facility] PAIN RIGHT REGIONAL UPPER MEDIC QUADRANT 34939 UNSPECIFIED 12-13-2013 [facility] VIRAL REGIONAL INFECTION EMERGENCY IN CCE & UNS SITE 92434 FEVER 12-13-2013 [facility] UNSPECIFIED REGIONAL EMERGENCY 7862 COUGH 08-07-2013 [facility] 4660 ACUTE 09-25-2008 [facility] BRONCHITIS [facility] HOSP INC 490 BRONCHITIS 09-25-2008 [facility] EMERGENCY SPECIFIED SERVICES ACUTE OR ASSOCIATES CHRONIC 51541 SHORTNESS 09-25-2008 [place] OF BREATH EMERGENCY SERVICES ASSOCIATES 69064 UNSPECIFIED 09-05-2008 [facility] CONSTIPATIO SERVICES N ASSOCIATES 3671 MYOPIA 05-05-2008 [facility] Medications Na ND Rx Da Fi Fi Am Da Di Ph RX Ph St me C No te ll ll ou ys ag ar # ys at rm s nt no ma ic us Or Da si cy ia de te s n re d LE 60 30 00 TO Ac VE 71 -0 -2 .0 00 TA ti TI 40 6- 9- 00 07 L ve RA 35 20 20 61 CA CE 70 17 17 94 RE TA 1 56 M PH 1, AR 00 MA 0 CY MG #2 TA BL ET LE 16 08 60 30 00 TO Ac VE 71 -1 -0 .0 00 TA ti TI 40 2- 4- 00 07 L ve RA 35 20 20 61 CA CE 70 17 17 94 RE TA 1 56 M PH 1, AR 00 MA 0 CY MG #2 TA BL ET LE 05 06 60 30 00 TO Ac [...] 02 03 14 7 00 WA Ac MT 16 -1 -1 .0 00 L- ti [...] Procedure DOS Code Location Performer Comment THERAPEUT 57498 [facility] IC 7 MEM HOSP MEM [facility]OS[facility] PROPHYLAC INC INC TIC/DX INJECTION SUBQ/IM OPHTH 60722 [facility] 7 XM&EVAL COMPRE NEW PT 1/> VST APPL 99525 [place] [facility] MODALITY 7 FAMILY 1/> AREAS CHIROPRAC ELEC TI STIMJ UNATTENDE D CHIROPRAC 37792 [place] [facility] TIC 7 FAMILY MANIPLTV CHIROPRAC TX TI EXTRASPIN AL 1/> REGION APPL 99484 [facility] MODALITY 7 FAMILY 1/> AREAS CHIROPRAC TRACTION TI MECHANICA L MANUAL 51222 [place] NELLY THERAPY 7 FAMILY TQS 1/> CHIROPRAC REGIONS TI EACH 15 MINUTES CHIROPRAC 49240 [facility] [facility] TIC 7 FAMILY MANIPULAT CHIROPRAC KARIS TX TI SPINAL 3-4 REGIONS THERAPEUT 36186 [facility]AL[place] V[place]LEGAS IC PX 1/> 7 FAMILY AREAS CHIROPRAC EACH 15 TI MIN EXERCISES THERAPEUT 88638 [facility]GAS IC PX 1/> 7 FAMILY AREAS CHIROPRAC EACH 15 TI MIN EXERCISES CHIROPRAC 15630 [facility] [facility] TIC 7 FAMILY MANIPULAT CHIROPRAC KARIS TX TI SPINAL 3-4 REGIONS MANUAL 34712 [place] [facility] THERAPY 7 FAMILY TQS 1/> CHIROPRAC REGIONS TI EACH 15 MINUTES APPL 16395 [facility]AL[facility] V[facility] MODALITY 7 FAMILY 1/> AREAS CHIROPRAC TRACTION TI MECHANICA L CHIROPRAC 79125 [place] [facility] TIC 7 FAMILY MANIPLTV CHIROPRAC TX TI EXTRASPIN AL 1/> REGION APPL 75042 [facility] [facility]ON[facility] MODALITY 7 FAMILY 1/> AREAS CHIROPRAC ELEC TI STIMJ UNATTENDE D APPL 25072 [facility] MODALITY 7 FAMILY 1/> AREAS CHIROPRAC ELEC TI STIMJ UNATTENDE D CHIROPRAC 48327 [place] TIC 7 FAMILY MANIPLTV CHIROPRAC TX TI EXTRASPIN AL 1/> REGION APPL 91335 [facility] [facility] MODALITY 7 FAMILY 1/> AREAS CHIROPRAC TRACTION TI MECHANICA L MANUAL 57136 [place] [facility] THERAPY 7 FAMILY TQS 1/> CHIROPRAC REGIONS TI EACH 15 MINUTES CHIROPRAC 11448 [place] NELLY TIC 7 FAMILY MANIPULAT CHIROPRAC KARIS TX TI SPINAL 3-4 REGIONS THERAPEUT 71394 [place] NELLY IC PX 1/> 7 FAMILY AREAS CHIROPRAC EACH 15 TI MIN EXERCISES THERAPEUT 47531 [place] NELLY IC PX 1/> 7 FAMILY AREAS CHIROPRAC EACH 15 TI MIN EXERCISES CHIROPRAC 12940 [place] NELLY TIC 7 FAMILY MANIPULAT CHIROPRAC KARIS TX TI SPINAL 3-4 REGIONS MANUAL 16564 [place] [facility] THERAPY 7 FAMILY TQS 1/> CHIROPRAC REGIONS TI EACH 15 MINUTES APPL 02619 [place] [facility] MODALITY 7 FAMILY 1/> AREAS CHIROPRAC TRACTION TI MECHANICA L CHIROPRAC 94471 [place] NELLY TIC 7 FAMILY MANIPLTV CHIROPRAC TX TI EXTRASPIN AL 1/> REGION APPL 75131 [place] [facility] MODALITY 7 FAMILY 1/> AREAS CHIROPRAC ELEC TI STIMJ UNATTENDE D COLLECTIO 38958 [facility] N VENOUS 7 HEALTHCAR HEALTHCAR BLOOD E E VENIPUNCT [facility] URE COMPREHEN 74536 [facility] SIVE 7 HEALTHCAR HEALTHCAR METABOLIC E E PANEL [facility] BLOOD 69210 [facility] COUNT 7 HEALTHCAR HEALTHCAR COMPLETE E E AUTOMATED [facility] BLOOD 02565 [facility] COUNT [address] [place] [address] AUTO&AUTO DIFRNTL WBC URNLS DIP [address] STICK/TAB [facility] LET REAGENT AUTO MICROSCOP Y GONADOTRO 23979 [facility] PIN [address] [place] [address] QUALITATI VE THER 20803 [facility] PROPH/DX [address] [place] [address] [facility] PUSH SINGLE/1S T SBST/DRUG COMPREHEN 28987 [facility] SIVE [address] [place] [address] PANEL INJECTION J2405 [address] ON HCL PER 1 MG INJECTION J1885 [address] KETOROLAC [facility] TROMETHAM INE [place] [address] [place] [address] [facility] HEAD/BRAI 7 N W/O RADIOLOGY RADIOLOGY CONTRAST ASSOCIAT ASSOCIAT MATERIAL ECG 39760 [facility] ROUTINE [address] [place] [address] W/LEAST 12 LDS TRCG ONLY W/O I&R THERAPEUT 70673 [facility] IC [address] [place] [address] IV PUSH EACH NEW DRUG GROUND A0425 [facility] MILEAGE 7 AMBULANCE AMBULANCE PER SERVICE SERVICE STATUTE MILE AMB A0427 [facility] SERVICE 7 AMBULANCE AMBULANCE ALS SERVICE SERVICE EMERGENCY TRANSPORT LEVEL 1 RADIOLOGI 58142 L[facility] MENDES C 7 MEDICAL EXAMINATI SERV ON CHEST FOUNDATIO SINGLE N VIEW FRONTAL COMPREHEN 79300 [facility] MEADOWVIE SIVE 7 W W METABOLIC [facility] PANEL MEDICAL MEDICAL COL-CHR/M 90520 ME[facility]IE MEADOWVIE S NONDRUG 7 W W ANALYTE [facility] [place] MEDICAL MEDICAL QUAL/JAYRO EA SPEC CREATINE 73002 [facility] KINASE 7 W W [facility] MEDICAL BLOOD 19540 [facility] MEADOWVIE COUNT 7 W W COMPLETE [facility] AUTO&AUTO MEDICAL MEDICAL DIFRNTL WBC BLOOD 80628 [facility] COUNT 7 MEM HOSP MEM HOSP COMPLETE INC INC AUTO&AUTO DIFRNTL WBC URNLS DIP 39103 [facility] 7 MEM HOSP MEM HOSP STICK/TAB INC INC [place] [address] [facility] LIPASE 7 MEM HOSP MEM HOSP INC INC URINE 07955 [facility] 7 MEM HOSP [facility]OS[facility] TEST INC INC VISUAL COLOR CMPRSN METHS COMPREHEN 25299 [facility] SIVE 7 MEM HOSP [place] [address] [place] M[facility] ABDOMEN & 7 MEDICAL PELVIS IMAGING W/[place] [address] [facility] ABDOMEN & 7 MEM HOSP MEM HOSP PELVIS INC INC W/CONTRAS T MATERIAL RADIOLOGI 54956 [facility] [place] ASTORGA C EXAM 6 RADIOLOGY CAR CHEST 2 VIEWS FRONTAL&[place] [address] [facility] [place] SCALF CHUY HEAD/BRAI 6 RADIOLOGY [place] [address] ELZA MCKINNEY ALL HEAD/BRAI 6 MEDICAL N W/O IMAGING CONTRAST ASS MATERIAL COMPREHEN 42083 [facility] SIVE 6 MEM HOSP MEM HOSP METABOLIC INC INC PANEL INJECTION J2405 [facility] 6 [facility] HOS[facility] ONDANSETR INC INC ON HCL [place] 1 [place] [address] [facility] INFUSION 6 [facility] THERAPY/P INC INC ROPHYLAXI S /DX 1ST TO 1 HR THERAPEUT 48872 [facility] IC 6 [facility] INJECTION INC INC IV PUSH EACH NEW DRUG GONADOTRO 83679 [facility] PIN 6 MEM HOSP MEM HOSP CHORIONIC INC INC QUALITATI VE BLOOD 07292 [facility] COUNT 6 MEM HOSP MEM HOSP COMPLETE INC INC AUTO&[place] [address] [facility] [place] AMOL ABDOMEN & 6 RADIOLOGY III TARIQ PELVIS W/CONTRAS T MATERIAL SUSCEPTIB 17160 [facility] LTY STDY 6 [facility] HOS[facility] ANTIMICRB INC INC IAL MICRO/AGA R DILUTJ CULTURE 27538 [facility] BACTERIAL 6 MEM HOSP MEM HOS[facility] INC INC QUANTTATI VE COLONY COUNT URINE CULTURE 80771 [facility] BCT 6 [facility] ISOL&PRSM INC INC PTV ID ISOLATE EA URINE URNLS DIP 05226 [facility] 6 MEM HOSP MEM HOSP STICK/TAB INC INC LET REAGENT AUTO MICROSCOP Y URINE 43410 [facility] 6 MEM HOSP [facility]OS[facility] TEST INC INC VISUAL COLOR CMPRSN METHS URINE 95077 [facility] 6 N N TEST COMMUNTIY COMMUNTIY VISUAL HOSPITA HOSPITA COLOR CMPRSN METHS URNLS DIP 94861 [facility] 6 N N STICK/TAB COMMUNTIY COMMUNTIY LET HOSPITA HOSPITA REAGENT AUTO MICROSCOP Y BLOOD 48436 [facility] COUNT 6 N N COMPLETE COMMUNTIY COMMUNTIY AUTO&AUTO HOSPITA HOSPITA DIFRNTL WBC COLLECTIO 74018 [facility] N VENOUS 6 N N BLOOD COMMUNTIY COMMUNTIY [place] [address] [facility] INFUSION 6 N N HYDRATION COMMUNTIY COMMUNTIY INITIAL HOSPITA HOSPITA 31 MIN-1 HOUR COMPREHEN 67278 [facility] SIVE 6 N N METABOLIC COMMUNTIY COMMUNTIY PANEL HOSPITA HOSPITA ECG 13734 [facility] ROUTINE 6 N N ECG COMMUNTIY COMMUNTIY W/LEAST HOSPITA HOSPITA 12 LDS TRCG ONLY W/O I&R CYTP C/V 67882 BIO BIO AUTO THIN 6 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 IES IES MNL RESCR PHYS ANES IPER 79267 [facility] LWR ABD 5 ANESTH SHE W/LAPS OF THE TUBAL BLUE LIGATION/ TRANSECT SMR PRIM [id number] NATASHA LARSEN SRC WET 5 [facility] RESENDEZ [facility] SMR PRIM 65624 NATASHA LARSEN SRC WET 5 [facility]AVA RESENDEZ [facility] AGT 44242 [facility] NONSTRESS 5 [facility] TEST INC INC 33096 [facility]AN[facility] SPRAGUESTARAM NONSTRESS 5 [facility] 30489 [facility] D[facility] NONSTRESS 5 [facility] TEST INC INC BLOOD 68285 [facility] COUNT 5 [facility] COMPLETE INC INC AUTO&AUTO DIFRNTL WBC URNLS DIP 83341 [facility] STICK/TAB INC INC LET REAGENT AUTO MICROSCOP Y GLUC BLD 53678 [facility] GLUC MNTR 5 [facility] DEV INC INC CLEARED FDA SPEC HOME USE BASIC 62089 [facility] METABOLIC 5 [facility] [place] T[place] [address] [facility] INFUSION 5 [facility] THERAPY/P INC INC ROPHYLAXI S /DX 1ST TO 1 HR [address] [facility] NONSTRESS 5 [facility] TEST INC INC THERAPEUT 67843 [facility] IC 5 [facility] PROPHYLAC INC INC TIC/DX INJECTION SUBQ/IM EVAL C/V 17124 [facility] AMNIOTIC 5 [facility] FLUID INC INC PROTEIN QUAL EA SPECIMEN CUL 17879 NATASHA LARSEN PRSMPTV 5 [facility] CHO PTHGNC ORGANISM SCRN W/COLONY ESTIMJ PARTICLE 28313 [facility] AGGLUTINA 5 [facility] TION INC INC SCREEN EACH ANTIBODY EVAL C/V 83436 [facility] AMNIOTIC 5 [facility] FLUID INC INC PROTEIN QUAL EA SPECIMEN 61561 [facility] NONSTRESS 5 [facility] TEST INC INC FTL 46738 [facility] FIBRONECT 5 [facility] IN INC INC CERVICOVA G SECRETION S SEMI-JAYRO URNLS DIP 05306 [facility] STICK/TAB INC INC LET REAGENT AUTO MICROSCOP Y 65306 [facility] NONSTRESS 5 [facility] TEST INC INC DOPPLER 56138 [facility] VELOCIMET 5 [facility] RY INC INC UMBILICAL ARTERY 95596 [facility] BIOPHYSIC 5 [facility] AL INC INC PROFILE [place] [address] [facility] UTERUS INC INC LIMITED 1/> FETUSES OBSERVATI 52751 NATASHA LARSEN ON CARE 5 [facility] RESENDEZ [facility] DISCHARGE [facility]NAGEMEN T HOSP[facility] 77922 NATASHA LARSEN DISCHARGE 5 [facility] RESENDEZ [place] DAY MANAGEMEN T 30 MIN/< SBSQ 33224 NATASHA LARSEN OBSERVATI 5 CHAVA CHO ON CARE/DAY 15 MINUTES SBSQ 49791 [facility] 5 [facility] RESENDEZ [place] CARE/DAY 15 MINUTES INITIAL 76429 [facility] OBSERVATI 5 [facility] RESENDEZ [place] ON CARE/DAY 30 MINUTES INITIAL 69211 [facility] 5 [place] RESENDEZ [place] CARE/DAY 50 MINUTES 45475 [facility] NONSTRESS 5 [facility] TEST INC INC URNLS DIP 48593 [facility] STICK/TAB INC INC LET REAGENT AUTO MICROSCOP Y FTL 09261 [facility] FIBRONECT 5 [facility] IN INC INC CERVICOVA G SECRETION S SEMI-JAYRO 92242 [facility] NONSTRESS 5 [facility] TEST INC INC INITIAL 27341 [place] [address] MEDICAL DI CARE/DAY SERV 30 FOUNDATIO MINUTES HOSPITAL 87508 [facility] DISCHARGE 5 [facility] RESENDEZ [place] DAY MANAGEMEN T 30 MIN/< SBSQ 82966 [facility] 5 [facility] RESENDEZ [place] CARE/DAY 15 MINUTES ECG 77273 [facility] PENG JR ROUTINE 5 [facility] W/LEAST P 12 LDS I&R ONLY INITIAL 24754 [facility] 5 [facility] RESENDEZ [place] CARE/DAY 50 MINUTES URNLS DIP 91128 [facility] 5 [facility]ER [facility] STICK/TAB HOSP HOSP LET RGNT AUTO W/O MICROSCOP Y EVAL C/V 56217 [facility] AMNIOTIC 5 [facility] FLUID INC INC PROTEIN QUAL EA SPECIMEN 61127 [facility] NONSTRESS 5 [facility] TEST INC INC URNLS DIP 69671 [facility] STICK/TAB INC INC LET REAGENT AUTO MICROSCOP Y FTL 41380 [facility] FIBRONECT 5 [facility] IN INC INC CERVICOVA G SECRETION S SEMI-JAYRO BLOOD 95055 [facility] COUNT 5 [facility] COMPLETE INC INC AUTO&AUTO DIFRNTL WBC GLUCOSE 26770 [facility] POST 5 [facility] GLUCOSE INC INC DOSE COLLECTIO 17312 [facility] N VENOUS 5 [facility] BLOOD INC INC VENIPUNCT URE EVAL C/V 77816 [facility] AMNIOTIC 5 [facility] FLUID INC INC PROTEIN QUAL EA SPECIMEN 23614 [facility] NONSTRESS 5 [facility] TEST INC INC FTL 66813 [facility] FIBRONECT 5 [facility] IN INC INC CERVICOVA G SECRETION S SEMI-JAYRO URNLS DIP 61496 [facility] STICK/TAB INC INC LET REAGENT AUTO MICROSCOP Y PRESSURIZ 78693 [facility] ED/NONPRE 5 [facility] SSURIZED INC INC INHALATIO N TREATMENT US PREG 10473 NATASHA LARSEN UTERUS 5 [facility]AVA CHO AFTER 1ST TRIMEST GESTATION SMR PRIM 57770 NATASHA LARSEN SRC WET 5 [facility] CHO MOUNT NFCT AGT EVAL C/V 66607 [facility] AMNIOTIC 5 [facility] FLUID INC INC PROTEIN QUAL EA SPECIMEN URNLS DIP 66942 [facility] STICK/TAB INC INC LET REAGENT AUTO MICROSCOP Y FTL 05349 [facility] FIBRONECT 5 [facility] IN INC INC CERVICOVA G SECRETION S SEMI-JAYRO 09050 [facility] NONSTRESS 5 [facility] TEST INC INC 72745 [facility] D[facility] NONSTRESS 5 [facility] TEST INC INC THERAPEUT 68888 [facility] IC 5 [facility] PROPHYLAC INC INC TIC/DX INJECTION SUBQ/IM AMB A0427 [facility] SERVICE 5 AMBULANCE AMBULANCE ALS SERVICE SERVICE EMERGENCY TRANSPORT LEVEL 1 GROUND A0425 [facility] PER SERVICE SERVICE STATUTE MILE 60734 NATASHA LARSEN NONSTRESS 5 [facility]AVA RESENDEZ [place] TEST URNLS DIP 86975 [facility] STICK/TAB INC INC LET REAGENT [place]OSCOP Y 43860 [facility] [place] [address] [facility] ESTRIOL 5 [facility] INC INC GONADOTRO 77432 [facility] D[facility] PIN 5 [facility] CHORIONIC INC INC QUANTITAT KARIS ALPHA-FET 38920 [facility] OPROTEIN 5 [facility] SERUM INC INC COLLECTIO 05394 [facility] D[facility] N VENOUS 5 [facility] BLOOD INC INC VENIPUNCT URE OPHTH 17248 [facility] GRE GRE XM&EVAL COMPRE NEW PT 1/> VST DETERMINA 38292 KIERRA WAGGONERALL TION 5 [place] [address] [facility] INFUSION 5 [facility] THERAPY/P INC INC ROPHYLAXI S /DX 1ST TO 1 HR GROUND A0425 [facility] MILEAGE 5 AMBULANCE AMBULANCE PER SERVICE SERVICE STATUTE MILE AMB A0427 [facility] SERVICE 5 AMBULANCE AMBULANCE ALS SERVICE SERVICE EMERGENCY TRANSPORT LEVEL [place] [address] [facility] AMYLASE 5 [facility] INC INC COMPREHEN 80319 [facility] SIVE 5 [facility] METABOLIC INC INC PANEL CULTURE 19920 [facility] D[facility] BACTERIAL 5 [facility] INC [place] [address] [facility] INFUSION 5 [facility] THERAPY INC INC PROPHYLAX IS/DX EA HOUR URNLS DIP 51819 [facility] STICK/TAB INC INC LET REAGENT AUTO MICROSCOP Y BLOOD 82383 [facility] COUNT 5 [facility] COMPLETE INC INC AUTO&[place] [address] [facility] LIPASE 5 [facility] INC INC GONADOTRO 40349 [facility] PIN 5 [facility] CHORIONIC INC INC QUANTITAT [place]AR[place] PREG 57769 NATASHA DAYPEL UTERUS 5 [facility]AVA RESENDEZ [place] AFTER 1[place] [address] NATASHA DAYPEL 5 [facility]AVA CHO UTERUS 14 WK TRANSABDL GESTAT COLPOSCOP 21558 NATASHA MCCORMACKL Y CERVIX 5 CHAVA CHO BX CERVIX & [place]OCRV [place] PREG 73882 NATASHA DAYPEL UTERUS 5 [facility]AVA CHO REAL TIME W/IMAGE DCMTN TRANSVAG AMB A0427 [facility] SERVICE 5 SUKHWINDER CO SUKHWINDER CO ALS EMERGENCY AMBULANCE AMBULANCE TRANSPORT LEVEL 1 GROUND A0425 [facility] MILEAGE 5 SUKHWINDER CO SUKHWINDER CO PER STATUTE AMBULANCE AMBULANCE MILE US PREG 59688 NATASHA DAYPEL UTERUS 5 [facility] CHO REAL TIME W/IMAGE DCMTN TRANSVAG CULTURE 11798 NATASHA LARSEN CHLAMYDIA 5 [facility] CHO ANY SOURCE URINE 49194 NATASHA LARSEN 5 [facility] CHO TEST VISUAL COLOR CMPRSN METHS IAADIADOO 59789 NATASHA DAYPEL 5 [facility] CHO TRICHOMON VAGINALIS URINLS 15239 NATASHA DAYPEL DIP 5 [facility] CHO STICK/TAB LET REAGNT NON-AUTO MICRSCPY IADNA 89690 NATASHA LARSEN NEISSERIA 5 [facility] CHO GONORRHOE AE DIRECT PROBE TQ HANDLG&/O 71443 NATASHA DAYPEL R CONVEY 5 [facility] CHO OF SPEC FOR TR OFFICE TO LAB IADNA 68716 NATASHA LARSEN HERPES 5 [facility] CHO SIMPLX VIRUS DIRECT PROBE TQ BLOOD 85993 [facility] TYPING 5 [facility] SEROLOGIC INC INC RH (D) CULTURE 99337 [facility] BACTERIAL 5 [facility] INC INC QUANTTATI VE COLONY COUNT URINE URINE 48868 [facility] TEST INC INC VISUAL COLOR CMPRSN METHS GONADOTRO 38758 [facility] PIN 5 [facility] CHORIONIC INC [place] PREG 34803 [facility] UTERUS 5 [facility] REAL TIME INC INC W/IMAGE DCMTN TRANSVAG BLOOD 40163 [facility] COUNT 5 [facility] COMPLETE INC INC AUTO&AUTO DIFRNTL WBC URNLS DIP 75344 [facility] 5 [facility] STICK/TAB INC INC LET REAGENT AUTO MICROSCOP Y URNLS DIP 84845 [facility] 5 [facility] STICK/TAB INC INC LET REAGENT AUTO MICROSCOP Y GONADOTRO 76422 [facility] PIN 5 [facility] CHORIONIC INC INC QUANTITAT KARIS URINE 19068 [facility] 5 [facility] TEST INC INC VISUAL COLOR CMPRSN METHS CULTURE 69600 [facility] D[facility] BACTERIAL 5 [facility] INC INC QUANTTATI VE COLONY COUNT URINE COLLECTIO 37871 [facility] D[facility] N VENOUS 5 [facility] BLOOD INC INC VENIPUNCT URE OBSTETRIC 97539 [facility] D[facility] PANEL 5 [facility] INC INC IAADI 51028 [facility] D[facility] INFLUENZA 5 [facility] B VIRUS INC INC IAADI 11467 [facility] D[facility] INFFLUENZ 5 [facility] A A VIRUS INC INC THERAPEUT 67240 [facility] IC 5 [facility] INJECTION INC [place] [address] [facility] INFUSION 5 [facility] THERAPY/P INC INC ROPHYLAXI S /DX 1[address] [place] [address] [place] [address] [facility] ABDOMEN & 5 [facility] PELVIS INC INC W/[place] [address] [facility] AMYLASE 5 [facility] INC INC LOCM Q9967 [facility] D[facility] [phone] 5 [facility] MG/ML INC INC IODINE CONCENTRA TION PER ML COMPREHEN 55164 [facility] SIVE 5 [facility] METABOLIC INC INC PANEL INJECTION J2405 [facility] 5 [facility] ONDANSETR INC INC ON HCL PER 1 MG URINE 54484 [facility] 5 [facility] TEST INC INC VISUAL COLOR CMPRSN METHS URNLS DIP 66468 [facility] 5 [facility] STICK/TAB INC INC [place] [address] [facility] LIPASE 5 [facility] INC INC BLOOD 08892 [facility] COUNT 5 [facility] COMPLETE INC INC AUTO&AUTO DIFRNTL WBC IADNA 06114 [facility] NEISSERIA 5 [facility] INC INC GONORRHOE AE AMPLIFIED PROBE TQ IADNA 26352 [facility] CHLAMYDIA 5 [facility] INC INC TRACHOMAT IS AMPLIFIED PROBE TQ URINE 10725 [facility] 5 PHYSICIAN OLIVIA TEST S GROUP VISUAL COLOR CMPRSN METHS URINE 97987 [facility] TEST INC INC [place] [address] [facility] LIPASE 4 [facility] MEDIC URNLS DIP [address] JIM 4 [facility]AL [facility]AL STICK/TAB MEDIC MEDIC LET REAGENT AUTO MICROSCOP Y INJECTION J0500 [facility] JIM 4 REG[facility]AL REGIONAL DICYCLOMI MEDIC MEDIC NE HCL UP TO [address] B[address] JIM COUNT 4 [facility] COMPLETE MEDIC MEDIC AUTO&AUTO DIFRNTL WBC COLLECTIO [address] JIM N VENOUS 4 [facility] BLOOD MEDIC MEDIC VENIPUNCT URE COMPREHEN [address] JIM SIVE 4 REGIONAL REG[facility]AL METABOLIC MEDIC MEDIC PANEL URINE [address] JIM 4 REGIONAL REGIONAL TEST MEDIC MEDIC VISUAL COLOR CMPRSN METHS RADEX [address] ST JIM DANISH MARILY ABDOMEN 1 4 REGIONAL RADIOLOG ANTEROPOS TERIOR VIEW THERAPEUT [address] JIM IC 4 REGIONAL REGIONAL PROPHYLAC MEDIC MEDIC TIC/DX INJECTION SUBQ/IM ECG [address] JIM ROUTINE 4 REGIONAL REGIONAL ECG MEDIC MEDIC W/LEAST 12 LDS TRCG ONLY W/O I&R URINE [address] JIM 4 REGIONAL REGIONAL TEST MEDIC MEDIC VISUAL COLOR CMPRSN METHS RADIOLOGI [address]802 ST JIM DANISH MARILY C EXAM 4 REGIONAL CHEST 2 RADIOLOG VIEWS FRONTAL&L ATERAL ECG [address]16 ST JIM MARISA ROUTINE 4 MEDICAL [facility] ECG CENTER W/LEAST 12 LDS I&R ONLY CULTURE [address] JIM BACTERIAL 4 REGIONAL REGIONAL BLOOD MEDIC MEDIC AEROBIC W/ID ISOLATES COMPREHEN [address] JIM SIVE 4 [facility] [address] JIM INFUSION 4 REGIONAL REGIONAL HYDRATION MEDIC MEDIC EACH ADDITIONA L HOUR COLLECTIO [address] JIM N VENOUS 4 REGIONAL REGIONAL BLOOD MEDIC MEDIC VENIPUNCT URE INJECTION J2405 [facility] J[facility] JIM 4 REGIONAL REGIONAL ONDANSETR MEDIC MEDIC ON HCL PER [address] B[address] JIM COUNT 4 REGIONAL REGIONAL COMPLETE MEDIC MEDIC AUTO&AUTO DIFRNTL WBC PROTHROMB [address] JIM IN TIME 4 REGIONAL REGIONAL MEDIC MEDIC THER [address] JIM PROPH/DX 4 REGIONAL REGIONAL NJX IV MEDIC MEDIC PUSH SINGLE/1S T SBST/DRUG URNLS DIP [address] JIM 4 REGIONAL REGIONAL STICK/TAB MEDIC MEDIC LET REAGENT AUTO MICROSCOP Y CREATINE 30571 [facility] KINASE 4 CO [facility] [place] [address] [facility] MAGNESIUM 4 [facility]LOOD 34539 [facility] COUNT 4 CO [facility] AUTO&[place] [address] [facility] TROPONIN 4 CO [facility] KARIS GONADOTRO 27676 [facility] PIN 4 CO [facility] HOSPITAL QUALITATI VE COMPREHEN 92765 JOSE GARCIA SIVE 4 CO [facility] HOSPITAL PANEL RADIOLOGI 64790 JOSE GARCIA C EXAM 4 CO CO CHEST 2 HOSPITAL HOSPITAL VIEWS FRONTAL&L ATERAL ECG 37018 JOSE GARCIA ROUTINE 4 CO CO ECG HOSPITAL HOSPITAL W/LEAST 12 LDS TRCG ONLY W/O I&R CREATINE 81734 JOSE GARCIA KINASE MB 4 CO [facility]PITAL ONLY CREATINE 70572 [facility] KINASE MB 9 [facility] FRACTION INC INC ONLY ECG 37181 [facility] ROUTINE 9 [facility] ECG INC INC W/LEAST 12 LDS TRCG ONLY W/O I&R URINE 57860 [facility] 9 [facility] TEST INC INC VISUAL COLOR CMPRSN METHS RADIOLOGI 76019 ELZA DEUTSCH C EXAM 9 MEDICAL [place] P CHEST 2 IMAGING VIEWS ASSOCIATE FRONTAL&L S ATERAL COMPREHEN 01652 [facility] SIVE 9 [facility] [place] [address] [facility] D[facility] TROPONIN 9 [facility] QUANTITAT INC INC KARIS BLOOD 72496 [facility] COUNT 9 [facility] COMPLETE INC INC AUTO&AUTO DIFRNTL WBC CREATINE 72917 [facility] KINASE 9 [facility] TOTAL INC INC URNLS DIP 88839 [facility] 9 [facility] STICK/TAB INC INC LET REAGENT AUTO MICROSCOP Y URNLS DIP 88199 [facility] 9 [facility] STICK/TAB INC INC LET REAGENT AUTO MICROSCOP Y BLOOD 11005 [facility] COUNT 9 [facility] COMPLETE INC INC AUTO&AUTO DIFRNTL WBC COMPREHEN 75590 [facility] SIVE 9 [facility] METABOLIC INC INC PANEL CT PELVIS 23457 ELZA KNAPP, W/O 9 MEDICAL SUSHANT CONTRAST IMAGING MATERIAL ASSOCIATE S 3D 24586 [facility] RENDERING 9 [facility] INC INC W/INTERP& [place] [address] [place] RA, ABDOMEN 9 MEDICAL SUSHANT W/[place] [address] [facility] INFUSION 9 [facility] THERAPY/P INC INC ROPHYLAXI S /DX 1ST TO 1 HR URINE 56683 [facility] 9 [facility] TEST INC INC VISUAL COLOR CMPRSN METHS OPHTH 18411 HERIBERTO GAINES, MEDICAL 8 VISION KEARA M XM&EVAL COMPRE NEW PT 1/> VST FITTING 28851 HERIBERTO LIANA, SPECTACLE 8 VISION KEARA M S XCPT APHAKIA MONOFOCAL FRAMES V2020 HERIBERTO GAINES, PURCHASES 8 VISION KEARA M 1 VISN V2103 HERIBERTO LIANA, PLANO 8 VISION KEARA M TO+/-4.00 D SPHER 0.12-2.00 D CYL EA Encounters Encounter Start End Date Code Location Performer Type Date [facility] - 7 7 [facility] OUTPATIEN INC T OFFICE 96290 [facility] OUTPATIEN 7 7 [facility] T NEW 10 INC [facility] - 7 7 [facility]PATI[facility] OFFICE 14793 [facility] OUTPATIEN 7 7 NURSE T VISIT PRACTITIO 15 NER GR MINUTES OFFICE 22865 OUTPATIEN 7 7 [facility] T VISIT 5 E MINUTES [facility] - 7 7 [facility] OUTPATIEN E T HOSPITALS OFFICE 34511 OUTPATIEN 7 7 [facility] T VISIT 5 E MINUTES [facility]OSPITALS OFFICE 68020 [facility] CONSULTAT 7 7 NURSE ION ELISEO NEW/ESTAB NER GR PATIENT 60 MIN EMERGENCY 61309 [facility] 7 7 [facility] VISIT EMERGENCY HIGH PHYS SEVERITY& THREAT [facility] GARCIA - 7 7 [facility] T EMERGENCY 57516 [facility] 7 7 [facility] T VISIT HIGH/URGE NT SEVERITY [facility]OSPITAL [facility] - 7 7 [facility] MEDICAL EMERGENCY 12046 [facility] 7 7 [facility] EMERGENCY T VISIT PHYS HIGH/URGE NT SEVERITY HOSPITAL [facility] 7 7 [facility] 48028 [facility] 7 7 [facility] INC T VISIT LOW/MODER SEVERITY EMERGENCY 19594 [facility] DEPT 6 6 [facility]DRA THO VISIT EMERGENCY HIGH PHYS SEVERITY& THREAT [facility] EMERGENCY 42326 [facility] DEPT 6 6 [facility] NICOLE VISIT EMERGENCY HIGH PHYS SEVERITY& THREAT [facility]PITAL [facility] - 6 6 [facility] 26374 CHEIKH AMAYA 6 6 PHYSICIAN KIKI HANLEY T VISIT HIGH/URGE NT SEVERITY EMERGENCY 56751 [facility] DEPT 6 6 [facility] VISIT INC HIGH SEVERITY& THREAT [facility] EMERGENCY 79494 [facility] DE[facility] 6 6 [facility] VISIT EMERGENCY HIGH PHYS SEVERITY& THREAT [facility] EMERGENCY 37151 [facility] 6 6 [facility] T VISIT LOW/MODER SEVERITY HOSPITAL [facility] - 6 6 [facility] OUTPATIEN INC T EMERGENCY 12730 CHEIKH FRAGOSO 6 6 PHYSICIAN CELENA MONROY T VISIT HIGH/URGE NT SEVERITY [facility]OSPITAL [facility] - 6 6 [facility] 93059 [facility] HIGH/URGE NT [facility] RAF[facility] 5 5 [facility] OUTPATIEN INC HOSPITAL [facility] - 5 5 [facility] OUTPATIEN [facility] RAFAT - 5 5 [facility]PATIEN [facility] T OFFICE 92910 NATASHA LARSEN OUTPATIEN 5 5 CH[facility] CHO T VISIT 15 MINUTES HOSPITAL RAFAT - 5 5 [facility]PATIEN [facility] RAF[facility] - 5 5 [facility]IEN [facility] 5 5 [facility] OUTPATI[facility] OFFICE 58025 [facility] 5 5 [facility] 30 CLINIC MINUTES [facility] OFF[facility] 74285 NATASHA LARSEN OUTPATIEN 5 5 [facility] T VISIT 15 MINUTES HOSPITAL [facility] - 5 5 [facility] INPATIENT INC OFFICE 81169 NATASHA LARSEN OUTPATIEN 5 5 [facility] T VISIT 15 MINUTES HOSPITAL [facility] - 5 5 [facility] OUTPATIEN [facility] OFFICE 76328 NATASHA LARSEN OUTPATIEN 5 5 [facility] T VISIT 15 MINUTES HOSPITAL [facility] - 5 5 [facility] OUTPATIEN [facility] HOSPITAL UNIVERSIT - 5 5 Y INPATIENT [facility] RAFAT - 5 5 [facility] INPATIENT [facility] CENTRAL - 5 5 [facility] OFF[facility] 79947 NATASHA LARSEN OUTPATIEN 5 5 [facility] T VISIT 15 MINUTES HOSPITAL [facility] - 5 5 [facility] OUTPATIEN [facility] RAFAT - 5 5 [facility] RAFAT - 5 5 [facility] OUTPATIEN [facility] T HOSPITAL RAFAT - 5 5 [facility] OUTPATIEN INC T OFFICE 38972 NATASHA LARSEN OUTPATIEN 5 5 [facility] T VISIT 15 MINUTES HOSPITAL [facility] - 5 5 [facility] OUTPATIEN [facility]ITAL RAFTA - 5 5 [facility] OUTPATIEN [facility] 5 5 [facility] OUTPATIEN [facility] OFFICE 40576 [facility] OUTPATIEN 5 5 PHYSICIAN OLIVIA T VISIT S GROUP 15 MINUTES OFFICE 09058 NATASHA LARSEN OUTPATIEN 5 5 [facility] T VISIT 15 MINUTES HOSPITAL [facility] - 5 5 [facility] OUTPATIEN [facility] T EMERGENCY 59711 [facility] 5 5 [facility] T VISIT HIGH/URGE NT SEVERITY HOSPITAL [facility] - 5 5 [facility] OUTPATIEN INC OFFICE 58174 NATASHA LARSEN OUTPATIEN 5 5 [facility] T VISIT 15 MINUTES OFFICE 01774 NAT[facility] LARSEN OUTPATIEN 5 5 [facility] T VISIT 15 MINUTES EMERGENCY 96667 CHEIKH Gaytan DEPT 5 5 PHYSICIAN VISIT S, PLLC HIGH SEVERITY& THREAT FUNCJ OFFICE 67462 NATASHA LARSEN OUTPATIRIGOBERTO 5 5 [facility] T VISIT 15 MINUTES OFFICE 71552 NATASHA LARSEN OUTPATIEN 5 5 [facility] T VISIT 15 MINUTES EMERGENCY 62898 [facility] 5 5 [facility] EMERGENCY T VISIT PHYS HIGH/URGE NT SEVERITY OFFICE 89943 NATASHA LARSEN OUTPATIEN 5 5 [facility] T VISIT 15 MINUTES INITIAL 00386 NATASHA LARSEN PREVENTIV 5 5 [place] E MEDICINE NEW PT AGE [id number] [facility] RAFAT - 5 5 [facility] OUTPATIEN INC T EMERGENCY 51002 [facility] 5 5 [facility] DEPARTMEN INC T VISIT MODERATE SEVERITY EMERGENCY 37896 [facility] V[facility] SE[facility]ITY [facility] - 5 5 [facility] OUTPATIEN INC T EMERGENCY 37364 [facility] VIS[facility] LOW/MODER SEVERITY [facility] - 5 5 [facility] OUTPATIEN INC T HOSPITAL RAF[facility] - 5 5 [facility] OUTPATIEN INC T EMERGENCY 21691 [facility] 5 5 [facility] T VISIT HIGH/URGE NT SEVERITY EMERGENCY 37656 RAFAT PATEL 5 5 [facility] T VISIT P MODERATE [facility]VERITY [facility] - 5 [facility] T [facility]30 [facility] OLIVIA T NEW 45 S GROUP MINUTES EMERGENCY 99002 RAFAT AMAYA 5 5 [facility] T VISIT P LIMITED/M INOR PROB EMERGENCY 50432 [facility] 5 5 [facility] T VISIT LOW/MODER SEVERITY [facility]OSP[facility] RAF[facility] - 5 5 [facility] INC T EMERGENCY [address] [facility] JIM 4 4 [facility] T VISIT MODERATE SEVERITY EMERGENCY [address] ST JIM OVERALL 4 4 [facility] T VISIT EMERGENCY HIGH/URGE NT SEVERITY [facility] [address] [facility] J[facility] 4 4 [facility] T VISIT [facility]IGH/URGE NT SEVERITY [facility] 28299 [facility] 4 [facility] VISIT HIGH EMERGENCY SEVERITY& THREAT FUNCJ EMERGENCY 82451 SHARON 4 4 [facility] T VISIT HIGH/URGE NT SEVERITY HOSPITAL [facility]ON - 4 4 [facility] T EMERGENCY 75702 KIERRA LEONARD DEPT 9 9 EMERGENCY NIRMALA Capone VISIT SERVICES HIGH SEVERITY& ASSOCIATE THREAT S FUNJ EMERGENCY 64906 RAFAT 9 9 [facility] INC T VISIT HIGH/URGE NT SEVERITY [facility] RAFAT - 9 9 [facility] T EMERGENCY 46697 RAFAT 9 9 [facility] T VISIT HIGH/URGE NT SEVERITY [facility]OSP[facility] RAFAT - 9 9 [facility] T EMERGENCY 26857 KIERRA KIRKPATRICK DEPT 9 9 EMERGENCY ROXANNA Blanchard VISIT SERVICES HIGH SEVERITY& ASSOCIATE THREAT S FUNCJ
--- OUTSIDE RECORDS SUMMARY | 2017-03-18 11:46 | External Medical Summary Rpt | CCD ---
Author Author , MARLON Organization MARLON Address Unknown Phone [email or web address] Team Providers Care Clinical Document Improvement Educator Name Role Phone PETE LIMON Unavailable Unavailable [facility] Unavailable Unavailable [facility]ORATORIES, [facility] Unavailable Unavailable LABORATORIES, [facility] MCKINNEY, MCKINNEY Unavailable Unavailable MCKINNEY ALL, MCKINNEY ALL Unavailable Unavailable [facility] Unavailable Unavailable SERVICE, [facility] Unavailable Unavailable SERVICE, [facility] ASTORGA CAR, ASTORGA Unavailable Unavailable CAR [facility], Unavailable Unavailable [facility] CHIPPS SONJA & Unavailable Unavailable DUBILIER, [facility]IP[facility] SONJA & DUBILIER HERNANDEZ OLIVIA, HERNANDEZ Unavailable Unavailable OLIVIA [facility], Unavailable Unavailable [facility] Unavailable Unavailable THE BLUE, [facility] SUSHANT KNAPP, Unavailable Unavailable RA, SUSHANT TOSHA II THO, TOSHA II Unavailable Unavailable THO MARISA PARESH, MARISA Unavailable Unavailable PARESH [facility] Un[facility] ROXANNA KIRKPATRICK, Unavailable Unavailable ROXANNA KIRKPATRICK [facility], Unavailable Unavailable [facility] Unavailable Unavailable [facility], [facility], [facility] Unavailable Unavailable [facility] ZE PENA Unavailable [facility]available [facility] NATASHA LARSEN MD, Unavailable Unavailable NELLY ANDINO MD Unavailable Unavailable HARPEL MARQUIS, HARPEL Unavailable Unavailable MARQUIS [facility] Unavailable Unavailable INC, [facility] Unavailable Unavailable HOSPITAL P, [facility] P [facility], Unavailable Unavailable [facility] CLAYTON AMANDA, CLAYTON AMANDA Unavailable Unavailable AMOL III TARIQ, Unavailable Unavailable [facility], [facility] Un[facility] Un[facility], [facility] DANISH CALIXTO, DANISH CALIXTO Unavailable Unavailable [facility] Un[facility] DANISH JR DWI, DANISH Unavailable Unavailable JR DWI LIGIA FAYETTE URBAN Unavailable Unavailable COGOVT, LIGIA FAYETTE URBAN COGOVT LONG, LONG Unavailable Unavailable NIRMALA LEONARD, Unavailable Unavailable NIRMALA LEONARD, Unavailable Unavailable KIERRA LOZADA GRE, Unavailable Unavailable KIERRA GRE [facility] Unavailable Unavailable [facility] Unavailable Unavailable AMBULANCE, [facility] Unavailable Unavailable ASSOCIAT, [facility] Unavailable Unavailable MEDICAL, [facility] MERHAR, MERHAR Unavailable Unavailable [facility] DEUT[facility] P, Unavailable Unavailable [facility] DE[facility] P MUHA, MUHA Unavailable Unavailable MUHA, MUHA Unavailable Unavailable [facility] Unavailable Unavailable [facility], [facility] O'ADRI DI, O'ADRI Unavailable Unavailable [...] Unavailable [facility] Unavailable Unavailable [facility], [facility] LYNN SHE, Unavailable Unavailable LYNN SHE [facility] Unavailable Unavailable MEDIC, [facility] Unavailable Unavailable EMERGENCY, [facility] GALVAN, GALVAN Unavailable Unavailable [facility] Unavailable Unavailable HOSPITALS, [facility], Unavailable Unavailable [facility] [place] Unavailable Unavailable [facility], 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 M5031 OTH CERV 11-12-2016 [facility] DISC DEGEN FAMILY HIGH CHIROPRACTI CERVICAL REGION Y29192 OTHER 11-12-2016 [facility] CERVICAL FAMILY DISC CHIROPRACTI DEGENERATIO N AT C6-C7 LEVEL M5134 OTH 11-12-2016 [facility] INTERVERTEB FAMILY RAL DISC CHIROPRACTI DEGEN THORACIC REGION M5136 OTH 11-12-2016 [facility] INTERVERTEB FAMILY RAL DISC CHIROP[facility]CTI DEGEN LUMBAR REGION M9901 SEGMENTAL & 11-12-2016 [facility] SOMATIC FAMILY DYSFUNCTION CHIROPRACTI CERVICAL REGION M9902 SEGMENTAL & 11-12-2016 [facility] SOMATIC FAMILY DYSFUNCTION CHIR[facility]RACTI THORACIC REGION M9903 SEGMENTAL & 11-12-2016 [facility] SOMATIC FAMILY DYSFUNCTION CHIROPRACTI OF LUMBAR REGION M9905 SEGMENTAL & 11-12-2016 [facility] SOMATIC FAMILY DYSFUNCTION CHIROPRACTI OF PELVIC REGION R51 HEADACHE 10-23-2016 COUNTS INCLUDE 234 BEDS AT THE [facility] O31915 EPILEPSY 07-21-2016 [facility] W/O HOSPITAL STATUS EPILEPTICUS M32962 OTHER 07-21-2016 [facility] PERIPHERAL N EMERGENCY VERTIGO PHYS UNSPECIFIED EAR J322 CHRONIC 07-21-2016 [facility] ETHMOIDAL N EMERGENCY SINUSITIS PHYS R0789 OTHER CHEST 07-21-2016 [facility] PAIN N EMERGENCY PHYS R42 DIZZINESS 07-21-2016 [facility] AND [facility]IOLOG[facility] GIDDINESS ASSOCIAT F32952 ALLERGY TO 07-21-2016 [facility] OTHER FOODS [facility] Z9851 TUBAL 07-21-2016 [facility] C85422 UNSPECIFIED 07-11-2016 [facility] CYST LEFT INC SIDE R1031 RIGHT LOWER 07-11-2016 [place] [facility] R1032 LEFT LOWER 07-11-2016 [facility] PAIN INC R110 NAUSEA 07-11-2016 [facility] R1110 VOMITING 07-11-2016 [facility] ASS R0602 SHORTNESS 12-29-2015 [facility] [place] [facility] R0781 PLEURODYNIA 12-29-2015 [facility] N EMERGENCY PHYS R091 PLEURISY 12-29-2015 [facility] N EMERGENCY PHYS H61393 PERSONAL 12-01-2015 [facility] HISTORY OF MEM HOS[facility] NICOTINE INC DEPENDENCE N3091 CYSTITIS 11-10-2015 [facility] UNSPECIFIED N EMERGENCY WITH PHYS HEMATURIA N3289 OTHER 11-10-2015 [facility] [place] SPECIFIED RADIOLOGY DISORDERS OF BLADDER R1084 GENERALIZED 11-10-2015 [facility] ABDOMINAL N EMERGENCY PAIN PHYS N390 URINARY 11-06-2015 [facility] TRACT [facility], INFECTION [facility] SITE NOT SPECIFIED E860 DEHYDRATION 10-10-2015 [facility] R55 SYNCOPE AND 10-10-2015 [facility] Z392 ENCOUNTER 07-02-2015 [facility] FOR ROUTINE REFERNCE LABORATORIE FOLLOW-UP S Z9889 OTHER 07-02-2015 [facility] SPECIFIED REFERNCE POSTPROCEDU LABORATORIE [facility] STATES S O80 ENCOUNTER 05-10-2015 COMMUNITY [...] 05-01-2015 [facility]ATION [facility] OF INC S54062 OTHER SPEC 04-29-2015 [facility] COND 2ND TRIMESTER E68128 OTHER SPEC 04-28-2015 [facility] RELATED INC COND 3RD TRIMESTER Z331 04-28-2015 [facility] INCIDENTAL SERVICE O4703 FALSE LABOR 04-26-2015 [facility] BEFORE 37 MEM HOSP CMPLETE INC WEEKS GEST 3RD TRI Z3A35 35 WEEKS 04-26-2015 [facility] OF INC Z36 ENCOUNTER 04-24-2015 [facility] FOR [facility] INC SCREENING OF MOTHER Z3A34 34 WEEKS 04-17-2015 [facility] OF INC O735320 DECREASED 04-14-2015 [place] [facility] THIRD TRIMESTER NA/UNS O0973 SUP HIGH 04-12-2015 NATASHA Alexandra RISK PREG [facility] RES[facility] D/T SOCIAL PROBLEMS THIRD TRI G40A09 ABSENCE 04-11-2015 [facility] NOT INTRACTABLE W/O SE O2693 04-11-2015 [facility] [place] [facility] PSC UNS 3RD TRIMESTER Z3493 ENC 04-09-2015 NATASHA Alexandra SUPERVISION [facility] RESEN[facility] NORMAL UNS 3 TRIMESTER E01283 OTH GEN 04-03-2015 [facility] EPILEPSY [facility] [...] PREG [facility] PUERPERI[facility] R109 UNSPECIFIED 03-12-2015 [facility] ABDOMINAL SERV PAIN FOUNDATION B3749 OTHER 03-11-2015 [facility] CANDIDIASIS K5900 CONSTIPATIO 03-11-2015 [facility] UNSPECIFIED M549 DORSALGIA 03-11-2015 [facility] UNSPECIFIED AMBULANCE SERVICE N1330 UNSPECIFIED 03-11-2015 [facility] HYDRONEPHRO [facility]ATION SIS O30000 03-11-2015 [place] [facility] RENAL [facility] DISEASE UNS TRIMESTER O2690 03-11-2015 [facility] CONDITIONS SERVICE UNS UNS TRIMESTER V567LK3 MATERNAL 03-11-2015 [facility] [place] [facility] PRESENTATIO N NA/UNS V7247R4 L & D COMP 03-11-2015 [place] [facility] AROUND SERV NECK W/O FOUNDATION COMPRS NA/UNS L02532 OTH 03-11-2015 [facility] INF & PARASIT DZ COMP PREG 3RD TRI O623 PRECIPITATE 03-08-2015 NATASHA LARSEN MD Z3492 ENC 03-08-2015 [place] SUPERVISION MEDICAL NORMAL IMAGING ASS UNS 2 TRIMESTER O331 MAT CARE 03-03-2015 LIGIA FAYETTE DISPROPORTI URBAN ON D/T GEN COGOVT CONTRACTED PELV Z3A28 28 WEEKS 03-03-2015 [facility] V221 SUPERVISION 02-27-2015 NATASHA Alexandra OF [facility] LARSEN MD NORMAL 96541 THREATENED 02-19-2015 [facility] GROUP ANTEPARTUM 62103 OT CURRENT 02-18-2015 [facility] MAT CONDS [facility] CLASSIFIABL INC E ELSW ANTPRTM V771 SCREENING 02-16-2015 [facility] FOR [facility] DIABETES INC MELLITUS 36933 ASTHMA, 02-03-2015 [facility] UNSPECIFIED [facility] , INC UNSPECIFIED STATUS V222 02-03-2015 [facility] STATE, MEM HOS[facility] INCIDENTAL INC 01334 UNSPECIFIED 01-30-2015 NATASHA Alexandra VAGINITIS CHAVA RESENDEZ AND VULVOVAGINI TIS 12896 HEMORRHAGE 01-30-2015 NATASHA Alexandra FROM [facility] RESENDEZ PLACENTA PREVIA ANTEPARTUM 28896 OTHER 01-23-2015 [facility] THREATENED MEM [facility]OS[facility] LABOR, INC ANTEPARTUM 91409 ERLY ONSET 01-23-2015 [facility] DELIV DELIV AMBULANCE W/WO SERVICE MENTION ANTPRTM COND 47397 ABDOMINAL 01-23-2015 [facility] PAIN OTHER AMBULANCE SPECIFIED SERVICE SITE 52401 OTHER 01-15-2015 [facility] SPECIFED [facility] COMPLICATIO INC N ANTEPARTUM V2889 OTHER 12-19-2014 [facility] SPECIFIED [facility] INC SCREENING 3670 HYPERMETROP 12-18-2014 [place] [address] UNSPEC COMP 12-04-2014 [facility] UNSPEC SERVICE EPISODE CARE 23901 ABDOMINAL 12-04-2014 [facility] PAIN, [facility] UNSPECIFIED INC SITE 7840 HEADACHE 11-15-2014 [facility] 20056 CHEST PAIN 11-15-2014 [facility] 63685 PAP SMER 10-24-2014 NATASHA Alexandra CERV [facility] RESENDEZ W/ATYPICAL SQUAMOUS CELLS UNDET 6259 UNSPEC 10-07-2014 [facility] SYMPTOM N EMERGENCY ASSOC PHYS W/FEMALE GENITAL ORGANS 6268 OT D/O 09-28-2014 NATASHA Alexandra MENSTRUATIO [facility] RES[facility] N&OTH ABN BLEED FE GNT TRACT 33450 THREATENED 09-28-2014 NATASHA Alexandra CHAVA MD ANTEPARTUM V7231 ROUTINE 09-28-2014 NATASHA Alexandra GYNECOLOGIC [facility] RES[facility] AL EXAMINATION 5990 URINARY 09-17-2014 [facility] TRACT [facility] INFECTION INC SITE NOT SPECIFIED 4619 ACUTE 08-24-2014 [facility] SINUSITIS, MEM HOS[facility] UNSPECIFIED INC 5589 OTH&UNSPEC 08-18-2014 [facility] NONINFECTIO [facility] P GASTROENTER ITIS&COLITI S 7873 FLATULENCE 08-18-2014 [place] ERUCTATION MEDICAL AND GAS IMAGING ASS PAIN 90784 ABDOMINAL 08-18-2014 [facility], LEFT MEDICAL UPPER IMAGING ASS QU[facility]ANT V692 PROBLEMS 08-02-[address] [address] [facility] HIGH-RISK INC SEXUAL BEHAVIOR 9165 HIP THIGH 06-26-2014 [facility] LEG&ANK [facility] INSECT BITE [facility] P NONVENOMOUS INF V1582 PERS HX 06-26-[address] [facility] 79688 ABDOMINAL 03-09-2014 [facility] PAIN RIGHT REGIONAL UPPER MEDIC QUADRANT 84968 UNSPECIFIED 12-13-2013 [facility] VIRAL REGIONAL INFECTION EMERGENCY IN CCE & UNS SITE 75856 FEVER 12-13-2013 [facility] UNSPECIFIED REGIONAL EMERGENCY 7862 COUGH 08-07-2013 [facility] 4660 ACUTE 09-25-2008 [facility] BRONCHITIS [facility] INC 490 BRONCHITIS 09-25-2008 [facility] EMERGENCY SPECIFIED SERVICES ACUTE OR ASSOCIATES CHRONIC 73579 SHORTNESS 09-25-2008 [place] OF BREATH EMERGENCY SERVICES ASSOCIATES 78229 UNSPECIFIED 09-05-2008 [place] [facility] CONSTIPATIO SERVICES N ASSOCIATES 3671 MYOPIA [...] 02 03 14 7 00 [place] Ac [place] 16 -1 -1 .0 00 L- ti [...] Procedure DOS Code Location Performer Comment THERAPEUT 35746 [facility] IC 7 MEM HOSP [facility]OS[facility] PROPHYLAC INC INC TIC/DX INJECTION SUBQ/IM OPHTH 19163 [facility] MEDICAL 7 XM&EVAL COMPRE NEW PT 1/> VST APPL 91155 [facility] MODALITY 7 FAMILY 1/> AREAS CHIROPRAC ELEC TI STIMJ UNATTENDE D CHIROPRAC 75656 [facility] TIC 7 FAMILY MANIPLTV CHIROPRAC TX TI EXTRASPIN AL 1/> REGION APPL 72975 BRITTRA LAWTONMAN MODALITY 7 FAMILY 1/> AREAS CHIROPRAC TRACTION TI MECHANICA L MANUAL 92816 [facility] NELLY THERAPY 7 FAMILY TQS 1/> CHIROPRAC REGIONS TI EACH 15 MINUTES CHIROPRAC 68594 BRITTRA VILLEGAS TIC 7 FAMILY MANIPULAT CHIROPRAC KARIS TX TI SPINAL 3-4 REGIONS THERAPEUT 45208 ELLICOTTVILLEIDALIA VILLEGAS IC PX 1/> 7 FAMILY AREAS CHIROPRAC EACH 15 TI MIN EXERCISES THERAPEUT 92563 ELLICOTTVILLEIDALIA VILLEGAS IC PX 1/> 7 FAMILY AREAS CHIROPRAC EACH 15 TI MIN EXERCISES CHIROPRAC 77073 BRITTAR VILLEGAS TIC 7 FAMILY MANIPULAT CHIROPRAC KARIS TX TI SPINAL 3-4 REGIONS MANUAL 14969 [facility] THERAPY 7 FAMILY TQS 1/> CHIROPRAC REGIONS TI EACH 15 MINUTES APPL 31804 ELLICOTTVILLEIDALIA VILLEGAS MODALITY 7 FAMILY 1/> AREAS CHIROPRAC TRACTION TI MECHANICA L CHIROPRAC 97749 BRITTRA VILLEGAS TIC 7 FAMILY MANIPLTV CHIROPRAC TX TI EXTRASPIN AL 1/> REGION APPL 20639 BRITTRA LAWTONMAN MODALITY 7 FAMILY 1/> AREAS CHIROPRAC ELEC TI STIMJ UNATTENDE D APPL 61024 [facility] MODAL[facility] 7 FAMILY 1/> AREAS CHIROPRAC ELEC TI STIMJ UNATTENDE D CHIROPRAC 30539 BRITTRA VILLEGAS TIC 7 FAMILY MANIPLTV CHIROPRAC TX TI EXTRASPIN AL 1/> REGION APPL 99148 BRITTRA LAWTONMAN MODALITY 7 FAMILY 1/> AREAS CHIROPRAC TRACTION TI MECHANICA L MANUAL 23565 [facility] THERAPY 7 FAMILY TQS 1/> CHIROPRAC REGIONS TI EACH 15 MINUTES CHIROPRAC 18588 [facility] NELLY TIC 7 FAMILY MANIPULAT CHIROPRAC KARIS TX TI SPINAL 3-4 REGIONS THERAPEUT 32630 [facility] NELLY IC PX 1/> 7 FAMILY AREAS CHIROPRAC EACH 15 TI MIN EXERCISES THERAPEUT 75350 [facility] NELLY IC PX 1/> 7 FAMILY AREAS CHIROPRAC EACH 15 TI MIN EXERCISES CHIROPRAC 39898 [facility] NELLY TIC 7 FAMILY MANIPULAT CHIROPRAC KARIS TX TI SPINAL 3-4 REGIONS MANUAL 33202 [facility] THERAPY 7 FAMILY TQS 1/> CHIROPRAC REGIONS TI EACH 15 MINUTES APPL 46517 [facility] MODALITY 7 FAMILY 1/> AREAS CHIROPRAC TRACTION TI MECHANICA L CHIROPRAC 78078 [facility] NELLY TIC 7 FAMILY MANIPLTV CHIROPRAC TX TI EXTRASPIN AL 1/> REGION APPL 01521 [facility] MODALITY 7 FAMILY 1/> AREAS CHIROPRAC ELEC TI STIMJ UNATTENDE D COLLECTIO 03461 [facility] N VENOUS 7 HEALTHCAR HEALTHCAR BLOOD E E VENIPUNCT [facility] URE COMPREHEN 72589 [facility] SIVE 7 HEALTHCAR HEALTHCAR METABOLIC E E PANEL [facility] BLOOD 90783 [facility] COUNT 7 HEALTHCAR HEALTHCAR COMPLETE E E AUTOMATED [facility] BLOOD 38738 [facility] COUNT [address] [place] [address] AUTO&AUTO DIFRNTL WBC URNLS DIP [address] STICK/TAB [facility] LET REAGENT AUTO MICROSCOP Y GONADOTRO 60869 [facility] PIN [address] [place] [address] QUALITATI VE THER 03899 [facility] PROPH/DX [address] [place] [address] NJX [facility] PUSH SINGLE/1S T SBST/DRUG COMPREHEN 83372 [facility] SIVE [address] [place] [address] PANEL INJECTION J2405 [address] ON HCL PER 1 MG INJECTION J1885 [address] KETOROLAC [facility] TROMETHAM INE [place] [address] [place] [address] [facility] HEAD/BRAI 7 N W/O RADIOLOGY RADIOLOGY CONTRAST ASSOCIAT ASSOCIAT MATERIAL ECG 07026 [facility] ROUTINE [address] [place] [address] W/LEAST 12 LDS TRCG ONLY W/O I&R THERAPEUT 13090 [facility] IC [address] [place] [address] IV PUSH EACH NEW DRUG GROUND A[address] [facility] MILEAGE 7 AMBULANCE AMBULANCE PER SERVICE SERVICE STATUTE MILE AMB A[address] [facility] SERVICE 7 AMBULANCE AMBULANCE ALS SERVICE SERVICE EMERGENCY TRANSPORT LEVEL 1 RADIOLOGI 51760 LITO MENDES C 7 MEDICAL EXAMINATI SERV ON CHEST FOUNDATIO SINGLE N VIEW FRONTAL COMPREHEN 32410 [facility] MEADOWVIE SIVE 7 W W METABOLIC JACK [facility] PANEL MEDICAL MEDICAL COL-CHR/M 80793 MEADOWVIE MEADOWVIE S NONDRUG 7 W W ANALYTE JACK [facility] [place] MEDICAL MEDICAL QUAL/JAYRO EA SPEC CREATINE 51616 [facility] MEADOWVIE KINASE 7 W W TOTAL [facility] MEDICAL BLOOD 77367 MEADOW[facility]IE MEADOWVIE COUNT 7 W W COMPLETE JACK [facility] AUTO&AUTO MEDICAL MEDICAL DIFRNTL WBC BLOOD 73038 [facility] COUNT 7 MEM HOSP MEM HOSP COMPLETE INC INC AUTO&AUTO DIFRNTL WBC URNLS DIP 19063 [facility] 7 MEM HOSP [facility] HOS[facility] STICK/TAB INC INC [place] [address] [facility] LIPASE 7 MEM HOSP MEM HOS[facility] INC INC URINE 27297 [facility] 7 [facility]OS[facility] TEST INC INC VISUAL COLOR CMPRSN METHS COMPREHEN 06914 [facility] SIVE 7 [facility] HOS[facility] [place] [address] [place] MCKINNEY ABDOMEN & 7 MEDICAL PELVIS IMAGING W/[place] [address] [facility] ABDOMEN & 7 MEM HOSP MEM HOSP PELVIS INC INC W/CONTRAS T MATERIAL RADIOLOGI 41799 [facility] [place] ASTORGA C EXAM 6 RADIOLOGY CAR CHEST 2 VIEWS FRONTAL&[place] [address] [facility] [place] SCALF CHUY HEAD/BRAI 6 RADIOLOGY [place] W/[place] [address] ELZA MCKINNEY ALL HEAD/BRAI 6 MEDICAL N W/O IMAGING CONTRAST ASS MATERIAL COMPREHEN 25390 [facility] SIVE 6 MEM HOSP MEM HOSP METABOLIC INC INC PANEL INJECTION J2405 [facility] [address] [facility] ONDANSETR INC INC ON HCL PER 1 [place] [address] [facility] INFUSION [address] [facility] THERAPY/P INC INC ROPHYLAXI S /DX 1ST TO 1 HR THERAPEUT 13071 [facility] D[facility] IC [address] [facility] INJECTION INC INC IV PUSH EACH NEW DRUG GONADOTRO 32681 [facility] PIN 6 MEM HOS[facility] MEM HOSP CHORIONIC INC INC QUALITATI VE BLOOD 53327 [facility] COUNT 6 MEM HOS[facility] MEM HOSP COMPLETE INC INC AUTO&[place] [address] [facility] [place] AMOL ABDOMEN & 6 RADIOLOGY III TARIQ PELVIS W/CONTRAS T MATERIAL SUSCEPTIB 66579 [facility] LTY STDY [address] [facility] ANTIMICRB INC INC IAL MICRO/AGA R DILUTJ CULTURE 28735 [facility] BACTERIAL 6 [facility] HOSP [facility]OS[facility] INC INC QUANTTATI VE COLONY COUNT URINE CULTURE 29991 [facility] BCT [address] [facility]OS[facility] ISOL&PRSM INC INC PTV ID ISOLATE EA URINE URNLS DIP 63347 [facility] 6 [facility] HOS[facility]OS[facility] STICK/TAB INC INC LET REAGENT AUTO MICROSCOP Y URINE 62977 [facility] 6 [facility] TEST INC INC VISUAL COLOR CMPRSN METHS URINE 30764 [facility] 6 N N TEST COMMUNTIY COMMUNTIY VISUAL HOSPITA HOSPITA COLOR CMPRSN METHS URNLS DIP 04946 [facility] 6 N N STICK/TAB COMMUNTIY COMMUNTIY LET HOSPITA HOSPITA REAGENT AUTO MICROSCOP Y BLOOD 15587 [facility] COUNT 6 N N COMPLETE COMMUNTIY COMMUNTIY AUTO&AUTO HOSPITA HOSPITA DIFRNTL WBC COLLECTIO 34072 [facility] N VENOUS 6 N N BLOOD COMMUNTIY COMMUNTIY [place] [address] [facility] INFUSION 6 N N HYDRATION COMMUNTIY COMMUNTIY INITIAL HOSPITA HOSPITA 31 MIN-1 HOUR COMPREHEN 39284 [facility] SIVE 6 N N METABOLIC COMMUNTIY COMMUNTIY PANEL HOSPITA HOSPITA ECG 04666 [facility] ROUTINE 6 N N ECG COMMUNTIY COMMUNTIY W/LEAST HOSPITA HOSPITA 12 LDS TRCG ONLY W/O I&R CYTP C/V 28029 BIO BIO AUTO THIN 6 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 IES IES MNL RESCR PHYS ANES IPER 00230 [facility] LWR ABD 5 ANESTH SHE W/LAPS OF THE TUBAL BLUE LIGATION/ TRANSECT SMR PRIM 85247 NATASHA LARSEN SRC WET 5 [facility] SMR PRIM 38111 NATASHA LARSEN SRC WET 5 [facility] RES[facility] AGT 00552 [facility] NONSTRESS 5 [facility] H[facility] TEST INC INC 23751 [facility] SPRAGUESTARAM NONSTRESS 5 [facility] 44016 [facility] NONSTRESS 5 [facility] TEST INC INC BLOOD 95452 [facility] COUNT 5 [facility] COMPLETE INC INC AUTO&AUTO DIFRNTL WBC URNLS DIP 66610 [facility] STICK/TAB INC INC LET REAGENT AUTO MICROSCOP Y GLUC BLD 22553 [facility] GLUC MNTR 5 [facility] DEV INC INC CLEARED FDA SPEC HOME USE BASIC 47648 [facility] METABOLIC 5 [facility] [place] [address] [facility] INFUSION 5 [facility] THERAPY/P INC INC ROPHYLAXI S /DX 1ST TO 1 HR 49884 [facility] NONSTRESS [facility] TEST INC INC THERAPEUT 55880 [facility] IC 5 [facility] PROPHYLAC INC INC TIC/DX INJECTION SUBQ/IM EVAL C/V 88610 [facility] AMNIOTIC 5 [facility] FLUID INC INC PROTEIN QUAL EA SPECIMEN CUL 43450 NATASHA LARSEN PRSMPTV 5 [facility] CHO PTHGNC ORGANISM SCRN W/COLONY ESTIMJ PARTICLE 96476 [facility] AGGLUTINA 5 [facility] TION INC INC SCREEN EACH ANTIBODY EVAL C/V 70109 [facility] AMNIOTIC 5 [facility] FLUID INC INC PROTEIN QUAL EA SPECIMEN 48657 [facility] NONSTRESS 5 [facility] TEST INC INC FTL 76616 [facility] FIBRONECT 5 [facility] IN INC INC CERVICOVA G SECRETION S SEMI-JAYRO URNLS DIP 09249 [facility] STICK/TAB INC INC LET REAGENT AUTO MICROSCOP Y 82843 [facility] NONSTRESS 5 [facility] TEST INC INC DOPPLER 53719 [facility] VELOCIMET 5 [facility] RY INC INC UMBILICAL ARTERY 43854 [facility] BIOPHYSIC [facility] AL INC INC PROFILE W/[place] [address] [facility] UTERUS INC INC LIMITED 1/> FETUSES OBSERVATI 38033 NATASHA LARSEN ON CARE 5 [place]DE[facility] 50105 NATASHA LARSEN DISCHARGE 5 [place] RES[facility] [place] DAY MANAGEM[facility] T 30 MIN/< SBSQ 43564 NATASHA LARSEN OBSERVATI 5 [place] CHO ON CARE/DAY 15 MINUTES SBSQ 56342 [facility] 5 [place] RESENDE[facility] [place] CARE/DAY [address] [address] [facility] OBSERVATI 5 [place] RESENDE[facility] [place] CARE/DAY 30 MINUTES INITIAL 84014 [facility] 5 [place] RESEN[place] [place] CARE/DAY 50 MINUTES 47112 [facility] NONSTRESS 5 [facility] TEST INC INC URNLS DIP 06089 [facility] STICK/TAB INC INC LET REAGENT AUTO MICROSCOP Y FTL 23753 [facility] FIBRONECT [facility] IN INC INC CERVICOVA G SECRETION S SEMI-JAYRO 62677 [facility] NONSTRESS 5 [facility] TEST INC INC INITIAL 56074 [place] [address] MEDICAL DI CARE/DAY SERV [facility] [address] [facility] DISCHARGE 5 [place] RESENDE[facility] [place] DAY MANAGEM[facility] T 30 MIN/< SBSQ 76062 [facility] 5 [place] RESENDE[facility] [place] CARE/DAY 15 MINUTES ECG 45008 [facility] PENG JR ROUTINE 5 [facility] W/LEAST P 12 LDS I&R ONLY INITIAL 55388 [facility] 5 [place] RESENDEZ MARQUIS CARE/DAY 50 MINUTES URNLS DIP 13974 CENTRAL CENTRAL 5 AMISH AMISH STICK/TAB HOSP HOSP LET RGNT AUTO W/O MICROSCOP Y EVAL C/V 52223 [facility] AMNIOTIC 5 [facility] FLUID INC INC PROTEIN QUAL EA SPECIMEN 11879 [facility] NONSTRESS 5 [facility] TEST INC INC URNLS DIP 55258 [facility] 5 [facility] STICK/TAB INC INC LET REAGENT AUTO MICROSCOP Y FTL 37678 [facility] FIBRONECT 5 [facility] IN INC INC CERVICOVA G SECRETION S SEMI-JAYRO BLOOD 46888 [facility] FERRERAON COUNT 5 [facility] COMPLETE INC INC AUTO&AUTO DIFRNTL WBC GLUCOSE 33156 [facility] POST 5 [facility] GLUCOSE INC INC DOSE COLLECTIO 72270 [facility] N VENOUS 5 [facility] BLOOD INC INC VENIPUNCT URE EVAL C/V 12377 [facility] AMNIOTIC 5 [facility] FLUID INC INC PROTEIN QUAL EA SPECIMEN 47228 [facility] NONSTRESS 5 [facility] TEST INC INC FTL 96236 [facility] FIBRONECT 5 [facility] IN INC INC CERVICOVA G SECRETION S SEMI-JAYRO URNLS DIP 56459 [facility] 5 [facility] STICK/TAB INC INC LET REAGENT AUTO MICROSCOP Y PRESSURIZ 10393 [facility] ED/NONPRE 5 [facility] SSURIZED INC INC INHALATIO N TREATMENT US PREG 48953 NATASHA LARSEN UTERUS 5 [facility]AVA CHO AFTER 1ST TRIMEST GESTATION SMR PRIM 27714 NATASHA LARSEN SRC WET 5 [facility] CHO MOUNT NFCT AGT EVAL C/V 67503 [facility] AMNIOTIC 5 [facility] FLUID INC INC PROTEIN QUAL EA SPECIMEN URNLS DIP 68640 [facility] 5 [facility] STICK/TAB INC INC LET REAGENT AUTO MICROSCOP Y FTL 25593 [facility] FIBRONECT 5 [facility] IN INC INC CERVICOVA G SECRETION S SEMI-JAYRO 74376 [facility] NONSTRESS 5 [facility] TEST INC INC 74985 [facility] D[facility] NONSTRESS 5 [facility] TEST INC INC THERAPEUT 46797 [facility] IC 5 [facility] PROPHYLAC INC INC TIC/DX INJECTION SUBQ/IM AMB A[address] [facility] SERVICE 5 AMBULANCE AMBULANCE ALS SERVICE SERVICE EMERGENCY TRANSPORT LEVEL 1 [facility]25 [facility] PER SERVICE SERVICE STATUTE MILE 08735 NATASHA LARSEN NONSTRESS 5 [facility]AVA RESENDEZ MARQUIS TEST URNLS DIP 19986 [facility] FERRERAON 5 [facility] STICK/TAB INC INC LET REAGENT AUTO MICROSCOP Y 73154 [facility] [place] [address] [facility] D[facility] ESTRIOL 5 [facility] INC INC GONADOTRO 13462 [facility] D[facility] PIN 5 [facility] CHORIONIC INC INC QUANTITAT KARIS ALPHA-FET 78589 [facility] D[facility] OPROTEIN 5 [facility] SERUM INC INC COLLECTIO 59912 [facility] D[facility] N VENOUS 5 [facility] BLOOD INC INC VENIPUNCT URE OPHTH 62563 [facility] 5 GRE GRE XM&EVAL COMPRE NEW PT 1/> VST DETERMINA 11602 KIERRA WAGGONERALL TION 5 [place] [address] [facility] D[facility] INFUSION 5 [facility] THERAPY/P INC INC ROPHYLAXI S /DX 1ST TO 1 HR GROUND A[address] [facility] MILEAGE 5 AMBULANCE AMBULANCE PER SERVICE SERVICE STATUTE MILE AMB A[address] [facility] SERVICE 5 AMBULANCE AMBULANCE ALS SERVICE SERVICE EMERGENCY TRANSPORT LEVEL 1 [place] [address] [facility] AMYLASE 5 [facility] INC INC COMPREHEN 14525 [facility] D[facility] SIVE 5 [facility] METABOLIC INC INC PANEL CULTURE 83956 [facility] D[facility] BACTERIAL 5 [facility] INC [place] [address] [facility] INFUSION 5 [facility] THERAPY INC INC PROPHYLAX IS/DX EA HOUR URNLS DIP 20004 [facility] 5 [facility] STICK/TAB INC INC LET REAGENT AUTO MICROSCOP Y BLOOD 28831 [facility] COUNT 5 [facility] COMPLETE INC INC AUTO&[place] [address] [facility] D[facility] LIPASE 5 [facility] INC INC GONADOTRO 82309 [facility] D[facility] PIN 5 [facility] CHORIONIC INC INC QUANTITAT KARIS US PREG 18643 NATASHA DAYPEL UTERUS 5 CHAVA RESENDEZ MARQUIS AFTER 1[place] [address] NATASHA DAYPEL 5 [facility] CHO UTERUS 14 WK TRANSABDL GESTAT COLPOSCOP 50547 NATASHA MCCORMACKL Y CERVIX 5 CHAVA CHO BX CERVIX & [place]REG 00398 NATASHA DAYPEL UTERUS 5 [facility] CHO REAL TIME W/IMAGE DCMTN TRANSVAG AMB A0427 [facility] SERVICE 5 SUKHWINDER CO SUKHWINDER CO ALS EMERGENCY AMBULANCE AMBULANCE TRANSPORT LEVEL 1 GROUND A0425 [facility] MILEAGE 5 SUKHWINDER CO SUKHWINDER CO PER STATUTE AMBULANCE AMBULANCE MILE US PREG 32453 NATASHA DAYPEL UTERUS 5 [facility]AVA CHO REAL TIME W/IMAGE DCMTN TRANSVAG CULTURE 62259 NATASHA LARSEN CHLAMYDIA 5 [facility]AVA CHO ANY SOURCE URINE 11473 NATASHA LARSEN 5 [facility]AVA CHO TEST VISUAL COLOR CMPRSN METHS IAADIADOO 74770 NATASHA DAYPEL 5 [facility] CHO TRICHOMON VAGINALIS URINLS 95524 NATASHA DAYPEL DIP 5 [facility] CHO STICK/TAB LET REAGNT NON-AUTO MICRSCPY IADNA 92312 NATASHA LARSEN NEISSERIA 5 [facility] CHO GONORRHOE AE DIRECT PROBE TQ HANDLG&/O 27863 NATASHA DAYPEL R CONVEY 5 [facility] CHO OF SPEC FOR TR OFFICE TO LAB IADNA 95180 NATASHA LARSEN HERPES 5 [facility] CHO SIMPLX VIRUS DIRECT PROBE TQ BLOOD 28796 [facility] TYPING 5 [facility] SEROLOGIC INC INC RH (D) CULTURE 94981 [facility] D[facility] BACTERIAL [address] [facility] INC INC QUANTTATI VE COLONY COUNT URINE URINE 40931 [facility] 5 [facility] TEST INC INC VISUAL COLOR CMPRSN METHS GONADOTRO 68459 [facility] D[facility] PIN 5 [facility] CHORIONIC INC [place] PREG 53771 [facility] D[facility] UTERUS [address] [facility] REAL TIME INC INC W/IMAGE DCMTN TRANSVAG BLOOD 13634 ARFAT [facility] COUNT [address] [facility] COMPLETE INC INC AUTO&AUTO DIFRNTL WBC URNLS DIP 09301 [facility] 5 [facility] STICK/TAB INC INC LET REAGENT AUTO MICROSCOP Y URNLS DIP 40539 [facility] 5 [facility] STICK/TAB INC INC LET REAGENT AUTO MICROSCOP Y GONADOTRO 57652 [facility] PIN [address] [facility] CHORIONIC INC INC QUANTITAT KARIS URINE 61071 [facility] D[facility] [address] [facility] TEST INC INC VISUAL COLOR CMPRSN METHS CULTURE 49155 [facility] D[facility] BACTERIAL [address] [facility] INC INC QUANTTATI VE COLONY COUNT URINE COLLECTIO 24543 [facility] D[facility] N VENOUS 5 [facility] BLOOD INC INC VENIPUNCT URE OBSTETRIC 20838 [facility] D[facility] PANEL [address] [facility] INC INC IAADI 68800 [facility] D[facility] INFLUENZA [address] [facility] B VIRUS INC INC IAADI 41456 [facility] D[facility] INFFLUENZ 5 [facility] A A VIRUS INC INC THERAPEUT 31674 [facility] IC [address] [facility] INJECTION INC [place] [address] [facility] D[facility] INFUSION 5 [facility] THERAPY/P INC INC ROPHYLAXI S /DX 1ST [place] [address] [place] [address] [facility] D[facility] ABDOMEN & 5 [facility] PELVIS INC INC W/[place] [address] [facility] AMYLASE [address] [facility] INC INC LOCM Q9967 [facility] D[facility] [phone] [facility] MG/ML INC INC IODINE CONCENTRA TION PER ML COMPREHEN 62621 [facility] SIVE 5 [facility] METABOLIC INC INC PANEL INJECTION J2405 [facility] 5 [facility] ONDANSETR INC INC ON HCL PER 1 MG URINE 22186 [facility] 5 [facility] TEST INC INC VISUAL COLOR CMPRSN METHS URNLS DIP 20589 [facility] 5 [facility] STICK/TAB INC INC [place] [address] [facility] LIPASE 5 [facility] INC INC BLOOD 47746 [facility] COUNT 5 [facility] COMPLETE INC INC AUTO&AUTO DIFRNTL WBC IADNA 73432 [facility] NEISSERIA 5 [facility] INC INC GONORRHOE AE AMPLIFIED PROBE TQ IADNA 98642 [facility] CHLAMYDIA 5 [facility] INC INC TRACHOMAT IS AMPLIFIED PROBE TQ URINE 28257 [facility] 5 PHYSICIAN OLIVIA TEST S GROUP VISUAL COLOR CMPRSN METHS URINE 99089 [facility] 5 [facility] TEST INC INC [place] [address] [facility] LIPASE 4 [facility] MEDIC MEDIC URNLS DIP [address] JIM 4 REGIONAL REGIONAL STICK/TAB MEDIC MEDIC LET REAGENT AUTO MICROSCOP Y INJECTION J0500 [facility] JIM 4 REGIONAL REGIONAL DICYCLOMI MEDIC MEDIC NE HCL UP TO [address] B[address] [facility] COUNT 4 [facility] REGIONAL COMPLETE MEDIC MEDIC AUTO&AUTO DIFRNTL WBC COLLECTIO [address] [facility] N VENOUS 4 REG[facility] REGIONAL BLOOD MEDIC MEDIC VENIPUNCT URE COMPREHEN [address] [facility] SIVE 4 REG[facility]AL REGIONAL METABOLIC MEDIC MEDIC PANEL URINE [address] JIM 4 REGIONAL REGIONAL TEST MEDIC MEDIC VISUAL COLOR CMPRSN METHS RADEX 74964 ST JIM DANISH MARILY ABDOMEN 1 4 REGIONAL RADIOLOG ANTEROPOS TERIOR VIEW THERAPEUT [address] JIM IC 4 REGIONAL REGIONAL PROPHYLAC MEDIC MEDIC TIC/DX INJECTION SUBQ/IM ECG [address] [facility] ROUTINE 4 REGIONAL REGIONAL ECG MEDIC MEDIC W/LEAST 12 LDS TRCG ONLY W/O I&R URINE [address] JIM 4 REGIONAL REGIONAL TEST MEDIC MEDIC VISUAL COLOR CMPRSN METHS RADIOLOGI 94464 ST JIM DANISH MARILY C EXAM 4 REGIONAL CHEST 2 RADIOLOG VIEWS FRONTAL&L ATERAL ECG 14674 ST JIM MARISA ROUTINE 4 MEDICAL [facility] ECG CENTER W/LEAST 12 LDS I&R ONLY CULTURE [address] JIM BACTERIAL 4 REGIONAL REGIONAL BLOOD MEDIC MEDIC AEROBIC W/ID ISOLATES COMPREHEN [address] JIM SIVE 4 [facility] [place] [address] [facility] INFUSION 4 REGIONAL REGIONAL HYDRATION MEDIC MEDIC EACH ADDITIONA L HOUR COLLECTIO [address] JIM N VENOUS 4 REGIONAL REGIONAL BLOOD MEDIC MEDIC VENIPUNCT URE INJECTION J2405 [facility] JIM 4 REGIONAL REGIONAL ONDANSETR MEDIC MEDIC ON HCL PER [address] B[address] [facility] COUNT 4 REGIONAL REGIONAL COMPLETE MEDIC MEDIC AUTO&AUTO DIFRNTL WBC PROTHROMB [address] JIM IN TIME 4 REGIONAL REGIONAL MEDIC MEDIC THER [address] J[facility] PROPH/DX 4 REGIONAL REGIONAL NJX IV MEDIC MEDIC PUSH SINGLE/1S T SBST/DRUG URNLS DIP [address] JIM 4 REGIONAL REGIONAL STICK/TAB MEDIC MEDIC LET REAGENT AUTO MICROSCOP Y CREATINE 06452 [facility] KINASE [address] [facility] [address] [facility] MAGNESIUM 4 [facility] BLOOD 26768 [facility] [address] [facility] AUTO&[place] [address] [facility] TROPONIN 4 CO [facility] KARIS GONADOTRO 67885 [facility] PIN [facility] QUALITATI VE COMPREHEN 05847 JOSE GARCIA SIVE 4 [facility] PANEL RADIOLOGI 06581 JOSE GARCIA C EXAM 4 CO CO CHEST 2 [facility]PITAL HOSPITAL VIEWS FRONTAL&L ATERAL ECG 47029 JOSE GARCIA ROUTINE 4 CO CO ECG HOSPITAL HOSPITAL W/LEAST 12 LDS TRCG ONLY W/O I&R CREATINE 27540 JOSE GARCIA KINASE MB 4 [facility]PITAL ONLY CREATINE 87846 [facility] KINASE MB 9 [facility] FRACTION INC INC ONLY ECG 08904 [facility] ROUTINE 9 [facility] ECG INC INC W/LEAST 12 LDS TRCG ONLY W/O I&R URINE 23816 [facility] 9 [facility] TEST INC INC VISUAL COLOR CMPRSN METHS RADIOLOGI 04661 ELZA DEUTSCH C EXAM 9 [facility]ICAL [place] P CHEST 2 IMAGING VIEWS ASSOCIATE FRONTAL&L S ATERAL COMPREHEN 00416 [facility] SIVE 9 [facility] [address] [facility] TROPONIN 9 [facility] QUANTITAT INC INC KARIS BLOOD 24431 [facility] COUNT 9 [facility] COMPLETE INC INC AUTO&AUTO DIFRNTL WBC CREATINE 79634 [facility] KINASE 9 [facility] TOTAL INC INC URNLS DIP 92280 [facility] 9 [facility] STICK/TAB INC INC LET REAGENT AUTO MICROSCOP Y URNLS DIP 81137 [facility] FERRERAON 9 [facility] STICK/TAB INC INC LET REAGENT AUTO MICROSCOP Y BLOOD 58453 [facility] COUNT 9 [facility] COMPLETE INC INC AUTO&AUTO DIFRNTL WBC COMPREHEN 87484 [facility] SIVE 9 [facility] METABOLIC INC INC PANEL CT PELVIS 86136 ELZA KNAPP, W/O 9 MEDICAL SUSHANT CONTRAST IMAGING MATERIAL ASSOCIATE S 3D 20782 [facility] RENDERING 9 [facility] INC INC W/INTERP& [place] [address] [place] RA, ABDOMEN 9 MEDICAL SUSHANT W/[place] [address] [facility] INFUSION 9 [facility] THERAPY/P INC INC ROPHYLAXI S /DX 1ST TO 1 HR URINE 14842 [facility] D[facility] 9 [facility] TEST INC INC VISUAL COLOR CMPRSN METHS OPHTH 27929 HERIBERTO GAINES, MEDICAL 8 VISION KEARA M XM&EVAL COMPRE NEW PT 1/> VST FITTING 24139 HERIBERTO LIANA, SPECTACLE 8 VISION KEARA M S XCPT APHAKIA MONOFOCAL FRAMES V2020 HERIBERTO GAINES, PURCHASES 8 VISION KEARA M 1 VISN V2103 HERIBERTO LIANA, PLANO 8 VISION KEARA M TO+/-4.00 D SPHER 0.12-2.00 D CYL EA Encounters Encounter Start End Date Code Location Performer Type Date [facility] - 7 7 [facility] OUTPATIEN INC T OFFICE 61547 [facility] OUTPATIEN 7 7 [facility] T NEW 10 INC [facility] UK - 7 7 [facility] OUTPATIEN E HOSPITALS OFFICE 29046 [facility] OUTPATIEN 7 7 NURSE T VISIT PRACTITIO 15 NER GR MINUTES OFFICE 49412 OUTPATIEN 7 7 HEALTHCAR T VISIT 5 E MINUTES [facility] UK - 7 7 [facility]ALTHCAR OUTPATIEN E T HOSPITALS OFFICE 12584 OUTPATIEN 7 7 [facility]ALTH[facility] T VISIT 5 E MINUTES HOSPITALS OFFICE 89808 [facility] CONSULTAT 7 7 NURSE ION ELISEO NEW/ESTAB NER GR PATIENT 60 MIN EMERGENCY 84036 [facility] DEPT 7 7 SANDRA VISIT EMERGENCY HIGH PHYS SEVERITY& THREAT [facility] GARCIA - 7 7 [facility] T EMERGENCY 33140 [facility] 7 7 [facility] T VISIT HIGH/URGE NT SEVERITY HOSPITAL [facility] - 7 7 [facility] MEDICAL EMERGENCY 16911 [facility] 7 7 [facility] EMERGENCY T VISIT PHYS HIGH/URGE NT SEVERITY HOSPITAL [facility] 7 7 [facility] 48057 [facility]AT 7 7 [facility] INC T VISIT LOW/MODER SEVERITY EMERGENCY 29970 [facility] DEPT 6 6 SANDRA THO VISIT EMERGENCY HIGH PHYS SEVERITY& THREAT [facility] EMERGENC[facility] 27051 [facility] DEPT 6 6 SANDRA NICOLE VISIT EMERGENCY HIGH PHYS SEVERITY& THREAT [facility] - 6 6 [facility] T EMERGENCY 26717 CHEIKH AMAYA 6 6 PHYSICIAN KIKI HANLEY T VISIT HIGH/URGE NT SEVERITY EMERGENCY 73431 [facility] DEPT 6 6 [facility] VISIT INC HIGH SEVERITY& THREAT [facility]GENC[facility] 90111 [facility] DEPT 6 6 SANDRA VISIT EMERGENCY HIGH PHYS SEVERITY& THREAT [facility] 83350 [facility] 6 6 [facility] LOW/MODER SEVERITY [facility]OSPITAL [facility] - 6 6 [facility] OUTPATIEN INC T EMERGENCY 27844 CHEIKH FRAGOSO 6 6 PHYSICIAN CELENA MONROY T VISIT HIGH/URGE NT SEVERITY HOSPITAL [facility] 6 6 [facility] EMERGENC[facility] 58956 [facility] HIGH/URGE NT [facility] 5 5 [facility] OUTPATIEN INC HOSPITAL RAFAT - 5 5 [facility] OUTPATIEN [facility] RAFAT - 5 5 [facility]PATIEN [facility] T OFFICE 69921 NATASHA LARSEN OUTPATIEN 5 5 [facility] CHO T VISIT 15 MINUTES HOSPITAL RAFAT - 5 5 [facility] OUTPATIEN [facility] RAFAT - 5 5 [facility]IEN [facility] RAFAT - [address] [facility] OUTPATIEN [facility] OFFICE 78572 [place] OUTPATIEN 5 5 [facility] 30 CLINIC MINUTES [facility] OFFICE 11584 NATASHA LARSEN OUTPATIEN 5 5 [facility] CHO T VISIT 15 MINUTES HOSPITAL RAFAT - [address] [facility] INPATIENT INC OFFICE 40540 NATASHA LARSEN OUTPATIEN 5 5 [facility] T VISIT 15 MINUTES HOSPITAL RAFAT - [address] [facility] OUTPATIEN [facility] OFFICE 70973 NATASHA LARSEN OUTPATIEN 5 5 [facility] CHO T VISIT 15 MINUTES HOSPITAL RAFAT - 5 5 [facility] OUTPATIEN [facility] HOSPITAL UNIVERSIT - 5 5 Y INPATIENT [facility] RAF[facility] - [address] [facility] INPATIENT [facility] H[facility]PITAL CENTRAL - 5 5 [place] OUTPATIEN [facility] OFFICE 04006 NATASHA LARSEN OUTPATIEN 5 5 [facility] CHO T VISIT 15 MINUTES HOSPITAL RAFAT - 5 5 [facility] OUTPATIEN [facility]PITAL RAFAT - [address] [facility] OUTPATIEN [facility] RAFAT - [address] [facility] OUTPATIEN [facility] T HOSPITAL RAFAT - [address] [facility] OUTPATIEN INC T OFFICE 35380 NATASHA LARSEN OUTPATIEN 5 5 [facility] CHO T VISIT 15 MINUTES HOSPITAL RAFAT - [address] [facility] OUTPATIEN [facility] RAFAT - [address] [facility]PATIEN [facility] RAFAT - [address] [facility] OUTPATIEN [facility] OFFICE 54584 [facility] OUTPATIEN 5 5 PHYSICIAN OLIVIA T VISIT S GROUP 15 MINUTES OFFICE 57229 NATASHA LARSEN OUTPATIEN 5 5 [facility] T VISIT 15 MINUTES HOSPITAL RAFAT - [address] [facility] OUTPATIEN [facility] T EMERGENCY 84250 RAFAT [address] [facility] T VISIT HIGH/URGE NT SEVERITY HOSPITAL RAFAT - [address] [facility] OUTPATIEN INC OFFICE 74702 NATASHA LARSEN OUTPATIEN 5 5 [facility] T VISIT 15 MINUTES OFFICE 61816 NATASHA LARSEN OUTPATIEN 5 5 [facility] T VISIT 15 MINUTES EMERGENCY 21346 CHEIKH Gaytan DEPT 5 5 PHYSICIAN VISIT S, PLLC HIGH SEVERITY& THREAT FUNCJ OFFICE 46187 NATASHA LARSEN OUTPATIRIGOBERTO 5 5 [facility] T VISIT 15 MINUTES OFFICE 34672 NATASHA LARSEN OUTPATIEN 5 5 [facility] T VISIT 15 MINUTES EMERGENCY 90046 [facility] 5 5 [facility] EMERGENCY T VISIT PHYS HIGH/URGE NT SEVERITY OFFICE 77125 NATASHA LARSEN OUTPATIEN 5 5 [facility] T VISIT 15 MINUTES INITIAL 69847 NATASHA LARSEN PREVENTIV 5 5 [place] E MEDICINE NEW PT AGE 18-39YRS [facility] RAFAT - 5 5 [facility] OUTPATIEN INC T EMERGENCY [address] [facility] DEPARTMEN INC T VISIT MODERATE SEVERITY EMERGENCY 79483 [facility]ATE SE[facility] - 5 5 [facility] OUTPATIEN INC T EMERGENCY 83425 [facility] T VISIT LOW/MODER SEVERITY [facility] RAFAT - [address] [facility] OUTPATIEN INC T HOSPITAL RAFAT - 5 5 [facility] OUTPATIEN INC T EMERGENCY [address] [address] [facility] HIGH/URGE NT SEVERITY EMERGENCY 47619 [facility] PATEL 5 5 [facility] T VISIT P MODERATE SEVERITY HOSPITAL RAFAT - [address] [facility] OUTPATIEN INC T [facility]83 [facility] PHYSICIAN OLIVIA T NEW 43 S GROUP MINUTES EMERGENCY 21250 [facility] AMAYA 5 5 [facility] T VISIT P LIMITED/M INOR PROB EMERGENCY [address] [facility] VIS[facility] LOW/MODER SEVERITY [facility]OSPITAL RAF[facility] - 5 5 [facility] OUTPATIEN INC T EMERGENCY [address]666 [facility] JIM 4 4 [facility] MEDIC T VISIT MODERATE SEVERITY EMERGENCY 77072 ST JIM OVERALL 4 4 [facility] T VISIT EMERGENCY HIGH/URGE NT SEVERITY HOSPITAL [facility]IM - 4 4 [facility] T EMERGENCY 74[address] [facility] JMI 4 4 [facility] MED[facility] T VISIT [facility]IGH/URGE NT SEVERITY [facility] JIM - 4 4 [facility] 88002 [facility] DEPT 4 4 REGIONAL VISIT HIGH EMERGENCY SEVERITY& THREAT FUNCJ EMERGENCY 80905 MELROSE 4 4 [facility] T VISIT HIGH/URGE NT SEVERITY HOSPITAL MELROSE - 4 4 [facility] T EMERGENCY 31501 KIERRA LEONARD DEPT 9 9 EMERGENCY NIRMALA Capone VISIT SERVICES HIGH SEVERITY& ASSOCIATE THREAT S FUNJ EMERGENCY 34650 RAFAT 9 9 [facility] DEPARTMEN [facility] T VISIT HIGH/URGE NT SEVERITY HOSPITAL RAFAT - 9 9 [facility] OUTPATI[facility] T EMERGENCY 13356 RAFAT 9 9 [facility] DEPARTMEN [facility] T VISIT HIGH/URGE NT SEVERITY HOSPITAL RAFAT - 9 9 [facility] OUTPATI[facility] INC T EMERGENCY 43583 KIERRA KIRKPATRICK DEPT 9 9 EMERGENCY ROXANNA Blanchard VISIT SERVICES HIGH SEVERITY& ASSOCIATE THREAT S FUNCJ
--- OUTSIDE RECORDS SUMMARY | 2017-03-18 11:48 | External Medical Summary Rpt | CCD ---
Demographics Preferred Language Ukrainian Marital Status Unknown Hinduism Affiliation Unknown Race Unknown Ethnic Group Unknown Author Author , MARLON MASON Address Unknown Phone Immunization Unable to retrieve immunization data due to connection failure with Immunization Registry. Please try again later.
--- OUTSIDE RECORDS SUMMARY | 2017-03-18 11:48 | External Medical Summary Rpt | CCD ---
Demographics Preferred Language Belarusian Marital Status Unknown Hinduism Affiliation Unknown Race Unknown Ethnic Group Unknown Author Author , MARLON MASON Address Unknown Phone Immunization Unable to retrieve immunization data due to connection failure with Immunization Registry. Please try again later.
--- NOTE | 2017-03-18 11:55 | [facility] Report ---
History of Present Issue Date/Time Seen by Provider 03/18/17 1146 Visit Reason Pt arrived:Walked Presenting Problem:VOMTING X3 DAYS Location if Accident: Onset of symptoms date/time:/ or onset unknown for:MEDICAL HX UNKNOWN Have you (or family members/close friends) recently traveled outside the [place]? If Yes, where/when: Have you had exposure to infectious disease within the past month? TB? Other? Specify: Patient state that she has been vomiting for 3 days now State that she has taken over the counter medication to help with fever. States that she has not been able to keep much down State that she is able to drink some and keep that down but not much. State that she came in to see if she could get something for the vomiting ALLERGIES Coded Allergies: ORANGE (FOOD) (ORANGES) (THROAT SWELLING 07/11/16) Penicillins (01/13/17) Home Medications Active Scripts Methylprednisolone (Medrol Dose Soo) 4 MG PO UD #1 SOO Prov: 01/13/17 Reported Medications Levetiracetam (Keppra) 1,000 MG PO DAILY History Medical History General CAD? No Angina: No ID: No Hypertension? No Hyperlipidemia? No CHF? No DVT? No PE? No COPD? No Asthma? No Anemia? No GERD? No Gastric ulcers? No GI Bleed? No Hernia? No Thyroid Problems? No Hypothyroidism? No CVA? No Seizures? Yes Diabetes? No Renal Insuffiency? No UTI? No Stones? No BPH? No GB Disease: No Nephritic Syndrome? No Asplenia? No Hepatitis? No Sickle Cell Disease? No Arthritis? No Migraines? No Cataracts? No Glaucoma? No MRSA? No HIV? No TB? No Anxiety? No Depression? No Cancer? No More? No Immunization HX DT/Tetanus 1-4 Years Ago Flu [id number] Pneumonia Received In Past Surgical Hx Previous Surgery?Y TUBAL Social History Smoking Hx Packs/day < 1 Pack Alcohol Alcohol: No Review of Systems All Other Systems Reviewed and Negative Gastrointestinal denies constipation, denies diarrhea, nausea, vomiting Physical Exam Vital Signs Vital Signs Date Time Temp Pulse Resp B/P Pulse O2 O2 Flow FiO2 Ox Delivery Rate 03/18 1312 100.0 100 18 114/60 100 03/18 1145 100.0 100 18 114/60 100 03/18 1122 100.0 100 18 114/60 100 General Appearance Patient appears ill pale in color Respiratory Status Yes: trachea midline, chest symmetrical, non tender chest. No: respiratory distress. Cardiovascular normal exam, regular rate/rhythm Gastrointestinal normal bowel sounds, normal exam, non tender, no guarding, no rebound Neurologic alert, normal exam, oriented x 3 Comments Patient state that she has been vomiting x 3 days mucous membranes moist however patient state that she is starting to feel a little dry in her mouth. Medical Decision Making LABS/Meds/Orders Pt receiving controlled substance in ED? No Results/Orders Laboratory Tests 03/18/17 1149: Group A Strep Screen Cancelled Orders Procedure Date/time Status IV SALINE LOCK 03/18 1203 Active [facility] Progress Notes Comment Patient state that after fluids and medication for nausea she feels much better Patient being dc'd home Departure Departure Time of Disposition 1302 Disposition DC Home or Self Care(routine) Clinical Impression Primary Impression: Gastroenteritis Condition STABLE Referrals Family doctor Patient Instructions DI for Viral Gastroenteritis -- Adult, Viral Gastroenteritis Additional Instructions Take medication as prescribed Follow up with family doctor Return if needed try very small amounts of water or suck on ice chips. diarrhea. children and infants should use products formulated for children, like oral rehydration solutions. Never give aspirin to children or teenagers with a viral illness. This can cause Miguel A syndrome, a potentially life-threatening condition. Eat food easy on your stomach such as dry toast, crackers soups and broth make sure to drink plenty of fluids and allow virus to pass Discharge Counseling Counseled pt/family regarding diagnosis, medications/RX, home care, follow up needs Prescriptions Current Visit Scripts Ondansetron (Zofran 4MG Odt) 4 MG PO Q6HP PRN NAUSEA AND VOMITING #20 TAB at 1954 Primary Impression: Gastroenteritis Condition STABLE Referrals Family doctor Patient Instructions DI for Viral Gastroenteritis -- Adult, Viral Gastroenteritis Additional Instructions Take medication as prescribed Follow up with family doctor Return if needed try very small amounts of water or suck on ice chips. diarrhea. children and infants should use products formulated for children, like oral rehydration solutions. Never give aspirin to children or teenagers with a viral illness. This can cause Miguel A syndrome, a potentially life-threatening condition. Eat food easy on your stomach such as dry toast, crackers soups and broth make sure to drink plenty of fluids and allow virus to pass Discharge Counseling Counseled pt/family regarding diagnosis, medications/RX, home care, follow up needs Prescriptions Current Visit Scripts Ondansetron (Zofran 4MG Odt) 4 MG PO Q6HP PRN NAUSEA AND VOMITING #20 TAB
[2017-03-18] MEDS ORDERED: MECLIZINE 25MG25 MG PO (12:37)
[2017-03-18] MEDS ORDERED: FLONASE 50 MCG16 GM (12:37)
[2017-03-18] MEDS ORDERED: ZOFRAN ODT4 MG PO (13:05)
[2017-03-18 13:12] VITALS: BP 114/60
== END 2017-03-18 13:51 | disposition home or self-care (01) ==
LOC: ER 11:18 → UTC 11:30 → ER 11:30 → UTC 13:51
DX: K52.9 Noninfective gastroenteritis and colitis, unspecified (principal); R56.9 Unspecified convulsions; Z79.899 Other long term (current) drug therapy